=== PATIENT | female | born 1955 | race Caucasian/White ===

== ENCOUNTER → 2018-12-06 | Outpatient (CLI) | payer MEDICARE, BC ==
--- NOTE | 2018-12-06 19:12 | US ---
EXAMINATION TYPE: US kidneys/renal and bladder DATE OF EXAM: 12/06/2018 COMPARISON: Prior ultrasound 10/27/2015 CLINICAL HISTORY: N18.9 CKD. No pain EXAM MEASUREMENTS: Right Kidney: 12.5 x 5.0 x 5.4 cm Left Kidney: 11.1 x 5.3 x 5.8 cm Limited visualization due to patient body habitus Right Kidney: No hydronephrosis or masses seen Left Kidney: No hydronephrosis or masses seen Bladder: limited visualization due to patient discomfort of previous scar Bilateral Jets seen not seen There is no evidence for hydronephrosis at this point in time. No nephrolithiasis is seen. No toribio s are identified. The urinary bladder is anechoic. Kidneys show normal cortical medullary differentiation. IMPRESSION: No significant abnormalities evident.
== END | disposition home or self-care (01) ==
LOC: RADUSWWP 14:49
PROVIDERS: ATTEND Internal Medicine Geriatric Medicine
DX: N18.9 Chronic kidney disease, unspecified (principal)
CPT/HCPCS: 76770

== ENCOUNTER → 2019-03-11 | Outpatient (CLI) | payer MEDICARE, BC ==
[2019-03-11 15:51] LABS: Basophils # (A) 0.1 k/uL (0-0.2); Basophils % (A) 1 %; Eosinophils # (A) 0.5 k/uL (0-0.7); Eosinophils % (A) 4 %; HGB 12.1 gm/dL (11.4-16.0); Hypochromasia Moderate; Lymphocytes # (A) 1.5 k/uL (1.0-4.8); Lymphocytes % (A) 13 %; MCH 29.8 pg (25.0-35.0); MCHC 31.7 g/dL (31.0-37.0); MCV 93.9 fL (80.0-100.0); Mean Platelet Volume 8.1; Monocytes # (A) 0.6 k/uL (0-1.0); Monocytes % (A) 5 %; Neutrophils # (A) 9.2 k/uL (1.3-7.7); Neutrophils % (A) 77 %; Platelet Count 320 k/uL (150-450); RBC 4.05 m/uL (3.80-5.40); RDW 15.4 % (11.5-15.5)
[2019-03-12 00:59] LABS: Parathyroid Hormone Intact 67.7 pg/mL (14.0-72.0)
[2019-03-12 02:01] LABS: Iron Saturation 16.41 (12.00-45.00)
[2019-03-12 02:55] LABS: Protein, Total 6.2 g/dL (6.2-8.2)
[2019-03-12 02:56] LABS: Vitamin D 25 Hydroxy 14.1 ng/mL (30.0-100.0)
[2019-03-12 02:57] LABS: African American GFR (CKD) 55.3 (60.0-200.0); Albumin 4.2 g/dL (3.80-4.90); Anion Gap 11.1 mmol/L (4.00-12.00); BUN/Creat Ratio 27.5 Ratio (12.00-20.00); Calcium 9.9 mg/dL (8.7-10.3); Carbon Dioxide 22.9 mmol/L (21.6-31.8); Magnesium 1.3 mg/dL (1.5-2.4); Phosphorus 3.6 mg/dL (2.4-5.1); Potassium 5.6 mmol/L (3.5-5.5); Uric Acid 5.1 mg/dL (2.9-7.7)
[2019-03-12 13:39] LABS: Albumin 3.21 g/dL (3.80-4.90); Gamma Globulin 0.68 g/dL (0.70-1.50)
== END | disposition home or self-care (01) ==
LOC: LABWHC1 15:04
PROVIDERS: ATTEND Internal Medicine Nephrology
DX: N18.3 Chronic kidney disease, stage 3 (moderate) (principal); E55.9 Vitamin D deficiency, unspecified; N25.81 Secondary hyperparathyroidism of renal origin; M10.9 Gout, unspecified; N39.0 Urinary tract infection, site not specified; D44.9 Neoplasm of uncertain behavior of unspecified endocrine gland
CPT/HCPCS: 36415; 80048; 82040; 82306; 82728; 83540; 83550; 83735; 83970; 84100; 84165; 84550; 85025

== ENCOUNTER 2019-05-16 12:57 | Inpatient (IN) | payer BC, MEDICARE ==
[2019-05-16 13:53] LABS: Basophils # (A) 0.1 k/uL (0-0.2); Basophils % (A) 0 %; Eosinophils # (A) 0.5 k/uL (0-0.7); Eosinophils % (A) 4 %; HCT 37.5 % (34.0-46.0); HGB 11.7 gm/dL (11.4-16.0); Hypochromasia Slight; Lymphocytes # (A) 1.7 k/uL (1.0-4.8); Lymphocytes % (A) 13 %; MCH 28.8 pg (25.0-35.0); MCHC 31.1 g/dL (31.0-37.0); MCV 92.6 fL (80.0-100.0); Mean Platelet Volume 7.4; Monocytes # (A) 0.6 k/uL (0-1.0); Monocytes % (A) 5 %; Neutrophils # (A) 10.1 k/uL (1.3-7.7); Neutrophils % (A) 77 %; Platelet Count 327 k/uL (150-450); RBC 4.06 m/uL (3.80-5.40); RDW 14.7 % (11.5-15.5); WBC 13.2 k/uL (3.8-10.6)
[2019-05-16 14:04] LABS: Albumin 3.9 g/dL (3.5-5.0); Calcium 9.8 mg/dL (8.4-10.2); Potassium 5.5 mmol/L (3.5-5.1); Total Bilirubin 0.3 mg/dL (0.2-1.3)
[2019-05-16 14:05] LABS: Appearance,Urine Cloudy (Clear); Bacteria,Urine Rare /hpf; Bilirubin,Urine Negative (Negative); Blood,Urine Moderate (Negative); Color,Urine Yellow; Glucose,Urine (UA) Negative (Negative); Ketones,Urine Negative (Negative); Leukocyte Esterase,Urine Large (Negative); Mucus,Urine Rare /hpf; Nitrite,Urine Negative (Negative); PH, Urine 5.5 (5.0-8.0); Protein,Urine 2+ (Negative); RBC,Urine 136 /hpf (0-5); Specific Gravity,Urine 1.016 (1.001-1.035); Squamous Epithelial Cell,Urine 1 /hpf (0-4); Urobilinogen,Urine <2.0 mg/dL (<2.0)
[2019-05-16 14:07] LABS: INR 0.9 (<1.2); Partial Thromboplastin Time 24.6 sec (22.0-30.0); Prothrombin Time 9.5 sec (9.0-12.0)
--- NOTE | 2019-05-16 14:39 | ED ---
SOB HPI - General Chief Complaint: Shortness of Breath Stated Complaint: SOB, palpitations Time Seen by Provider: 05/16/19 12:58 Source: patient Mode of arrival: ambulatory Limitations: no limitations - History of Present Illness Initial Comments: 63-year-old female presenting today for chief complaint of shortness of breath. Patient states she has been short of breath for quite some time however for the past week and it has been increasing. Patient states she is also had lower extremity swelling bilaterally that is quite significant for the past year she states that it seems to have increased slightly for the past week as well. Patient states that she has currently at metal lodged due to a wound of the foot that had developed, she state she doesn't know if the shortness of breath is worse with laying flat because she sleeps in a recliner. Patient states the shortness of breath increases with exertion. Patient denies any chest pain back pain. Patient denies any pain with deep inspiration. Patient denies any epigastric pain nausea arm pain and jaw pain or diaphoresis. Patient denies any upper respiratory symptoms or fevers. Patient denies any rectal bleeding or dark stools. Remaining review of systems negative. Upon arrival patient appears well no signs of acute distress - Related Data Home Medications Medication Instructions Recorded Confirmed Albuterol Inhaler [Ventolin Hfa 2 puff INHALATION RT-Q6H PRN 10/26/15 02/19/16 Inhaler] Aspirin [Adult Low Dose Aspirin EC] 81 mg PO DAILY 10/26/15 02/19/16 Atorvastatin [Lipitor] 20 mg PO HS 10/26/15 02/19/16 Glimepiride [Amaryl] 4 mg PO AC-BRKFST 10/26/15 02/19/16 Levothyroxine Sodium [Synthroid] 50 mcg PO DAILY 10/26/15 02/19/16 Mometasone/Formoterol [Dulera 200 2 puff INHALATION RT-BID 10/26/15 02/19/16 Mcg/5 Mcg Inhaler] Previous Rx's Medication Instructions Recorded Bisacodyl [Dulcolax] 5 mg PO DAILY PRN #0 tablet. 11/01/15 Famotidine [Pepcid] 20 mg PO DAILY tab 11/01/15 Glimepiride [Amaryl] 4 mg PO AC-SUPPER #0 11/01/15 HYDROcodone/APAP 5-325MG [[place] 1 each PO Q4HR PRN #100 tab 11/01/15 5-325] INSULIN LISPRO (humaLOG) [humaLOG] 0 unit SQ ACHS vial 11/01/15 Insulin Detemir (Levemir) [Levemir] 30 unit SQ HS #0 vial 11/01/15 Lisinopril [Prinivil] 5 mg PO DAILY #30 tab 11/01/15 amLODIPine [Norvasc] 5 mg PO DAILY tab 11/01/15 cefTRIAXone [Rocephin] 2,000 mg IVPB Q24HR #42 vial 11/01/15 metFORMIN HCL 500 mg PO BID #0 11/01/15 sitaGLIPtin [Januvia] 50 mg PO DAILY #0 11/01/15 Erythromycin Base [Erythromycin] 500 mg PO QID #40 tablet 02/19/16 Allergies Allergy/AdvReac Type Severity Reaction Status Date / Time ampicillin sodium Allergy Itching Verified 05/16/19 13:01 [From Unasyn] sulbactam sodium Allergy Itching Verified 05/16/19 13:01 [From Unasyn] Review of Systems ROS Statement: Those systems with pertinent positive or pertinent negative responses have been documented in the HPI. ROS Other: All systems not noted in ROS Statement are negative. Past Medical History Past Medical History: Asthma, Diabetes Mellitus, GERD/Reflux, Hyperlipidemia, Hypertension, Osteoarthritis (OA), Pneumonia, Thyroid Disorder Additional Past Medical History / Comment(s): 10-16-15 admitted with foeign body rt foot/abcess. other past medical hx includes: RHEUMATIC FEVER, OCC PALPITATIONS,BRONCHITIS, ghout History of Any Multi-Drug Resistant Organisms: MRSA Date of last positivie culture/infection: 2008 MDRO Source:: lt leg Past Surgical History: Appendectomy, Section, Tonsillectomy Additional Past Surgical History / Comment(s): X2 C SECTIONS, right foot IND Past Anesthesia/Blood Transfusion Reactions: No Reported Reaction Additional Past Anesthesia/Blood Transfusion Reaction / Comment(s): clausterphobia Past Psychological History: No Psychological Hx Reported Smoking Status: Former smoker Past Alcohol Use History: None Reported Past Drug Use History: None Reported - Past Family History Father Family Medical History: Congestive Heart Failure (CHF), Diabetes Mellitus Additional Family Medical History / Comment(s): quad bypass Mother Family Medical History: Congestive Heart Failure (CHF) General Exam - General Exam Comments Initial Comments: General: The patient is awake and alert, in no distress Eye: +3 mm pupils are equal, round and reactive to light, extra-ocular movements are intact. No nystagmus. There is normal conjunctiva bilaterally. No signs of icterus. Ears, nose, mouth and throat: There are moist mucous membranes and no oral lesions. Neck: The neck is supple, there is no tenderness or JVD. Cardiovascular: There is a regular rate and rhythm. No murmur, rub or gallop is appreciated. Respiratory: Respirations are non-labored, breath sounds are equal. Mild expiratory wheeze however no stridor, rales, or rhonchi are appreciated. Gastrointestinal: Obese. Soft, non-distended, non-tender abdomen without masses or organomegaly noted. There is no rebound or guarding present. No CVA tenderness. Bowel sounds are unremarkable. Musculoskeletal: Normal ROM, no tenderness. Strength 5/5. Sensation intact. Pulses equal bilaterally 2+. Neurological: A&O x 3. CN II-XII intact, There are no obvious motor or sensory deficits. Coordination appears grossly intact. Speech is normal. Skin: Skin is warm and dry and no rashes or lesions are noted. Bilateral pitting edema. Psychiatric: Cooperative, appropriate mood & affect, normal judgment. Limitations: no limitations Course Vital Signs 05/16/19 05/16/19 05/16/19 12:58 15:21 15:22 Temperature 98.4 F Pulse Rate 82 79 Respiratory 18 22 22 Rate Blood Pressure 203/67 165/69 O2 Sat by Pulse 94 L 97 Oximetry 05/16/19 05/16/19 05/16/19 15:27 15:38 16:52 Temperature Pulse Rate 68 70 81 Respiratory 20 Rate Blood Pressure 156/77 O2 Sat by Pulse 97 Oximetry Medical Decision Making - Medical Decision Making 63-year-old female presenting for shortness of breath and weight gain. Patient states that she has gained 50 pounds the last month. She states she has incre asing shortness breath with exertion. Patient's EKG reveals no acute findings. BMP within normal limits. Creatinine and when necessary no significant abnormalities. D-dimer was obtained at this time given patient's persistent shortness of breath. Revealing no evidence of acute pulmonary embolism however this was a suboptimal study given patient's body habitus. Patient continues to be symptomatic despite DuoNeb treatment and IV lasix. States she feels lightheaded with ambulation. Patient case was discussed with Dr. Mathur and at this time we feel patient should be admitted for persistent SOB, lightheadedness and have cardiac evaluation. Dr. Severino did evaluate the patient in the ER prior to completion of studies. Dr. Mathur spoke with Dr. Villalta who recommended admission with IV lasix and cardiology consult. Patient admitted in stable condition. - Lab Data Result diagrams: 05/16/19 13:30 05/16/19 13:30 Lab Results 05/16/19 05/16/19 05/16/19 Range/Units 13:30 13:30 13:30 WBC 13.2 H (3.8-10.6) k/uL RBC 4.06 (3.80-5.40) m/uL Hgb 11.7 (11.4-16.0) gm/dL Hct 37.5 (34.0-46.0) % MCV 92.6 (80.0-100.0) fL MCH 28.8 (25.0-35.0) pg MCHC 31.1 (31.0-37.0) g/dL RDW 14.7 (11.5-15.5) % Plt Count 327 (150-450) k/uL Neutrophils % 77 % Lymphocytes % 13 % Monocytes % 5 % Eosinophils % 4 % Basophils % 0 % Neutrophils # 10.1 H (1.3-7.7) k/uL Lymphocytes # 1.7 (1.0-4.8) k/uL Monocytes # 0.6 (0-1.0) k/uL Eosinophils # 0.5 (0-0.7) k/uL Basophils # 0.1 (0-0.2) k/uL Hypochromasia Slight PT (9.0-12.0) sec INR (<1.2) APTT (22.0-30.0) sec D-Dimer (<0.60) mg/L FEU Sodium 144 (137-145) mmol/L Potassium 5.5 H (3.5-5.1) mmol/L Chloride 111 H (98-107) mmol/L Carbon Dioxide 23 (22-30) mmol/L Anion Gap 10 mmol/L BUN 34 H (7-17) mg/dL Creatinine 1.13 H (0.52-1.04) mg/dL Est GFR (CKD-EPI)AfAm 60 (>60 ml/min/1.73 sqM) Est GFR (CKD-EPI)NonAf 52 (>60 ml/min/1.73 sqM) Glucose 180 H (74-99) mg/dL Calcium 9.8 (8.4-10.2) mg/dL Total Bilirubin 0.3 (0.2-1.3) mg/dL AST 16 (14-36) U/L ALT 24 (9-52) U/L Alkaline Phosphatase 108 (38-126) U/L Troponin I (0.000-0.034) ng/mL NT-Pro-B Natriuret Pep 51 pg/mL Total Protein 7.0 (6.3-8.2) g/dL Albumin 3.9 (3.5-5.0) g/dL Urine Color Urine Appearance (Clear) Urine pH (5.0-8.0) Ur Specific [place] (1.001-1.035) Urine Protein (Negative) Urine Glucose (UA) (Negative) Urine Ketones (Negative) Urine Blood (Negative) Urine Nitrite (Negative) Urine Bilirubin (Negative) Urine Urobilinogen (<2.0) mg/dL Ur Leukocyte Esterase (Negative) Urine RBC (0-5) /hpf Urine WBC (0-5) /hpf Urine WBC Clumps (None) /hpf Ur Squamous Epith Cells (0-4) /hpf Urine Bacteria (None) /hpf Urine Mucus (None) /hpf 05/16/19 05/16/19 05/16/19 Range/Units 13:30 13:30 13:30 WBC (3.8-10.6) k/uL RBC (3.80-5.40) m/uL Hgb (11.4-16.0) gm/dL Hct (34.0-46.0) % MCV (80.0-100.0) fL MCH (25.0-35.0) pg MCHC (31.0-37.0) g/dL RDW (11.5-15.5) % Plt Count (150-450) k/uL Neutrophils % % Lymphocytes % % Monocytes % % Eosinophils % % Basophils % % Neutrophils # (1.3-7.7) k/uL Lymphocytes # (1.0-4.8) k/uL Monocytes # (0-1.0) k/uL Eosinophils # (0-0.7) k/uL Basophils # (0-0.2) k/uL Hypochromasia PT 9.5 (9.0-12.0) sec INR 0.9 (<1.2) APTT 24.6 (22.0-30.0) sec D-Dimer (<0.60) mg/L FEU Sodium (137-145) mmol/L Potassium (3.5-5.1) mmol/L Chloride (98-107) mmol/L Carbon Dioxide (22-30) mmol/L Anion Gap mmol/L BUN (7-17) mg/dL Creatinine (0.52-1.04) mg/dL Est GFR (CKD-EPI)AfAm (>60 ml/min/1.73 sqM) Est GFR (CKD-EPI)NonAf (>60 ml/min/1.73 sqM) Glucose (74-99) mg/dL Calcium (8.4-10.2) mg/dL Total Bilirubin (0.2-1.3) mg/dL AST (14-36) U/L ALT (9-52) U/L Alkaline Phosphatase (38-126) U/L Troponin I <0.012 (0.000-0.034) ng/mL NT-Pro-B Natriuret Pep pg/mL Total Protein (6.3-8.2) g/dL Albumin (3.5-5.0) g/dL Urine Color Yellow Urine Appearance Cloudy H (Clear) Urine pH 5.5 (5.0-8.0) Ur Specific [place] 1.016 (1.001-1.035) Urine Protein 2+ H (Negative) Urine Glucose (UA) Negative (Negative) Urine Ketones Negative (Negative) Urine Blood Moderate H (Negative) Urine Nitrite Negative (Negative) Urine Bilirubin Negative (Negative) Urine Urobilinogen <2.0 (<2.0) mg/dL Ur Leukocyte Esterase Large H (Negative) Urine RBC 136 H (0-5) /hpf Urine WBC >182 H (0-5) /hpf Urine WBC Clumps Many H (None) /hpf Ur Squamous Epith Cells 1 (0-4) /hpf Urine Bacteria Rare H (None) /hpf Urine Mucus Rare H (None) /hpf 05/16/19 Range/Units 13:30 WBC (3.8-10.6) k/uL RBC (3.80-5.40) m/uL Hgb (11.4-16.0) gm/dL Hct (34.0-46.0) % MCV (80.0-100.0) fL MCH (25.0-35.0) pg MCHC (31.0-37.0) g/dL RDW (11.5-15.5) % Plt Count (150-450) k/uL Neutrophils % % Lymphocytes % % Monocytes % % Eosinophils % % Basophils % % Neutrophils # (1.3-7.7) k/uL Lymphocytes # (1.0-4.8) k/uL Monocytes # (0-1.0) k/uL Eosinophils # (0-0.7) k/uL Basophils # (0-0.2) k/uL Hypochromasia PT (9.0-12.0) sec INR (<1.2) APTT (22.0-30.0) sec D-Dimer 1.13 H (<0.60) mg/L FEU Sodium (137-145) mmol/L Potassium (3.5-5.1) mmol/L Chloride (98-107) mmol/L Carbon Dioxide (22-30) mmol/L Anion Gap mmol/L BUN (7-17) mg/dL Creatinine (0.52-1.04) mg/dL Est GFR (CKD-EPI)AfAm (>60 ml/min/1.73 sqM) Est GFR (CKD-EPI)NonAf (>60 ml/min/1.73 sqM) Glucose (74-99) mg/dL Calcium (8.4-10.2) mg/dL Total Bilirubin (0.2-1.3) mg/dL AST (14-36) U/L ALT (9-52) U/L Alkaline Phosphatase (38-126) U/L Troponin I (0.000-0.034) ng/mL NT-Pro-B Natriuret Pep pg/mL Total Protein (6.3-8.2) g/dL Albumin (3.5-5.0) g/dL Urine Color Urine Appearance (Clear) Urine pH (5.0-8.0) Ur Specific [place] (1.001-1.035) Urine Protein (Negative) Urine Glucose (UA) (Negative) Urine Ketones (Negative) Urine Blood (Negative) Urine Nitrite (Negative) Urine Bilirubin (Negative) Urine Urobilinogen (<2.0) mg/dL Ur Leukocyte Esterase (Negative) Urine RBC (0-5) /hpf Urine WBC (0-5) /hpf Urine WBC Clumps (None) /hpf Ur Squamous Epith Cells (0-4) /hpf Urine Bacteria (None) /hpf Urine Mucus (None) /hpf - EKG Data EKG Comments: Ventricular rate 74 bpm, MA interval 154 ms, Administration 88 ms, QT/QTc is 378/419. Disposition Clinical Impression: SOB (shortness of breath), Lightheaded, Weight gain, Pitting edema, UTI (urinary tract infection), Leukocytosis Disposition: ADMITTED IP TO THIS [facility] Condition: Stable Additional Instructions: . Is patient prescribed a controlled substance at d/c from ED?: No Referrals: Sanket Severino MD [Primary Care Provider] - 1-2 days Time of Disposition: 17:31 Decision to Admit Reason: Admit from EC Decision Date: 05/16/19 Decision Time: 17:31
[2019-05-16] MEDS ORDERED: FUROSEMIDE 10 MG/ML 4 ML VIAL IV STA (14:43)
[2019-05-16] MEDS ORDERED: methylPREDNISolone SOD SUCCI 125 MG/2 ML VIAL IV STA (14:43)
[2019-05-16] MEDS ORDERED: IPRATROPIUM-ALBUTEROL 3 ML NEB INHALATION STA (14:43)
--- NOTE | 2019-05-16 15:08 | XR ---
EXAMINATION TYPE: XR chest 2V DATE OF EXAM: 05/16/2019 COMPARISON: Prior chest x-ray 10/28/2015 HISTORY: Shortness of breath, heart failure, asthma TECHNIQUE: Frontal and lateral views of the chest are obtained. FINDINGS: There are prominent lung volumes present. No evident airspace disease, pneumothorax, or pl eural effusion. The heart remains enlarged. Pulmonary vascularity and elmer are not significantly sarabia ged. Bone mineralization is stable. There is flattening of hemidiaphragms. Thoracic spondylosis is pr esent. Linear scarring along the left heart border shows a similar appearance. IMPRESSION: No acute cardiopulmonary process. Stable cardiomegaly.
[2019-05-16] MEDS ORDERED: cefTRIAXone IN SWFI 1,000 MG/10 ML SYRINGE IVP STA (15:26)
--- NOTE | 2019-05-16 17:06 | CT ---
EXAMINATION TYPE: CT angio chest DATE OF EXAM: 05/16/2019 COMPARISON: Chest x-ray earlier today HISTORY: Elevated d-dimer and shortness of breath. CT DLP: 1067.4 mGycm. Automated Exposure Control for Dose Reduction was Utilized. CONTRAST: CTA scan of the thorax is performed with IV Contrast, patient injected with 80 mL of Isovue 370, pulm onary embolism protocol. MIP Images are created on CT scanner and reviewed. FINDINGS: Suboptimal due to large body habitus. LUNGS: Respiratory motion artifact degradation making evaluation suboptimal particularly for subcenti meter nodules. Patchy bibasilar linear scarring and/or atelectasis is felt present. No suspicious mas ses. No pleural effusion or pneumothorax. MEDIASTINUM: Suboptimal study with heterogeneity and near equal contrast in right and left heart syst em no convincing CT evidence for significant central pulmonary embolism. There is enlarged paratrach eal lymph node measuring 2.1 x 1.2 cm axial image 53. Some prominent right hilar lymph nodes are note d. No pericardial effusion is seen. Cardiomegaly is present. Prominent central pulmonary arteries. C T findings suggesting underlying pulmonary hypertension. OTHER: Visualized liver suspected mildly enlarged. Underlying scoliotic curvature is seen with multil evel spurring. IMPRESSION: Suboptimal study without CT evidence for acute pulmonary embolism. Cardiomegaly without suspicious acute pulmonary process.
[2019-05-16] MEDS ORDERED: NALOXONE 0.4 MG/ML 1 ML VIAL IV PRN (17:32)
[2019-05-16] MEDS: SODIUM CHLORIDE 0.9% 1,000 ML IV SCH (18:09)
[2019-05-16 19:42] VITALS: BMI 46.5
[2019-05-16 19:42] LABS: Glucose,Whole Blood 231 mg/dL (75-99)
[2019-05-17] MEDS ORDERED: FUROSEMIDE 10 MG/ML 4 ML VIAL IV SCH (01:00)
[2019-05-17] MEDS: LEVOTHYROXINE 50 MCG TAB PO SCH (03:24)
[2019-05-17 06:51] LABS: Glucose,Whole Blood 337 mg/dL (75-99)
[2019-05-17] MEDS: SYMBICORT 160-4.5 MCG INHALER INHALATION SCH ×2 (07:45→19:30)
[2019-05-17] MEDS: ALBUTEROL NEBULIZED 2.5 MG/3 ML INHALATION PRN (07:45)
--- NOTE | 2019-05-17 08:30 | P.HPIM ---
History of Present Illness H&P Date: 05/17/19 Chief Complaint: SOB This is a 63-year-old pleasant female who presented to the emergency room after seeing her primary care physician for increased shortness of breath. Patient was sent to the emergency room due to a low pulse ox in the 80s in the office and increased shortness of breath. Patient states that over the last month she has gained approximately 35 pounds and has noticed increased swelling to her lower extremities. Patient has been utilizing a walker to get around due to increased difficulty breathing. Initially when the patient started having difficulty breathing she was started on Lasix however she has found that it has not helped. Patient denies any chest pain or pain with inspiration. Patient denies any diaphoresis or jaw pain. Patient states that the pain is worse when she is ambulating and eating. Patient is a former smoker completely quit approximately 2 years ago she is a total of 25 years of smoking 1 pack a day. Patient's past medical history is significant for asthma. She has not had any episodes of exacerbation since patient takes Symbicort twice a day for management. Past medical history includes diabetes mellitus for the last 10 years, acid reflux, hyperlipidemia, hypertension, osteoarthritis, thyroid disorder, gout. Patient had rheumatic fever when she was younger. Patient lives alone and provides own self-care. Review of Systems Review Of Systems: Constitutional: No fever, no chills, no night sweats. Reports weight change. Report weakness, no fatigue or lethargy. No daytime sleepiness. EENT: No headache. No blurred vision or double vision, no loss of vision. No loss of Hearing, no ringing in the ears, no dizziness. No nasal drainage or congestion. No epistaxis. No sore throat. Lungs: Reports shortness of breath, no cough, no sputum production. No wheezing. Cardiovascular: No chest pain, reports lower extremity edema. No palpitations. No paroxysmal nocturnal dyspnea. No orthopnea. No lightheadedness or dizziness. No syncopal episodes. Abdominal: no abdominal discomfort. No nausea, vomiting. no diarrhea. No constipation. No bloody or tarry stools. improved loss of appetite. Genitourinary: No dysuria, increased frequency, urgency. No urinary retention. Musculoskeletal: No myalgias. No muscle weakness, no gait dysfunction, no frequent falls. No back pain. No neck pain. Integumentary: No wounds, no lesions. No rash or pruritus. No unusual bruising. No change in hair or nails. Neurologic: No aphasia. No facial droop. No change in mentation. No head injury. No headache. No paralysis. No paresthesia. Psychiatric: No depression. No anxiety. No mood swings. Endocrine: No abnormal blood sugars. Reports weight change. No excessive sweating or thirst. Past Medical History Past Medical History: Asthma, Diabetes Mellitus, GERD/Reflux, Hyperlipidemia, Hypertension, Osteoarthritis (OA), Pneumonia, Thyroid Disorder Additional Past Medical History / Comment(s): 10-16-15 admitted with foeign body rt foot/abcess. other past medical hx includes: RHEUMATIC FEVER, OCC PALPITATIONS,BRONCHITIS, ghout History of Any Multi-Drug Resistant Organisms: MRSA Date of last positivie culture/infection: 2008 MDRO Source:: lt leg Past Surgical History: Appendectomy, Section, Tonsillectomy Additional Past Surgical History / Comment(s): X2 C SECTIONS, right foot IND Past Anesthesia/Blood Transfusion Reactions: No Reported Reaction Additional Past Anesthesia/Blood Transfusion Reaction / Comment(s): clausterphobia Past Psychological History: No Psychological Hx Reported Smoking Status: Former smoker Past Alcohol Use History: None Reported Additional Past Alcohol Use History / Comment(s): has smoked half a pack of cigarettes per day off and on since age 21 but since december 2014. She now smokes an occasional cigarette. She denies any medical marijuana, marijuana, street drug or alcohol use. Patient currently lives at home with her fianc. There are no pets in the home. She denies any recent travel. 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 - Past Family History Father Family Medical History: Congestive Heart Failure (CHF), Diabetes Mellitus Additional Family Medical History / Comment(s): quad bypass Mother Family Medical History: Blood Disorder (Anemia), Congestive Heart Failure (CHF), Coronary Artery Disease (CAD) Additional Family Medical History / Comment(s): at 79 Daughter(s) Family Medical History: No Reported History Medications and Allergies Home Medications Medication Instructions Recorded Confirmed Type Albuterol Inhaler [Ventolin Hfa 2 puff INHALATION RT-Q6H PRN 10/26/15 05/16/19 History Inhaler] Atorvastatin [Lipitor] 20 mg PO HS 10/26/15 05/16/19 History Levothyroxine Sodium [Synthroid] 50 mcg PO DAILY 10/26/15 05/16/19 History Lisinopril [Prinivil] 5 mg PO DAILY #30 tab 11/01/15 05/16/19 Rx amLODIPine [Norvasc] 5 mg PO DAILY tab 11/01/15 05/16/19 Rx Allopurinol [Zyloprim] 300 mg PO DAILY 05/16/19 05/16/19 History Aspirin EC [Ecotrin] 325 mg PO DAILY 05/16/19 05/16/19 History Budesonide/Formoterol Fumarate 2 puff INHALATION RT-BID 05/16/19 05/16/19 History [Symbicort 160-4.5 Mcg Inhaler] INSULIN ASPART (NovoLOG) [NovoLOG See Protocol SQ AC-TID 05/16/19 05/16/19 History (formulary)] Insulin Degludec [Tresiba 140 units SQ DAILY 05/16/19 05/16/19 History Flextouch U-200] sitaGLIPtin [Januvia] 100 mg PO DAILY 05/16/19 05/16/19 History Allergies Allergy/AdvReac Type Severity Reaction Status Date / Time ampicillin sodium Allergy Itching Verified 05/16/19 18:05 [From Unasyn] sulbactam sodium Allergy Itching Verified 05/16/19 18:05 [From Unasyn] Physical Exam Vitals: Vital Signs Temp Pulse Pulse Resp BP BP Pulse Ox 05/17/19 08:00 68 05/17/19 07:46 66 05/17/19 04:00 97.8 F 71 18 187/64 95 05/17/19 03:39 77 18 05/17/19 00:00 77 18 05/16/19 23:00 97.6 F 77 18 159/62 95 05/16/19 20:00 66 18 05/16/19 19:24 97.8 F 66 18 177/84 94 L 05/16/19 18:50 98.1 F 85 18 169/75 97 05/16/19 16:52 81 20 156/77 97 05/16/19 15:38 70 05/16/19 15:27 68 05/16/19 15:22 79 22 165/69 97 05/16/19 15:21 22 05/16/19 12:58 98.4 F 82 18 203/67 94 L Intake and Output 05/16/19 05/17/19 05/17/19 22:59 06:59 14:59 Other: # Voids 0 General Appearance: Alert, cooperative, no distress, appears stated age. Neck HEENT: Supple, no lymphadenopathy, no thyroid enlargement, no carotid bruits. Lungs: Clear to auscultation without crackles or wheezes no rhonchi, no deformity. Chest Wall: Chest wall normal expansion with deep inspiration no tenderness and no deformity was found on exam, no costochondral pain or discomfort. Heart: Regular rate and rhythm, S1, S2 normal, no murmur, rub or gallop. Back: Symmetric, no curvature, ROM normal, no CVA tenderness. Abdomen: Soft, non-tender, no rebound or rigidity, no hepatosplenomegaly. Extremities: 2+ pedal edema bilaterally Extremities normal, atraumatic, no cyanosis Pulses: 2+ and symmetric. Skin: Skin color, texture, tugor normal, no rashes or lesions. Neurologic: Alert oriented x3 cranial nerves II through XII intact, no motor deficit, no abnormal balance or gait Results CBC & Chem 7: 05/16/19 13:30 05/16/19 13:30 Labs: Abnormal Lab Results - Last 24 Hours (Table) 05/16/19 05/16/19 05/16/19 Range/Units 13:30 13:30 13:30 WBC 13.2 H (3.8-10.6) k/uL Neutrophils # 10.1 H (1.3-7.7) k/uL D-Dimer (<0.60) mg/L FEU Potassium 5.5 H (3.5-5.1) mmol/L Chloride 111 H (98-107) mmol/L BUN 34 H (7-17) mg/dL Creatinine 1.13 H (0.52-1.04) mg/dL Glucose 180 H (74-99) mg/dL POC Glucose (mg/dL) (75-99) mg/dL Urine Appearance Cloudy H (Clear) Urine Protein 2+ H (Negative) Urine Blood Moderate H (Negative) Ur Leukocyte Esterase Large H (Negative) Urine RBC 136 H (0-5) /hpf Urine WBC >182 H (0-5) /hpf Urine WBC Clumps Many H (None) /hpf Urine Bacteria Rare H (None) /hpf Urine Mucus Rare H (None) /hpf 05/16/19 05/16/19 05/17/19 Range/Units 13:30 19:41 06:49 WBC (3.8-10.6) k/uL Neutrophils # (1.3-7.7) k/uL D-Dimer 1.13 H (<0.60) mg/L FEU Potassium (3.5-5.1) mmol/L Chloride (98-107) mmol/L BUN (7-17) mg/dL Creatinine (0.52-1.04) mg/dL Glucose (74-99) mg/dL POC Glucose (mg/dL) 231 H 337 H (75-99) mg/dL Urine Appearance (Clear) Urine Protein (Negative) Urine Blood (Negative) Ur Leukocyte Esterase (Negative) Urine RBC (0-5) /hpf Urine WBC (0-5) /hpf Urine WBC Clumps (None) /hpf Urine Bacteria (None) /hpf Urine Mucus (None) /hpf Microbiology - Last 24 Hours (Table) 05/16/19 13:30 Urine Culture - Preliminary Urine,Voided Thrombosis Risk Factor Assmnt - Choose All That Apply Any of the Below Risk Factors Present?: Yes Each Factor Represents 1 point: Acute SC, Heart failure (<1month), Obesity (BMI >25), Swollen legs (current) Other Risk Factors: Yes Each Risk Factor Represents 2 Points: Age 61-74 years Other congenital or acquired thrombophilia - If yes, enter type in comment: No Thrombosis Risk Factor Assessment Total Risk Factor Score: 6 Thrombosis Risk Factor Assessment Level: High Risk Assessment and Plan Plan: 1. Diastolic congestive heart failure with exacerbation. Echocardiogram ordered, consult cardiology, Lasix 40 mg IV twice a day 2. Obesity with hyper ventilation syndrome. As noted above 3. Diabetes mellitus. NovoLog 5 units 3 times a day, Levemir 140 units, Linaglitin 5 mg daily 4. Hypertension. Amlodipine 10 mg, lisinopril 10 mg daily, Toprol XL 25 mg daily 5. Chronic kidney disease. Repeat BUN and creatinine, follow-up with Dr. Vázquez outpatient 6. Obstructive sleep apnea. Refer for outpatient sleep study 7. Asthma. Symbicort 2 puffs inhalation twice a day 8. Gout. Allopurinol 30 mg by mouth daily 9. Hyperlipidemia. Lipitor 20 mg daily 10. Hypothyroidism. Synthroid 50 g by mouth 11. GI prophylaxis Pepcid 20 mg daily 12. DVT prophylaxis. Heparin 5000 units subcu every 12 hours Discharge plan: Possible discharge tomorrow to home Impression and plan of care have been directed as dictated by the signing physician. Fabiana Davis nurse practitioner acting as scribe for signing physician.
[2019-05-17] MEDS ORDERED: LISINOPRIL 5 MG TAB PO SCH (09:00)
[2019-05-17] MEDS ORDERED: amLODIPine 5 MG TAB PO SCH (09:00)
[2019-05-17] MEDS: INSULIN ASPART (NovoLOG) 100 UNIT/ML VIAL SQ SCH ×3 (10:11→17:11)
[2019-05-17] MEDS: HEPARIN SODIUM,PORCINE 5,000 UNIT/ML 1 ML VIAL SQ SCH ×2 (10:17→19:45)
[2019-05-17] MEDS: LISINOPRIL 10 MG TAB PO SCH (10:18)
[2019-05-17] MEDS: ASPIRIN 325 MG TAB PO SCH (10:18)
[2019-05-17] MEDS: amLODIPine 10 MG TAB PO SCH (10:18)
[2019-05-17] MEDS: FUROSEMIDE 10 MG/ML 4 ML VIAL IV SCH ×2 (10:18→19:45)
[2019-05-17] MEDS: METOPROLOL SUCCINATE (ER) 25 MG TAB.ER.24H PO SCH (10:19)
[2019-05-17] MEDS: INSULIN DETEMIR (LEVEMIR) 100 UNIT/ML SYR SQ SCH (10:19)
[2019-05-17] MEDS: LINAGLIPTIN 5 MG TABLET PO SCH (10:19)
[2019-05-17] MEDS: FAMOTIDINE 20 MG TAB PO SCH (10:20)
[2019-05-17] MEDS: ALLOPURINOL 300 MG TAB PO SCH (10:20)
[2019-05-17 11:35] LABS: Glucose,Whole Blood 448 mg/dL (75-99)
--- NOTE | 2019-05-17 12:40 | CONS ---
CONSULTATION CHIEF COMPLAINT: Shortness of breath. This is a 63-year-old lady with multiple medical problems including insulin-requiring diabetes, hypertension, dyslipidemia, and hypothyroidism who was seen by her primary care physician yesterday when she complains of dizziness and shortness of breath and was sent to the emergency room from where she is admitted. The patient states that she becomes short of breath with activity and also has episodes of dizziness, especially when she goes from sitting to lying down position. She does not have any chest pain. There is no history of PND or orthopnea and she has mild leg edema. Her hemoglobin is 11.7, white cell count is elevated and she has evidence of urinary tract infection. She also has uncontrolled hypertension on this admission. Patient's shortness of breath may be related to morbid obesity, poor physical activity, uncontrolled hypertension. We certainly have to rule out significant valvular heart disease in this patient who has a heart murmur and carries a history of rheumatic fever when she was young. From her history, she has not had any cardiac evaluation in the past. UTI could be contributing to the dizziness and some of her symptoms. Blood pressure is poorly controlled. The patient was on amlodipine 5 mg daily and Prinivil 5 mg daily at home. I am going to increase the amlodipine to 10 mg daily, start her on Toprol XL 25 mg daily and go up on the dose of Zestril to 10 mg daily. I will obtain a 2D echo to evaluate her LV function. Her BNP is normal. D-dimer was elevated. She went on to have a CT scan of the chest, which did not reveal any evidence of pulmonary embolism. PAST MEDICAL HISTORY: Significant for hypertension, diabetes, hypothyroidism, and she also has COPD or asthma. MEDICATIONS: Medications at home include Lipitor, insulin, albuterol, Zyloprim, aspirin, Januvia, Norvasc, Prinivil, and Synthroid. ALLERGIES: Allergic to UNASYN. FAMILY HISTORY: Significant for coronary artery disease and congestive heart failure. SOCIAL HISTORY: Negative for smoking, EtOH abuse or drug abuse. REVIEW OF SYSTEMS: HEENT is as described above. CARDIAC: As described above. RESPIRATORY: As described above. GI: Negative. GENITOURINARY: Negative. ALLERGY/IMMUNOLOGY: Negative. SKIN: Negative. MUSCULOSKELETAL: Significant for morbid obesity. PSYCHOSOCIAL: Negative. ENDOCRINE: Negative. HEMATOLOGICAL: Negative. DERM: Negative. CONSTITUTIONAL: Negative. ONCOLOGICAL: Negative. Rest of the system review is not relevant. PHYSICAL EXAMINATION: On exam, patient is afebrile. Heart rate is 76 beats per minute, blood pressure is 166/65, O2 sat is 96% on 2 L. There is no jugular venous distention. Carotid upstroke is normal. There is no bruit. Chest exam reveals good air entry without any crackles or rhonchi. Heart exam reveals first and second heart sounds. No gallop. Has a grade 3/6 systolic murmur at the apex. Abdomen is soft. Examination of extremities reveals mild bilateral edema. LABS: Labs show a hemoglobin of 11.7, creatinine is 1.1, potassium is 5.5. Troponin is normal. ASSESSMENT: 1. Shortness of breath, rule out cardiac causes. 2. Dizziness. 3. Uncontrolled hypertension. 4. Urinary tract infection. PLAN: The patient will have an echo done today. We will adjust her medications to better control her blood pressure and we will decide on further course of action based on how her symptoms evolve and what this initial testing shows. MMODL / IJN: [id number] /
--- NOTE | 2019-05-17 15:47 | ECHOF ---
Referral Reason:Shortness of breath MEASUREMENTS -------- HEIGHT: 175.3 cm WEIGHT: 142.9 kg BP: 166/65 RVIDd: 3.3 cm (< 3.3) IVSd: 1.4 cm (0.6 - 1.1) LVIDd: 5.2 cm (3.9 - 5.3) LVPWd: 1.1 cm (0.6 - 1.1) IVSs: 2.3 cm LVIDs: 3.4 cm LVPWs: 1.5 cm Ao Diam: 3.7 cm (2.0 - 3.7) AV Cusp: 2.1 cm (1.5 - 2.6) LA Diam: 3.5 cm (2.7 - 3.8) MV EXCURSION: 18.807 mm (> 18.000) MV EF SLOPE: 68 mm/s (70 - 150) EPSS: 0.6 cm MV E Juvencio: 2.01 m/s MV DecT: 321 ms MV A Juvencio: 1.48 m/s MV E/A Ratio: 1.36 FINDINGS -------- Sinus rhythm. This was a technically difficult study with suboptimal views. LV size, wall thickness and systolic function are normal, with an EF greater than 55%. There is bor derline concentric left ventricular hypertrophy. The right ventricle is normal in size and function. The left atrium is normal in size. The right atrium is normal in size. 5.0mg of Lumason was utilized for enhancement of images Interatrial and interventricular septum intact. The aortic valve is trileaflet, and appears structurally normal. No aortic stenosis or regurgitation. Normal appearing mitral valve. The tricuspid valve appears structurally normal. There is no evidence of pulmonary hypertension. Pulmonic valve appears structurally normal. The aortic root, ascending aorta and aortic arch are normal. The pericardium is normal. CONCLUSIONS -------- 1. Sinus rhythm. 2. This was a technically difficult study with suboptimal views. 3. LV size, wall thickness and systolic function are normal, with an EF greater than 55%. 4. There is borderline concentric left ventricular hypertrophy. 5. The right ventricle is normal in size and function. 6. The left atrium is normal in size. 7. The right atrium is normal in size. 8. 5.0mg of Lumason was utilized for enhancement of images 9. Interatrial and interventricular septum intact. 10. The aortic valve is trileaflet, and appears structurally normal. No aortic stenosis or regurgitat ion. 11. Normal appearing mitral valve. 12. The tricuspid valve appears structurally normal. 13. There is no evidence of pulmonary hypertension. 14. Pulmonic valve appears structurally normal. 15. The aortic root, ascending aorta and aortic arch are normal. 16. The pericardium is normal. GEOPHYSICAL LABORATORY DIRECTOR: Jonathan Matamoros RDCS
[2019-05-17 16:24] LABS: Glucose,Whole Blood 386 mg/dL (75-99)
[2019-05-17] MEDS: SODIUM CHLORIDE 0.9% 1,000 ML IV SCH (17:18)
[2019-05-17] MEDS: ACETAMINOPHEN TAB 325 MG TAB PO PRN (19:45)
[2019-05-17] MEDS: ATORVASTATIN 20 MG TAB PO SCH (19:45)
[2019-05-17 19:47] LABS: Glucose,Whole Blood 335 mg/dL (75-99)
[2019-05-18] MEDS: LEVOTHYROXINE 50 MCG TAB PO SCH (06:03)
[2019-05-18 06:23] LABS: Basophils # (A) 0.1 k/uL (0-0.2); Basophils % (A) 0 %; Eosinophils # (A) 0.2 k/uL (0-0.7); Eosinophils % (A) 2 %; HCT 37.6 % (34.0-46.0); HGB 11.6 gm/dL (11.4-16.0); Hypochromasia Slight; Lymphocytes # (A) 2.1 k/uL (1.0-4.8); Lymphocytes % (A) 13 %; MCH 29.3 pg (25.0-35.0); MCHC 30.8 g/dL (31.0-37.0); MCV 95.2 fL (80.0-100.0); Monocytes # (A) 0.8 k/uL (0-1.0); Monocytes % (A) 5 %; Neutrophils # (A) 11.9 k/uL (1.3-7.7); Neutrophils % (A) 78 %; Platelet Count 379 k/uL (150-450); RBC 3.95 m/uL (3.80-5.40); RDW 15.3 % (11.5-15.5); WBC 15.3 k/uL (3.8-10.6)
[2019-05-18 06:34] LABS: Calcium 9.3 mg/dL (8.4-10.2); Potassium 5.7 mmol/L (3.5-5.1)
[2019-05-18 06:40] LABS: Glucose,Whole Blood 323 mg/dL (75-99)
[2019-05-18] MEDS: SYMBICORT 160-4.5 MCG INHALER INHALATION SCH ×2 (07:31→19:28)
[2019-05-18] MEDS: HEPARIN SODIUM,PORCINE 5,000 UNIT/ML 1 ML VIAL SQ SCH ×2 (07:44→20:57)
[2019-05-18] MEDS: FUROSEMIDE 10 MG/ML 4 ML VIAL IV SCH (07:44)
[2019-05-18] MEDS: METOPROLOL SUCCINATE (ER) 25 MG TAB.ER.24H PO SCH (07:44)
[2019-05-18] MEDS: LINAGLIPTIN 5 MG TABLET PO SCH (07:45)
[2019-05-18] MEDS: INSULIN ASPART (NovoLOG) 100 UNIT/ML VIAL SQ SCH ×3 (07:45→18:05)
[2019-05-18] MEDS: INSULIN DETEMIR (LEVEMIR) 100 UNIT/ML SYR SQ SCH (07:45)
[2019-05-18] MEDS: ALLOPURINOL 300 MG TAB PO SCH (07:45)
[2019-05-18] MEDS: amLODIPine 10 MG TAB PO SCH (07:46)
[2019-05-18] MEDS: ASPIRIN 325 MG TAB PO SCH (07:46)
[2019-05-18] MEDS: LISINOPRIL 10 MG TAB PO SCH (07:46)
[2019-05-18] MEDS: FAMOTIDINE 20 MG TAB PO SCH (07:46)
[2019-05-18] MEDS: hydrALAZINE HCL 50 MG TAB PO SCH ×3 (09:46→20:57)
--- NOTE | 2019-05-18 11:02 | P.PN ---
Subjective Progress Note Date: 05/18/19 This is a 63-year-old pleasant female who presented to the emergency room after seeing her primary care physician for increased shortness of breath. Patient was sent to the emergency room due to a low pulse ox in the 80s in the office and increased shortness of breath. Patient states that over the last month she has gained approximately 35 pounds and has noticed increased swelling to her lower extremities. Patient has been utilizing a walker to get around due to increased difficulty breathing. Initially when the patient started having difficulty breathing she was started on Lasix however she has found that it has not helped. Patient denies any chest pain or pain with inspiration. Patient denies any diaphoresis or jaw pain. Patient states that the pain is worse when she is ambulating and eating. Patient is a former smoker completely quit approximately 2 years ago she is a total of 25 years of smoking 1 pack a day. Patient's past medical history is significant for asthma. She has not had any episodes of exacerbation since patient takes Symbicort twice a day for management. Past medical history includes diabetes mellitus for the last 10 years, acid reflux, hyperlipidemia, hypertension, osteoarthritis, thyroid disorder, gout. Patient had rheumatic fever when she was younger. Patient lives alone and provides own self-care. 05/18: Patient is resting quietly in bed without any new complaints or concerns. Patient has been ambulating within the halls without any difficulties or chest pain or shortness of breath. Patient states that the shortness of breath has improved. Patient blood glucose levels continue to be elevated. Patient states that Levemir does not work for her she also utilizes 20 units of NovoLog and additional sliding scale. Patient is concerned that she has not had a Pap smear in quite a few years and this requesting to have one performed. Instructed patient that this is done an outpatient and to call the office to schedule. Lower extremity swelling has decreased. Patient is scheduled for a stress test tomorrow. Review Of Systems: Constitutional: No fever, no chills, no night sweats. No weight change. No weakness, fatigue or lethargy. No daytime sleepiness. EENT: No headache. No blurred vision or double vision, no loss of vision. No loss of Hearing, no ringing in the ears, no dizziness. No nasal drainage or congestion. No epistaxis. No sore throat. Lungs: No shortness of breath, cough, no sputum production. No wheezing. Cardiovascular: No chest pain, no lower extremity edema. No palpitations. No paroxysmal nocturnal dyspnea. No orthopnea. No lightheadedness or dizziness. No syncopal episodes. Abdominal: no abdominal discomfort. No nausea, vomiting. no diarrhea. No constipation. No bloody or tarry stools. no loss of appetite. Genitourinary: No dysuria, increased frequency, urgency. No urinary retention. Musculoskeletal: No myalgias. No muscle weakness, no gait dysfunction, no frequent falls. No back pain. No neck pain. Integumentary: No wounds, no lesions. No rash or pruritus. No unusual br uising. No change in hair or nails. Neurologic: No aphasia. No facial droop. No change in mentation. No head injury. No headache. No paralysis. No paresthesia. Psychiatric: No depression. No anxiety. No mood swings. Endocrine: No abnormal blood sugars. No weight change. No excessive sweating or thirst. Objective - Vital Signs Vital signs: Vital Signs Temp 98.3 F 05/18/19 08:00 Pulse 61 05/18/19 08:00 Resp 18 05/18/19 08:00 BP 162/76 05/18/19 08:00 Pulse Ox 93 L 05/18/19 08:00 Intake & Output 05/17/19 05/18/19 05/18/19 18:59 06:59 18:59 Other: Voiding Method Toilet Toilet Toilet # Voids 2 1 2 - Exam General Appearance: Alert, cooperative, no distress, appears stated age. Neck HEENT: Supple, no lymphadenopathy, no thyroid enlargement, no carotid bruits. Lungs: Clear to auscultation without crackles or wheezes no rhonchi, no deformity. Chest Wall: Chest wall normal expansion with deep inspiration no tenderness and no deformity was found on exam, no costochondral pain or discomfort. Heart: Regular rate and rhythm, S1, S2 normal, no murmur, rub or gallop. Back: Symmetric, no curvature, ROM normal, no CVA tenderness. Abdomen: Soft, non-tender, no rebound or rigidity, no hepatosplenomegaly. Extremities: 2+ pedal edema bilaterally Extremities normal, atraumatic, no cyanosis Pulses: 2+ and symmetric. Skin: Skin color, texture, tugor normal, no rashes or lesions. Neurologic: Alert oriented x3 cranial nerves II through XII intact, no motor deficit, no abnormal balance or gait - Labs CBC & Chem 7: 05/18/19 05:55 05/18/19 05:55 Labs: Abnormal Lab Results - Last 24 Hours (Table) 05/17/19 05/17/19 05/17/19 Range/Units 11:33 16:22 19:46 WBC (3.8-10.6) k/uL MCHC (31.0-37.0) g/dL Neutrophils # (1.3-7.7) k/uL Potassium (3.5-5.1) mmol/L BUN (7-17) mg/dL Creatinine (0.52-1.04) mg/dL Glucose (74-99) mg/dL POC Glucose (mg/dL) 448 H 386 H 335 H (75-99) mg/dL 05/18/19 05/18/19 05/18/19 Range/Units 05:55 05:55 06:39 WBC 15.3 H (3.8-10.6) k/uL MCHC 30.8 L (31.0-37.0) g/dL Neutrophils # 11.9 H (1.3-7.7) k/uL Potassium 5.7 H (3.5-5.1) mmol/L BUN 63 H (7-17) mg/dL Creatinine 1.51 H (0.52-1.04) mg/dL Glucose 320 H (74-99) mg/dL POC Glucose (mg/dL) 323 H (75-99) mg/dL Microbiology - Last 24 Hours (Table) 05/16/19 13:30 Urine Culture - Final Urine,Voided Assessment and Plan Plan: 1. Acute Diastolic congestive heart failure with exacerbation. Echocardiogram reviewed the screening percent, borderline concentric left ventricle hypertrophy, consult cardiology, start Lasix 40 mg by mouth twice a day, scheduled for stress test tomorrow. 2. Obesity with hyper ventilation syndrome. As noted above 3. Diabetes mellitus. Increase NovoLog 10 units 3 times a day, Levemir 140 units, Linaglitin 5 mg daily 4. Hypertension. Amlodipine 10 mg, discontinue lisinopril 10 mg daily per cardiology, Toprol XL 25 mg daily, start hydralazine 50 mg by mouth 3 times a day per cardiology 5. Chronic kidney disease. Repeat BUN and creatinine, follow-up with Dr. Vázquez outpatient 6. Obstructive sleep apnea. Refer for outpatient sleep study 7. Asthma. Symbicort 2 puffs inhalation twice a day 8. Gout. Allopurinol 30 mg by mouth daily 9. Hyperlipidemia. Lipitor 20 mg daily 10. Hypothyroidism. Synthroid 50 g by mouth 11. GI prophylaxis Pepcid 20 mg daily 12. DVT prophylaxis. Heparin 5000 units subcu every 12 hours Discharge plan: Possible discharge Sunday to home Impression and plan of care have been directed as dictated by the signing physician. Fabiana Davis nurse practitioner acting as scribe for signing physician.
[2019-05-18 11:24] LABS: Glucose,Whole Blood 246 mg/dL (75-99)
--- NOTE | 2019-05-18 13:33 | P.NPCON ---
History of Present Illness - Reason for Consult Consult date: 05/18/19 acute renal failure - Chief Complaint Acute kidney injury, contrast-induced - History of Present Illness This is a 63-year-old female known to us with chronic kidney disease. She was admitted with worsening shortness of breath and edema and weight gain. She has acute kidney injury likely from contrast. She had a CTA done to rule out pulmonary embolism on 913. Her creatinine which was 1.21 03/11/2019 and 1.131 05/16/2019, went up to 1.51 as of this morning on 05/18/2019 No history of exposure to any other nephrotoxic medication. Blood pressures and vital signs have been unremarkable. No nausea vomiting diarrhea abdominal pain of dysuria frequency. Patient is diabetic for the last 10 years, obstructive sleep apnea not using any oxygen or BiPAP. Known with hypertension and history of heart failure Echocardiogram is normal She is reformed smoker 25 pack years quit about 2 years ago Past Medical History Past Medical History: Asthma, Diabetes Mellitus, GERD/Reflux, Hyperlipidemia, Hypertension, Osteoarthritis (OA), Pneumonia, Thyroid Disorder Additional Past Medical History / Comment(s): 10-16-15 admitted with foeign body rt foot/abcess. other past medical hx includes: RHEUMATIC FEVER, OCC PALPITATIONS,BRONCHITIS, ghout History of Any Multi-Drug Resistant Organisms: MRSA Date of last positivie culture/infection: 2008 MDRO Source:: lt leg Past Surgical History: Appendectomy, Section, Tonsillectomy Additional Past Surgical History / Comment(s): X2 C SECTIONS, right foot IND Past Anesthesia/Blood Transfusion Reactions: No Reported Reaction Additional Past Anesthesia/Blood Transfusion Reaction / Comment(s): sveta yee Past Psychological History: No Psychological Hx Reported Smoking Status: Former smoker Past Alcohol Use History: None Reported Additional Past Alcohol Use History / Comment(s): has smoked half a pack of cigarettes per day off and on since age 21 but since december 2014. She now smokes an occasional cigarette. She denies any medical marijuana, marijuana, street drug or alcohol use. Patient currently lives at home with her fianc. There are no pets in the home. She denies any recent travel. 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 Past Drug Use History: None Reported - Past Family History Father Family Medical History: Congestive Heart Failure (CHF), Diabetes Mellitus Additional Family Medical History / Comment(s): quad bypass Mother Family Medical History: Blood Disorder (Anemia), Congestive Heart Failure (CHF), Coronary Artery Disease (CAD) Additional Family Medical History / Comment(s): at 79 Daughter(s) Family Medical History: No Reported History Medications and Allergies Home Medications Medication Instructions Recorded Confirmed Type Albuterol Inhaler [Ventolin Hfa 2 puff INHALATION RT-Q6H PRN 10/26/15 05/16/19 History Inhaler] Atorvastatin [Lipitor] 20 mg PO HS 10/26/15 05/16/19 History Levothyroxine Sodium [Synthroid] 50 mcg PO DAILY 10/26/15 05/16/19 History Lisinopril [Prinivil] 5 mg PO DAILY #30 tab 11/01/15 05/16/19 Rx amLODIPine [Norvasc] 5 mg PO DAILY tab 11/01/15 05/16/19 Rx Allopurinol [Zyloprim] 300 mg PO DAILY 05/16/19 05/16/19 History Aspirin EC [Ecotrin] 325 mg PO DAILY 05/16/19 05/16/19 History Budesonide/Formoterol Fumarate 2 puff INHALATION RT-BID 05/16/19 05/16/19 History [Symbicort 160-4.5 Mcg Inhaler] INSULIN ASPART (NovoLOG) [NovoLOG See Protocol SQ AC-TID 05/16/19 05/16/19 History (formulary)] Insulin Degludec [Tresiba 140 units SQ DAILY 05/16/19 05/16/19 History Flextouch U-200] sitaGLIPtin [Januvia] 100 mg PO DAILY 05/16/19 05/16/19 History Furosemide [Lasix] 40 mg PO BID@0900,1400 #60 tab 05/18/19 Rx Allergies Allergy/AdvReac Type Severity Reaction Status Date / Time ampicillin sodium Allergy Itching Verified 05/16/19 18:05 [From Unasyn] sulbactam sodium Allergy Itching Verified 05/16/19 18:05 [From Unasyn] Physical Exam Vitals: Vital Signs Temp Pulse Pulse Pulse Pulse Resp BP 05/18/19 12:00 97.7 F 63 64 79 67 18 145/75 05/18/19 08:00 98.3 F 61 64 79 67 18 162/76 05/18/19 03:20 18 05/17/19 23:30 98.3 F 70 18 113/56 05/17/19 23:21 18 05/17/19 20:00 18 05/17/19 19:01 97.6 F 75 18 161/74 05/17/19 16:00 97.7 F 76 64 79 67 20 BP BP BP Pulse Ox 05/18/19 12:00 95 05/18/19 08:00 93 L 05/18/19 03:20 05/17/19 23:30 96 05/17/19 23:21 05/17/19 20:00 05/17/19 19:01 96 05/17/19 16:00 161/73 174/76 163/65 95 Intake and Output 05/17/19 05/18/19 05/18/19 22:59 06:59 14:59 Other: Voiding Method Toilet Toilet Toilet # Voids 1 2 On examination she is morbidly obese. Cheerful awake alert oriented HEENT exam no JVP neck is supple no facial asymmetry Lungs are clear to auscultation good air entry bilaterally Heart sounds are unremarkable for any murmur rub gallop Abdomen soft nontender obese no masses felt Extremity exam was moderate edema Neurologically awake alert oriented Results - Lab Results Most recent lab results Calcium 9.3 mg/dL (8.4-10.2) 05/18/19 05:55 05/18/19 05:55 05/18/19 05:55 Assessment and Plan Assessment: Impression 1. Acute kidney injury secondary to contrast. She had a CTA done after which her creatinine went up from 1.3, to 1.5. 2. History of chronic kidney disease under the care of Dr. Vázquez. Creatinine was 0.7 on 520 02/06/2016 3 years ago but was 1.2 more recently on 03/11/2019 likely from diabetic nephropathy and hypertensive nephrosclerosis. 3 significant edema for which she was admitted with shortness of breath. Her computed tomography scan does not show any pulmonary embolism, chest x-ray is normal and is not showing any pulmonary edema. 4. Reformed smoker 5. Diabetes mellitus 10 years 6. Mild hyperkalemia secondary to high blood sugar. Potassium is 5.7 blood sugar was 320 Recommendation 1. Maintain current medications, including Lasix at 40 mg twice a day to improve her edema. 2. Expect acute kidney injury from diet ATN to resolve in a few days. 3. Control blood sugars. Expect potassium to improve. 4. No need to treat hyperkalemia. Lasix should improve potassium., Treatment of high blood sugar will push the potassium intracellularly
--- NOTE | 2019-05-18 15:02 | PN ---
PROGRESS NOTE Myrna is a 63-year-old lady who is admitted to hospital with dizziness and ruled out for myocardial infarction. At the time of my evaluation this morning, she appears comfortable at rest. Dizziness has improved and no longer has any shortness of breath. She had an echo that shows normal LV systolic function. PHYSICAL EXAM: She is comfortable at rest. Blood pressure is 113/56, respiratory rate is 18. Chest exam reveals good air entry bilaterally. Heart exam reveals first and second heart sounds. No gallop. Exam of extremities did not reveal any edema. Peripheral pulses are felt. LABS: Show a hemoglobin of 11.6 potassium is 5.7, BUN is 63, creatinine is 1.5. ASSESSMENT: 1. Dizziness and shortness of breath, rule out cardiac causes. I will obtain a dobutamine echo on her. 2. Hyperkalemia, probably related to renal tubular acidosis in a patient who is a diabetic and is on PATT inhibitors. The patient's BUN and creatinine have also gone up. I am going to ask Nephrology to see the patient. Will probably have to stop the PATT inhibitors. MMODL / IJN: [id number] /
[2019-05-18 16:30] LABS: Glucose,Whole Blood 166 mg/dL (75-99)
[2019-05-18] MEDS: FUROSEMIDE 40 MG TAB PO SCH (16:32)
[2019-05-18] MEDS: SODIUM CHLORIDE 0.9% 1,000 ML IV SCH (17:08)
[2019-05-18 17:56] LABS: Glucose,Whole Blood 144 mg/dL (75-99)
[2019-05-18 20:21] LABS: Glucose,Whole Blood 223 mg/dL (75-99)
[2019-05-18] MEDS: ATORVASTATIN 20 MG TAB PO SCH (20:57)
[2019-05-19] MEDS: INSULIN DETEMIR (LEVEMIR) 100 UNIT/ML SYR SQ SCH (06:42)
[2019-05-19] MEDS: INSULIN ASPART (NovoLOG) 100 UNIT/ML VIAL SQ SCH ×3 (06:43→18:28)
[2019-05-19 06:46] LABS: Glucose,Whole Blood 113 mg/dL (75-99)
[2019-05-19] MEDS: LEVOTHYROXINE 50 MCG TAB PO SCH (06:46)
[2019-05-19] MEDS ORDERED: DOBUTamine DRIP for NUC MED 500 MG in DEXTROSE/WATER 1 250ML.BAG IV ONE (08:00)
[2019-05-19] MEDS ORDERED: ONDANSETRON 4 MG/2 ML VIAL IVP PRN (09:27)
[2019-05-19] MEDS: SYMBICORT 160-4.5 MCG INHALER INHALATION SCH ×2 (09:30→20:12)
[2019-05-19 10:13] LABS: HCT 35.2 % (34.0-46.0); HGB 11.5 gm/dL (11.4-16.0); Hypochromasia Slight; MCH 29.8 pg (25.0-35.0); MCHC 32.5 g/dL (31.0-37.0); MCV 91.6 fL (80.0-100.0); Mean Platelet Volume 7.2; Platelet Count 314 k/uL (150-450); RBC 3.85 m/uL (3.80-5.40); RDW 14.7 % (11.5-15.5); WBC 12.4 k/uL (3.8-10.6)
[2019-05-19 10:35] LABS: Albumin 3.7 g/dL (3.5-5.0); Calcium 9.7 mg/dL (8.4-10.2); Potassium 5.3 mmol/L (3.5-5.1); Total Bilirubin 0.4 mg/dL (0.2-1.3); Total Protein 6.5 g/dL (6.3-8.2)
[2019-05-19] MEDS ORDERED: TERBUTALINE FOR EXTRAVASATION 1 MG/ML VIAL SQ STA ×2 (12:09→13:05)
[2019-05-19] MEDS ORDERED: ATROPINE SULFATE 0.1 MG/ML 10ML SYRINGE ONE (12:13)
[2019-05-19 12:39] LABS: Glucose,Whole Blood 151 mg/dL (75-99)
--- NOTE | 2019-05-19 12:59 | ECHOS ---
STRESS ECHOCARDIOGRAM DATE OF SERVICE: 05/19/2019 INDICATIONS: Shortness of breath. MEDICATIONS: BASELINE HEART RATE: 65 BASELINE BLOOD PRESSURE: 144/61 MAXIMUM HEART RATE: 117 MAXIMUM BLOOD PRESSURE: 199/42 85% MPHR: 133 100% MPHR: 156 METS: MAXIMUM STAGE REACHED: TOTAL EXERCISE TIME: CLINICAL INFORMATION: Baseline rhythm is sinus mechanism, rate of 65, normal axis and intervals, poor progression. Baseline blood pressure 144/61 mmHg. Patient received infusion of dobutamine per protocol as well as 0.5 mg of atropine. Peak rate 117 beats per minute which is equal to 75% maximum predicted heart rate. Peak blood pressure 199/42 mmHg. Electrocardiograph monitoring revealed rare PVCs. There was no evidence of diagnostic ischemic ST deviation. Baseline echocardiogram revealed normal wall thickening and motion. At peak exercise, there was normal wall motion augmentation with no hypokinesis or dyskinesis. CONCLUSION: 1. Nondiagnostic electrocardiographic response to dobutamine secondary to the inability to achieve 85% of maximum predicted heart rate. At the rate achieved, there was no evidence of stress induced ischemia. 2. Nondiagnostic stress echocardiogram secondary to the inability to achieve 85% of maximum predicted heart rate, but at the rate achieved there was no evidence of stress-induced ischemia by echocardiographic criteria. MMODL / IJN: [id number] /
--- NOTE | 2019-05-19 13:37 | P.PN ---
Subjective Progress Note Date: 05/19/19 This is a 63-year-old pleasant female who presented to the emergency room after seeing her primary care physician for increased shortness of breath. Patient was sent to the emergency room due to a low pulse ox in the 80s in the office and increased shortness of breath. Patient states that over the last month she has gained approximately 35 pounds and has noticed increased swelling to her lower extremities. Patient has been utilizing a walker to get around due to increased difficulty breathing. Initially when the patient started having difficulty breathing she was started on Lasix however she has found that it has not helped. Patient denies any chest pain or pain with inspiration. Patient denies any diaphoresis or jaw pain. Patient states that the pain is worse when she is ambulating and eating. Patient is a former smoker completely quit approximately 2 years ago she is a total of 25 years of smoking 1 pack a day. Patient's past medical history is significant for asthma. She has not had any episodes of exacerbation since patient takes Symbicort twice a day for managemen t. Past medical history includes diabetes mellitus for the last 10 years, acid reflux, hyperlipidemia, hypertension, osteoarthritis, thyroid disorder, gout. Patient had rheumatic fever when she was younger. Patient lives alone and provides own self-care. 05/18: Patient is resting quietly in bed without any new complaints or concerns. Patient has been ambulating within the halls without any difficulties or chest pain or shortness of breath. Patient states that the shortness of breath has improved. Patient blood glucose levels continue to be elevated. Patient states that Levemir does not work for her she also utilizes 20 units of NovoLog and additional sliding scale. Patient is concerned that she has not had a Pap smear in quite a few years and this requesting to have one performed. Instructed patient that this is done an outpatient and to call the office to schedule. Lower extremity swelling has decreased. Patient is scheduled for a stress test tomorrow. 05/19: This morning, patient was complaining of nausea and not feeling well in general with achy feeling and scratchy sensation to the back of her throat. She denies having any fever or chills. Her shortness of breath is improved. She is feeling dizziness. She denies any abdominal pain. She did have 2 bowel movemen ts yesterday. Repeat lab work reveals WBC 12.4. Potassium 5.3, chloride 109, CO2 26, sodium 143. BUN 69 creatinine 1.34. Blood sugars running between 110 and 223. We will discontinue Lasix and repeat lab work in the morning. Nephrology has evaluated the patient yesterday with recommendations to continue current Lasix, expect acute kidney injury to resolve in the next few days. Review Of Systems: Constitutional: No fever, no chills, no night sweats. No weight change. No weakness, fatigue or lethargy. No daytime sleepiness. EENT: No headache. No blurred vision or double vision, no loss of vision. No loss of Hearing, no ringing in the ears, reports dizziness. No nasal drainage o r congestion. No epistaxis. reports sore throat. Lungs: No shortness of breath, cough, no sputum production. No wheezing. Cardiovascular: No chest pain, no lower extremity edema. No palpitations. No paroxysmal nocturnal dyspnea. No orthopnea. No lightheadedness or dizziness. No syncopal episodes. Abdominal: no abdominal discomfort. reports nausea, no vomiting. no diarrhea. No constipation. No bloody or tarry stools. no loss of appetite. Genitourinary: No dysuria, increased frequency, urgency. No urinary retention. Musculoskeletal: No myalgias. No muscle weakness, no gait dysfunction, no frequent falls. No back pain. No neck pain. Integumentary: No wounds, no lesions. No rash or pruritus. No unusual bruising. No change in hair or nails. Neurologic: No aphasia. No facial droop. No change in mentation. No head injury. No headache. No paralysis. No paresthesia. Psychiatric: No depression. No anxiety. No mood swings. Endocrine: No abnormal blood sugars. No weight change. No excessive sweating or thirst. Objective - Vital Signs Vital signs: Vital Signs Temp 98.5 F 05/19/19 04:00 Pulse 68 05/19/19 04:00 Resp 18 05/19/19 04:00 BP 158/61 05/19/19 04:00 Pulse Ox 91 L 05/19/19 04:00 Intake & Output 05/18/19 05/19/19 05/19/19 18:59 06:59 18:59 Intake Total 360 Balance 360 Weight 139.6 kg Intake: Oral 360 Other: Voiding Method Toilet Toilet # Voids 1 2 - Exam General Appearance: Alert, cooperative, no distress, appears stated age. Neck HEENT: Supple, no lymphadenopathy, no thyroid enlargement, no carotid bruits. Lungs: Clear to auscultation without crackles or wheezes no rhonchi, no defor mity. Chest Wall: Chest wall normal expansion with deep inspiration no tenderness and no deformity was found on exam. Heart: Regular rate and rhythm, S1, S2 normal, no murmur, rub or gallop. Back: Symmetric, no curvature, ROM normal, no CVA tenderness. Abdomen: Soft, non-tender, no rebound or rigidity, no hepatosplenomegaly. Extremities: 2+ pedal edema bilaterally Extremities normal, atraumatic, no cyanosis Pulses: 2+ and symmetric. Skin: Skin color, texture, tugor normal, no rashes or lesions. Neurologic: Alert oriented x3 cranial nerves II through XII intact, no motor deficit, no abnormal balance or gait - Labs CBC & Chem 7: 05/19/19 10:00 05/19/19 10:00 Labs: Abnormal Lab Results - Last 24 Hours (Table) 05/18/19 05/18/19 05/18/19 Range/Units 11:22 16:28 17:55 POC Glucose (mg/dL) 246 H 166 H 144 H (75-99) mg/dL 05/18/19 05/19/19 Range/Units 20:19 06:42 POC Glucose (mg/dL) 223 H 113 H (75-99) mg/dL Assessment and Plan Plan: 1. Acute on chronic diastolic heart failure. Echocardiogram reviewed the screening percent, borderline concentric left ventricle hypertrophy, consult cardiology, Lasix discontinued. Stress test normal. 2. Obesity with hypoventilation syndrome. 3. Diabetes mellitustype II, insulin requiring. Increase NovoLog 10 units 3 times a day, Levemir 140 units, Linaglitin 5 mg daily 4. Hypertension. Amlodipine 10 mg, discontinue lisinopril 10 mg daily per cardiology, Toprol XL 25 mg daily, start hydralazine 50 mg by mouth 3 times a day per cardiology 5. Acute kidney injury with chronic kidney disease III. Repeat BUN and creatinine, follow-up with Dr. Vázquez outpatient. consult with nephrology appreci ated. 6. Obstructive sleep apnea. Refer for outpatient sleep study 7. Asthma, mild intermittent. Symbicort 2 puffs inhalation twice a day 8. Gout, chronic. Allopurinol 30 mg by mouth daily 9. Hyperlipidemia. Lipitor 20 mg daily 10. Hypothyroidism. Synthroid 50 g by mouth 11. GI prophylaxis Pepcid 20 mg daily 12. DVT prophylaxis. Heparin 5000 units subcu every 12 hours 13. Dizziness, nausea. Hold Lasix. Discharge plan: Possible discharge Sunday Impression and plan of care have been directed as dictated by the signing physician. Chelsey Casey nurse practitioner acting as scribe for signing physician.
--- NOTE | 2019-05-19 13:50 | P.PN ---
Subjective Patient is seen in follow-up for acute kidney injury on chronic kidney disease. Patient has chronic kidney disease stage III secondary to diabetic kidney disease with baseline creatinine in the range of 1-1.2. Creatinine peaked at 1.5 on this admission and is down to 1.34 today. She went for stress test this morning. No active chest pain or shortness of breath. Urine output is good. No vomiting or diarrhea. Vital signs are stable. General: The patient appeared well nourished and normally developed. HEENT: Head exam is unremarkable. Neck is without jugular venous distension. LUNGS: Lungs are clear to auscultation and percussion. Breath sounds decreased. HEART: Rate and Rhythm are regular. First and second heart sounds normal. No mu rmurs, rubs or gallops. ABDOMEN: Abdominal exam reveals normal bowel sounds. Non-tender and non-dis tended. No evidence of peritonitis. EXTREMITITES: 1+ edema. Objective - Vital Signs Vital signs: Vital Signs Temp 98.5 F 05/19/19 04:00 Pulse 68 05/19/19 04:00 Resp 18 05/19/19 04:00 BP 158/61 05/19/19 04:00 Pulse Ox 91 L 05/19/19 04:00 Intake & Output 05/18/19 05/19/19 05/19/19 18:59 06:59 18:59 Intake Total 360 0 Balance 360 0 Weight 139.6 kg Intake: Oral 360 0 Other: Voiding Method Toilet Toilet # Voids 1 2 - Labs CBC & Chem 7: 05/19/19 10:00 05/19/19 10:00 Labs: Abnormal Lab Results - Last 24 Hours (Table) 05/18/19 05/18/19 05/18/19 Range/Units 16:28 17:55 20:19 WBC (3.8-10.6) k/uL Potassium (3.5-5.1) mmol/L Chloride (98-107) mmol/L BUN (7-17) mg/dL Creatinine (0.52-1.04) mg/dL Glucose (74-99) mg/dL POC Glucose (mg/dL) 166 H 144 H 223 H (75-99) mg/dL 05/19/19 05/19/19 05/19/19 Range/Units 06:42 10:00 10:00 WBC 12.4 H (3.8-10.6) k/uL Potassium 5.3 H (3.5-5.1) mmol/L Chloride 109 H (98-107) mmol/L BUN 69 H (7-17) mg/dL Creatinine 1.34 H (0.52-1.04) mg/dL Glucose 110 H (74-99) mg/dL POC Glucose (mg/dL) 113 H (75-99) mg/dL 05/19/19 Range/Units 12:37 WBC (3.8-10.6) k/uL Potassium (3.5-5.1) mmol/L Chloride (98-107) mmol/L BUN (7-17) mg/dL Creatinine (0.52-1.04) mg/dL Glucose (74-99) mg/dL POC Glucose (mg/dL) 151 H (75-99) mg/dL Assessment and Plan Plan: Assessment: 1. Acute kidney injury secondary to contrast-induced acute kidney injury. Patient underwent CTA on May 16. Creatinine peaked at 1.5 on this admission and is 1.34 today. 2. Acute on chronic diastolic CHF. 3. Chronic kidney disease stage III secondary to diabetic kidney disease with basic creatinine in the range of 1-1.2. 4. Hypertension with chronic kidney disease. 5. Insulin-dependent diabetes mellitus. 6. Dyspnea. No evidence of PE. Status post stress test this morning. Plan: Resume Lasix 40 mg orally twice daily. Avoid nephrotoxins. Repeat electrolytes in the morning.
--- NOTE | 2019-05-19 14:55 | P.PN ---
Subjective Progress Note Date: 05/19/19 This is a 63-year-old female patient with history of diabetes, hypertension, hyperlipidemia, hypothyroidism, who presented to the hospital with symptoms of dizziness and associated shortness of breath. Patient had been seen in consultation yesterday by Dr. Spence. Patient also has history of uncontrolled h ypertension. Her Norvasc was increased yesterday. Patient did have an elevated d-dimer and subsequent CT of the chest which was negative for pulmonary embolism. She was scheduled today to undergo dobutamine echocardiographic study. Dobutamine echocardiographic study although patient did not achieve 85% of maximum predicted heart rate, at the rate achieved there is no evidence of stress-induced ischemia. Objective - Vital Signs Vital signs: Vital Signs Temp 98.5 F 05/19/19 04:00 Pulse 68 05/19/19 04:00 Resp 18 05/19/19 04:00 BP 158/61 05/19/19 04:00 Pulse Ox 91 L 05/19/19 04:00 Intake & Output 05/18/19 05/19/19 05/19/19 18:59 06:59 18:59 Intake Total 360 0 Balance 360 0 Weight 139.6 kg Intake: Oral 360 0 Other: Voiding Method Toilet Toilet # Voids 1 2 - Exam PHYSICAL EXAMINATION: GENERAL: 63-year-old female in no acute distress at the time of my examination HEENT: Head is atraumatic, normocephalic. Pupils equal, round. Sclera anicteric. Conjunctiva are clear. Mucous membranes of the mouth are moist. Neck is supple. There is no elevated jugular venous pressure.] bruit is heard. HEART EXAMINATION: Heart S1, S2 normal. No murmur or gallop heard. CHEST EXAMINATION: Lungs are clear to auscultation and precussion. No chest wall tenderness is noted on palpation or with deep breathing. ABDOMEN: Soft, nontender. Bowel sounds are heard. No organomegaly noted. EXTREMITIES: 2+ peripheral pulses with no evidence of peripheral edema and no calf tenderness noted. NEUROLOGIC patient is awake, alert and oriented 3 . . - Labs CBC & Chem 7: 05/19/19 10:00 05/19/19 10:00 Labs: Abnormal Lab Results - Last 24 Hours (Table) 05/18/19 05/18/19 05/18/19 Range/Units 16:28 17:55 20:19 WBC (3.8-10.6) k/uL Potassium (3.5-5.1) mmol/L Chloride (98-107) mmol/L BUN (7-17) mg/dL Creatinine (0.52-1.04) mg/dL Glucose (74-99) mg/dL POC Glucose (mg/dL) 166 H 144 H 223 H (75-99) mg/dL 05/19/19 05/19/19 05/19/19 Range/Units 06:42 10:00 10:00 WBC 12.4 H (3.8-10.6) k/uL Potassium 5.3 H (3.5-5.1) mmol/L Chloride 109 H (98-107) mmol/L BUN 69 H (7-17) mg/dL Creatinine 1.34 H (0.52-1.04) mg/dL Glucose 110 H (74-99) mg/dL POC Glucose (mg/dL) 113 H (75-99) mg/dL 05/19/19 Range/Units 12:37 WBC (3.8-10.6) k/uL Potassium (3.5-5.1) mmol/L Chloride (98-107) mmol/L BUN (7-17) mg/dL Creatinine (0.52-1.04) mg/dL Glucose (74-99) mg/dL POC Glucose (mg/dL) 151 H (75-99) mg/dL Assessment and Plan Plan: Assessment and plan #1 Symptoms of dizziness with associated shortness of breath, troponins negative. CTA negative for pulmonary embolism. Dobutamine echocardiographic study at the achieved heart rate was negative for any reversible ischemia. Patient did not reach 85% of target heart rate. #2 acute on chronic renal insufficiency #3 hyperkalemia #4 obesity #5 hypertension #6 hyperlipidemia #7 hypothyroidism #8 obstructive sleep apnea #9 asthma Plan From cardiology's perspective, patient may be able to be discharged home to follow-up in the office post discharge. DNP note has been reviewed, I agree with a documented findings and plan of care. Patient was seen and examined.
[2019-05-19] MEDS ORDERED: FUROSEMIDE 40 MG TAB PO SCH (16:00)
[2019-05-19 17:17] LABS: Glucose,Whole Blood 244 mg/dL (75-99)
[2019-05-19] MEDS: FAMOTIDINE 20 MG TAB PO SCH (17:36)
[2019-05-19] MEDS: ALLOPURINOL 300 MG TAB PO SCH (17:36)
[2019-05-19] MEDS: HEPARIN SODIUM,PORCINE 5,000 UNIT/ML 1 ML VIAL SQ SCH ×2 (17:36→21:21)
[2019-05-19] MEDS: ASPIRIN 325 MG TAB PO SCH (17:36)
[2019-05-19] MEDS: hydrALAZINE HCL 50 MG TAB PO SCH ×3 (17:36→21:09)
[2019-05-19] MEDS: amLODIPine 10 MG TAB PO SCH (17:36)
[2019-05-19] MEDS: LINAGLIPTIN 5 MG TABLET PO SCH (17:36)
[2019-05-19] MEDS: METOPROLOL SUCCINATE (ER) 25 MG TAB.ER.24H PO SCH (17:37)
[2019-05-19] MEDS: FUROSEMIDE 40 MG TAB PO SCH ×2 (18:29→21:48)
[2019-05-19] MEDS: ALBUTEROL NEBULIZED 2.5 MG/3 ML INHALATION PRN (20:15)
[2019-05-19] MEDS: ATORVASTATIN 20 MG TAB PO SCH (21:09)
[2019-05-19] MEDS: SODIUM CHLORIDE 0.9% 1,000 ML IV SCH (21:10)
[2019-05-19 21:50] LABS: Glucose,Whole Blood 265 mg/dL (75-99)
[2019-05-19] MEDS ORDERED: INSULIN ASPART (NovoLOG) 100 UNIT/ML VIAL SQ ONE (22:24)
[2019-05-20 06:27] LABS: HCT 32.8 % (34.0-46.0); HGB 10.4 gm/dL (11.4-16.0); Hypochromasia Slight; MCH 29.2 pg (25.0-35.0); MCHC 31.7 g/dL (31.0-37.0); MCV 92.2 fL (80.0-100.0); Mean Platelet Volume 7.4; Platelet Count 277 k/uL (150-450); RBC 3.55 m/uL (3.80-5.40); RDW 14.6 % (11.5-15.5)
[2019-05-20 06:36] LABS: Albumin 3.3 g/dL (3.5-5.0); Calcium 9.3 mg/dL (8.4-10.2); Potassium 5.7 mmol/L (3.5-5.1); Total Bilirubin 0.2 mg/dL (0.2-1.3); Total Protein 5.9 g/dL (6.3-8.2)
[2019-05-20] MEDS: LEVOTHYROXINE 50 MCG TAB PO SCH (07:13)
[2019-05-20 07:53] LABS: Glucose,Whole Blood 246 mg/dL (75-99)
[2019-05-20] MEDS: FAMOTIDINE 20 MG TAB PO SCH (08:03)
[2019-05-20] MEDS: amLODIPine 10 MG TAB PO SCH (08:03)
[2019-05-20] MEDS: ASPIRIN 325 MG TAB PO SCH (08:03)
[2019-05-20] MEDS: HEPARIN SODIUM,PORCINE 5,000 UNIT/ML 1 ML VIAL SQ SCH ×2 (08:03→20:02)
[2019-05-20] MEDS: ALLOPURINOL 300 MG TAB PO SCH (08:03)
[2019-05-20] MEDS: FUROSEMIDE 40 MG TAB PO SCH ×2 (08:03→15:15)
[2019-05-20] MEDS: hydrALAZINE HCL 50 MG TAB PO SCH ×3 (08:04→21:50)
[2019-05-20] MEDS: METOPROLOL SUCCINATE (ER) 25 MG TAB.ER.24H PO SCH (08:04)
[2019-05-20] MEDS: LINAGLIPTIN 5 MG TABLET PO SCH (08:04)
[2019-05-20] MEDS: INSULIN DETEMIR (LEVEMIR) 100 UNIT/ML SYR SQ SCH (08:04)
[2019-05-20] MEDS: INSULIN ASPART (NovoLOG) 100 UNIT/ML VIAL SQ SCH ×3 (08:05→17:55)
[2019-05-20] MEDS: SYMBICORT 160-4.5 MCG INHALER INHALATION SCH ×2 (09:09→19:18)
[2019-05-20] MEDS ORDERED: DEXTROSE 50% SYRINGE 50 ML IVP STA (12:02)
--- NOTE | 2019-05-20 12:02 | P.PN ---
Subjective Patient is seen in follow-up for acute kidney injury on chronic kidney disease. Patient has chronic kidney disease stage III secondary to diabetic kidney disease with baseline creatinine in the range of 1-1.2. Creatinine peaked at 1.5 on this admission and is relatively stable at 1.41 today. No active chest pain or shortness of breath. Urine output is good. No vomiting or diarrhea. Currently on Lasix 40 mg orally twice daily. Vital signs are stable. General: The patient appeared well nourished and normally developed. HEENT: Head exam is unremarkable. Neck is without jugular venous distension. LUNGS: Lungs are clear to auscultation and percussion. Breath sounds decreased. HEART: Rate and Rhythm are regular. First and second heart sounds normal. No murmurs, rubs or gallops. ABDOMEN: Abdominal exam reveals normal bowel sounds. Non-tender and non- distended. No evidence of peritonitis. EXTREMITITES: 1+ edema. Objective - Vital Signs Vital signs: Vital Signs Temp 97.7 F 05/20/19 07:59 Pulse 63 05/20/19 11:25 Resp 18 05/20/19 11:25 BP 136/63 05/20/19 11:24 Pulse Ox 92 L 05/20/19 11:24 Intake & Output 05/19/19 05/20/19 05/20/19 18:59 06:59 18:59 Intake Total 1080 480 Balance 1080 480 Weight 138.7 kg Intake: Oral 1080 480 Other: Voiding Method Toilet # Voids 2 - Labs CBC & Chem 7: 05/20/19 05:45 05/20/19 05:45 Labs: Abnormal Lab Results - Last 24 Hours (Table) 05/19/19 05/19/19 05/19/19 Range/Units 12:37 17:04 21:49 RBC (3.80-5.40) m/uL Hgb (11.4-16.0) gm/dL Hct (34.0-46.0) % Potassium (3.5-5.1) mmol/L BUN (7-17) mg/dL Creatinine (0.52-1.04) mg/dL Glucose (74-99) mg/dL POC Glucose (mg/dL) 151 H 244 H 265 H (75-99) mg/dL Total Protein (6.3-8.2) g/dL Albumin (3.5-5.0) g/dL 05/20/19 05/20/19 05/20/19 Range/Units 05:45 05:45 07:50 RBC 3.55 L (3.80-5.40) m/uL Hgb 10.4 L (11.4-16.0) gm/dL Hct 32.8 L (34.0-46.0) % Potassium 5.7 H (3.5-5.1) mmol/L BUN 68 H (7-17) mg/dL Creatinine 1.41 H (0.52-1.04) mg/dL Glucose 245 H (74-99) mg/dL POC Glucose (mg/dL) 246 H (75-99) mg/dL Total Protein 5.9 L (6.3-8.2) g/dL Albumin 3.3 L (3.5-5.0) g/dL Assessment and Plan Plan: Assessment: 1. Acute kidney injury secondary to contrast-induced acute kidney injury. Patient underwent CTA on May 16. Creatinine peaked at 1.5 on this admission and did come down to 1.34 as of May 19. It is 1.41 today which is due to diuresis. 2. Acute on chronic diastolic CHF. 3. Chronic kidney disease stage III secondary to diabetic kidney disease with basic creatinine in the range of 1-1.2. 4. Hypertension with chronic kidney disease. 5. Insulin-dependent diabetes mellitus. 6. Dyspnea. No evidence of PE. She also had a stress test done May 19. Cardiology following. 7. Hyperkalemia secondary to hyperglycemia. No evidence of acidosis. Plan: Maintain Lasix 40 mg orally twice daily. Avoid nephrotoxins. Repeat electrolytes in the morning. 10 units of IV insulin with an amp of D50 now. Tight blood sugar control. Repeat potassium level this evening.
[2019-05-20] MEDS ORDERED: DEXTROSE 10 % IN WATER 250 ML IV ONE (12:15)
[2019-05-20] MEDS ORDERED: INSULIN REGULAR 100 UNIT/ML VIAL IV ONE (12:15)
[2019-05-20 13:12] LABS: Glucose,Whole Blood 209 mg/dL (75-99)
--- NOTE | 2019-05-20 14:07 | P.PN ---
Subjective Progress Note Date: 05/20/19 This is a 63-year-old pleasant female who presented to the emergency room after seeing her primary care physician for increased shortness of breath. Patient was sent to the emergency room due to a low pulse ox in the 80s in the office and increased shortness of breath. Patient states that over the last month she has gained approximately 35 pounds and has noticed increased swelling to her lower extremities. Patient has been utilizing a walker to get around due to increased difficulty breathing. Initially when the patient started having difficulty breathing she was started on Lasix however she has found that it has not helped. Patient denies any chest pain or pain with inspiration. Patient denies any diaphoresis or jaw pain. Patient states that the pain is worse when she is ambulating and eating. Patient is a former smoker completely quit approximately 2 years ago she is a total of 25 years of smoking 1 pack a day. Patient's past medical history is significant for asthma. She has not had any episodes of exacerbation since patient takes Symbicort twice a day for managemen t. Past medical history includes diabetes mellitus for the last 10 years, acid reflux, hyperlipidemia, hypertension, osteoarthritis, thyroid disorder, gout. Patient had rheumatic fever when she was younger. Patient lives alone and provides own self-care. 05/18: Patient is resting quietly in bed without any new complaints or concerns. Patient has been ambulating within the halls without any difficulties or chest pain or shortness of breath. Patient states that the shortness of breath has improved. Patient blood glucose levels continue to be elevated. Patient states that Levemir does not work for her she also utilizes 20 units of NovoLog and additional sliding scale. Patient is concerned that she has not had a Pap smear in quite a few years and this requesting to have one performed. Instructed patient that this is done an outpatient and to call the office to schedule. Lower extremity swelling has decreased. Patient is scheduled for a stress test tomorrow. 05/19: This morning, patient was complaining of nausea and not feeling well in general with achy feeling and scratchy sensation to the back of her throat. She denies having any fever or chills. Her shortness of breath is improved. She is feeling dizziness. She denies any abdominal pain. She did have 2 bowel movemen ts yesterday. Repeat lab work reveals WBC 12.4. Potassium 5.3, chloride 109, CO2 26, sodium 143. BUN 69 creatinine 1.34. Blood sugars running between 110 and 223. We will discontinue Lasix and repeat lab work in the morning. Nephrology has evaluated the patient yesterday with recommendations to continue current Lasix, expect acute kidney injury to resolve in the next few days. 05/20: Dobutamine stress echo done yesterday revealed the patient did not achieve 85% of maximum predicted heart rate but at the rate achieved there was no evidence of stress-induced ischemia. Patient was cleared yesterday for discharge by cardiology. Repeat lab work reveals normal white count of 9.0, hemoglobin 10.4, potassium 5.7, BUN 68 and creatinine 1.41. Blood sugars running in the 200s. Scheduled NovoLog increased to [address] Rodriges has recommended continuing Lasix 40 mg twice daily, avoid nephrotoxins, 10 units of IV insulin with an amp of D50. Patient complains of feeling tired. She has increasing shortness of breath with minimal activity such as going to the bathroom. Pulse ox dropped to 86% and home oxygen will be arranged. We will monitor patient overnight plan for discharge home tomorrow. Review Of Systems: Constitutional: No fever, no chills, no night sweats. No weight change. Reports weakness, fatigue or lethargy. Reports daytime sleepiness. EENT: No headache. No blurred vision or double vision, no loss of vision. No loss of Hearing, no ringing in the ears, reports dizziness. No nasal drainage or congestion. No epistaxis. reports sore throat. Lungs: Reports shortness of breath, cough, no sputum production. No wheezing. Cardiovascular: No chest pain, no lower extremity edema. No palpitations. No paroxysmal nocturnal dyspnea. No orthopnea. No lightheadedness or dizziness. No syncopal episodes. Abdominal: no abdominal discomfort. reports nausea, no vomiting. no diarrhea. No constipation. No bloody or tarry stools. no loss of appetite. Genitourinary: No dysuria, increased frequency, urgency. No urinary retention. Musculoskeletal: No myalgias. No muscle weakness, no gait dysfunction, no frequent falls. No back pain. No neck pain. Integumentary: No wounds, no lesions. No rash or pruritus. No unusual bruising. No change in hair or nails. Neurologic: No aphasia. No facial droop. No change in mentation. No head injury. No headache. No paralysis. No paresthesia. Psychiatric: No depression. No anxiety. No mood swings. Endocrine: No abnormal blood sugars. No weight change. No excessive sweating or thirst. Objective - Vital Signs Vital signs: Vital Signs Temp 97.7 F 05/20/19 07:59 Pulse 64 05/20/19 08:00 Resp 16 05/20/19 08:00 BP 119/59 05/20/19 07:59 Pulse Ox 92 L 05/20/19 07:59 Intake & Output 05/19/19 05/20/19 05/20/19 18:59 06:59 18:59 Intake Total 1080 Balance 1080 Weight 138.7 kg Intake: Oral 1080 Other: Voiding Method Toilet # Voids 2 - Exam General Appearance: Alert, cooperative, no distress, appears stated age. Patient is seen resting in recliner. Neck HEENT: Supple, no lymphadenopathy, no thyroid enlargement, no carotid bruits. Lungs: Clear to auscultation without crackles or wheezes no rhonchi, no deformity. Chest Wall: Chest wall normal expansion with deep inspiration no tenderness and no deformity was found on exam. Heart: Regular rate and rhythm, S1, S2 normal, no murmur, rub or gallop. Back: Symmetric, no curvature, ROM normal, no CVA tenderness. Abdomen: Soft, non-tender, no rebound or rigidity, no hepatosplenomegaly. Extremities: 2+ pedal edema bilaterally Extremities normal, atraumatic, no cyanosis Pulses: 2+ and symmetric. Skin: Skin color, texture, tugor normal, no rashes or lesions. Neurologic: Alert oriented x3 cranial nerves II through XII intact, no motor deficit, no abnormal balance or gait - Labs CBC & Chem 7: 05/20/19 05:45 05/20/19 05:45 Labs: Abnormal Lab Results - Last 24 Hours (Table) 05/19/19 05/19/19 05/19/19 Range/Units 10:00 10:00 12:37 WBC 12.4 H (3.8-10.6) k/uL RBC (3.80-5.40) m/uL Hgb (11.4-16.0) gm/dL Hct (34.0-46.0) % Potassium 5.3 H (3.5-5.1) mmol/L Chloride 109 H (98-107) mmol/L BUN 69 H (7-17) mg/dL Creatinine 1.34 H (0.52-1.04) mg/dL Glucose 110 H (74-99) mg/dL POC Glucose (mg/dL) 151 H (75-99) mg/dL Total Protein (6.3-8.2) g/dL Albumin (3.5-5.0) g/dL 05/19/19 05/19/19 05/20/19 Range/Units 17:04 21:49 05:45 WBC (3.8-10.6) k/uL RBC (3.80-5.40) m/uL Hgb (11.4-16.0) gm/dL Hct (34.0-46.0) % Potassium 5.7 H (3.5-5.1) mmol/L Chloride (98-107) mmol/L BUN 68 H (7-17) mg/dL Creatinine 1.41 H (0.52-1.04) mg/dL Glucose 245 H (74-99) mg/dL POC Glucose (mg/dL) 244 H 265 H (75-99) mg/dL Total Protein 5.9 L (6.3-8.2) g/dL Albumin 3.3 L (3.5-5.0) g/dL 05/20/19 05/20/19 Range/Units 05:45 07:50 WBC (3.8-10.6) k/uL RBC 3.55 L (3.80-5.40) m/uL Hgb 10.4 L (11.4-16.0) gm/dL Hct 32.8 L (34.0-46.0) % Potassium (3.5-5.1) mmol/L Chloride (98-107) mmol/L BUN (7-17) mg/dL Creatinine (0.52-1.04) mg/dL Glucose (74-99) mg/dL POC Glucose (mg/dL) 246 H (75-99) mg/dL Total Protein (6.3-8.2) g/dL Albumin (3.5-5.0) g/dL Assessment and Plan Plan: 1. Acute on chronic diastolic heart failure. Echocardiogram reviewed the screening percent, borderline concentric left ventricle hypertrophy, consult cardiology, continue oral Lasix 40 mg twice daily. Stress test normal. 2. Obesity with hypoventilation syndrome. 3. Diabetes mellitustype II, insulin requiring. Increase NovoLog 10 units 3 times a day, Levemir 140 units, Linaglitin 5 mg daily 4. Hypertension. Amlodipine 10 mg, discontinue lisinopril 10 mg daily per cardiology, Toprol XL 25 mg daily, start hydralazine 50 mg by mouth 3 times a day per cardiology 5. Acute kidney injury with hyperkalemia and chronic kidney disease III. Repeat BUN and creatinine, follow-up with Dr. Vázquez outpatient. consult with nephrology appreciated. 6. Obstructive sleep apnea. Refer for outpatient sleep study 7. Asthma, mild intermittent. Symbicort 2 puffs inhalation twice a day 8. Gout, chronic. Allopurinol 30 mg by mouth daily 9. Hyperlipidemia. Lipitor 20 mg daily 10. Hypothyroidism. Synthroid 50 g by mouth 11. GI prophylaxis Pepcid 20 mg daily 12. DVT prophylaxis. Heparin 5000 units subcu every 12 hours 13. Dizziness, nausea. 14. Chronic hypoxic respiratory failure. Home oxygen therapy will be arranged prior to patient's discharge. Discharge plan: Discharge on Sunday. Impression and plan of care have been directed as dictated by the signing physician. Chelsey Casey nurse practitioner acting as scribe for signing physician.
--- NOTE | 2019-05-20 16:15 | P.PN ---
Subjective Progress Note Date: 05/20/19 This is a 63-year-old female patient with history of diabetes, hypertension, hyperlipidemia, hypothyroidism, who presented to the hospital with symptoms of dizziness and associated shortness of breath. Patient had been seen in consultation yesterday by Dr. Spence. Patient also has history of uncontrolled h ypertension. Her Norvasc was increased yesterday. Patient did have an elevated d-dimer and subsequent CT of the chest which was negative for pulmonary embolism. She was scheduled today to undergo dobutamine echocardiographic study. Dobutamine echocardiographic study although patient did not achieve 85% of maximum predicted heart rate, at the rate achieved there is no evidence of stress-induced ischemia. 05/20/2018 Patient was seen and examined this morning, she feels a little tired today but denies any chest pain in her breathing overall is stable. Hemodynamically she is stable. Objective - Vital Signs Vital signs: Vital Signs Temp 97.7 F 05/20/19 15:13 Pulse 58 L 05/20/19 15:30 Resp 18 05/20/19 15:13 BP 109/52 05/20/19 15:13 Pulse Ox 92 L 05/20/19 15:13 Intake & Output 05/19/19 05/20/19 05/20/19 18:59 06:59 18:59 Intake Total 1080 970 Balance 1080 970 Weight 138.7 kg Intake: Intake, IV Titration 250 Amount Dextrose 10 % in Water 250 250 ml @ 1000 mls/hr IV ONCE ONE Rx#:[id number] Oral 1080 720 Other: Voiding Method Toilet # Voids 2 2 - Exam PHYSICAL EXAMINATION: GENERAL: 63-year-old female in no acute distress at the time of my examination HEENT: Head is atraumatic, normocephalic. Pupils equal, round. Sclera anicteric. Conjunctiva are clear. Mucous membranes of the mouth are moist. Neck is supple. There is no elevated jugular venous pressure.] bruit is heard. HEART EXAMINATION: Heart S1, S2 normal. No murmur or gallop heard. CHEST EXAMINATION: Lungs are clear to auscultation and precussion. No chest wall tenderness is noted on palpation or with deep breathing. ABDOMEN: Soft, nontender. Bowel sounds are heard. No organomegaly noted. EXTREMITIES: 2+ peripheral pulses with no evidence of peripheral edema and no calf tenderness noted. NEUROLOGIC patient is awake, alert and oriented 3 . . - Labs CBC & Chem 7: 05/20/19 05:45 05/20/19 05:45 Labs: Abnormal Lab Results - Last 24 Hours (Table) 05/19/19 05/19/19 05/20/19 Range/Units 17:04 21:49 05:45 RBC (3.80-5.40) m/uL Hgb (11.4-16.0) gm/dL Hct (34.0-46.0) % Potassium 5.7 H (3.5-5.1) mmol/L BUN 68 H (7-17) mg/dL Creatinine 1.41 H (0.52-1.04) mg/dL Glucose 245 H (74-99) mg/dL POC Glucose (mg/dL) 244 H 265 H (75-99) mg/dL Total Protein 5.9 L (6.3-8.2) g/dL Albumin 3.3 L (3.5-5.0) g/dL 05/20/19 05/20/19 05/20/19 Range/Units 05:45 07:50 12:47 RBC 3.55 L (3.80-5.40) m/uL Hgb 10.4 L (11.4-16.0) gm/dL Hct 32.8 L (34.0-46.0) % Potassium (3.5-5.1) mmol/L BUN (7-17) mg/dL Creatinine (0.52-1.04) mg/dL Glucose (74-99) mg/dL POC Glucose (mg/dL) 246 H 209 H (75-99) mg/dL Total Protein (6.3-8.2) g/dL Albumin (3.5-5.0) g/dL Assessment and Plan Plan: Assessment and plan #1 Symptoms of dizziness with associated shortness of breath, troponins negative. CTA negative for pulmonary embolism. Dobutamine echocardiographic study at the achieved heart rate was negative for any reversible ischemia. Patient did not reach 85% of target heart rate. #2 acute on chronic renal insufficiency #3 hyperkalemia #4 obesity #5 hypertension #6 hyperlipidemia #7 hypothyroidism #8 obstructive sleep apnea #9 asthma Plan From cardiology's perspective, patient may be able to be discharged home to follow-up in the office post discharge. DNP note has been reviewed, I agree with a documented findings and plan of care. Patient was seen and examined.
[2019-05-20 17:12] LABS: Glucose,Whole Blood 104 mg/dL (75-99)
[2019-05-20] MEDS: SODIUM CHLORIDE 0.9% 1,000 ML IV SCH (19:45)
[2019-05-20 19:49] LABS: Glucose,Whole Blood 166 mg/dL (75-99)
[2019-05-20] MEDS: ATORVASTATIN 20 MG TAB PO SCH (20:02)
[2019-05-21] MEDS: ACETAMINOPHEN TAB 325 MG TAB PO PRN (00:17)
[2019-05-21 05:53] VITALS: TEMP 98
[2019-05-21 06:34] LABS: Calcium 9.7 mg/dL (8.4-10.2); Magnesium 1.5 mg/dL (1.6-2.3); Potassium 5.3 mmol/L (3.5-5.1)
[2019-05-21] MEDS: INSULIN DETEMIR (LEVEMIR) 100 UNIT/ML SYR SQ SCH (07:01)
[2019-05-21] MEDS: LEVOTHYROXINE 50 MCG TAB PO SCH (07:01)
[2019-05-21 07:11] LABS: Glucose,Whole Blood 272 mg/dL (75-99)
[2019-05-21] MEDS: INSULIN ASPART (NovoLOG) 100 UNIT/ML VIAL SQ SCH ×2 (07:25→12:59)
[2019-05-21] MEDS: SYMBICORT 160-4.5 MCG INHALER INHALATION SCH (08:27)
[2019-05-21] MEDS: hydrALAZINE HCL 50 MG TAB PO SCH (08:57)
[2019-05-21] MEDS: METOPROLOL SUCCINATE (ER) 25 MG TAB.ER.24H PO SCH (08:57)
[2019-05-21] MEDS: FUROSEMIDE 40 MG TAB PO SCH (08:57)
[2019-05-21] MEDS: ALLOPURINOL 300 MG TAB PO SCH (08:57)
[2019-05-21] MEDS: amLODIPine 10 MG TAB PO SCH (08:57)
[2019-05-21] MEDS: HEPARIN SODIUM,PORCINE 5,000 UNIT/ML 1 ML VIAL SQ SCH (08:58)
[2019-05-21] MEDS: ASPIRIN 325 MG TAB PO SCH (08:58)
[2019-05-21] MEDS: LINAGLIPTIN 5 MG TABLET PO SCH (08:58)
[2019-05-21] MEDS: FAMOTIDINE 20 MG TAB PO SCH (08:58)
[2019-05-21 11:14] VITALS: RESP 16
[2019-05-21 12:21] LABS: Glucose,Whole Blood 244 mg/dL (75-99)
[2019-05-21 13:04] VITALS: BP 142/68; PULSE 69
--- NOTE | 2019-05-21 14:05 | P.DS ---
Providers Date of admission: 05/18/19 10:19 Expected date of discharge: 05/21/19 Attending physician: Fredy Villalta Consults: 05/16/19 17:32 Consult Physician Routine Consulting Provider: Murray Ferguson Consult Reason/Comments: edema, SOB with exertion, palpatations Do you want consulting provider notified?: Yes 05/18/19 10:56 Consult Physician Routine Consulting Provider: Jimy Pardo Consult Reason/Comments: BUN and creat elevated Do you want consulting provider notified?: Yes Primary care physician: [facility] Course: This is a 63-year-old pleasant female who presented to the emergency room after seeing her primary care physician for increased shortness of breath. Patient was sent to the emergency room due to a low pulse ox in the 80s in the office and increased shortness of breath. Patient states that over the last month she has gained approximately 35 pounds and has noticed increased swelling to her lower extremities. Patient has been utilizing a walker to get around due to increased difficulty breathing. Initially when the patient started having difficulty breathing she was started on Lasix however she has found that it has not helped. Patient denies any chest pain or pain with inspiration. Patient denies any diaphoresis or jaw pain. Patient states that the pain is worse when she is ambulating and eating. Patient is a former smoker completely quit approximately 2 years ago she is a total of 25 years of smoking 1 pack a day. Patient's past medical history is significant for asthma. She has not had any episodes of exacerbation since patient takes Symbicort twice a day for management. Past medical history includes diabetes mellitus for the last 10 years, acid reflux, hyperlipidemia, hypertension, osteoarthritis, thyroid disorder, gout. Patient had rheumatic fever when she was younger. Patient lives alone and provides own self-care. 05/18: Patient is resting quietly in bed without any new complaints or concerns. Patient has been ambulating within the halls without any difficulties or chest pain or shortness of breath. Patient states that the shortness of breath has improved. Patient blood glucose levels continue to be elevated. Patient states that Levemir does not work for her she also utilizes 20 units of NovoLog and additional sliding scale. Patient is concerned that she has not had a Pap smear in quite a few years and this requesting to have one performed. Instructed patient that this is done an outpatient and to call the office to schedule. Lower extremity swelling has decreased. Patient is scheduled for a stress test tomorrow. 05/19: This morning, patient was complaining of nausea and not feeling well in general with achy feeling and scratchy sensation to the back of her throat. She denies having any fever or chills. Her shortness of breath is improved. She is feeling dizziness. She denies any abdominal pain. She did have 2 bowel movements yesterday. Repeat lab work reveals WBC 12.4. Potassium 5.3, chloride 109, CO2 26, sodium 143. BUN 69 creatinine 1.34. Blood sugars running between 110 and 223. We will discontinue Lasix and repeat lab work in the morning. Nephrology has evaluated the patient yesterday with recommendations to continue current Lasix, expect acute kidney injury to resolve in the next few days. 05/20: Dobutamine stress echo done yesterday revealed the patient did not achieve 85% of maximum predicted heart rate but at the rate achieved there was no evidence of stress-induced ischemia. Patient was cleared yesterday for discharge by cardiology. Repeat lab work reveals normal white count of 9.0, hemoglobin 10.4, potassium 5.7, BUN 68 and creatinine 1.41. Blood sugars running in the 200s. Scheduled NovoLog increased to [address] Rodriges has recommended continuing Lasix 40 mg twice daily, avoid nephrotoxins, 10 units of IV insulin with an amp of D50. Patient complains of feeling tired. She has increasing shortness of breath with minimal activity such as going to the bathroom. Pulse ox dropped to 86% and home oxygen will be arranged. We will monitor patient overnight plan for discharge home tomorrow. 05/21: Patient states that she is feeling better today. Her breathing is a little bit improved and she has less dyspnea getting to the bathroom. She has been encouraged to undergo sleep study as an outpatient which she verbalizes that she really does not want to do. She remains afebrile, heart rate in the 60s, blood pressure 142/68, pulse ox is morning is 92% on room air at rest. Blood sugars are running in the 200s. Home oxygen has been delivered. Patient will be discharged home today in stable condition.. Discharge diagnoses: 1. Acute on chronic diastolic heart failure. 2. Obesity with hypoventilation syndrome. 3. Diabetes mellitustype II, insulin requiring. 4. Hypertension. 5. Acute kidney injury with chronic kidney disease III. 6. Obstructive sleep apnea--needs outpatient sleep study. 7. Asthma, mild intermittent. 8. Gout, chronic. 9. Hyperlipidemia. 10. Hypothyroidism. 11. Dizziness, nausea, resolved. Discharge plan: Home with [facility] Impression and plan of care have been directed as dictated by the signing physician. Chelsey Casey nurse practitioner acting as scribe for signing physician. Patient Condition at Discharge: Good Plan - Discharge Summary Discharge Rx Participant: No New Discharge Prescriptions: New Furosemide [Lasix] 40 mg PO BID@0900,1400 #60 tab hydrALAZINE HCL [Apresoline] 50 mg PO TID #90 tab amLODIPine [Norvasc] 10 mg PO DAILY #30 tab Metoprolol Succinate (ER) [Toprol XL] 25 mg PO DAILY #30 tab.er.24h Continue Levothyroxine Sodium [Synthroid] 50 mcg PO DAILY Atorvastatin [Lipitor] 20 mg PO HS Albuterol Inhaler [Ventolin Hfa Inhaler] 2 puff INHALATION RT-Q6H PRN PRN Reason: Shortness Of Breath Insulin Degludec [Tresiba Flextouch U-200] 140 units SQ DAILY Allopurinol [Zyloprim] 300 mg PO DAILY INSULIN ASPART (NovoLOG) [NovoLOG (formulary)] See Protocol SQ AC-TID Budesonide/Formoterol Fumarate [Symbicort 160-4.5 Mcg Inhaler] 2 puff INHALATION RT-BID Aspirin EC [Ecotrin] 325 mg PO DAILY sitaGLIPtin [Januvia] 100 mg PO DAILY Discontinued Lisinopril [Prinivil] 5 mg PO DAILY #30 tab amLODIPine [Norvasc] 5 mg PO DAILY tab Discharge Medication List Albuterol Inhaler [Ventolin Hfa Inhaler] 2 puff INHALATION RT-Q6H PRN 10/26/15 [History] Atorvastatin [Lipitor] 20 mg PO HS 10/26/15 [History] Levothyroxine Sodium [Synthroid] 50 mcg PO DAILY 10/26/15 [History] Allopurinol [Zyloprim] 300 mg PO DAILY 05/16/19 [History] Aspirin EC [Ecotrin] 325 mg PO DAILY 05/16/19 [History] Budesonide/Formoterol Fumarate [Symbicort 160-4.5 Mcg Inhaler] 2 puff INHALATION RT-BID 05/16/19 [History] INSULIN ASPART (NovoLOG) [NovoLOG (formulary)] See Protocol SQ AC-TID 05/16/19 [History] Insulin Degludec [Tresiba Flextouch U-200] 140 units SQ DAILY 05/16/19 [History] sitaGLIPtin [Januvia] 100 mg PO DAILY 05/16/19 [History] Furosemide [Lasix] 40 mg PO BID@0900,1400 #60 tab 05/18/19 [Rx] Metoprolol Succinate (ER) [Toprol XL] 25 mg PO DAILY #30 tab.er.24h 05/21/19 [Rx] amLODIPine [Norvasc] 10 mg PO DAILY #30 tab 05/21/19 [Rx] hydrALAZINE HCL [Apresoline] 50 mg PO TID #90 tab 05/21/19 [Rx] Follow up Appointment(s)/Referral(s): Elissa Vázquez MD [STAFF PHYSICIAN] - 06/09/19 (Please keep previous appointment at this time.) [facility] [NON-STAFF] - Sanket Severino MD [Primary Care Provider] - 1 Week (Office will call patient to schedule follow up appointment ) [facility], [NON-STAFF] - Colten Caba MD [STAFF PHYSICIAN] - 06/02/19 4:15 pm (House Coordinator. Please arrive 15 minutes early and bring photo ID, insurance card and a list of your medications. ) Patient Instructions/Handouts: Hyperkalemia (DC), Edema (DC), Shortness of Breath (DC) Discharge Disposition: HOME WITH HOME HEALTH SERVICES
--- NOTE | 2019-05-21 14:15 | P.PN ---
Subjective Patient is seen in follow-up for acute kidney injury on chronic kidney disease. Patient has chronic kidney disease stage III secondary to diabetic kidney disease with baseline creatinine in the range of 1-1.2. Creatinine peaked at 1.5 on this admission and is relatively stable at 1.36 today. No active chest pain or shortness of breath. Urine output is good. No vomiting or diarrhea. Currently on Lasix 40 mg orally twice daily. Vital signs are stable. General: The patient appeared well nourished and normally developed. HEENT: Head exam is unremarkable. Neck is without jugular venous distension. LUNGS: Lungs are clear to auscultation and percussion. Breath sounds decreased. HEART: Rate and Rhythm are regular. First and second heart sounds normal. No murmurs, rubs or gallops. ABDOMEN: Abdominal exam reveals normal bowel sounds. Non-tender and non- distended. No evidence of peritonitis. EXTREMITITES: Trace edema. Objective - Vital Signs Vital signs: Vital Signs Temp 98 F 05/21/19 04:00 Pulse 69 05/21/19 12:00 Resp 16 05/21/19 12:00 BP 142/68 05/21/19 12:00 Pulse Ox 92 L 05/21/19 12:00 Intake & Output 05/20/19 05/21/19 05/21/19 18:59 06:59 18:59 Intake Total 970 650 360 Balance 970 650 360 Weight 136.6 kg Intake: Intake, IV Titration 250 Amount Dextrose 10 % in Water 250 250 ml @ 1000 mls/hr IV ONCE ONE Rx#:[id number] Oral 720 650 360 Other: Voiding Method Toilet # Voids 2 1 - Labs CBC & Chem 7: 05/20/19 05:45 05/21/19 05:43 Labs: Abnormal Lab Results - Last 24 Hours (Table) 05/20/19 05/20/19 05/20/19 Range/Units 17:05 17:28 19:47 Potassium 5.6 H (3.5-5.1) mmol/L BUN (7-17) mg/dL Creatinine (0.52-1.04) mg/dL Glucose (74-99) mg/dL POC Glucose (mg/dL) 104 H 166 H (75-99) mg/dL Magnesium (1.6-2.3) mg/dL 09/05/21/19 05/21/19 Range/Units 05:43 06:57 11:58 Potassium 5.3 H (3.5-5.1) mmol/L BUN 63 H (7-17) mg/dL Creatinine 1.36 H (0.52-1.04) mg/dL Glucose 235 H (74-99) mg/dL POC Glucose (mg/dL) 272 H 244 H (75-99) mg/dL Magnesium 1.5 L (1.6-2.3) mg/dL Assessment and Plan Plan: Assessment: 1. Acute kidney injury secondary to contrast-induced acute kidney injury. Patient underwent CTA on May 16. Creatinine peaked at 1.5 on this admission and is stable at 1.36 today. 2. Acute on chronic diastolic CHF. 3. Chronic kidney disease stage III secondary to diabetic kidney disease with basic creatinine in the range of 1-1.2. 4. Hypertension with chronic kidney disease. Controlled. 5. Insulin-dependent diabetes mellitus. 6. Dyspnea. No evidence of PE. She also had a stress test done May 19. Cardiology following. 7. Hyperkalemia secondary to hyperglycemia. No evidence of acidosis. Better. Plan: Maintain Lasix 40 mg orally twice daily. Avoid nephrotoxins. Repeat electrolytes in the morning. Tight blood sugar control. Stable to be discharged home from nephrology standpoint. Follow up outpatient in the next 2 weeks.
[2019-05-21] MEDS ORDERED: MAGNESIUM SULFATE-D5W PMX 1 GM in DEXTROSE/WATER 1 100ML.BAG IVPB SCH (14:30)
--- NOTE | 2019-05-21 16:26 | P.PN ---
Subjective Progress Note Date: 05/21/19 This is a 63-year-old female patient with history of diabetes, hypertension, hyperlipidemia, hypothyroidism, who presented to the hospital with symptoms of dizziness and associated shortness of breath. Patient had been seen in consultation yesterday by Dr. Caba. Patient also has history of uncontrolled hypertension. Her Norvasc was increased yesterday. Patient did have an elevated d-dimer and subsequent CT of the chest which was negative for pulmonary embolism. She was scheduled today to undergo dobutamine echocardiographic study. Dobutamine echocardiographic study although patient did not achieve 85% of maximum predicted heart rate, at the rate achieved there is no evidence of stress-induced ischemia. 05/20/2019 Patient was seen and examined this morning, she feels a little tired today but denies any chest pain in her breathing overall is stable. Hemodynamically she is stable. 05/21/2019 Patient was seen and examined this morning, feeling a little less tired today. Breathing is stable. Anticipating discharge home today. Hemodynamically she stable Objective - Vital Signs Vital signs: Vital Signs Temp 98 F 05/21/19 04:00 Pulse 69 05/21/19 12:00 Resp 16 05/21/19 12:00 BP 142/68 05/21/19 12:00 Pulse Ox 92 L 05/21/19 12:00 Intake & Output 05/20/19 05/21/19 05/21/19 18:59 06:59 18:59 Intake Total 970 650 600 Balance 970 650 600 Weight 136.6 kg Intake: Intake, IV Titration 250 Amount Dextrose 10 % in Water 250 250 ml @ 1000 mls/hr IV ONCE ONE Rx#:[id number] Oral 720 650 600 Other: Voiding Method Toilet # Voids 2 1 2 - Exam PHYSICAL EXAMINATION: GENERAL: 63-year-old female in no acute distress at the time of my examination HEENT: Head is atraumatic, normocephalic. Pupils equal, round. Sclera anicteric. Conjunctiva are clear. Mucous membranes of the mouth are moist. Neck is supple. There is no elevated jugular venous pressure.] bruit is heard. HEART EXAMINATION: Heart S1, S2 normal. No murmur or gallop heard. CHEST EXAMINATION: Lungs are clear to auscultation and precussion. No chest wall tenderness is noted on palpation or with deep breathing. ABDOMEN: Soft, nontender. Bowel sounds are heard. No organomegaly noted. EXTREMITIES: 2+ peripheral pulses with no evidence of peripheral edema and no calf tenderness noted. NEUROLOGIC patient is awake, alert and oriented 3 . . - Labs CBC & Chem 7: 05/20/19 05:45 05/21/19 05:43 Labs: Abnormal Lab Results - Last 24 Hours (Table) 05/20/19 05/20/19 05/20/19 Range/Units 17:05 17:28 19:47 Potassium 5.6 H (3.5-5.1) mmol/L BUN (7-17) mg/dL Creatinine (0.52-1.04) mg/dL Glucose (74-99) mg/dL POC Glucose (mg/dL) 104 H 166 H (75-99) mg/dL Magnesium (1.6-2.3) mg/dL 05/21/19 05/21/19 05/21/19 Range/Units 05:43 06:57 11:58 Potassium 5.3 H (3.5-5.1) mmol/L BUN 63 H (7-17) mg/dL Creatinine 1.36 H (0.52-1.04) mg/dL Glucose 235 H (74-99) mg/dL POC Glucose (mg/dL) 272 H 244 H (75-99) mg/dL Magnesium 1.5 L (1.6-2.3) mg/dL Assessment and Plan Plan: Assessment and plan #1 Symptoms of dizziness with associated shortness of breath, troponins negative. CTA negative for pulmonary embolism. Dobutamine echocardiographic study at the achieved heart rate was negative for any reversible ischemia. Patient did not reach 85% of target heart rate. #2 acute on chronic renal insufficiency #3 hyperkalemia #4 obesity #5 hypertension #6 hyperlipidemia #7 hypothyroidism #8 obstructive sleep apnea #9 asthma Plan From cardiology's perspective, patient may be able to be discharged home to [facility] low-up in the office post discharge. DNP note has been reviewed, I agree with a documented findings and plan of care. Patient was seen and examined.
[2019-05-21 17:21] LABS: Glucose,Whole Blood 143 mg/dL (75-99)
[2019-05-22] MEDS ORDERED: MAGNESIUM OXIDE 400 MG TAB PO SCH (09:00)
== END 2019-05-21 17:18 | disposition home health service (06) | DRG 291 ==
LOC: EC 12:57 → 1SOBS 17:32 → OBSVTOIN 05-18 10:19 → 3SCARD 05-18 16:37
PROVIDERS: ADMIT Internal Medicine; ATTEND Internal Medicine
DX: I13.0 Hypertensive heart and chronic kidney disease with heart failure and stage 1 through stage 4 chronic kidney disease, or unspecified chronic kidney disease (principal); I50.33 Acute on chronic diastolic (congestive) heart failure; N17.9 Acute kidney failure, unspecified; N39.0 Urinary tract infection, site not specified; Z68.42 Body mass index [BMI] 45.0-49.9, adult; E66.2 Morbid (severe) obesity with alveolar hypoventilation; J96.11 Chronic respiratory failure with hypoxia; N18.3 Chronic kidney disease, stage 3 (moderate); E66.9 Obesity, unspecified; E11.65 Type 2 diabetes mellitus with hyperglycemia; E11.22 Type 2 diabetes mellitus with diabetic chronic kidney disease; M10.9 Gout, unspecified; E03.9 Hypothyroidism, unspecified; E11.21 Type 2 diabetes mellitus with diabetic nephropathy; E78.5 Hyperlipidemia, unspecified; E87.5 Hyperkalemia; F17.210 Nicotine dependence, cigarettes, uncomplicated; G47.33 Obstructive sleep apnea (adult) (pediatric); J44.9 Chronic obstructive pulmonary disease, unspecified; J45.20 Mild intermittent asthma, uncomplicated; K21.9 Gastro-esophageal reflux disease without esophagitis; M1A.9XX0 Chronic gout, unspecified, without tophus (tophi); T50.2X5A Adverse effect of carbonic-anhydrase inhibitors, benzothiadiazides and other diuretics, initial encounter; T50.8X5A Adverse effect of diagnostic agents, initial encounter; Z79.4 Long term (current) use of insulin; Z79.51 Long term (current) use of inhaled steroids; Z79.82 Long term (current) use of aspirin; Z79.890 Hormone replacement therapy; Z79.899 Other long term (current) drug therapy; Z82.49 Family history of ischemic heart disease and other diseases of the circulatory system; Z83.3 Family history of diabetes mellitus; Z88.0 Allergy status to penicillin; Z88.8 Allergy status to other drugs, medicaments and biological substances; Z90.89 Acquired absence of other organs; Z90.49 Acquired absence of other specified parts of digestive tract; Z98.891 History of uterine scar from previous surgery; Z87.01 Personal history of pneumonia (recurrent)
CPT/HCPCS: 36415; 71046; 71275; 80048; 80053; 81001; 83735; 83880; 84132; 84484; 85025; 85027; 85379; 85610; 85730; 87086; 93005; 93306; 93351; 94640; 96374; 96375; 99285

== ENCOUNTER → 2020-06-01 | Outpatient (CLI) | payer MEDICARE ==
--- NOTE | 2020-06-01 10:39 | US ---
LOWER EXTREMITY VENOUS INSUFFICIENCY CLINICAL HISTORY: I87.311 CHRONIC VENOUS HYPERTESION. Edema SIDE PERFORMED: Bilateral 1) Color flow is present and patency is documented in the following vessels. No DVT or SVT is noted . EIV Common Femoral Vein Deep Femoral Vein Femoral Vein Popliteal Vein Proximal Calf Veins Greater Saph Vein Upper Small Saph Vein 2) There is venous reflux noted at the following venous levels: none 3) Incompetent perforators are noted at these levels: none IMPRESSION: 1. No diagnostic evidence of venous reflux.
--- NOTE | 2020-06-02 09:22 | P.ARTDOP ---
Arterial Doppler LOWER EXTREMITY ARTERIAL DOPPLER: DATE OF SERVICE: 06/01/2020 Reason for study: Right leg ulcer. Doppler waveforms: Multiphasic bilaterally throughout. Pulse volume recording: []. Pressure gradients: None. Ankle-brachial indices: Greater than 1 bilaterally. Toe brachial indices: 0.94 on the right, 0.78 on the left Impression: Normal study.
== END | disposition home or self-care (01) ==
LOC: RADUSWWP 08:50
PROVIDERS: ATTEND Family Medicine
DX: E11.622 Type 2 diabetes mellitus with other skin ulcer (principal); I87.313 Chronic venous hypertension (idiopathic) with ulcer of bilateral lower extremity; L97.821 Non-pressure chronic ulcer of other part of left lower leg limited to breakdown of skin; L97.811 Non-pressure chronic ulcer of other part of right lower leg limited to breakdown of skin; I87.2 Venous insufficiency (chronic) (peripheral); I89.0 Lymphedema, not elsewhere classified; Z88.1 Allergy status to other antibiotic agents
CPT/HCPCS: 93922; 93923; 93970

== ENCOUNTER → 2020-06-10 | Outpatient (CLI) | payer MEDICARE ==
[2020-06-10 13:43] LABS: Basophils # (A) 0.1 k/uL (0-0.2); Basophils % (A) 0 %; Eosinophils # (A) 0.7 k/uL (0-0.7); Eosinophils % (A) 7 %; HCT 36.6 % (34.0-46.0); HGB 11.5 gm/dL (11.4-16.0); Hypochromasia Slight; Lymphocytes # (A) 1.8 k/uL (1.0-4.8); Lymphocytes % (A) 16 %; MCH 28.7 pg (25.0-35.0); MCHC 31.4 g/dL (31.0-37.0); MCV 91.2 fL (80.0-100.0); Mean Platelet Volume 8.2; Monocytes # (A) 0.6 k/uL (0-1.0); Monocytes % (A) 6 %; Neutrophils # (A) 7.5 k/uL (1.3-7.7); Neutrophils % (A) 70 %; Platelet Count 320 k/uL (150-450); RBC 4.01 m/uL (3.80-5.40); RDW 15.4 % (11.5-15.5); WBC 10.7 k/uL (3.8-10.6)
[2020-06-10 19:59] LABS: Erythrocyte Sedimentation Rate 61 mm/Hr (0-30)
[2020-06-10 20:33] LABS: Hemoglobin A1C 9.8 % (4.0-6.0)
[2020-06-11 00:59] LABS: African American GFR (CKD) 45.6 (60.0-200.0); Albumin 3.8 g/dL (3.80-4.90); Albumin/Globulin Ratio 1.9 (1.60-3.17); Anion Gap 12.7 mmol/L (4.00-12.00); BUN/Creat Ratio 22.14 Ratio (12.00-20.00); C Reactive Protein 2.7 mg/dL (0.0-0.8); Calcium 9.9 mg/dL (8.7-10.3); Carbon Dioxide 26.3 mmol/L (21.6-31.8); Magnesium 1.4 mg/dL (1.5-2.4); Non-African American GFR(CKD) 39.3 (60.0-200.0); Potassium 4.8 mmol/L (3.5-5.5); Total Bilirubin 0.3 mg/dL (0.3-1.2); Total Protein 5.8 g/dL (6.2-8.2)
[2020-06-11 01:06] LABS: T4, Free (Free Thyroxine) 1.1 ng/dL (0.80-1.80)
== END | disposition home or self-care (01) ==
LOC: LABWHC1 12:08
PROVIDERS: ATTEND Nurse Practitioner Family
DX: E03.9 Hypothyroidism, unspecified (principal); E11.9 Type 2 diabetes mellitus without complications; I87.311 Chronic venous hypertension (idiopathic) with ulcer of right lower extremity
CPT/HCPCS: 36415; 80053; 83036; 83735; 84134; 84439; 84443; 85025; 85652; 86140

== ENCOUNTER 2020-11-11 11:54 | Inpatient (IN) | payer MEDICARE ==
[2020-11-11] MEDS ORDERED: SODIUM CHLORIDE 0.9% 500 ML 500 ML IV STA (12:51)
[2020-11-11] MEDS ORDERED: IPRATROPIUM 0.5 MG/2.5 ML NEBU INHALATION STA (12:51)
[2020-11-11] MEDS ORDERED: ALBUTEROL NEBULIZED 2.5 MG/3 ML INHALATION STA (12:51)
[2020-11-11] MEDS ORDERED: hydrALAZINE HCL 20 MG/ML 1 ML VIAL IVP STA (12:52)
--- NOTE | 2020-11-11 12:59 | ED ---
General Adult HPI - General Chief complaint: Shortness of Breath Stated complaint: SOB Time Seen by Provider: 11/11/20 12:10 Source: patient, EMS, RN notes reviewed, old records reviewed Mode of arrival: EMS Limitations: no limitations - History of Present Illness Initial comments: This is a 65-year-old female who presents emergency Department complaining of shortness of breath per patient states been ongoing for a couple weeks. Patient states she started Dr. about a week ago and he thought it was some fluid retention and told her to wait about another week to see if it resolves. Patient states the shortness of breath continues to get worse especially with exertion. Patient states just walking across the room makes her extremely tired. Patient denies any chest pain or palpitations. Patient denies any recent fever chills or cough per patient denies any cold exposure. Patient denies any headache patient denies numbness weakness. Patient denies any lightheadedness or dizziness. Patient denies any abdominal pain patient denies nausea vomiting or diarrhea. Patient states her swelling in her legs is considerably worse and has been. - Related Data Home Medications Medication Instructions Recorded Confirmed Atorvastatin [Lipitor] 20 mg PO HS 10/26/15 11/11/20 Aspirin EC [Ecotrin] 325 mg PO DAILY 05/16/19 11/11/20 Budesonide/Formoterol Fumarate 2 puff INHALATION RT-BID 05/16/19 11/11/20 [Symbicort 160-4.5 Mcg Inhaler] INSULIN ASPART (NovoLOG) [NovoLOG 30 unit SQ AC-TID 05/16/19 11/11/20 (formulary)] Insulin Degludec [Tresiba 140 units SQ DAILY 05/16/19 11/11/20 Flextouch U-200] allopurinoL [Zyloprim] 300 mg PO DAILY 05/16/19 11/11/20 sitaGLIPtin [Januvia] 100 mg PO DAILY 05/16/19 11/11/20 Albuterol Inhaler [Ventolin Hfa 2 puff INHALATION RT-QID PRN 11/11/20 11/11/20 Inhaler] Docusate [Colace] 100 mg PO DAILY 11/11/20 11/11/20 Ergocalciferol (Vitamin D2) 1,250 mcg PO WE 11/11/20 11/11/20 [Drisdol (50,000 Iu)] Ferrous Sulfate [Feosol] 325 mg PO DAILY 11/11/20 11/11/20 Furosemide [Lasix] 60 mg PO BID 11/11/20 11/11/20 Levothyroxine Sodium [Synthroid] 75 mcg PO DAILY 11/11/20 11/11/20 Repaglinide [Prandin] 1 mg PO AC-TID 11/11/20 11/11/20 amLODIPine [Norvasc] 5 mg PO DAILY 11/11/20 11/11/20 Previous Rx's Medication Instructions Recorded Magnesium 200 mg PO DAILY #30 tablet 05/21/19 Metoprolol Succinate (ER) [Toprol 25 mg PO DAILY #30 tab.er.24h 05/21/19 XL] hydrALAZINE HCL [Apresoline] 50 mg PO TID #90 tab 05/21/19 Allergies Allergy/AdvReac Type Severity Reaction Status Date / Time ampicillin sodium Allergy Itching Verified 11/11/20 13:41 [From Unasyn] sulbactam sodium Allergy Itching Verified 11/11/20 13:41 [From Unasyn] Review of Systems ROS Statement: Those systems with pertinent positive or pertinent negative responses have been documented in the HPI. ROS Other: All systems not noted in ROS Statement are negative. Past Medical History Past Medical History: Asthma, Diabetes Mellitus, GERD/Reflux, Hyperlipidemia, Hypertension, Osteoarthritis (OA), Pneumonia, Thyroid Disorder Additional Past Medical History / Comment(s): 10-16-15 admitted with foeign body rt foot/abcess. other past medical hx includes: RHEUMATIC FEVER, OCC PALPITATIONS,BRONCHITIS, ghout History of Any Multi-Drug Resistant Organisms: MRSA Date of last positivie culture/infection: 2008 MDRO Source:: lt leg Past Surgical History: Appendectomy, Section, Tonsillectomy Additional Past Surgical History / Comment(s): X2 C SECTIONS, right foot IND Past Anesthesia/Blood Transfusion Reactions: No Reported Reaction Additional Past Anesthesia/Blood Transfusion Reaction / Comment(s): clausterphobia Past Psychological History: No Psychological Hx Reported Past Alcohol Use History: None Reported Past Drug Use History: None Reported - Past Family History Father Family Medical History: Congestive Heart Failure (CHF), Diabetes Mellitus Additional Family Medical History / Comment(s): quad bypass Mother Family Medical History: Blood Disorder (Anemia), Congestive Heart Failure (CHF), Coronary Artery Disease (CAD) Additional Family Medical History / Comment(s): at 79 Daughter(s) Family Medical History: No Reported History General Exam - General Exam Comments Initial Comments: GENERAL: Patient is well-developed and well-nourished. Patient is nontoxic and well- hydrated and is in mild distress. ENT: Neck is soft and supple. No significant lymphadenopathy is noted. Oropharynx is clear. Moist mucous membranes. Neck has full range of motion without eliciting any pain. EYES: The sclera were anicteric and conjunctiva were pink and moist. Extraocular movements were intact and pupils were equal round and reactive to light. Eyelids were unremarkable. PULMONARY: Unlabored respirations. Good breath sounds bilaterally. Diminished breath sounds bilaterally CARDIOVASCULAR: There is a regular rate and rhythm without any murmurs gallops or rubs. ABDOMEN: Soft and nontender with normal bowel sounds. SKIN: Skin is clear with no lesions or rashes and otherwise unremarkable. NEUROLOGIC: Patient is alert and oriented x3. Cranial nerves II through XII are grossly intact. Motor and sensory are also intact. Normal speech, volume and content. Symmetrical smile. MUSCULOSKELETAL: Normal extremities with adequate strength and full range of motion. 2+ edema LYMPHATICS: No significant lymphadenopathy is noted PSYCHIATRIC: Normal psychiatric evaluation. Limitations: no limitations Course Vital Signs 11/11/20 11/11/20 11/11/20 12:08 12:30 12:55 Temperature 98.4 F Pulse Rate 77 72 Respiratory 22 23 Rate Blood Pressure 208/85 176/62 O2 Sat by Pulse 94 L 90 L Oximetry 11/11/20 11/11/20 13:22 15:00 Temperature Pulse Rate 76 74 Respiratory 20 24 Rate Blood Pressure 158/72 168/70 O2 Sat by Pulse 93 L 92 L Oximetry Medical Decision Making - Medical Decision Making EKG shows an accelerated junctional rhythm at 74 bpm QRS is 88 QT interval 376 QTC is 470 per patient's EKG shows no ST segment elevation or depression. Chest x-ray shows pulmonary edema. Patient's d-dimer was elevated so I got a CAT scan to rule out PE no PE was seen but it did show signs of pleural effusions as well as pulmonary edema. I started the patient Lasix and continued Lasix on the floor. I also gave the patient Nitropaste. I spoke with Dr. Toscano. I consulted cardiology. I continued Lasix Nitropaste floor. - Lab Data Result diagrams: 11/11/20 13:12 11/11/20 13:12 Lab Results 11/11/20 11/11/20 11/11/20 Range/Units 13:12 13:12 13:12 WBC 10.6 (3.8-10.6) k/uL RBC 3.71 L (3.80-5.40) m/uL Hgb 10.3 L (11.4-16.0) gm/dL Hct 32.9 L (34.0-46.0) % MCV 88.8 (80.0-100.0) fL MCH 27.8 (25.0-35.0) pg MCHC 31.3 (31.0-37.0) g/dL RDW 15.9 H (11.5-15.5) % Plt Count 346 (150-450) k/uL MPV 8.0 Neutrophils % 80 % Lymphocytes % 10 % Monocytes % 5 % Eosinophils % 5 % Basophils % 0 % Neutrophils # 8.5 H (1.3-7.7) k/uL Lymphocytes # 1.0 (1.0-4.8) k/uL Monocytes # 0.6 (0-1.0) k/uL Eosinophils # 0.5 (0-0.7) k/uL Basophils # 0.0 (0-0.2) k/uL Hypochromasia Marked PT 10.2 (9.0-12.0) sec INR 0.9 (<1.2) APTT 23.2 (22.0-30.0) sec D-Dimer 1.33 H (<0.60) mg/L FEU Sodium 144 (137-145) mmol/L Potassium 5.4 H (3.5-5.1) mmol/L Chloride 104 (98-107) mmol/L Carbon Dioxide 34 H (22-30) mmol/L Anion Gap 6 mmol/L BUN 30 H (7-17) mg/dL Creatinine 0.90 (0.52-1.04) mg/dL Est GFR (CKD-EPI)AfAm 77 (>60 ml/min/1.73 sqM) Est GFR (CKD-EPI)NonAf 67 (>60 ml/min/1.73 sqM) Glucose 243 H (74-99) mg/dL Plasma Lactic Acid Anshu (0.7-2.0) mmol/L Calcium 9.5 (8.4-10.2) mg/dL Total Bilirubin 0.4 (0.2-1.3) mg/dL AST 21 (14-36) U/L ALT 19 (4-34) U/L Alkaline Phosphatase 113 (38-126) U/L Troponin I (0.000-0.034) ng/mL NT-Pro-B Natriuret Pep pg/mL Total Protein 6.2 L (6.3-8.2) g/dL Albumin 3.5 (3.5-5.0) g/dL Urine Color Urine Appearance (Clear) Urine pH (5.0-8.0) Ur Specific [place] (1.001-1.035) Urine Protein (Negative) Urine Glucose (UA) (Negative) Urine Ketones (Negative) Urine Blood (Negative) Urine Nitrite (Negative) Urine Bilirubin (Negative) Urine Urobilinogen (<2.0) mg/dL Ur Leukocyte Esterase (Negative) Urine RBC (0-5) /hpf Urine WBC (0-5) /hpf Ur Squamous Epith Cells (0-4) /hpf Urine Bacteria (None) /hpf Urine Mucus (None) /hpf Coronavirus (PCR) (Not Detectd) 11/11/20 11/11/20 11/11/20 Range/Units 13:12 13:12 13:12 WBC (3.8-10.6) k/uL RBC (3.80-5.40) m/uL Hgb (11.4-16.0) gm/dL Hct (34.0-46.0) % MCV (80.0-100.0) fL MCH (25.0-35.0) pg MCHC (31.0-37.0) g/dL RDW (11.5-15.5) % Plt Count (150-450) k/uL MPV Neutrophils % % Lymphocytes % % Monocytes % % Eosinophils % % Basophils % % Neutrophils # (1.3-7.7) k/uL Lymphocytes # (1.0-4.8) k/uL Monocytes # (0-1.0) k/uL Eosinophils # (0-0.7) k/uL Basophils # (0-0.2) k/uL Hypochromasia PT (9.0-12.0) sec INR (<1.2) APTT (22.0-30.0) sec D-Dimer (<0.60) mg/L FEU Sodium (137-145) mmol/L Potassium (3.5-5.1) mmol/L Chloride (98-107) mmol/L Carbon Dioxide (22-30) mmol/L Anion Gap mmol/L BUN (7-17) mg/dL Creatinine (0.52-1.04) mg/dL Est GFR (CKD-EPI)AfAm (>60 ml/min/1.73 sqM) Est GFR (CKD-EPI)NonAf (>60 ml/min/1.73 sqM) Glucose (74-99) mg/dL Plasma Lactic Acid Anshu 0.9 (0.7-2.0) mmol/L Calcium (8.4-10.2) mg/dL Total Bilirubin (0.2-1.3) mg/dL AST (14-36) U/L ALT (4-34) U/L Alkaline Phosphatase (38-126) U/L Troponin I <0.012 (0.000-0.034) ng/mL NT-Pro-B Natriuret Pep 211 pg/mL Total Protein (6.3-8.2) g/dL Albumin (3.5-5.0) g/dL Urine Color Urine Appearance (Clear) Urine pH (5.0-8.0) Ur Specific [place] (1.001-1.035) Urine Protein (Negative) Urine Glucose (UA) (Negative) Urine Ketones (Negative) Urine Blood (Negative) Urine Nitrite (Negative) Urine Bilirubin (Negative) Urine Urobilinogen (<2.0) mg/dL Ur Leukocyte Esterase (Negative) Urine RBC (0-5) /hpf Urine WBC (0-5) /hpf Ur Squamous Epith Cells (0-4) /hpf Urine Bacteria (None) /hpf Urine Mucus (None) /hpf Coronavirus (PCR) (Not Detectd) 11/11/20 11/11/20 Range/Units 13:22 14:08 WBC (3.8-10.6) k/uL RBC (3.80-5.40) m/uL Hgb (11.4-16.0) gm/dL Hct (34.0-46.0) % MCV (80.0-100.0) fL MCH (25.0-35.0) pg MCHC (31.0-37.0) g/dL RDW (11.5-15.5) % Plt Count (150-450) k/uL MPV Neutrophils % % Lymphocytes % % Monocytes % % Eosinophils % % Basophils % % Neutrophils # (1.3-7.7) k/uL Lymphocytes # (1.0-4.8) k/uL Monocytes # (0-1.0) k/uL Eosinophils # (0-0.7) k/uL Basophils # (0-0.2) k/uL Hypochromasia PT (9.0-12.0) sec INR (<1.2) APTT (22.0-30.0) sec D-Dimer (<0.60) mg/L FEU Sodium (137-145) mmol/L Potassium (3.5-5.1) mmol/L Chloride (98-107) mmol/L Carbon Dioxide (22-30) mmol/L Anion Gap mmol/L BUN (7-17) mg/dL Creatinine (0.52-1.04) mg/dL Est GFR (CKD-EPI)AfAm (>60 ml/min/1.73 sqM) Est GFR (CKD-EPI)NonAf (>60 ml/min/1.73 sqM) Glucose (74-99) mg/dL Plasma Lactic Acid Anshu (0.7-2.0) mmol/L Calcium (8.4-10.2) mg/dL Total Bilirubin (0.2-1.3) mg/dL AST (14-36) U/L ALT (4-34) U/L Alkaline Phosphatase (38-126) U/L Troponin I (0.000-0.034) ng/mL NT-Pro-B Natriuret Pep pg/mL Total Protein (6.3-8.2) g/dL Albumin (3.5-5.0) g/dL Urine Color Light Yellow Urine Appearance Cloudy H (Clear) Urine pH 5.5 (5.0-8.0) Ur Specific [place] 1.011 (1.001-1.035) Urine Protein 1+ H (Negative) Urine Glucose (UA) Trace H (Negative) Urine Ketones Negative (Negative) Urine Blood Large H (Negative) Urine Nitrite Negative (Negative) Urine Bilirubin Negative (Negative) Urine Urobilinogen <2.0 (<2.0) mg/dL Ur Leukocyte Esterase Large H (Negative) Urine RBC 156 H (0-5) /hpf Urine WBC 95 H (0-5) /hpf Ur Squamous Epith Cells <1 (0-4) /hpf Urine Bacteria Rare H (None) /hpf Urine Mucus Rare H (None) /hpf Coronavirus (PCR) Not Detected (Not Detectd) Critical Care Time Critical Care Time: Yes Total Critical Care Time: 35 Disposition Clinical Impression: Hematuria, Pleural cavity effusion, Acute pulmonary edema Disposition: ADMITTED IP TO THIS HOSP Referrals: Sanket Severino MD [Primary Care Provider] - 1-2 days Time of Disposition: 16:41
[2020-11-11 13:31] LABS: Basophils % (A) 0 %; Eosinophils # (A) 0.5 k/uL (0-0.7); Eosinophils % (A) 5 %; HCT 32.9 % (34.0-46.0); HGB 10.3 gm/dL (11.4-16.0); Hypochromasia Marked; Lymphocytes % (A) 10 %; MCH 27.8 pg (25.0-35.0); MCHC 31.3 g/dL (31.0-37.0); MCV 88.8 fL (80.0-100.0); Monocytes # (A) 0.6 k/uL (0-1.0); Monocytes % (A) 5 %; Neutrophils # (A) 8.5 k/uL (1.3-7.7); Neutrophils % (A) 80 %; Platelet Count 346 k/uL (150-450); RBC 3.71 m/uL (3.80-5.40); RDW 15.9 % (11.5-15.5); WBC 10.6 k/uL (3.8-10.6)
[2020-11-11 13:46] LABS: Total Protein 6.2 g/dL (6.3-8.2)
[2020-11-11 13:47] LABS: INR 0.9 (<1.2); Partial Thromboplastin Time 23.2 sec (22.0-30.0); Prothrombin Time 10.2 sec (9.0-12.0)
[2020-11-11 13:48] LABS: Albumin 3.5 g/dL (3.5-5.0); Calcium 9.5 mg/dL (8.4-10.2); Potassium 5.4 mmol/L (3.5-5.1); Total Bilirubin 0.4 mg/dL (0.2-1.3)
--- NOTE | 2020-11-11 13:55 | XR ---
EXAMINATION TYPE: XR chest 2V DATE OF EXAM: 11/11/2020 COMPARISON: Chest x-ray 05/16/2019 HISTORY: Difficulty breathing, shortness of breath TECHNIQUE: Frontal and lateral views of the chest are obtained. FINDINGS: Patchy bilateral airspace disease is present. Heart is enlarged. Aorta is dense. No pneumo thorax. There is blunting the costophrenic angles. IMPRESSION: Correlate for pneumonia, congestive heart failure and pulmonary edema with basilar effus ions.
[2020-11-11] MEDS ORDERED: ALBUTEROL HFA INHALER INHALATION STA (14:06)
[2020-11-11 14:28] LABS: Appearance,Urine Cloudy (Clear); Bacteria,Urine Rare /hpf; Bilirubin,Urine Negative (Negative); Blood,Urine Large (Negative); Color,Urine Light Yellow; Glucose,Urine (UA) Trace (Negative); Ketones,Urine Negative (Negative); Leukocyte Esterase,Urine Large (Negative); Mucus,Urine Rare /hpf; Nitrite,Urine Negative (Negative); PH, Urine 5.5 (5.0-8.0); Protein,Urine 1+ (Negative); RBC,Urine 156 /hpf (0-5); Specific Gravity,Urine 1.011 (1.001-1.035); Squamous Epithelial Cell,Urine <1 /hpf (0-4); Urobilinogen,Urine <2.0 mg/dL (<2.0); WBC,Urine 95 /hpf (0-5)
[2020-11-11 14:41] LABS: D-Dimer 1.33 mg/L FEU (<0.60)
--- NOTE | 2020-11-11 15:31 | CT ---
EXAMINATION TYPE: CT chest angio for PE DATE OF EXAM: 11/11/2020 COMPARISON: Radiograph same day HISTORY: 65-year-old female Shortness of breath and cough. TECHNIQUE: Contiguous axial scanning of the chest performed with IV Contrast, patient injected with 1 00 mL of Isovue 300. Coronal/sagittal MIP reconstructions performed. CT DLP: 1044.5 mGycm Automated exposure control for dose reduction was used. FINDINGS: The heart is mildly enlarged without pericardial effusion. No flattening of the interventricular sept um reflux of contrast into the hepatic veins. There is extensive breathing motion artifacts. Borderline suboptimal opacification of the pulmonary a rtery system. Enlarged caliber to the main right and left pulmonary arteries at 3.0 and 2.9 cm, respe ctively, without hydronephrosis. No definite pulmonary embolus in the upper and midlungs. Due to the extensive breathing motion, lower lung pulmonary arterial branches are very limited and nondiagnostic . Numerous nonenlarged and are likely mildly enlarged mediastinal lymph nodes measuring up to 1.5 cm in the precarinal region, 1.0 cm prevascular space, 1.2 cm right hilum. Numerous scattered calcified granulomas are present. Moderate right and small left pleural effusions with adjacent atelectasis. Opacification adjacent to the right effusion is prominent with atelectasis of some of the basilar segments of the right lower lobe. Septal lines in the upper lungs and scatter ed groundglass changes. Possible 1.6 cm inferior lingular pulmonary nodule, axial image 118. Visualized upper abdomen shows no gross abnormality. Bones: Visualized within the mid thoracic spine with accentuated midthoracic kyphosis. IMPRESSION: 1. PROMINENT BREATHING MOTION. NO PULMONARY EMBOLUS SEEN IN THE UPPER OR MID LUNGS. MANY OF THE ARTER IAL BRANCHES IN THE LOWER LUNGS ARE VERY LIMITED TO NONDIAGNOSTIC. 2. MILD CARDIOMEGALY, PULMONARY ARTERIAL HYPERTENSION, MODERATE RIGHT AND SMALL LEFT EFFUSIONS, SEPTA L LINES IN THE UPPER LUNGS, SCATTERED GROUNDGLASS CHANGES. FINDINGS SUGGEST CHF WITH DEVELOPING INTER STITIAL PULMONARY EDEMA. 3. PROMINENT SEGMENTAL COLLAPSE/ATELECTASIS IN THE BASILAR LOWER LOBES. 4. POSSIBLE 1.6 CM INFERIOR LINGULAR PULMONARY NODULE. FOLLOW-UP IN 3 MONTHS AFTER SUCCESSFUL TREATME NT TO REASSESS.
[2020-11-11 20:14] LABS: Glucose,Whole Blood 246 mg/dL (75-99)
[2020-11-11] MEDS ORDERED: INSULIN DETEMIR (LEVEMIR) 100 UNIT/ML SYR SQ SCH (20:30)
[2020-11-11] MEDS: NITROGLYCERIN OINT 1 INCH/GM PACKET TOPICAL SCH ×2 (21:16→22:52)
[2020-11-11] MEDS: ATORVASTATIN 20 MG TAB PO SCH (21:20)
[2020-11-11] MEDS: amLODIPine 5 MG TAB PO SCH (21:20)
[2020-11-11] MEDS: INSULIN ASPART (NovoLOG) 100 UNIT/ML VIAL SQ SCH (21:20)
[2020-11-11] MEDS: FUROSEMIDE 10 MG/ML 4 ML VIAL IV SCH (21:20)
[2020-11-11] MEDS: METOPROLOL SUCCINATE (ER) 25 MG TAB.ER.24H PO SCH (21:20)
[2020-11-11] MEDS: hydrALAZINE HCL 50 MG TAB PO SCH (21:20)
[2020-11-12] MEDS ORDERED: FUROSEMIDE 40 MG TAB PO SCH
[2020-11-12 06:16] LABS: Glucose,Whole Blood 180 mg/dL (75-99)
[2020-11-12] MEDS: INSULIN ASPART (NovoLOG) 100 UNIT/ML VIAL SQ SCH ×4 (06:20→20:23)
[2020-11-12] MEDS: LEVOTHYROXINE 75 MCG TAB PO SCH (06:20)
[2020-11-12] MEDS: IPRATROPIUM-ALBUTEROL 3 ML NEB INHALATION PRN ×3 (07:13→17:01)
[2020-11-12] MEDS: hydrALAZINE HCL 50 MG TAB PO SCH ×2 (08:51→16:24)
[2020-11-12] MEDS: DOCUSATE 100 MG CAP PO SCH (08:51)
[2020-11-12] MEDS: amLODIPine 5 MG TAB PO SCH (08:51)
[2020-11-12] MEDS: MAGNESIUM OXIDE 400 MG TAB PO SCH (08:51)
[2020-11-12] MEDS: allopurinoL 300 MG TAB PO SCH (08:52)
[2020-11-12] MEDS: FERROUS SULFATE 325 MG TAB PO SCH (08:52)
[2020-11-12] MEDS: NITROGLYCERIN OINT 1 INCH/GM PACKET TOPICAL SCH (08:52)
[2020-11-12] MEDS: FUROSEMIDE 10 MG/ML 4 ML VIAL IV SCH ×2 (08:52→20:23)
[2020-11-12] MEDS: METOPROLOL SUCCINATE (ER) 25 MG TAB.ER.24H PO SCH (08:52)
[2020-11-12] MEDS: LINAGLIPTIN 5 MG TABLET PO SCH (08:52)
[2020-11-12] MEDS ORDERED: ASPIRIN 325 MG TAB PO SCH (09:00)
--- NOTE | 2020-11-12 10:22 | P.CRDCN ---
History of Present Illness History of present illness: HISTORY OF PRESENTING ILLNESS This is a pleasant 65-year-old female past medical history significant for diabetes mellitus, hypertension, dyslipidemia, asthma, former nicotine depe ndence, rheumatic fever as a child and morbid obesity. She denies prior history of coronary artery disease and has seen Dr. Caba in the office one time in 2019. At that time she underwent a stress test that was negative for reversible cardiac ischemia with normal LV function. We have been asked to see in consultation for heart failure. She presented to the hospital with symptoms of shortness of breath that has been going on and getting progressively worse for the past 2 weeks. She states she saw her primary care physician and was told to decrease her amount of oral intake of water. She states her shortness of breath is with exertion or activity and resolves at rest. She denies cough, fever or chills. She denies chest pain, dizziness or palpitations. She also was concerned about increased lower extremity edema and generalized weakness. Most recent echocardiogram obtained May 2019 reveals preserved LV systolic function with ejection fraction greater than 55%. DIAGNOSTICS EKG reveals sinus mechanism heart rate of 74 with significant artifact. CTA of the chest reveals no evidence of pulmonary embolism, cardiomegaly, pulmonary hypertension, moderate right and left pleural effusions, scattered groundglass changes and developing interstitial pulmonary edema. There is also an inferior lingular pulmonary nodule noted. Chest xray blunting of the costophrenic angles with basilar effusions. Laboratory reviewed, it enzymes negative 3, NT proBNP 211, d-dimer 1.33, WBC 10.6, hemoglobin 10.3, platelets 346, sodium 144, potassium 5.4 and creatinine 0.9. Current cardiac medications include aspirin 325 mg daily, atorvastatin 20 mg daily, amlodipine 5 mg daily, Lasix 60 mg twice a day, hydralazine 50 mg 3 times a day and Toprol 25 mg daily. REVIEW OF SYSTEMS At the time of my exam: CONSTITUTIONAL: Denies fever or chills. CARDIOVASCULAR: Complains of exertional shortness of breath. Denies chest pain, orthopnea, PND or palpitations. RESPIRATORY: Denies cough. GASTROINTESTINAL: Denies abdominal pain, diarrhea, constipation, nausea or vomiting. MUSCULOSKELETAL: Denies myalgias. NEUROLOGIC: Denies numbness, tingling, headacbe or weakness. ENDOCRINE: Denies fatigue, weight change, polydipsia or polyurina. GENITOURINARY: Denies burning, hematuria or urgency with micturation. HEMATOLOGIC: Denies history of anemia or bleeding. PHYSICAL EXAMINATION Blood pressure 151/66 heart rate 72 afebrile and maintaining oxygen saturation on nasal cannula. CONSTITUTIONAL: No apparent distress. HEENT: Head is normocephalic. Pupils are equal, round. Sclerae anicteric. Mucous membranes of the mouth are moist. No JVD. No carotid bruit. CHEST EXAMINATION: Bibasilar rales, faint expiratory wheeze, no rhonchi and diminished bilaterally. No chest wall tenderness is noted on palpation or with deep breathing. HEART EXAMINATION: Regular rate and rhythm. S1, S2 heard. Soft systolic ejection murmur at the base, no gallops or rub. ABDOMEN: Soft, nontender. Positive bowel sounds. EXTREMITIES: 1+ peripheral pulses, bilateral lower extremity 2+ pitting edema and erythema with noted skin changes and no calf tenderness. NEUROLOGIC EXAMINATION: Patient is awake, alert and oriented x3. ASSESSMENT Acute on chronic heart failure with preserved ejection fraction and cor p ulmonale Urinary tract infection Hypertension Dyslipidemia Diabetes mellitus History of asthma Former nicotine dependence Morbid obesity, BMI 51 PLAN An acute coronary event has been ruled out. Obtain 2-D echocardiogram and Doppler study to assess cardiac structure and function. Decrease aspirin to 81 mg daily. Discontinue Nitropaste. Continue to diurese. May consider increasing frequency if she does not have significant urine output. Document accurate intake and output along with daily weights. Follow renal function and electrolytes in the morning. Recommend pulmonary evaluation. Thank you kindly for this consultation. Nurse Practitioner note has been reviewed, I agree with a documented findings and plan of care. Patient was seen and examined. Past Medical History Past Medical History: Asthma, Diabetes Mellitus, GERD/Reflux, Hyperlipidemia, Hypertension, Osteoarthritis (OA), Pneumonia, Thyroid Disorder Additional Past Medical History / Comment(s): 2-16 admitted with foeign body rt foot/abcess. other past medical hx includes: RHEUMATIC FEVER, OCC PALPITATIONS,BRONCHITIS, ghout History of Any Multi-Drug Resistant Organisms: MRSA Date of last positivie culture/infection: 2008 MDRO Source:: lt leg Past Surgical History: Appendectomy, Section, Tonsillectomy Additional Past Surgical History / Comment(s): X2 C SECTIONS, right foot IND Past Anesthesia/Blood Transfusion Reactions: No Reported Reaction Additional Past Anesthesia/Blood Transfusion Reaction / Comment(s): clausterphobia Past Psychological History: No Psychological Hx Reported Smoking Status: Former smoker Past Alcohol Use History: None Reported Past Drug Use History: None Reported - Past Family History Father Family Medical History: Congestive Heart Failure (CHF), Diabetes Mellitus Additional Family Medical History / Comment(s): quad bypass Mother Family Medical History: Blood Disorder, Congestive Heart Failure (CHF), Coronary Artery Disease (CAD) Additional Family Medical History / Comment(s): at 79 Daughter(s) Family Medical History: No Reported History Medications and Allergies Home Medications Medication Instructions Recorded Confirmed Type Atorvastatin [Lipitor] 20 mg PO HS 10/26/15 11/11/20 History Aspirin EC [Ecotrin] 325 mg PO DAILY 05/16/19 11/11/20 History Budesonide/Formoterol Fumarate 2 puff INHALATION RT-BID 05/16/19 11/11/20 History [Symbicort 160-4.5 Mcg Inhaler] INSULIN ASPART (NovoLOG) [NovoLOG 30 unit SQ AC-TID 05/16/19 11/11/20 History (formulary)] Insulin Degludec [Tresiba 140 units SQ DAILY 05/16/19 11/11/20 History Flextouch U-200] allopurinoL [Zyloprim] 300 mg PO DAILY 05/16/19 11/11/20 History sitaGLIPtin [Januvia] 100 mg PO DAILY 05/16/19 11/11/20 History Magnesium 200 mg PO DAILY #30 tablet 05/21/19 11/11/20 Rx Metoprolol Succinate (ER) [Toprol 25 mg PO DAILY #30 tab.er.24h 05/21/19 11/11/20 Rx XL] hydrALAZINE HCL [Apresoline] 50 mg PO TID #90 tab 05/21/19 11/11/20 Rx Albuterol Inhaler [Ventolin Hfa 2 puff INHALATION RT-QID PRN 11/11/20 11/11/20 History Inhaler] Docusate [Colace] 100 mg PO DAILY 11/11/20 11/11/20 History Ergocalciferol (Vitamin D2) 1,250 mcg PO WE 11/11/20 11/11/20 History [Drisdol (50,000 Iu)] Ferrous Sulfate [Feosol] 325 mg PO DAILY 11/11/20 11/11/20 History Furosemide [Lasix] 60 mg PO BID 11/11/20 11/11/20 History Levothyroxine Sodium [Synthroid] 75 mcg PO DAILY 11/11/20 11/11/20 History Repaglinide [Prandin] 1 mg PO AC-TID 11/11/20 11/11/20 History amLODIPine [Norvasc] 5 mg PO DAILY 11/11/20 11/11/20 History Allergies Allergy/AdvReac Type Severity Reaction Status Date / Time ampicillin sodium Allergy Itching Verified 11/11/20 13:41 [From Unasyn] sulbactam sodium Allergy Itching Verified 11/11/20 13:41 [From Unasyn] Physical Exam Vitals: Vital Signs Temp Pulse Pulse Resp BP BP Pulse Ox 11/12/20 07:21 72 11/12/20 07:13 68 11/12/20 04:00 98.1 F 78 20 151/66 92 L 11/11/20 23:27 98.4 F 76 20 163/70 11/11/20 20:00 97.9 F 78 21 202/87 93 L 11/11/20 19:17 98.0 F 75 23 167/88 93 L 11/11/20 15:00 74 24 168/70 92 L 11/11/20 13:22 76 20 158/72 93 L 11/11/20 12:55 72 176/62 90 L 11/11/20 12:30 23 11/11/20 12:08 98.4 F 77 22 208/85 94 L Intake and Output 11/11/20 11/12/20 11/12/20 22:59 06:59 14:59 Intake Total 240 Output Total 1900 Balance -1900 240 Intake: Oral 240 Output: Urine 1900 Other: Weight 145.15 kg 158.5 kg Results 11/11/20 13:12 11/11/20 13:12 Cardiac Enzymes 11/11/20 11/11/20 11/11/20 Range/Units 13:12 13:12 17:32 AST 21 (14-36) U/L Troponin I <0.012 <0.012 (0.000-0.034) ng/mL 11/11/20 Range/Units 20:45 AST (14-36) U/L Troponin I <0.012 (0.000-0.034) ng/mL Coagulation 11/11/20 Range/Units 13:12 PT 10.2 (9.0-12.0) sec APTT 23.2 (22.0-30.0) sec CBC 11/11/20 Range/Units 13:12 WBC 10.6 (3.8-10.6) k/uL RBC 3.71 L (3.80-5.40) m/uL Hgb 10.3 L (11.4-16.0) gm/dL Hct 32.9 L (34.0-46.0) % Plt Count 346 (150-450) k/uL Comprehensive Metabolic Panel 11/11/20 Range/Units 13:12 Sodium 144 (137-145) mmol/L Potassium 5.4 H (3.5-5.1) mmol/L Chloride 104 (98-107) mmol/L Carbon Dioxide 34 H (22-30) mmol/L BUN 30 H (7-17) mg/dL Creatinine 0.90 (0.52-1.04) mg/dL Glucose 243 H (74-99) mg/dL Calcium 9.5 (8.4-10.2) mg/dL AST 21 (14-36) U/L ALT 19 (4-34) U/L Alkaline Phosphatase 113 (38-126) U/L Total Protein 6.2 L (6.3-8.2) g/dL Albumin 3.5 (3.5-5.0) g/dL Current Medications Generic Name Dose Route Start Last Admin Trade Name Freq PRN Reason Stop Dose Admin Albuterol/Ipratropium 3 ml 11/11/20 20:54 11/12/20 07:13 Ipratropium-Albuterol 3 Ml Neb INHALATION 3 ml RT-Q4H PRN Administration Shortness Of Breath Or Wheezing Allopurinol 300 mg 11/12/20 09:00 11/12/20 08:52 Allopurinol 300 Mg Tab PO 300 mg DAILY [facility] Administration Amlodipine Besylate 5 mg 11/11/20 20:30 11/12/20 08:51 Amlodipine 5 Mg Tab PO 5 mg DAILY [facility] Administration Aspirin 81 mg 11/13/20 09:00 Aspirin 81 Mg PO DAILY [facility] Atorvastatin Calcium 20 mg 11/11/20 21:00 11/11/20 21:20 Atorvastatin 20 Mg Tab PO 20 mg HS [facility] Administration Docusate Sodium 100 mg 11/12/20 09:00 11/12/20 08:51 Docusate 100 Mg Cap PO 100 mg DAILY [facility] Administration Ferrous Sulfate 325 mg 11/12/20 09:00 11/12/20 08:52 Ferrous Sulfate 325 Mg Tab PO 325 mg DAILY [facility] Administration Furosemide 40 mg 11/11/20 21:00 11/12/20 08:52 Furosemide 10 Mg/Ml 4 Ml Vial IV 40 mg BID [facility]ON[facility] Administration Hydralazine HCl 50 mg 11/11/20 22:00 11/12/20 08:51 Hydralazine Hcl 50 Mg Tab PO 50 mg TID [facility] Administration Ceftriaxone Sodium 1 gm/ 50 mls @ 100 mls/hr 11/12/20 10:15 Sodium Chloride IVPB Q24HR [facility] Insulin Aspart 0 unit 11/11/20 21:00 11/12/20 06:20 Insulin Aspart (Novolog) 100 Unit/Ml Vial SQ 3 unit ACHS [facility] Administration Protocol Insulin Detemir 100 unit 11/12/20 21:00 Insulin Detemir (Levemir) 100 Unit/Ml Syr SQ HS [facility] Levothyroxine Sodium 75 mcg 11/12/20 06:30 11/12/20 06:20 Levothyroxine 75 Mcg Tab PO 75 mcg 0630 [facility] Administration Linagliptin 5 mg 11/12/20 09:00 11/12/20 08:52 Linagliptin 5 Mg Tablet PO 5 mg DAILY [facility] Administration Magnesium Oxide 200 mg 11/12/20 09:00 11/12/20 08:51 Magnesium Oxide 400 Mg Tab PO 200 mg DAILY [facility] Administration Metoprolol Succinate 25 mg 11/11/20 20:30 11/12/20 08:52 Metoprolol Succinate (Er) 25 Mg Tab.Er.24h PO 25 mg DAILY [facility] Administration Nitroglycerin 1 inch 11/11/20 18:00 11/12/20 08:52 Nitroglycerin Oint 1 Inch/Gm Packet TOPICAL 1 inch QID [facility] Administration Intake and Output 11/11/20 11/12/20 11/12/20 22:59 06:59 14:59 Intake Total 240 Output Total 1900 Balance -1900 240 Intake: Oral 240 Output: Urine 1900 Other: Weight 145.15 kg 158.5 kg 11/11/20 13:12 11/11/20 13:12
--- NOTE | 2020-11-12 12:00 | ECHOF ---
Referral Reason:sob MEASUREMENTS -------- HEIGHT: 175.3 cm WEIGHT: 158.3 kg BP: RVIDd: 3.2 cm (< 3.3) IVSd: 1.9 cm (0.6 - 1.1) LVIDd: 3.6 cm (3.9 - 5.3) LVPWd: 1.8 cm (0.6 - 1.1) IVSs: 2.0 cm LVIDs: 2.4 cm LVPWs: 2.4 cm Ao Diam: 3.3 cm (2.0 - 3.7) AV Cusp: 1.4 cm (1.5 - 2.6) LA Diam: 3.3 cm (2.7 - 3.8) MV EXCURSION: 12.581 mm (> 18.000) MV EF SLOPE: 80 mm/s (70 - 150) EPSS: 0.6 cm MV E Juvencio: 1.05 m/s MV DecT: 328 ms MV A Juvencio: 0.94 m/s MV E/A Ratio: 1.12 AV maxP.94 mmHg AV meanP.13 mmHg RAP: 5.00 mmHg RVSP: 18.74 mmHg FINDINGS -------- Sinus rhythm. This was a technically difficult study with suboptimal views. The left ventricular size is normal. There is severe concentric left ventricular hypertrophy. Ove rall left ventricular systolic function is normal with, an EF between 55 - 60 %. The right ventricle is normal in size. The left atrial size is normal. The right atrial size is normal. Lumason used There is mild aortic valve sclerosis. There is mild aortic stenosis present. Peak/mean gradient a cross the Aortic Valve is 19.94mmHg / 13.13mmHg. The mitral valve is normal. There is trace mitral regurgitation. The tricuspid valve appears structurally normal. Mild tricuspid regurgitation present. Right vent ricular systolic pressure is normal at < 35 mmHg. The pulmonic valve was not well visualized. There is no pulmonic regurgitation present. The aortic root size is normal. IVC Not well visulized. There is no pericardial effusion. CONCLUSIONS -------- 1. This was a technically difficult study with suboptimal views. 2. There is severe concentric left ventricular hypertrophy. 3. Overall left ventricular systolic function is normal with, an EF between 55 - 60 %. 4. The left atrial size is normal. 5. There is mild aortic valve sclerosis. 6. There is mild aortic stenosis present. 7. Peak/mean gradient across the Aortic Valve is 19.94mmHg / 13.13mmHg. 8. There is trace mitral regurgitation. 9. Mild tricuspid regurgitation present. 10. There is no pericardial effusion. MOLDING PROCESS TECHNICIAN: Tash Hanson RDCS
[2020-11-12 12:22] LABS: Glucose,Whole Blood 154 mg/dL (75-99)
[2020-11-12 14:05] VITALS: BMI 51.5
--- NOTE | 2020-11-12 14:58 | P.HPIM ---
History of Present Illness H&P Date: 11/12/20 HISTORY OF PRESENT ILLNESS This is a 65-year-old female patient of Dr. Severino with past medical history of diabetes mellitus type 2, chronic diastolic heart failure, obesity with hypoventilation syndrome, obstructive sleep apnea, chronic hypoxic respiratory failure on home O2 at 2 L, hypertension, hyperlipidemia, gastroesophageal reflux disease, hypothyroidism, mild intermittent asthma. Patient gives history of having shortness of breath for 2-[address] Severino about a week ago and was instructed to decrease oral intake. She states she is still having shortness of breath. No chest pain. She has been sleeping in a recliner as her bed is broken. She does have increased lower extremity edema. No fever or chills. No cough. She came into [facility] emergency center for evaluation. EKG reveals sinus rhythm heart rate of 74 with significant artifact. CTA of the chest reveals no evidence of pulmonary embolism, cardiomegaly, pulmonary hypertension, moderate right and left pleural effusions, scattered groundglass changes and developing interstitial pulmonary edema. There is also an inferior lingular pulmonary nodule noted. Chest xray blunting of the costophrenic angles with basilar effusions. Troponins negative 3, proBNP 211, d-dimer 1.33, WBC 10.6, hemoglobin 10.3, platelets 346, sodium 144, potassium 5.4 and creatinine 0.9. REVIEW OF SYSTEMS Constitutional: No fever, no chills, no night sweats. No weight change. No weakness, fatigue or lethargy. No daytime sleepiness. EENT: No headache. No blurred vision or double vision, no loss of vision. No loss of Hearing, no ringing in the ears, no dizziness. No nasal drainage or congestion. No epistaxis. No sore throat. Lungs: Reports shortness of breath, cough, no sputum production. No wheezing. Cardiovascular: No chest pain, reports lower extremity edema. No palpitations. No paroxysmal nocturnal dyspnea. No orthopnea. No lightheadedness or dizziness. No syncopal episodes. Abdominal: No abdominal pain. No nausea, vomiting. No diarrhea. No constipation. No bloody or tarry stools.. No loss of appetite. Genitourinary: No dysuria, increased frequency, urgency. No urinary retention. Musculoskeletal: No myalgias. No muscle weakness, no gait dysfunction, no frequent falls. No back pain. No neck pain. Integumentary: No wounds, no lesions. No rash or pruritus. No unusual bruising. No change in hair or nails. Neurologic: No aphasia. No facial droop. No change in mentation. No head injury. No headache. No paralysis. No paresthesia. Psychiatric: No depression. No anxiety. Endocrine: No abnormal blood sugars. SOCIAL HISTORY Patient is a smoker for 25 years 1 pack per day and quit 4 years ago. No alcohol use or illicit drug use. PHYSICAL EXAMINATION Gen: This is a morbidly obese 65-year-old female. Patient is resting in bed and appears to be comfortable at rest. No acute respiratory distress noted. HEENT: Head is atraumatic, normocephalic. Pupils equal, round. Sclerae is anicteric. NECK: Supple. No JVD. No lymphadenopathy. No thyromegaly. LUNGS: Rales bilateral bases. No intercostal retractions. No accessory muscle usage. HEART: Regular rate and rhythm. Systolic murmur. ABDOMEN: Soft. Bowel sounds are present. No masses. No tenderness. EXTREMITIES: 2+ pedal edema. Erythema noted to lower extremities. No calf tenderness. NEUROLOGICAL: Patient is awake, alert and oriented x3. Cranial nerves 2 through 12 are grossly intact. ASSESSMENT AND PLAN 1. Acute on chronic hypoxic respiratory failure secondary to acute on chronic diastolic heart failure. Cardiology consult appreciated. Continue Lasix 40 mg IV twice daily, monitor I&O, daily weights, renal function and electrolytes. 2. Acute urinary tract infection. Patient started on Rocephin 1 g daily. Monitor for urine culture report. 3. Diabetes mellitus type 2. Continue Levemir 100 units at bedtime, NovoLog scale before meals and at bedtime, Tradjenta 5 mg daily. Hold Prandin 1 mg 3 times daily. 4. Hypertension. Continue Norvasc 5 mg daily, hydralazine 50 mg 3 times daily, Toprol-XL 25 mg daily. 5. Hyperlipidemia. Continue atorvastatin 20 mg at bedtime 6. Gastroesophageal reflux disease and GI prophylaxis. Protonix. 7. Hypothyroidism. Continue levothyroxine 75 g daily. 8. Mild intermittent asthma, stable. Continue DuoNeb treatments every 4 hours as needed. 9. Remote history of tobacco use. 10. Morbid obesity with BMI of 51. 11. DVT prophylaxis. Heparin subcu. Patient will be admitted to the hospital for a minimum of 2 night stay. DISCHARGE PLAN To be determined. Most likely home with homecare. Patient has refused homecare. PT and OT. Walker ordered as patient requires assistance with ambulation in order to improve her arm ADLs. Impression and plan of care have been directed as dictated by the signing physician. Chelsey Casey nurse practitioner acting as scribe for signing physic lissette. Past Medical History Past Medical History: Asthma, Diabetes Mellitus, GERD/Reflux, Hyperlipidemia, Hypertension, Osteoarthritis (OA), Pneumonia, Thyroid Disorder Additional Past Medical History / Comment(s): 10-16-15 admitted with foeign body rt foot/abcess. other past medical hx includes: RHEUMATIC FEVER, OCC PALPITATIONS,BRONCHITIS, ghout History of Any Multi-Drug Resistant Organisms: MRSA Date of last positivie culture/infection: 2008 MDRO Source:: lt leg Past Surgical History: Appendectomy, Section, Tonsillectomy Additional Past Surgical History / Comment(s): X2 C SECTIONS, right foot IND Past Anesthesia/Blood Transfusion Reactions: No Reported Reaction Additional Past Anesthesia/Blood Transfusion Reaction / Comment(s): seven cox Past Psychological History: No Psychological Hx Reported Smoking Status: Former smoker Past Alcohol Use History: None Reported Past Drug Use History: None Reported - Past Family History Father Family Medical History: Congestive Heart Failure (CHF), Diabetes Mellitus Additional Family Medical History / Comment(s): quad bypass Mother Family Medical History: Blood Disorder, Congestive Heart Failure (CHF), Coronary Artery Disease (CAD) Additional Family Medical History / Comment(s): at 79 Daughter(s) Family Medical History: No Reported History Medications and Allergies Home Medications Medication Instructions Recorded Confirmed Type Atorvastatin [Lipitor] 20 mg PO HS 10/26/15 11/11/20 History Aspirin EC [Ecotrin] 325 mg PO DAILY 05/16/19 11/11/20 History Budesonide/Formoterol Fumarate 2 puff INHALATION RT-BID 05/16/19 11/11/20 History [Symbicort 160-4.5 Mcg Inhaler] INSULIN ASPART (NovoLOG) [NovoLOG 30 unit SQ AC-TID 05/16/19 11/11/20 History (formulary)] Insulin Degludec [Tresiba 140 units SQ DAILY 05/16/19 11/11/20 History Flextouch U-200] allopurinoL [Zyloprim] 300 mg PO DAILY 05/16/19 11/11/20 History sitaGLIPtin [Januvia] 100 mg PO DAILY 05/16/19 11/11/20 History Magnesium 200 mg PO DAILY #30 tablet 05/21/19 11/11/20 Rx Metoprolol Succinate (ER) [Toprol 25 mg PO DAILY #30 tab.er.24h 05/21/19 11/11/20 Rx XL] hydrALAZINE HCL [Apresoline] 50 mg PO TID #90 tab 05/21/19 11/11/20 Rx Albuterol Inhaler [Ventolin Hfa 2 puff INHALATION RT-QID PRN 11/11/20 11/11/20 History Inhaler] Docusate [Colace] 100 mg PO DAILY 11/11/20 11/11/20 History Ergocalciferol (Vitamin D2) 1,250 mcg PO WE 11/11/20 11/11/20 History [Drisdol (50,000 Iu)] Ferrous Sulfate [Feosol] 325 mg PO DAILY 11/11/20 11/11/20 History Furosemide [Lasix] 60 mg PO BID 11/11/20 11/11/20 History Levothyroxine Sodium [Synthroid] 75 mcg PO DAILY 11/11/20 11/11/20 History Repaglinide [Prandin] 1 mg PO AC-TID 11/11/20 11/11/20 History amLODIPine [Norvasc] 5 mg PO DAILY 11/11/20 11/11/20 History Allergies Allergy/AdvReac Type Severity Reaction Status Date / Time ampicillin sodium Allergy Itching Verified 11/11/20 13:41 [From Unasyn] sulbactam sodium Allergy Itching Verified 11/11/20 13:41 [From Unasyn] Physical Exam Vitals: Vital Signs Temp Pulse Pulse Resp BP BP Pulse Ox 11/12/20 07:21 72 11/12/20 07:13 68 11/12/20 04:00 98.1 F 78 20 151/66 92 L 11/11/20 23:27 98.4 F 76 20 163/70 11/11/20 20:00 97.9 F 78 21 202/87 93 L 11/11/20 19:17 98.0 F 75 23 167/88 93 L 11/11/20 15:00 74 24 168/70 92 L 11/11/20 13:22 76 20 158/72 93 L 11/11/20 12:55 72 176/62 90 L 11/11/20 12:30 23 11/11/20 12:08 98.4 F 77 22 208/85 94 L Intake and Output 11/11/20 11/12/20 11/12/20 22:59 06:59 14:59 Intake Total 240 Output Total 1900 Balance -1900 240 Intake: Oral 240 Output: Urine 1900 Other: Weight 145.15 kg 158.5 kg Results CBC & Chem 7: 11/11/20 13:12 11/11/20 13:12 Labs: Abnormal Lab Results - Last 24 Hours (Table) 11/11/20 11/11/20 11/11/20 Range/Units 13:12 13:12 13:12 RBC 3.71 L (3.80-5.40) m/uL Hgb 10.3 L (11.4-16.0) gm/dL Hct 32.9 L (34.0-46.0) % RDW 15.9 H (11.5-15.5) % Neutrophils # 8.5 H (1.3-7.7) k/uL D-Dimer 1.33 H (<0.60) mg/L FEU Potassium 5.4 H (3.5-5.1) mmol/L Carbon Dioxide 34 H (22-30) mmol/L BUN 30 H (7-17) mg/dL Glucose 243 H (74-99) mg/dL POC Glucose (mg/dL) (75-99) mg/dL Total Protein 6.2 L (6.3-8.2) g/dL Urine Appearance (Clear) Urine Protein (Negative) Urine Glucose (UA) (Negative) Urine Blood (Negative) Ur Leukocyte Esterase (Negative) Urine RBC (0-5) /hpf Urine WBC (0-5) /hpf Urine Bacteria (None) /hpf Urine Mucus (None) /hpf 11/11/20 11/11/20 11/12/20 Range/Units 14:08 20:13 06:15 RBC (3.80-5.40) m/uL Hgb (11.4-16.0) gm/dL Hct (34.0-46.0) % RDW (11.5-15.5) % Neutrophils # (1.3-7.7) k/uL D-Dimer (<0.60) mg/L FEU Potassium (3.5-5.1) mmol/L Carbon Dioxide (22-30) mmol/L BUN (7-17) mg/dL Glucose (74-99) mg/dL POC Glucose (mg/dL) 246 H 180 H (75-99) mg/dL Total Protein (6.3-8.2) g/dL Urine Appearance Cloudy H (Clear) Urine Protein 1+ H (Negative) Urine Glucose (UA) Trace H (Negative) Urine Blood Large H (Negative) Ur Leukocyte Esterase Large H (Negative) Urine RBC 156 H (0-5) /hpf Urine WBC 95 H (0-5) /hpf Urine Bacteria Rare H (None) /hpf Urine Mucus Rare H (None) /hpf Microbiology - Last 24 Hours (Table) 11/11/20 14:08 Urine Culture - Preliminary Urine,Voided Thrombosis Risk Factor Assmnt - Choose All That Apply Each Risk Factor Represents 2 Points: Age 61-74 years Thrombosis Risk Factor Assessment Total Risk Factor Score: 2 Thrombosis Risk Factor Assessment Level: Low Risk
[2020-11-12 17:10] LABS: Glucose,Whole Blood 135 mg/dL (75-99)
[2020-11-12 19:35] LABS: Glucose,Whole Blood 139 mg/dL (75-99)
[2020-11-12] MEDS ORDERED: ONDANSETRON 4 MG/2 ML VIAL IVP PRN (19:53)
[2020-11-12] MEDS: INSULIN DETEMIR (LEVEMIR) 100 UNIT/ML SYR SQ SCH (20:04)
[2020-11-12] MEDS: HEPARIN SODIUM,PORCINE 5,000 UNIT/ML 1 ML VIAL SQ SCH (20:23)
[2020-11-12] MEDS ORDERED: METOCLOPRAMIDE 5 MG/ML 2 ML VIAL IVP STA (21:00)
--- NOTE | 2020-11-12 21:54 | XR ---
EXAMINATION TYPE: XR KUB portable DATE OF EXAM: 11/12/2020 COMPARISON: NONE HISTORY: Nausea and vomiting TECHNIQUE: 2 views supine FINDINGS: There is no sign of intestinal obstruction or pneumoperitoneum. Exam limited by patient's s ize. There is some retained fecal material in the large bowel. Heart is enlarged. IMPRESSION: There is mild constipation. Nonacute abdomen.
[2020-11-12 23:29] LABS: Glucose,Whole Blood 182 mg/dL (75-99)
[2020-11-12 23:50] LABS: Allen Test Performed? Yes
[2020-11-13 00:06] LABS: ABG PCO2 81 mmHg (35-45); ABG PH 7.26 (7.35-7.45)
[2020-11-13 00:08] LABS: ABG Base Excess 9.3 mmol/L; ABG HCO3 36 mmol/L (21-25); ABG PO2 63 mmHg (83-108); ABG TCO2 39 mmol/L (19-24)
[2020-11-13] MEDS: hydrALAZINE HCL 50 MG TAB PO SCH ×4 (00:16→20:47)
[2020-11-13] MEDS: ATORVASTATIN 20 MG TAB PO SCH ×2 (00:16→20:46)
--- NOTE | 2020-11-13 01:24 | P.EN ---
A team was called on this patient for worsening mental status , patient becoming sleepy , confused and disoriented patient is admitted for acute CHF exacerbation , today she was started on rocephine for suspected UTI. patient has not received any sedatives or opiates. her blood sugar is 182 vital signs stable , she is currently on supplemental oxygen 6 LPM NC, BP 134 /82 patient is sleepy but arousable , but drifts back to sleep quickly, she is confused and thinks she is in the [place] disoriented to time and place, and confused and lethargic. she has no insight on why she is in the hospital , she denies any chest pain or trouble breathing at this time, patient also with increase oxygen requirement she is currently on 6 LPM NC lungs positive breath sounds throughout , no wheezing , but difficult to assess due to body habitus KUB showed no pleural effusions peripheral edema bilaterally patient following simple commands, no focal neuro deficits labs reviewed ABG showed acute on chronic hypercapnic respiratory failure with respiratory acidosis plan Bipap 08/08 recheck abg at 3 AM continue to reassess medically for any improvement or worsening in mental status 35 minutes spent in critical care time in the care of this patient
[2020-11-13 04:01] LABS: ABG Base Excess 9.3 mmol/L; ABG HCO3 37 mmol/L (21-25); ABG Oxygen Saturation 92.1 % (94-97); ABG PH 7.23 (7.35-7.45); ABG PO2 70 mmHg (83-108); ABG TCO2 40 mmol/L (19-24); Allen Test Performed? Yes
[2020-11-13 04:06] LABS: ABG PCO2 89 mmHg (35-45)
[2020-11-13] MEDS: FUROSEMIDE 100 MG in SODIUM CHLORIDE 0.9% 90 ML IV SCH (05:38)
[2020-11-13 05:42] LABS: Glucose,Whole Blood 142 mg/dL (75-99)
[2020-11-13] MEDS: INSULIN ASPART (NovoLOG) 100 UNIT/ML VIAL SQ SCH ×4 (06:10→20:47)
[2020-11-13] MEDS: LEVOTHYROXINE 75 MCG TAB PO SCH (06:11)
[2020-11-13] MEDS: PANTOPRAZOLE 40 MG TABLET PO SCH ×2 (06:12→08:25)
--- NOTE | 2020-11-13 07:48 | XR ---
EXAMINATION TYPE: XR chest 1V portable DATE OF EXAM: 11/13/2020 COMPARISON: 11/11/2020 HISTORY: CHF TECHNIQUE: Single frontal view of the chest is obtained. FINDINGS: The heart is not grossly enlarged but the pulmonary vasculature appears congested. There ar e increasing small to moderate partially consolidative opacities in the lung bases consistent with pn eumonia or pulmonary edema There is no pneumothorax. The osseous structures are intact. IMPRESSION: 1. Persistent prominence of the pulmonary vasculature. 2. Interval worsening in the lung bases with developing partially consolidative opacities consistent with pneumonia or pulmonary edema.
[2020-11-13] MEDS: HEPARIN SODIUM,PORCINE 5,000 UNIT/ML 1 ML VIAL SQ SCH ×2 (08:15→20:47)
[2020-11-13 08:23] LABS: Calcium 9.7 mg/dL (8.4-10.2); Potassium 5.4 mmol/L (3.5-5.1)
[2020-11-13] MEDS: allopurinoL 300 MG TAB PO SCH (08:25)
[2020-11-13] MEDS: ASPIRIN 81 MG PO SCH (08:25)
[2020-11-13] MEDS: METOPROLOL SUCCINATE (ER) 25 MG TAB.ER.24H PO SCH (08:25)
[2020-11-13] MEDS: MAGNESIUM OXIDE 400 MG TAB PO SCH (08:25)
[2020-11-13] MEDS: DOCUSATE 100 MG CAP PO SCH (08:25)
[2020-11-13] MEDS: LINAGLIPTIN 5 MG TABLET PO SCH (08:25)
[2020-11-13] MEDS: FERROUS SULFATE 325 MG TAB PO SCH (08:26)
[2020-11-13] MEDS: amLODIPine 5 MG TAB PO SCH (08:26)
[2020-11-13 08:30] LABS: ABG Base Excess 9.4 mmol/L; ABG HCO3 36 mmol/L (21-25); ABG Oxygen Saturation 94.7 % (94-97); ABG PH 7.27 (7.35-7.45); ABG PO2 74 mmHg (83-108); ABG TCO2 39 mmol/L (19-24); Allen Test Performed? Yes
[2020-11-13 08:40] LABS: ABG PCO2 79 mmHg (35-45)
--- NOTE | 2020-11-13 12:09 | P.PN ---
Subjective Progress Note Date: 11/13/20 HISTORY OF PRESENTING ILLNESS This is a pleasant 65-year-old female past medical history significant for diabetes mellitus, hypertension, dyslipidemia, asthma, former nicotine dependence, rheumatic fever as a child and morbid obesity. She denies prior history of coronary artery disease and has seen Dr. Caba in the office one time in 2019. At that time she underwent a stress test that was negative for reversible cardiac ischemia with normal LV function. We have been asked to see in consultation for heart failure. She presented to the hospital with symptoms of shortness of breath that has been going on and getting progressively worse for the past 2 weeks. She states she saw her primary care physician and was told to decrease her amount of oral intake of water. She states her shortness of breath is with exertion or activity and resolves at rest. She denies cough, fever or chills. She denies chest pain, dizziness or palpitations. She also was concerned about increased lower extremity edema and generalized weakness. Most recent echocardiogram obtained May 2019 reveals preserved LV systolic function with ejection fraction greater than 55%. DIAGNOSTICS EKG reveals sinus mechanism heart rate of 74 with significant artifact. CTA of the chest reveals no evidence of pulmonary embolism, cardiomegaly, pulmonary hypertension, moderate right and left pleural effusions, scattered groundglass changes and developing interstitial pulmonary edema. There is also an inferior lingular pulmonary nodule noted. Chest xray blunting of the costophrenic angles with basilar effusions. Laboratory reviewed, it enzymes negative 3, NT proBNP 211, d-dimer 1.33, WBC 10.6, hemoglobin 10.3, platelets 346, sodium 144, potassium 5.4 and creatinine 0.9. Current cardiac medications include aspirin 325 mg daily, atorvastatin 20 mg daily, amlodipine 5 mg daily, Lasix 60 mg twice a day, hydralazine 50 mg 3 times a day and Toprol 25 mg daily. 11/13: Ateam was called last evening due to mental status changes. Patient states that she is feeling about the same. She continues to have lower extremity edema which she feels is not improved. She is on Lasix drip will be continued. Patient has been afebrile, heart rate 64, blood pressure 181/53, pulse ox 93% on oxygen. BUN 34 creatinine 1.09 with potassium of 5.4. Echocardiogram reveals EF of 55-60%, severe concentric left ventricular hypertrophy, mild aortic valve sclerosis, mild aortic stenosis, trace mitral regurgitation, mild tricuspid regurgitation. PHYSICAL EXAMINATION Blood pressure 151/66 heart rate 72 afebrile and maintaining oxygen saturation on nasal cannula. CONSTITUTIONAL: No apparent distress. HEENT: Head is normocephalic. Pupils are equal, round. Sclerae anicteric. Mucous membranes of the mouth are moist. No JVD. No carotid bruit. CHEST EXAMINATION: Bibasilar rales, faint expiratory wheeze, no rhonchi and diminished bilaterally. No chest wall tenderness is noted on palpation or with deep breathing. HEART EXAMINATION: Regular rate and rhythm. S1, S2 heard. Soft systolic ejection murmur at the base, no gallops or rub. ABDOMEN: Soft, nontender. Positive bowel sounds. EXTREMITIES: 1+ peripheral pulses, bilateral lower extremity 2+ pitting edema and erythema with noted skin changes and no calf tenderness. NEUROLOGIC EXAMINATION: Patient is awake, alert and oriented x3. ASSESSMENT Acute on chronic heart failure with preserved ejection fraction and cor pulmonale Urinary tract infection Hypertension Dyslipidemia Diabetes mellitus History of asthma Former nicotine dependence Morbid obesity, BMI 51 PLAN An acute coronary event has been ruled out. Continue aspirin to 81 mg daily. Continue Lasix drip. Document accurate intake and output along with daily weights. Follow renal function and electrolytes in the morning. Recommend pulmonary evaluation. Objective - Vital Signs Vital signs: Vital Signs Temp 98.7 F 11/13/20 03:15 Pulse 68 11/13/20 03:15 Resp 17 11/13/20 03:15 BP 167/65 11/13/20 03:15 Pulse Ox 94 L 11/13/20 03:15 Intake & Output 11/12/20 11/13/20 11/13/20 18:59 06:59 18:59 Intake Total 720 Output Total 700 Balance 20 Weight 158.5 kg Intake: Oral 720 Output: Urine 700 - Labs CBC & Chem 7: 11/11/20 13:12 11/13/20 07:48 Labs: Abnormal Lab Results - Last 24 Hours (Table) 11/12/20 11/12/20 11/12/20 Range/Units 12:20 17:08 19:25 ABG pH (7.35-7.45) ABG pCO2 (35-45) mmHg ABG pO2 (83-108) mmHg ABG HCO3 (21-25) mmol/L ABG Total CO2 (19-24) mmol/L ABG O2 Saturation (94-97) % Potassium (3.5-5.1) mmol/L Carbon Dioxide (22-30) mmol/L BUN (7-17) mg/dL Creatinine (0.52-1.04) mg/dL Glucose (74-99) mg/dL POC Glucose (mg/dL) 154 H 135 H 139 H (75-99) mg/dL 11/12/20 11/12/20 11/13/20 Range/Units 23:27 23:46 03:53 ABG pH 7.26 L 7.23 L (7.35-7.45) ABG pCO2 81 H* 89 H* (35-45) mmHg ABG pO2 63 L 70 L (83-108) mmHg ABG HCO3 36 H 37 H (21-25) mmol/L ABG Total CO2 39 H 40 H (19-24) mmol/L ABG O2 Saturation 90.0 L 92.1 L (94-97) % Potassium (3.5-5.1) mmol/L Carbon Dioxide (22-30) mmol/L BUN (7-17) mg/dL Creatinine (0.52-1.04) mg/dL Glucose (74-99) mg/dL POC Glucose (mg/dL) 182 H (75-99) mg/dL 11/13/20 11/13/20 11/13/20 Range/Units 05:31 07:48 08:14 ABG pH 7.27 L (7.35-7.45) ABG pCO2 79 H* (35-45) mmHg ABG pO2 74 L (83-108) mmHg ABG HCO3 36 H (21-25) mmol/L ABG Total CO2 39 H (19-24) mmol/L ABG O2 Saturation (94-97) % Potassium 5.4 H (3.5-5.1) mmol/L Carbon Dioxide 35 H (22-30) mmol/L BUN 34 H (7-17) mg/dL Creatinine 1.09 H (0.52-1.04) mg/dL Glucose 129 H (74-99) mg/dL POC Glucose (mg/dL) 142 H (75-99) mg/dL Microbiology - Last 24 Hours (Table) 11/11/20 14:08 Urine Culture - Final Urine,Voided
[2020-11-13 12:13] LABS: Glucose,Whole Blood 211 mg/dL (75-99)
--- NOTE | 2020-11-13 13:22 | P.CNPUL ---
History of Present Illness Consult date: 11/13/20 Requesting physician: Sanket Severino Reason for consult: dyspnea, abnormal CXR/CT Chief complaint: Shortness of breath, lower extremity edema History of present illness: This is a morbidly obese 65-year-old female patient with a history of BMI 51.6, hyperlipidemia, diabetes mellitus, gout, hypothyroidism, hypertension, congestive heart failure, asthma, smoker. She presented here to the emergency room on 11/11/2020 after developing a two-week history of increasing lower extremity edema, weakness, shortness of breath. Chest x-ray revealed evidence of patchy bilateral airspace disease. Fluid volume overload and pulmonary edema with basilar effusions. ET angiogram revealed no pulmonary emboli. There was mild cardiomegaly with pulmonary arterial hypertension and moderate right and small left pleural effusions. Scattered groundglass changes. Prominent second mental collapse/atelectasis, bibasilar lower lobes. Questionable 1.6 cm inferior lingular pulmonary nodule requiring follow-up in 3 months. Echocardiogram reveals preserved left ventricular systolic function with ejection fraction 55-60%. No significant valvular heart disease. There is severe concentric LVH. Early this morning the patient became confused and lethargic. An A Team was called and the patient had blood gases that revealed respiratory acidosis with relative hypoxemia with a pO2 of 63, pCO2 81, pH 7.26. On 40% FiO2. Patient was placed on BiPAP and improved. Settings are BiPAP 14/5 and 40% FiO2 with most recent blood gases reveal a pO2 of 74, pCO2 79 and a pH of 7.27. We're consulted for the same. She is seen today on the regular medical floor. Currently sitting up in a chair at the bedside. Awake and alert in no acute distress. She had requested her BiPAP mask to be off that she was not tolerating well this morning. He is currently on 4 L nasal cannula and maintaining O2 saturation in the high 80s low 90s. Afebrile. Chest x-ray reveals prominent pulmonary vascular. Interval worsening of the lung bases with developing partially consolidative opacities consistent with pneumonia versus pulmonary edema. White count 10.6. Hemoglobin 10.9. Sodium 143. Potassium 5.4. Creatinine 1.09. She is currently on a Lasix drip at 5 mg per hour. Antibiotics in the form of ceftriaxone. Bronchodilators. Review of Systems REVIEW OF SYSTEMS: CONSTITUTIONAL: Denies any recent significant weight loss or weight gain. EYES: Denies change in vision. EARS, NOSE, MOUTH, THROAT: Denies headaches, denies sore throat. CARDIOVASCULAR: Denies chest pain, palpitations or syncopal episodes. RESPIRATORY: Positive for shortness of breath, cough, congestion no hemoptysis. GASTROINTESTINAL: Denies change in appetite, denies abdominal pain GENITOURINARY: Denies hematuria, denies infections. MUSKULOSKELETAL: Positive for lower extremity edema INTEGUMENTARY: Denies rash, denies eczema. NEUROLOGICAL: Denies recent memory loss, no recent seizure activity. PSYCHIATRIC: Denies anxiety, denies depression. HEMATOLOGIC/LYMPHATIC: Denies anemia, denies enlarged lymph nodes. Past Medical History Past Medical History: Asthma, Diabetes Mellitus, GERD/Reflux, Hyperlipidemia, Hypertension, Osteoarthritis (OA), Pneumonia, Thyroid Disorder Additional Past Medical History / Comment(s): 10-16-15 admitted with foeign body rt foot/abcess. other past medical hx includes: RHEUMATIC FEVER, OCC PALPITATIONS,BRONCHITIS, ghout History of Any Multi-Drug Resistant Organisms: MRSA Date of last positivie culture/infection: 2008 MDRO Source:: lt leg Past Surgical History: Appendectomy, Section, Tonsillectomy Additional Past Surgical History / Comment(s): X2 C SECTIONS, right foot IND Past Anesthesia/Blood Transfusion Reactions: No Reported Reaction Additional Past Anesthesia/Blood Transfusion Reaction / Comment(s): clausterphobia Past Psychological History: No Psychological Hx Reported Smoking Status: Former smoker Past Alcohol Use History: None Reported Past Drug Use History: None Reported - Past Family History Father Family Medical History: Congestive Heart Failure (CHF), Diabetes Mellitus Additional Family Medical History / Comment(s): quad bypass Mother Family Medical History: Blood Disorder, Congestive Heart Failure (CHF), Coronary Artery Disease (CAD) Additional Family Medical History / Comment(s): at 79 Daughter(s) Family Medical History: No Reported History Medications and Allergies Home Medications Medication Instructions Recorded Confirmed Type Atorvastatin [Lipitor] 20 mg PO HS 10/26/15 11/11/20 History Aspirin EC [Ecotrin] 325 mg PO DAILY 05/16/19 11/11/20 History Budesonide/Formoterol Fumarate 2 puff INHALATION RT-BID 05/16/19 11/11/20 History [Symbicort 160-4.5 Mcg Inhaler] INSULIN ASPART (NovoLOG) [NovoLOG 30 unit SQ AC-TID 05/16/19 11/11/20 History (formulary)] Insulin Degludec [Tresiba 140 units SQ DAILY 05/16/19 11/11/20 History Flextouch U-200] allopurinoL [Zyloprim] 300 mg PO DAILY 05/16/19 11/11/20 History sitaGLIPtin [Januvia] 100 mg PO DAILY 05/16/19 11/11/20 History Magnesium 200 mg PO DAILY #30 tablet 05/21/19 11/11/20 Rx Metoprolol Succinate (ER) [Toprol 25 mg PO DAILY #30 tab.er.24h 05/21/19 11/11/20 Rx XL] hydrALAZINE HCL [Apresoline] 50 mg PO TID #90 tab 05/21/19 11/11/20 Rx Albuterol Inhaler [Ventolin Hfa 2 puff INHALATION RT-QID PRN 11/11/20 11/11/20 History Inhaler] Docusate [Colace] 100 mg PO DAILY 11/11/20 11/11/20 History Ergocalciferol (Vitamin D2) 1,250 mcg PO WE 11/11/20 11/11/20 History [Drisdol (50,000 Iu)] Ferrous Sulfate [Feosol] 325 mg PO DAILY 11/11/20 11/11/20 History Furosemide [Lasix] 60 mg PO BID 11/11/20 11/11/20 History Levothyroxine Sodium [Synthroid] 75 mcg PO DAILY 11/11/20 11/11/20 History Repaglinide [Prandin] 1 mg PO AC-TID 11/11/20 11/11/20 History amLODIPine [Norvasc] 5 mg PO DAILY 11/11/20 11/11/20 History Allergies Allergy/AdvReac Type Severity Reaction Status Date / Time ampicillin sodium Allergy Itching Verified 11/11/20 13:41 [From Unasyn] sulbactam sodium Allergy Itching Verified 11/11/20 13:41 [From Unasyn] Physical Exam Vitals: Vital Signs Temp Pulse Pulse Resp BP Pulse Ox 11/13/20 12:00 69 20 177/49 89 L 11/13/20 08:00 98.6 F 64 18 181/53 93 L 11/13/20 03:15 98.7 F 68 17 167/65 94 L 11/13/20 02:00 18 11/12/20 23:45 98.4 F 80 18 134/82 97 11/12/20 20:00 20 11/12/20 19:35 98.1 F 72 20 183/68 90 L 11/12/20 17:20 80 11/12/20 17:01 72 11/12/20 16:15 98.4 F 62 16 179/77 90 L Intake and Output 11/12/20 11/13/20 11/13/20 22:59 06:59 14:59 Intake Total 240 Output Total 700 550 Balance -460 -550 Intake: Oral 240 Output: Urine 700 550 Other: Voiding Method External Catheter GENERAL EXAM: Alert, morbidly obese 65-year-old female patient, up in a chair, 4 L nasal, comfortable in no apparent distress. HEAD: Normocephalic. EYES: Normal reaction of pupils, equal size. NOSE: Clear with pink turbinates. THROAT: Crowding the posterior pharynx. No erythema or exudates. NECK: Short. No masses, no JVD. CHEST: No chest wall deformity. LUNGS: Equal air entry with basilar crackles. CVS: Distant heart sounds. S1 and S2 normal with no audible murmur, regular rhythm. ABDOMEN: Obese. No hepatosplenomegaly, normal bowel sounds, no guarding or rigidity. SPINE: No scoliosis or deformity SKIN: No rashes CENTRAL NERVOUS SYSTEM: No focal deficits, tone is normal in all 4 extremities. EXTREMITIES: There is 1-2+ peripheral edema. No clubbing, no cyanosis. Peripheral pulses are intact. Results - Laboratory Findings CBC and BMP: 11/11/20 13:12 11/13/20 07:48 ABG ABG pH 7.27 (7.35-7.45) L 11/13/20 08:14 ABG pCO2 79 mmHg (35-45) H* 11/13/20 08:14 ABG pO2 74 mmHg (83-108) L 11/13/20 08:14 ABG O2 Saturation 94.7 % (94-97) 11/13/20 08:14 PT/INR, D-dimer PT 10.2 sec (9.0-12.0) 11/11/20 13:12 INR 0.9 (<1.2) 11/11/20 13:12 D-Dimer 1.33 mg/L FEU (<0.60) H 11/11/20 13:12 Abnormal lab findings: Abnormal Labs 11/11/20 11/11/20 11/11/20 13:12 13:12 13:12 RBC 3.71 L Hgb 10.3 L Hct 32.9 L RDW 15.9 H Neutrophils # 8.5 H D-Dimer 1.33 H ABG pH ABG pCO2 ABG pO2 ABG HCO3 ABG Total CO2 ABG O2 Saturation Potassium 5.4 H Carbon Dioxide 34 H BUN 30 H Creatinine Glucose 243 H POC Glucose (mg/dL) Total Protein 6.2 L Urine Appearance Urine Protein Urine Glucose (UA) Urine Blood Ur Leukocyte Esterase Urine RBC Urine WBC Urine Bacteria Urine Mucus 11/11/20 11/11/20 11/12/20 14:08 20:13 06:15 RBC Hgb Hct RDW Neutrophils # D-Dimer ABG pH ABG pCO2 ABG pO2 ABG HCO3 ABG Total CO2 ABG O2 Saturation Potassium Carbon Dioxide BUN Creatinine Glucose POC Glucose (mg/dL) 246 H 180 H Total Protein Urine Appearance Cloudy H Urine Protein 1+ H Urine Glucose (UA) Trace H Urine Blood Large H Ur Leukocyte Esterase Large H Urine RBC 156 H Urine WBC 95 H Urine Bacteria Rare H Urine Mucus Rare H 11/12/20 11/12/20 11/12/20 12:20 17:08 19:25 RBC Hgb Hct RDW Neutrophils # D-Dimer ABG pH ABG pCO2 ABG pO2 ABG HCO3 ABG Total CO2 ABG O2 Saturation Potassium Carbon Dioxide BUN Creatinine Glucose POC Glucose (mg/dL) 154 H 135 H 139 H Total Protein Urine Appearance Urine Protein Urine Glucose (UA) Urine Blood Ur Leukocyte Esterase Urine RBC Urine WBC Urine Bacteria Urine Mucus 11/12/20 11/12/20 11/13/20 23:27 23:46 03:53 RBC Hgb Hct RDW Neutrophils # D-Dimer ABG pH 7.26 L 7.23 L ABG pCO2 81 H* 89 H* ABG pO2 63 L 70 L ABG HCO3 36 H 37 H ABG Total CO2 39 H 40 H ABG O2 Saturation 90.0 L 92.1 L Potassium Carbon Dioxide BUN Creatinine Glucose POC Glucose (mg/dL) 182 H Total Protein Urine Appearance Urine Protein Urine Glucose (UA) Urine Blood Ur Leukocyte Esterase Urine RBC Urine WBC Urine Bacteria Urine Mucus 11/13/20 11/13/20 11/13/20 05:31 07:48 08:14 RBC Hgb Hct RDW Neutrophils # D-Dimer ABG pH 7.27 L ABG pCO2 79 H* ABG pO2 74 L ABG HCO3 36 H ABG Total CO2 39 H ABG O2 Saturation Potassium 5.4 H Carbon Dioxide 35 H BUN 34 H Creatinine 1.09 H Glucose 129 H POC Glucose (mg/dL) 142 H Total Protein Urine Appearance Urine Protein Urine Glucose (UA) Urine Blood Ur Leukocyte Esterase Urine RBC Urine WBC Urine Bacteria Urine Mucus 11/13/20 12:11 RBC Hgb Hct RDW Neutrophils # D-Dimer ABG pH ABG pCO2 ABG pO2 ABG HCO3 ABG Total CO2 ABG O2 Saturation Potassium Carbon Dioxide BUN Creatinine Glucose POC Glucose (mg/dL) 211 H Total Protein Urine Appearance Urine Protein Urine Glucose (UA) Urine Blood Ur Leukocyte Esterase Urine RBC Urine WBC Urine Bacteria Urine Mucus - Diagnostic Findings Chest x-ray: image reviewed CT scan - chest: image reviewed Assessment and Plan Assessment: 1 Acute hypoxic respiratory failure secondary to an acute exacerbation of diastolic congestive heart failure 2 Acute hypercapnic respiratory failure secondary to morbid obesity/obesity hypoventilation syndrome/suspected obstructive sleep apnea 3 Morbid obesity with a BMI 51.6 4 Lower extremity edema secondary to diastolic congestive heart failure 5 Cor pulmonale 6 Diabetes mellitus 7 Hypertension 8 Hyperlipidemia 9 History of chronic bronchial asthma 10 Hypothyroidism 11 History of gout 12 History of gastroesophageal reflux disease 13 Former smoker 14 Poor overall functional performance based on the above-mentioned multiple comorbidities Plan: The patient was seen and evaluated by Dr. Davey Chest x-ray, CAT scan, ABGs and labs reviewed Continue Lasix drip, bronchodilators No plans for thoracentesis at this point She is encouraged to utilize the BiPAP during the evenings and throughout the day while napping Most likely has obstructive sleep apnea and would benefit from an outpatient workup We will continue to follow and make further recommendations based on her clinical status I, the cosigning physician, performed a history & physical examination of the patient. Lungs sounds crackles in the bilateral posterior bases. Maintaining good O2 saturations in the 90s on 4 L/m per nasal cannula alternating with BiPAP. I discussed the assessment and plan of care with my nurse practitioner, Nya Darby. I attest to the above consultation as dictated by her. Time with Patient: Greater than 30
--- NOTE | 2020-11-13 14:37 | P.PN ---
Subjective Progress Note Date: 11/13/20 HISTORY OF PRESENT ILLNESS This is a 65-year-old female patient of Dr. Severino with past medical history of diabetes mellitus type 2, chronic diastolic heart failure, obesity with hypoventilation syndrome, obstructive sleep apnea, chronic hypoxic respiratory failure on home O2 at 2 L, hypertension, hyperlipidemia, gastroesophageal reflux disease, hypothyroidism, mild intermittent asthma. Patient gives history of having shortness of breath for 2-[address] Severino about a week ago and was instructed to decrease oral intake. She states she is still having shortness of breath. No chest pain. She has been sleeping in a recliner as her bed is broken. She does have increased lower extremity edema. No fever or chills. No cough. She came into [facility] emergency center for evaluation. EKG reveals sinus rhythm heart rate of 74 with significant artifact. CTA of the chest reveals no evidence of pulmonary embolism, cardiomegaly, pulmonary hypertension, moderate right and left pleural effusions, scattered groundglass changes and developing interstitial pulmonary edema. There is also an inferior lingular pulmonary nodule noted. Chest xray blunting of the costophrenic angles with basilar effusions. Troponins negative 3, proBNP 211, d-dimer 1.33, WBC 10.6, hemoglobin 10.3, platelets 346, sodium 144, potassium 5.4 and creatinine 0 .9. 11/13 patient examined bedside. Appears to be breathing well. Patient did have an episode of nausea and vomiting which has improved. Apparently team was called last night due to a change in mental status and worsening shortness of breath. ABG was obtained which showed respiratory acidosis with hypoxia with pH 7.26 pCO2 81 PaO2 of 63. Patient was placed on BiPAP with improvement in oxygenation. Patient was adamant about removing the BiPAP in the morning as she could not breathe. So far she has been maintaining her oxygenation in the high TEDs to low 90s on 4 L of nasal cannula. Chest x-ray suggestive of prominent pulmonary vascular congestion with developing partially consolidative opacities consistent with pneumonia versus pulmonary edema. Patient was placed on Lasix drip REVIEW OF SYSTEMS Constitutional: No fever, no chills, no night sweats. No weight change. No weakness, fatigue or lethargy. No daytime sleepiness. EENT: No headache. No blurred vision or double vision, no loss of vision. No loss of Hearing, no ringing in the ears, no dizziness. No nasal drainage or congestion. No epistaxis. No sore throat. Lungs: Reports shortness of breath, cough, no sputum production. No wheezing. Cardiovascular: No chest pain, reports lower extremity edema. No palpitations. No paroxysmal nocturnal dyspnea. No orthopnea. No lightheadedness or dizziness. No syncopal episodes. Abdominal: No abdominal pain. No nausea, vomiting. No diarrhea. No constipation. No bloody or tarry stools.. No loss of appetite. Genitourinary: No dysuria, increased frequency, urgency. No urinary retention. Musculoskeletal: No myalgias. No muscle weakness, no gait dysfunction, no frequent falls. No back pain. No neck pain. Integumentary: No wounds, no lesions. No rash or pruritus. No unusual bruising. No change in hair or nails. Neurologic: No aphasia. No facial droop. No change in mentation. No head injury. No headache. No paralysis. No paresthesia. Psychiatric: No depression. No anxiety. Endocrine: No abnormal blood sugars. Objective - Vital Signs Vital signs: Vital Signs Temp 98.6 F 11/13/20 08:00 Pulse 69 11/13/20 12:00 Resp 20 11/13/20 12:00 BP 177/49 11/13/20 12:00 Pulse Ox 89 L 11/13/20 12:00 Intake & Output 11/12/20 11/13/20 11/13/20 18:59 06:59 18:59 Intake Total 720 Output Total 700 550 Balance 20 -550 Weight 158.5 kg Intake: Oral 720 Output: Urine 700 550 Other: Voiding Method External Catheter - Exam GENERAL EXAM: Alert, morbidly obese 65-year-old female patient, up in a chair, 4 L nasal, comfortable in no apparent distress. HEAD: Normocephalic. EYES: Normal reaction of pupils, equal size. NOSE: Clear with pink turbinates. THROAT: Crowding the posterior pharynx. No erythema or exudates. NECK: Short. No masses, no JVD. CHEST: No chest wall deformity. LUNGS: Equal air entry with basilar crackles. Decreased air entry but CVS: Distant heart sounds. S1 and S2 normal with no audible murmur, regular rhythm. ABDOMEN: Obese. No hepatosplenomegaly, normal bowel sounds, no guarding or rigidity. SPINE: No scoliosis or deformity SKIN: No rashes CENTRAL NERVOUS SYSTEM: No focal deficits, tone is normal in all 4 extremities. EXTREMITIES: There is 1-2+ peripheral edema. No clubbing, no cyanosis. Peripheral pulses are intact. - Labs CBC & Chem 7: 11/11/20 13:12 11/13/20 07:48 Labs: Abnormal Lab Results - Last 24 Hours (Table) 11/12/20 11/12/20 11/12/20 Range/Units 17:08 19:25 23:27 ABG pH (7.35-7.45) ABG pCO2 (35-45) mmHg ABG pO2 (83-108) mmHg ABG HCO3 (21-25) mmol/L ABG Total CO2 (19-24) mmol/L ABG O2 Saturation (94-97) % Potassium (3.5-5.1) mmol/L Carbon Dioxide (22-30) mmol/L BUN (7-17) mg/dL Creatinine (0.52-1.04) mg/dL Glucose (74-99) mg/dL POC Glucose (mg/dL) 135 H 139 H 182 H (75-99) mg/dL 11/12/20 11/13/20 11/13/20 Range/Units 23:46 03:53 05:31 ABG pH 7.26 L 7.23 L (7.35-7.45) ABG pCO2 81 H* 89 H* (35-45) mmHg ABG pO2 63 L 70 L (83-108) mmHg ABG HCO3 36 H 37 H (21-25) mmol/L ABG Total CO2 39 H 40 H (19-24) mmol/L ABG O2 Saturation 90.0 L 92.1 L (94-97) % Potassium (3.5-5.1) mmol/L Carbon Dioxide (22-30) mmol/L BUN (7-17) mg/dL Creatinine (0.52-1.04) mg/dL Glucose (74-99) mg/dL POC Glucose (mg/dL) 142 H (75-99) mg/dL 11/13/20 11/13/20 11/13/20 Range/Units 07:48 08:14 12:11 ABG pH 7.27 L (7.35-7.45) ABG pCO2 79 H* (35-45) mmHg ABG pO2 74 L (83-108) mmHg ABG HCO3 36 H (21-25) mmol/L ABG Total CO2 39 H (19-24) mmol/L ABG O2 Saturation (94-97) % Potassium 5.4 H (3.5-5.1) mmol/L Carbon Dioxide 35 H (22-30) mmol/L BUN 34 H (7-17) mg/dL Creatinine 1.09 H (0.52-1.04) mg/dL Glucose 129 H (74-99) mg/dL POC Glucose (mg/dL) 211 H (75-99) mg/dL Microbiology - Last 24 Hours (Table) 11/11/20 14:08 Urine Culture - Final Urine,Voided Assessment and Plan Assessment: 1. Acute on chronic hypoxic hypercapnic respiratory failure secondary to acute on chronic diastolic heart failure. A team called on possible underlying obesity hypoventilation syndrome with suspected OBSTRUCTIVE sleep apnea Cardiology consult appreciated. Started on Lasix drip monitor I&O, daily weigh ts, renal function and electrolytes. 2. Acute urinary tract infection. Ruled out Rocephin 1 g daily discontinue. Monitor for urine culture report. 3. Diabetes mellitus type 2. Continue Levemir 100 units at bedtime, NovoLog scale before meals and at bedtime, Tradjenta 5 mg daily. Hold Prandin 1 mg 3 times daily. 4. Hypertension. Continue Norvasc 5 mg daily, hydralazine 50 mg 3 times daily, Toprol-XL 25 mg daily. 5. Hyperlipidemia. Continue atorvastatin 20 mg at bedtime 6. Gastroesophageal reflux disease and GI prophylaxis. Protonix. 7. Hypothyroidism. Continue levothyroxine 75 g daily. 8. Mild intermittent asthma, stable. Continue DuoNeb treatments every 4 hours as needed. 9. Remote history of tobacco use. 10. Morbid obesity with BMI of 51. 11. DVT prophylaxis. Heparin subcu. DISCHARGE PLAN To be determined. Most likely home with homecare. Patient has refused homecare. PT and OT. Walker ordered as patient requires assistance with ambulation in order to improve her arm ADLs.
[2020-11-13 16:50] LABS: Glucose,Whole Blood 174 mg/dL (75-99)
[2020-11-13 20:12] LABS: Glucose,Whole Blood 215 mg/dL (75-99)
[2020-11-13] MEDS: INSULIN DETEMIR (LEVEMIR) 100 UNIT/ML SYR SQ SCH (20:48)
[2020-11-14] MEDS: FUROSEMIDE 100 MG in SODIUM CHLORIDE 0.9% 90 ML IV SCH (01:40)
[2020-11-14 05:53] LABS: Glucose,Whole Blood 153 mg/dL (75-99)
[2020-11-14] MEDS: INSULIN ASPART (NovoLOG) 100 UNIT/ML VIAL SQ SCH ×4 (06:17→20:34)
[2020-11-14] MEDS: LEVOTHYROXINE 75 MCG TAB PO SCH (06:18)
[2020-11-14 07:26] LABS: Albumin 3.2 g/dL (3.5-5.0); Calcium 9.5 mg/dL (8.4-10.2); Potassium 4.5 mmol/L (3.5-5.1); Total Bilirubin 0.3 mg/dL (0.2-1.3); Total Protein 5.8 g/dL (6.3-8.2)
[2020-11-14] MEDS: HEPARIN SODIUM,PORCINE 5,000 UNIT/ML 1 ML VIAL SQ SCH ×2 (08:02→20:33)
[2020-11-14] MEDS: FERROUS SULFATE 325 MG TAB PO SCH (08:03)
[2020-11-14] MEDS: MAGNESIUM OXIDE 400 MG TAB PO SCH (08:03)
[2020-11-14] MEDS: DOCUSATE 100 MG CAP PO SCH (08:03)
[2020-11-14] MEDS: ASPIRIN 81 MG PO SCH (08:03)
[2020-11-14] MEDS: hydrALAZINE HCL 50 MG TAB PO SCH ×3 (08:03→20:33)
[2020-11-14] MEDS: allopurinoL 300 MG TAB PO SCH (08:03)
[2020-11-14] MEDS: METOPROLOL SUCCINATE (ER) 25 MG TAB.ER.24H PO SCH (08:03)
[2020-11-14] MEDS: LINAGLIPTIN 5 MG TABLET PO SCH (08:03)
[2020-11-14] MEDS: amLODIPine 5 MG TAB PO SCH (08:03)
--- NOTE | 2020-11-14 11:39 | P.PN ---
Subjective Progress Note Date: 11/14/20 HISTORY OF PRESENTING ILLNESS This is a pleasant 65-year-old female past medical history significant for diabetes mellitus, hypertension, dyslipidemia, asthma, former nicotine dependence, rheumatic fever as a child and morbid obesity. She denies prior history of coronary artery disease and has seen Dr. Caba in the office one time in 2019. At that time she underwent a stress test that was negative for reversible cardiac ischemia with normal LV function. We have been asked to see in consultation for heart failure. She presented to the hospital with symptoms of shortness of breath that has been going on and getting progressively worse for the past 2 weeks. She states she saw her primary care physician and was told to decrease her amount of oral intake of water. She states her shortness of breath is with exertion or activity and resolves at rest. She denies cough, fever or chills. She denies chest pain, dizziness or palpitations. She also was concerned about increased lower extremity edema and generalized weakness. Most recent echocardiogram obtained May 2019 reveals preserved LV systolic function with ejection fraction greater than 55%. DIAGNOSTICS EKG reveals sinus mechanism heart rate of 74 with significant artifact. CTA of the chest reveals no evidence of pulmonary embolism, cardiomegaly, pulmonary hypertension, moderate right and left pleural effusions, scattered groundglass changes and developing interstitial pulmonary edema. There is also an inferior lingular pulmonary nodule noted. Chest xray blunting of the costophrenic angles with basilar effusions. Laboratory reviewed, it enzymes negative 3, NT proBNP 211, d-dimer 1.33, WBC 10.6, hemoglobin 10.3, platelets 346, sodium 144, potassium 5.4 and creatinine 0.9. Current cardiac medications include aspirin 325 mg daily, atorvastatin 20 mg daily, amlodipine 5 mg daily, Lasix 60 mg twice a day, hydralazine 50 mg 3 times a day and Toprol 25 mg daily. 11/13: [facility]team was called last evening due to mental status changes. Patient states that she is feeling about the same. She continues to have lower extremity edema which she feels is not improved. She is on Lasix drip will be continued. Patient has been afebrile, heart rate 64, blood pressure 181/53, pulse ox 93% on oxygen. BUN 34 creatinine 1.09 with potassium of 5.4. Echocardiogram reveals EF of 55-60%, severe concentric left ventricular hypertrophy, mild aortic valve sclerosis, mild aortic stenosis, trace mitral regurgitation, mild tricuspid regurgitation. 11/14: child monitor has been a sinus rhythm. Patient has been afebrile, heart rate in the 60s, blood pressure 160/69, pulse ox 92% on 2 L nasal cannula. BUN 40 and creatinine 1.26 with potassium 4.5. Patient is currently on Lasix drip which will be transitioned to IV today. Patient has some short-term every deficit and repeating questions. She is concerned about the CPAP which will be deferred to Dr. Aquino. At this time, patient's questions have been answered. PHYSICAL EXAMINATION CONSTITUTIONAL: No apparent distress. HEENT: Head is normocephalic. Pupils are equal, round. Sclerae anicteric. Mucous membranes of the mouth are moist. No JVD. No carotid bruit. CHEST EXAMINATION: Bibasilar rales, faint expiratory wheeze, no rhonchi and diminished bilaterally. No chest wall tenderness is noted on palpation or with deep breathing. HEART EXAMINATION: Regular rate and rhythm. S1, S2 heard. Soft systolic ejection murmur at the base, no gallops or rub. ABDOMEN: Soft, nontender. Positive bowel sounds. EXTREMITIES: 1+ peripheral pulses, bilateral lower extremity 1+ pitting edema and erythema with noted skin changes and no calf tenderness. NEUROLOGIC EXAMINATION: Patient is awake, alert and oriented x3. ASSESSMENT Acute on chronic heart failure with preserved ejection fraction and cor pulmonale Urinary tract infection Hypertension Dyslipidemia Diabetes mellitus History of asthma Former nicotine dependence Morbid obesity, BMI 51 PLAN An acute coronary event has been ruled out. Continue aspirin to 81 mg daily. Discontinue Lasix drip and transitioned to Lasix 40 mg IV every 8 hours. Document accurate intake and output along with daily weights. Follow renal function and electrolytes in the morning. Recommend pulmonary evaluation. Nurse practitioner note has been reviewed, I agree with documented findings and plan of care. Patient was seen and examined. Objective - Vital Signs Vital signs: Vital Signs Temp 98 F 11/14/20 03:00 Pulse 66 11/14/20 03:00 Resp 16 11/14/20 03:00 BP 160/69 11/14/20 03:00 Pulse Ox 92 L 11/14/20 03:00 Intake & Output 11/13/20 11/14/20 11/14/20 17:59 06:59 18:59 Intake Total Output Total Balance Weight Intake: Intake, IV Titration Amount Furosemide 100 mg In Sodium Chloride 0.9% 90 ml @ 10 MG/HR 10 mls/hr IV .Q10H [facility] Rx#: [id number] Output: Urine Other: Voiding Method - Labs CBC & Chem 7: 11/11/20 13:12 11/14/20 06:40 Labs: Abnormal Lab Results - Last 24 Hours (Table) 11/13/20 11/13/20 11/13/20 Range/Units 12:11 16:49 20:11 Chloride (98-107) mmol/L Carbon Dioxide (22-30) mmol/L BUN (7-17) mg/dL Creatinine (0.52-1.04) mg/dL Glucose (74-99) mg/dL POC Glucose (mg/dL) 211 H 174 H 215 H (75-99) mg/dL Total Protein (6.3-8.2) g/dL Albumin (3.5-5.0) g/dL 11/14/20 11/14/20 Range/Units 05:49 06:40 Chloride 95 L (98-107) mmol/L Carbon Dioxide 34 H (22-30) mmol/L BUN 40 H (7-17) mg/dL Creatinine 1.26 H (0.52-1.04) mg/dL Glucose 135 H (74-99) mg/dL POC Glucose (mg/dL) 153 H (75-99) mg/dL Total Protein 5.8 L (6.3-8.2) g/dL Albumin 3.2 L (3.5-5.0) g/dL
[2020-11-14 12:15] LABS: Glucose,Whole Blood 168 mg/dL (75-99)
--- NOTE | 2020-11-14 15:32 | P.PN ---
Subjective Progress Note Date: 11/14/20 HISTORY OF PRESENT ILLNESS This is a 65-year-old female patient of Dr. Severino with past medical history of diabetes mellitus type 2, chronic diastolic heart failure, obesity with hypoventilation syndrome, obstructive sleep apnea, chronic hypoxic respiratory failure on home O2 at 2 L, hypertension, hyperlipidemia, gastroesophageal reflux disease, hypothyroidism, mild intermittent asthma. Patient gives history of having shortness of breath for 2-[address] Severino about a week ago and was instructed to decrease oral intake. She states she is still having shortness of breath. No chest pain. She has been sleeping in a recliner as her bed is broken. She does have increased lower extremity edema. No fever or chills. No cough. She came into [facility] emergency center for evaluation. EKG reveals sinus rhythm heart rate of 74 with significant artifact. CTA of the chest reveals no evidence of pulmonary embolism, cardiomegaly, pulmonary hypertension, moderate right and left pleural effusions, scattered groundglass changes and developing interstitial pulmonary edema. There is also an inferior lingular pulmonary nodule noted. Chest xray blunting of the costophrenic angles with basilar effusions. Troponins negative 3, proBNP 211, d-dimer 1.33, WBC 10.6, hemoglobin 10.3, platelets 346, sodium 144, potassium 5.4 and creatinine 0 .9. 11/13 patient examined bedside. Appears to be breathing well. Patient did have an episode of nausea and vomiting which has improved. Apparently team was called last night due to a change in mental status and worsening shortness of breath. ABG was obtained which showed respiratory acidosis with hypoxia with pH 7.26 pCO2 81 PaO2 of 63. Patient was placed on BiPAP with improvement in oxygenation. Patient was adamant about removing the BiPAP in the morning as she could not breathe. So far she has been maintaining her oxygenation in the high TEDs to low 90s on 4 L of nasal cannula. Chest x-ray suggestive of prominent pulmonary vascular congestion with developing partially consolidative opacities consistent with pneumonia versus pulmonary edema. Patient was placed on Lasix drip 11/14 patient examined at bedside. Denies any shortness of breath or chest pain. Does have bilateral lower extremity edema. Patient is currently at her baseline oxygen need. Lasix switched from IV drip to 40 IV every 8 hours. Labs as reviewed BUN 40 creatinine 1.26 glucose is 135. Patient continues to the ED to 92% on 3 L of oxygen was systolic blood pressure 163 and diastolics of 67. Continue Lasix PT OT ordered. A possible discharge to subacute rehab onal: No fever, no chills, no night sweats. No weight change. No weakness, fatigue or lethargy. No daytime sleepiness. EENT: No headache. No blurred vision or double vision, no loss of vision. No loss of Hearing, no ringing in the ears, no dizziness. No nasal drainage or congestion. No epistaxis. No sore throat. Lungs: Reports shortness of breath, cough, no sputum production. No wheezing. Cardiovascular: No chest pain, reports lower extremity edema. No palpitations. No paroxysmal nocturnal dyspnea. No orthopnea. No lightheadedness or dizziness. No syncopal episodes. Abdominal: No abdominal pain. No nausea, vomiting. No diarrhea. No constipation. No bloody or tarry stools.. No loss of appetite. Genitourinary: No dysuria, increased frequency, urgency. No urinary retention. Musculoskeletal: No myalgias. No muscle weakness, no gait dysfunction, no frequent falls. No back pain. No neck pain. Integumentary: No wounds, no lesions. No rash or pruritus. No unusual bruising. No change in hair or nails. Neurologic: No aphasia. No facial droop. No change in mentation. No head injury. No headache. No paralysis. No paresthesia. Psychiatric: No depression. No anxiety. Endocrine: No abnormal blood sugars. Objective - Vital Signs Vital signs: Vital Signs Temp 98.2 F 11/14/20 08:00 Pulse 66 11/14/20 12:00 Resp 20 11/14/20 12:00 BP 163/67 11/14/20 12:00 Pulse Ox 88 L 11/14/20 12:00 Intake & Output 11/13/20 11/14/20 11/14/20 17:59 06:59 18:59 Intake Total Output Total Balance Weight Intake: Intake, IV Titration Amount Furosemide 100 mg In Sodium Chloride 0.9% 90 ml @ 10 MG/HR 10 mls/hr IV .Q10H [facility] Rx#: [id number] Output: Urine Other: Voiding Method External Catheter - Exam GENERAL EXAM: Alert, morbidly obese 65-year-old female patient, up in a chair, 4 L nasal, comfortable in no apparent distress. HEAD: Normocephalic. EYES: Normal reaction of pupils, equal size. NOSE: Clear with pink turbinates. THROAT: Crowding the posterior pharynx. No erythema or exudates. NECK: Short. No masses, no JVD. CHEST: No chest wall deformity. LUNGS: Equal air entry with basilar crackles. Decreased air entry but CVS: Distant heart sounds. S1 and S2 normal with no audible murmur, regular rhythm. ABDOMEN: Obese. No hepatosplenomegaly, normal bowel sounds, no guarding or rigidity. SPINE: No scoliosis or deformity SKIN: No rashes CENTRAL NERVOUS SYSTEM: No focal deficits, tone is normal in all 4 extremities. EXTREMITIES: There is 1-2+ peripheral edema with chronic change. No clubbing, no cyanosis. Peripheral pulses are intact. - Labs CBC & Chem 7: 11/11/20 13:12 11/14/20 06:40 Labs: Abnormal Lab Results - Last 24 Hours (Table) 11/13/20 11/13/20 11/14/20 Range/Units 16:49 20:11 05:49 Chloride (98-107) mmol/L Carbon Dioxide (22-30) mmol/L BUN (7-17) mg/dL Creatinine (0.52-1.04) mg/dL Glucose (74-99) mg/dL POC Glucose (mg/dL) 174 H 215 H 153 H (75-99) mg/dL Total Protein (6.3-8.2) g/dL Albumin (3.5-5.0) g/dL 11/14/20 11/14/20 Range/Units 06:40 12:13 Chloride 95 L (98-107) mmol/L Carbon Dioxide 34 H (22-30) mmol/L BUN 40 H (7-17) mg/dL Creatinine 1.26 H (0.52-1.04) mg/dL Glucose 135 H (74-99) mg/dL POC Glucose (mg/dL) 168 H (75-99) mg/dL Total Protein 5.8 L (6.3-8.2) g/dL Albumin 3.2 L (3.5-5.0) g/dL Assessment and Plan Assessment: 1. Acute on chronic hypoxic hypercapnic respiratory failure secondary to acute on chronic diastolic heart failure. A team called on possible underlying obesity hypoventilation syndrome with suspected OBSTRUCTIVE sleep apnea Cardiology consult appreciated. Lasix is switched to Lasix 40 IV every 8 monitor I&O, daily weights, renal function and electrolytes. 2. Acute urinary tract infection. Ruled out Rocephin 1 g daily discontinue. Monitor for urine culture report. 3. Diabetes mellitus type 2. Continue Levemir 100 units at bedtime, NovoLog scale before meals and at bedtime, Tradjenta 5 mg daily. Hold Prandin 1 mg 3 times daily. 4. Hypertension. Continue Norvasc 5 mg daily, hydralazine 50 mg 3 times daily, Toprol-XL 25 mg daily. 5. Hyperlipidemia. Continue atorvastatin 20 mg at bedtime 6. Gastroesophageal reflux disease and GI prophylaxis. Protonix. 7. Hypothyroidism. Continue levothyroxine 75 g daily. 8. Mild intermittent asthma, stable. Continue DuoNeb treatments every 4 hours as needed. 9. Remote history of tobacco use. 10. Morbid obesity with BMI of 51. 11. DVT prophylaxis. Heparin subcu. DISCHARGE PLAN To be determined. PT and OT.
--- NOTE | 2020-11-14 15:47 | P.PN ---
Subjective Progress Note Date: 11/14/20 Principal diagnosis: Acute on chronic hypoxic and hypercapnic respiratory failure, multifactorial. This is a morbidly obese 65-year-old female patient with a history of BMI 51.6, hyperlipidemia, diabetes mellitus, gout, hypothyroidism, hypertension, congestive heart failure, asthma, smoker. She presented here to the emergency room on 11/11/2020 after developing a two-week history of increasing lower extremity edema, weakness, shortness of breath. Chest x-ray revealed evidence of patchy bilateral airspace disease. Fluid volume overload and pulmonary edema with basilar effusions. ET angiogram revealed no pulmonary emboli. There was mild cardiomegaly with pulmonary arterial hypertension and moderate right and small left pleural effusions. Scattered groundglass changes. Prominent second mental collapse/atelectasis, bibasilar lower lobes. Questionable 1.6 cm infer ior lingular pulmonary nodule requiring follow-up in 3 months. Echocardiogram reveals preserved left ventricular systolic function with ejection fraction 55- 60%. No significant valvular heart disease. There is severe concentric LVH. Early this morning the patient became confused and lethargic. An A Team was called and the patient had blood gases that revealed respiratory acidosis with relative hypoxemia with a pO2 of 63, pCO2 81, pH 7.26. On 40% FiO2. Patient was placed on BiPAP and improved. Settings are BiPAP 14/5 and 40% FiO2 with most recent blood gases reveal a pO2 of 74, pCO2 79 and a pH of 7.27. We're consulted for the same. She is seen today on the regular medical floor. C urrently sitting up in a chair at the bedside. Awake and alert in no acute distress. She had requested her BiPAP mask to be off that she was not tolerating well this morning. He is currently on 4 L nasal cannula and maintaining O2 saturation in the high 80s low 90s. Afebrile. Chest x-ray reveals prominent pulmonary vascular. Interval worsening of the lung bases with developing partially consolidative opacities consistent with pneumonia versus pulmonary edema. White count 10.6. Hemoglobin 10.9. Sodium 143. Potassium 5.4. Creatinine 1.09. She is currently on a Lasix drip at 5 mg per hour. Antibiotics in the form of ceftriaxone. Bronchodilators. Patient was reevaluated today on 11/14/2020, patient is sleeping, however she is arousable, and preferred to be left alone. She is on 3 L nasal cannula, and her O2 saturation is in the high 80s and low 90s. She has BiPAP at bedside, but she is not using it this morning, supposedly she did use it for few hours yesterday. Patient remains on diuretics. Remains on bronchodilators. States that she is feeling a bit better compared to how she felt on initial presentation. Labs are basically unremarkable bicarb is 34 BUN is 40 creatinine 1.26. Continues to have significant lower extremities edema. Patient is now off Lasix drip, she is on 40 mg IV push every 8 hours. Objective - Vital Signs Vital signs: Vital Signs Temp 98.2 F 11/14/20 08:00 Pulse 66 11/14/20 12:00 Resp 20 11/14/20 12:00 BP 163/67 11/14/20 12:00 Pulse Ox 88 L 11/14/20 12:00 Intake & Output 11/13/20 11/14/20 11/14/20 17:59 06:59 18:59 Intake Total Output Total Balance Weight Intake: Intake, IV Titration Amount Furosemide 100 mg In Sodium Chloride 0.9% 90 ml @ 10 MG/HR 10 mls/hr IV .Q10H [facility] Rx#: [id number] Output: Urine Other: Voiding Method External Catheter - Exam GENERAL EXAM: Alert, morbidly obese 65-year-old female patient, up in a chair, 3 L nasal, comfortable in no apparent distress. Head: Atraumatic, normocephalic. ENT: Short obese neck, PERRLA, EOMI, nonicteric, no neck masses, no JVD, no stridor. CHEST: No chest wall deformity. LUNGS: Equal air entry with basilar crackles. CVS: Distant heart sounds. S1 and S2 normal with no audible murmur, regular rhythm. ABDOMEN: Obese. No hepatosplenomegaly, normal bowel sounds, no guarding or rigidity. SPINE: No scoliosis or deformity SKIN: No rashes CENTRAL NERVOUS SYSTEM: Alert and oriented 3, no gross focal deficits. Psychiatric: Normal mood affect and normal mental status examination. EXTREMITIES: There is 1-2+ peripheral edema. No clubbing, no cyanosis. Peripheral pulses are intact. - Labs CBC & Chem 7: 11/11/20 13:12 11/14/20 06:40 Labs: Abnormal Lab Results - Last 24 Hours (Table) 11/13/20 11/13/20 11/14/20 Range/Units 16:49 20:11 05:49 Chloride (98-107) mmol/L Carbon Dioxide (22-30) mmol/L BUN (7-17) mg/dL Creatinine (0.52-1.04) mg/dL Glucose (74-99) mg/dL POC Glucose (mg/dL) 174 H 215 H 153 H (75-99) mg/dL Total Protein (6.3-8.2) g/dL Albumin (3.5-5.0) g/dL 11/14/20 11/14/20 Range/Units 06:40 12:13 Chloride 95 L (98-107) mmol/L Carbon Dioxide 34 H (22-30) mmol/L BUN 40 H (7-17) mg/dL Creatinine 1.26 H (0.52-1.04) mg/dL Glucose 135 H (74-99) mg/dL POC Glucose (mg/dL) 168 H (75-99) mg/dL Total Protein 5.8 L (6.3-8.2) g/dL Albumin 3.2 L (3.5-5.0) g/dL Assessment and Plan Assessment: Impression: Acute on chronic hypoxic and hypercapnic respiratory failure, multifactorial. Obesity/hypoventilation syndrome. Obstructive sleep apnea syndrome. Morbid obesity. Chronic cor pulmonale. Suspect some component of chronic obstructive pulmonary disease, doubt asthma. Hypothyroidism. Type 2 diabetes. Former smoker. Medical debility and poor overall functional performance. With multiple comorbidities. Recommendation: Continue present supportive care measures. Continue diuretics. Continue oxygen and intermittently BiPAP. Continue bronchodilators. Resume cardiac meds. Continue Protonix. Continue diabetes medications. Monitor electrolytes closely and fell profile while on high dose of Lasix. environmental services manager to evaluate for possible placement, strongly doubt the patient could do well on her own of discharge home considering her multiple comorbidities at present. Time with Patient: Less than 30
[2020-11-14] MEDS: FUROSEMIDE 10 MG/ML 4 ML VIAL IV SCH (16:59)
[2020-11-14 17:22] LABS: Glucose,Whole Blood 195 mg/dL (75-99)
[2020-11-14 20:31] LABS: Glucose,Whole Blood 234 mg/dL (75-99)
[2020-11-14] MEDS: ATORVASTATIN 20 MG TAB PO SCH (20:33)
[2020-11-14] MEDS: INSULIN DETEMIR (LEVEMIR) 100 UNIT/ML SYR SQ SCH (20:33)
[2020-11-15] MEDS: FUROSEMIDE 10 MG/ML 4 ML VIAL IV SCH ×3 (00:17→16:56)
[2020-11-15 06:00] LABS: Glucose,Whole Blood 98 mg/dL (75-99)
[2020-11-15 06:02] LABS: Basophils % (A) 0 %; Eosinophils # (A) 0.6 k/uL (0-0.7); Eosinophils % (A) 7 %; HCT 29.5 % (34.0-46.0); HGB 9.2 gm/dL (11.4-16.0); Hypochromasia Moderate; Lymphocytes # (A) 1.2 k/uL (1.0-4.8); Lymphocytes % (A) 13 %; MCH 27.4 pg (25.0-35.0); MCHC 31.3 g/dL (31.0-37.0); MCV 87.6 fL (80.0-100.0); Mean Platelet Volume 7.5; Monocytes # (A) 0.6 k/uL (0-1.0); Monocytes % (A) 6 %; Neutrophils # (A) 6.6 k/uL (1.3-7.7); Neutrophils % (A) 72 %; Platelet Count 279 k/uL (150-450); RBC 3.37 m/uL (3.80-5.40); RDW 15.8 % (11.5-15.5); WBC 9.2 k/uL (3.8-10.6)
[2020-11-15] MEDS: INSULIN ASPART (NovoLOG) 100 UNIT/ML VIAL SQ SCH ×4 (06:09→20:23)
[2020-11-15] MEDS: LEVOTHYROXINE 75 MCG TAB PO SCH (06:13)
[2020-11-15] MEDS: PANTOPRAZOLE 40 MG TABLET PO SCH (06:14)
[2020-11-15 06:19] LABS: Albumin 2.9 g/dL (3.5-5.0); Calcium 9.2 mg/dL (8.4-10.2); Potassium 4.1 mmol/L (3.5-5.1); Total Bilirubin 0.3 mg/dL (0.2-1.3); Total Protein 5.3 g/dL (6.3-8.2)
[2020-11-15] MEDS: hydrALAZINE HCL 50 MG TAB PO SCH ×3 (09:52→20:24)
[2020-11-15] MEDS: HEPARIN SODIUM,PORCINE 5,000 UNIT/ML 1 ML VIAL SQ SCH ×2 (09:52→20:24)
[2020-11-15] MEDS: METOPROLOL SUCCINATE (ER) 25 MG TAB.ER.24H PO SCH (09:52)
[2020-11-15] MEDS: allopurinoL 300 MG TAB PO SCH (09:52)
[2020-11-15] MEDS: ASPIRIN 81 MG PO SCH (09:52)
[2020-11-15] MEDS: amLODIPine 5 MG TAB PO SCH (09:52)
[2020-11-15] MEDS: LINAGLIPTIN 5 MG TABLET PO SCH (09:53)
[2020-11-15] MEDS: FERROUS SULFATE 325 MG TAB PO SCH (09:53)
[2020-11-15] MEDS: DOCUSATE 100 MG CAP PO SCH (09:53)
[2020-11-15] MEDS: MAGNESIUM OXIDE 400 MG TAB PO SCH (09:55)
[2020-11-15] MEDS: ACETAMINOPHEN TAB 325 MG TAB PO PRN (10:01)
[2020-11-15 12:16] LABS: Glucose,Whole Blood 130 mg/dL (75-99)
--- NOTE | 2020-11-15 13:49 | P.PN ---
Subjective Progress Note Date: 11/15/20 HISTORY OF PRESENT ILLNESS: This is a pleasant 65-year-old female past medical history significant for diabetes mellitus, hypertension, dyslipidemia, asthma, former nicotine dependence, rheumatic fever as a child and morbid obesity. She denies prior history of coronary artery disease and has seen Dr. Caba in the office one time in 2019. At that time she underwent a stress test that was negative for reversible cardiac ischemia with normal LV function. We have been asked to see in consultation for heart failure. She presented to the hospital with symptoms of shortness of breath that has been going on and getting progressively worse for the past 2 weeks. She states she saw her primary care physician and was told to decrease her amount of oral intake of water. She states her shortness of breath is with exertion or activity and resolves at rest. She denies cough, fever or chills. She denies chest pain, dizziness or palpitations. She also was concerned about increased lower extremity edema and generalized weakness. Most recent echocardiogram obtained May 2019 reveals preserved LV systolic function with ejection fraction greater than 55%. DIAGNOSTICS EKG reveals sinus mechanism heart rate of 74 with significant artifact. CTA of the chest reveals no evidence of pulmonary embolism, cardiomegaly, pulmonary hypertension, moderate right and left pleural effusions, scattered groundglass changes and developing interstitial pulmonary edema. There is also an inferior lingular pulmonary nodule noted. Chest xray blunting of the costophrenic angles with basilar effusions. Laboratory reviewed, it enzymes negative 3, NT proBNP 211, d-dimer 1.33, WBC 10.6, hemoglobin 10.3, platelets 346, sodium 144, potassium 5.4 and creatinine 0.9. Current cardiac medications include aspirin 325 mg daily, atorvastatin 20 mg daily, amlodipine 5 mg daily, Lasix 60 mg twice a day, hydralazine 50 mg 3 times a day and Toprol 25 mg daily. 11/13: Ateam was called last evening due to mental status changes. Patient states that she is feeling about the same. She continues to have lower extremity edema which she feels is not improved. She is on Lasix drip will be continued. Patient has been afebrile, heart rate 64, blood pressure 181/53, pulse ox 93% on oxygen. BUN 34 creatinine 1.09 with potassium of 5.4. Echocardiogram reveals EF of 55-60%, severe concentric left ventricular hypertrophy, mild aortic valve sclerosis, mild aortic stenosis, trace mitral regurgitation, mild tricuspid regurgitation. 11/14: environmental monitoring specialist has been a sinus rhythm. Patient has been afebrile, heart rate in the 60s, blood pressure 160/69, pulse ox 92% on 2 L nasal cannula. BUN 40 and creatinine 1.26 with potassium 4.5. Patient is currently on Lasix drip which will be transitioned to IV today. Patient has some short-term every deficit and repeating questions. She is concerned about the CPAP which will be deferred to Dr. Aquino. At this time, patient's questions have been answered. 11/15/2020 Patient examined this morning at the bedside. She denies chest pain or pressure. She reports mild shortness of breath. Patient is on 3 L nasal cannula with oxygen saturations greater than 90%. BUN 47. Creatinine 1.18. She remains on IV Lasix 40 mg every 8 hours PHYSICAL EXAM: VITAL SIGNS: Reviewed. GENERAL: Well-developed in no acute distress. NECK: Supple. No JVD or thyromegaly LUNGS: Respirations even and unlabored. Lungs diminished bilaterally with a few scattered rales. HEART: Regular rate and rhythm. S1 and S2 heard. Systolic murmur noted. EXTREMITIES: Normal range of motion. No clubbing or cyanosis. Peripheral pulses intact. Trace bilateral lower extremity edema ASSESSMENT: Acute on chronic heart failure with preserved ejection fraction and cor pulmonale Urinary tract infection Hypertension Dyslipidemia Diabetes mellitus History of asthma Former nicotine dependence Morbid obesity, BMI 51 PLAN: Continue current cardiac medications Continue IV Lasix Daily weights Accurate I&O Monitor kidney function Further recommendations pending patient course Nurse practitioner note has been reviewed by physician. Signing provider agrees with the documented findings, assessment, and plan of care. Objective - Vital Signs Vital signs: Vital Signs Temp 98.6 F 11/15/20 08:00 Pulse 68 11/15/20 11:56 Resp 18 11/15/20 11:56 BP 139/60 11/15/20 11:56 Pulse Ox 90 L 11/15/20 11:56 Intake & Output 11/14/20 11/15/20 11/15/20 18:59 06:59 18:59 Intake Total 472 240 Output Total 1500 450 Balance -1028 -210 Weight 156.5 kg Intake: Oral 472 240 Output: Urine 1500 450 Other: Voiding Method External Catheter External Catheter External Catheter - Labs CBC & Chem 7: 11/15/20 05:36 11/15/20 05:36 Labs: Abnormal Lab Results - Last 24 Hours (Table) 11/14/20 11/14/20 11/14/20 Range/Units 06:40 17:21 20:24 RBC (3.80-5.40) m/uL Hgb (11.4-16.0) gm/dL Hct (34.0-46.0) % RDW (11.5-15.5) % Chloride (98-107) mmol/L Carbon Dioxide (22-30) mmol/L BUN (7-17) mg/dL Creatinine (0.52-1.04) mg/dL POC Glucose (mg/dL) 195 H 234 H (75-99) mg/dL Total Protein (6.3-8.2) g/dL Albumin (3.5-5.0) g/dL Procalcitonin 0.14 H (0.02-0.09) ng/mL 11/15/20 11/15/20 11/15/20 Range/Units 05:36 05:36 12:14 RBC 3.37 L (3.80-5.40) m/uL Hgb 9.2 L (11.4-16.0) gm/dL Hct 29.5 L (34.0-46.0) % RDW 15.8 H (11.5-15.5) % Chloride 93 L (98-107) mmol/L Carbon Dioxide 38 H (22-30) mmol/L BUN 47 H (7-17) mg/dL Creatinine 1.18 H (0.52-1.04) mg/dL POC Glucose (mg/dL) 130 H (75-99) mg/dL Total Protein 5.3 L (6.3-8.2) g/dL Albumin 2.9 L (3.5-5.0) g/dL Procalcitonin (0.02-0.09) ng/mL
--- NOTE | 2020-11-15 15:34 | P.PN ---
Subjective Progress Note Date: 11/15/20 HISTORY OF PRESENT ILLNESS This is a 65-year-old female patient of Dr. Severino with past medical history of diabetes mellitus type 2, chronic diastolic heart failure, obesity with hypoventilation syndrome, obstructive sleep apnea, chronic hypoxic respiratory failure on home O2 at 2 L, hypertension, hyperlipidemia, gastroesophageal reflux disease, hypothyroidism, mild intermittent asthma. Patient gives history of having shortness of breath for 2-[address] Severino about a week ago and was instructed to decrease oral intake. She states she is still having shortness of breath. No chest pain. She has been sleeping in a recliner as her bed is broken. She does have increased lower extremity edema. No fever or chills. No cough. She came into [facility] emergency center for evaluation. EKG reveals sinus rhythm heart rate of 74 with significant artifact. CTA of the chest reveals no evidence of pulmonary embolism, cardiomegaly, pulmonary hypertension, moderate right and left pleural effusions, scattered groundglass changes and developing interstitial pulmonary edema. There is also an inferior lingular pulmonary nodule noted. Chest xray blunting of the costophrenic angles with basilar effusions. Troponins negative 3, proBNP 211, d-dimer 1.33, WBC 10.6, hemoglobin 10.3, platelets 346, sodium 144, potassium 5.4 and creatinine 0 .9. 11/13 patient examined bedside. Appears to be breathing well. Patient did have an episode of nausea and vomiting which has improved. Apparently team was called last night due to a change in mental status and worsening shortness of breath. ABG was obtained which showed respiratory acidosis with hypoxia with pH 7.26 pCO2 81 PaO2 of 63. Patient was placed on BiPAP with improvement in oxygenation. Patient was adamant about removing the BiPAP in the morning as she could not breathe. So far she has been maintaining her oxygenation in the high TEDs to low 90s on 4 L of nasal cannula. Chest x-ray suggestive of prominent pulmonary vascular congestion with developing partially consolidative opacities consistent with pneumonia versus pulmonary edema. Patient was placed on Lasix drip 11/14 patient examined at bedside. Denies any shortness of breath or chest pain. Does have bilateral lower extremity edema. Patient is currently at her baseline oxygen need. Lasix switched from IV drip to 40 IV every 8 hours. Labs as reviewed BUN 40 creatinine 1.26 glucose is 135. Patient continues to the ED to 92% on 3 L of oxygen was systolic blood pressure 163 and diastolics of 67. Continue Lasix PT OT ordered. A possible discharge to subacute rehab 11/15: Patient is having improvement of her lower extremity edema. She denies having any chest pain, continued shortness of breath that has improved. Note the patient has not been out of bed. She is undecided about rehab when discussed with skilled nursing case manager. Patient encouraged to make decision regarding rehab which is what she needs. She has chosen [facility]. She is currently on Lasix IV 40 mg every 8 hours. She is diuresing well. Patient has been afebrile, heart rate 68, blood pressure 167/70, pulse ox 91% on 3 L nasal cannula. EP blood work reveals WBC 9.2, hemoglobin 9.2. BUN 47 creatinine 1.18 and CO2 38. Blood sugars running between 91 and 235. Anticipate discharge in the next 24-48 hours. REVIEW OF SYSTEMS Constitutional: No fever, no chills, no night sweats. No weight change. No weakness, fatigue or lethargy. No daytime sleepiness. EENT: No headache. No blurred vision or double vision, no loss of vision. No loss of Hearing, no ringing in the ears, no dizziness. No nasal drainage or congestion. No epistaxis. No sore throat. Lungs: Reports shortness of breath-improved, cough, no sputum production. No wheezing. Cardiovascular: No chest pain, reports lower extremity edema. No palpitations. No paroxysmal nocturnal dyspnea. No orthopnea. No lightheadedness or dizziness. No syncopal episodes. Abdominal: No abdominal pain. No nausea, vomiting. No diarrhea. No constipa tion. No bloody or tarry stools.. No loss of appetite. Genitourinary: No dysuria, increased frequency, urgency. No urinary retention. Musculoskeletal: No myalgias. No muscle weakness, no gait dysfunction, no frequent falls. No back pain. No neck pain. Integumentary: No wounds, no lesions. No rash or pruritus. No unusual bruising. No change in hair or nails. Neurologic: No aphasia. No facial droop. No change in mentation. No head injury. No headache. No paralysis. No paresthesia. Psychiatric: No depression. No anxiety. Endocrine: No abnormal blood sugars. PHYSICAL EXAMINATION Gen: This is a morbidly obese 65-year-old female. Patient is resting in bed and appears to be comfortable at rest. No acute respiratory distress noted. HEENT: Head is atraumatic, normocephalic. Pupils equal, round. Sclerae is anicteric. NECK: Supple. No JVD. No lymphadenopathy. No thyromegaly. LUNGS: Rales bilateral bases. No intercostal retractions. No accessory muscle usage. HEART: Regular rate and rhythm. Systolic murmur. ABDOMEN: Soft. Bowel sounds are present. No masses. No tenderness. EXTREMITIES: 1+ pedal edema. Erythema noted to lower extremities. No calf tenderness. NEUROLOGICAL: Patient is awake, alert and oriented x3. Cranial nerves 2 through 12 are grossly intact. ASSESSMENT AND PLAN 1. Acute on chronic hypoxic respiratory failure secondary to acute on chronic diastolic heart failure. Cardiology consult appreciated. Continue Lasix 40 mg IV every 8 hours, monitor I&O, daily weights, renal function and electrolytes. 2. Acute urinary tract infection. Continue Rocephin 1 g daily. Monitor for urine culture report. 3. Diabetes mellitus type 2. Continue Levemir 100 units at bedtime, NovoLog scale before meals and at bedtime, Tradjenta 5 mg daily. Hold Prandin 1 mg 3 times daily. 4. Hypertension. Continue Norvasc 5 mg daily, hydralazine 50 mg 3 times daily, Toprol-XL 25 mg daily. 5. Hyperlipidemia. Continue atorvastatin 20 mg at bedtime 6. Gastroesophageal reflux disease and GI prophylaxis. Protonix. 7. Hypothyroidism. Continue levothyroxine 75 g daily. 8. Mild intermittent asthma, stable. Continue DuoNeb treatments every 4 hours as needed. 9. Remote history of tobacco use. 10. Morbid obesity with BMI of 51. 11. DVT prophylaxis. Heparin subcu. Patient will be admitted to the hospital for a minimum of 2 night stay. DISCHARGE PLAN on Sunday Impression and plan of care have been directed as dictated by the signing physician. Chelsey Casey nurse practitioner acting as scribe for signing physician. Objective - Vital Signs Vital signs: Vital Signs Temp 98.6 F 11/15/20 08:00 Pulse 68 11/15/20 08:00 Resp 16 11/15/20 08:00 BP 167/70 11/15/20 08:00 Pulse Ox 91 L 11/15/20 08:00 Intake & Output 11/14/20 11/15/20 11/15/20 18:59 06:59 18:59 Intake Total 472 Output Total 1500 Balance -1028 Weight 156.5 kg Intake: Oral 472 Output: Urine 1500 Other: Voiding Method External Catheter External Catheter - Labs CBC & Chem 7: 11/15/20 05:36 11/15/20 05:36 Labs: Abnormal Lab Results - Last 24 Hours (Table) 11/14/20 11/14/20 11/14/20 Range/Units 06:40 12:13 17:21 RBC (3.80-5.40) m/uL Hgb (11.4-16.0) gm/dL Hct (34.0-46.0) % RDW (11.5-15.5) % Chloride (98-107) mmol/L Carbon Dioxide (22-30) mmol/L BUN (7-17) mg/dL Creatinine (0.52-1.04) mg/dL POC Glucose (mg/dL) 168 H 195 H (75-99) mg/dL Total Protein (6.3-8.2) g/dL Albumin (3.5-5.0) g/dL Procalcitonin 0.14 H (0.02-0.09) ng/mL 11/14/20 11/15/20 11/15/20 Range/Units 20:24 05:36 05:36 RBC 3.37 L (3.80-5.40) m/uL Hgb 9.2 L (11.4-16.0) gm/dL Hct 29.5 L (34.0-46.0) % RDW 15.8 H (11.5-15.5) % Chloride 93 L (98-107) mmol/L Carbon Dioxide 38 H (22-30) mmol/L BUN 47 H (7-17) mg/dL Creatinine 1.18 H (0.52-1.04) mg/dL POC Glucose (mg/dL) 234 H (75-99) mg/dL Total Protein 5.3 L (6.3-8.2) g/dL Albumin 2.9 L (3.5-5.0) g/dL Procalcitonin (0.02-0.09) ng/mL
--- NOTE | 2020-11-15 16:33 | P.PN ---
Subjective Progress Note Date: 11/15/20 Principal diagnosis: Respiratory insufficiency. This is a morbidly obese 65-year-old female patient with a history of BMI 51.6, hyperlipidemia, diabetes mellitus, gout, hypothyroidism, hypertension, congestive heart failure, asthma, smoker. She presented here to the emergency r oom on 11/11/2020 after developing a two-week history of increasing lower extremity edema, weakness, shortness of breath. Chest x-ray revealed evidence of patchy bilateral airspace disease. Fluid volume overload and pulmonary edema with basilar effusions. ET angiogram revealed no pulmonary emboli. There was mild cardiomegaly with pulmonary arterial hypertension and moderate right and small left pleural effusions. Scattered groundglass changes. Prominent second mental collapse/atelectasis, bibasilar lower lobes. Questionable 1.6 cm inferior lingular pulmonary nodule requiring follow-up in 3 months. Echocardiogram reveals preserved left ventricular systolic function with ejection fraction 55-60%. No significant valvular heart disease. There is severe concentric LVH. Early this morning the patient became confused and lethargic. An A Team was called and the patient had blood gases that revealed respiratory acidosis with relative hypoxemia with a pO2 of 63, pCO2 81, pH 7.26. On 40% FiO2. Patient was placed on BiPAP and improved. Settings are BiPAP 14/5 and 40% FiO2 with most recent blood gases reveal a pO2 of 74, pCO2 79 and a pH of 7.27. We're consulted for the same. She is seen today on the regular medical floor. Currently sitting up in a chair at the bedside. Awake and alert in no acute distress. She had requested her BiPAP mask to be off that she was not tolerating well this morning. He is currently on 4 L nasal cannula and maintaining O2 saturation in the high 80s low 90s. Afebrile. Chest x-ray reveals prominent pulmonary vascular. Interval worsening of the lung bases with developing partially consolidative opacities consistent with pneumonia versus pulmonary edema. White count 10.6. Hemoglobin 10.9. Sodium 143. Potassium 5.4. Creatinine 1.09. She is currently on a Lasix drip at 5 mg per hour. Antibiotics in the form of ceftriaxone. Bronchodilators. Patient was reevaluated today on 11/14/2020, patient is sleeping, however she is arousable, and preferred to be left alone. She is on 3 L nasal cannula, and her O2 saturation is in the high 80s and low 90s. She has BiPAP at bedside, but she is not using it this morning, supposedly she did use it for few hours yesterday. Patient remains on diuretics. Remains on bronchodilators. States that she is feeling a bit better compared to how she felt on initial presentation. Labs are basically unremarkable bicarb is 34 BUN is 40 creatinine 1.26. Continues to have significant lower extremities edema. Patient is now off Lasix drip, she is on 40 mg IV push every 8 hours. Progress note dated 11/15/2020. This is a 65-year-old female recently hypothyroidism, hypertension, congestive heart failure, and previous tobacco use. She presented to the emergency department on November 11, with a two-week history of increasing lower extremity edema, weakness, and shortness of breath. Chest x-ray was consistent with pulmonary edema. There was not a pulmonary embolism on CT angiogram. C urrently, the patient is on 3 L nasal cannula, saturations in the low 90s. She tells us that last night, she did not need to use the BiPAP device. Currently, she is feeling much better. She still has significant lower extremity edema. She is no longer on the Lasix drip. White count is 9.2, hemoglobin 9.2, hematocrit 29.5, and platelet count 279,000. Sodium 138, potassium 4.1, chloride 93, CO2 38, anion gap is 7, BUN 47, and creatinine 1.18. Objective - Vital Signs Vital signs: Vital Signs Temp 98.6 F 11/15/20 08:00 Pulse 68 11/15/20 11:56 Resp 18 11/15/20 11:56 BP 139/60 11/15/20 11:56 Pulse Ox 90 L 11/15/20 11:56 Intake & Output 11/14/20 11/15/20 11/15/20 18:59 06:59 18:59 Intake Total 472 240 Output Total 1500 450 Balance -1028 -210 Weight 156.5 kg Intake: Oral 472 240 Output: Urine 1500 450 Other: Voiding Method External Catheter External Catheter External Catheter - Exam No acute distress, oriented 3. Nasal O2 in place at 3 L. No conversational dyspnea, or audible wheezing noted. HEENT examination is grossly unremarkable. Mucous membranes are moist. No oral lesions. Neck supple. Full range of motion. No adenopathy thyromegaly or neck vein distention. Cardiovascular examination reveals regular rhythm rate. S1-S2 normal. No S3 or S4. No discernible murmur noted. Heart sounds are distant. Heart rate is 68 bpm. Lungs reveal bibasilar crackles. Breath sounds equal bilaterally. No wheezes. No rhonchi. Abdomen soft bowel sounds are heard. No masses or tenderness. Extremities are intact. No cyanosis or clubbing. Significant 2+ edema is noted. Skin is without rash or lesion. Neurologic examination is brief but nonfocal. - Labs CBC & Chem 7: 11/15/20 05:36 11/15/20 05:36 Labs: Abnormal Lab Results - Last 24 Hours (Table) 11/14/20 11/14/20 11/14/20 Range/Units 06:40 17:21 20:24 RBC (3.80-5.40) m/uL Hgb (11.4-16.0) gm/dL Hct (34.0-46.0) % RDW (11.5-15.5) % Chloride (98-107) mmol/L Carbon Dioxide (22-30) mmol/L BUN (7-17) mg/dL Creatinine (0.52-1.04) mg/dL POC Glucose (mg/dL) 195 H 234 H (75-99) mg/dL Total Protein (6.3-8.2) g/dL Albumin (3.5-5.0) g/dL Procalcitonin 0.14 H (0.02-0.09) ng/mL 11/15/20 11/15/20 11/15/20 Range/Units 05:36 05:36 12:14 RBC 3.37 L (3.80-5.40) m/uL Hgb 9.2 L (11.4-16.0) gm/dL Hct 29.5 L (34.0-46.0) % RDW 15.8 H (11.5-15.5) % Chloride 93 L (98-107) mmol/L Carbon Dioxide 38 H (22-30) mmol/L BUN 47 H (7-17) mg/dL Creatinine 1.18 H (0.52-1.04) mg/dL POC Glucose (mg/dL) 130 H (75-99) mg/dL Total Protein 5.3 L (6.3-8.2) g/dL Albumin 2.9 L (3.5-5.0) g/dL Procalcitonin (0.02-0.09) ng/mL Assessment and Plan Assessment: Acute on chronic hypoxemic and hypercapnic respiratory failure, which is multifactorial, and likely related to sleep apnea syndrome, Pickwickian syndrome, COPD, and congestive heart failure. Morbid obesity. Chronic cor pulmonale. 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 Hypothyroidism. Type 2 diabetes mellitus. Previous history of heavy tobacco use. General medical debility. Plan: Plan dated 11/15/2020. The patient will continue with full supportive care, including diuretics, oxygen therapy, and BiPAP if necessary. Also will continue with bronchodilators, cardiac medications including diuretics, GI and DVT prophylaxis, as well as other medications. Patient is currently being evaluated for possible placement in a rehab facility. She still has significant lower extremity edema. Her saturations on 3 L are hovering right around 90-92%. She did not used to BiPAP last night. Additional recommendations and suggestions are forthcoming. Prognosis is guarded. We will continue to follow. Time with Patient: Less than 30
[2020-11-15 17:23] LABS: Glucose,Whole Blood 151 mg/dL (75-99)
[2020-11-15 20:15] LABS: Glucose,Whole Blood 195 mg/dL (75-99)
[2020-11-15] MEDS: ATORVASTATIN 20 MG TAB PO SCH (20:24)
[2020-11-15] MEDS: INSULIN DETEMIR (LEVEMIR) 100 UNIT/ML SYR SQ SCH (20:24)
[2020-11-16] MEDS: FUROSEMIDE 10 MG/ML 4 ML VIAL IV SCH ×4 (00:15→23:11)
[2020-11-16 06:00] LABS: Glucose,Whole Blood 141 mg/dL (75-99)
[2020-11-16] MEDS: INSULIN ASPART (NovoLOG) 100 UNIT/ML VIAL SQ SCH ×4 (06:10→20:51)
[2020-11-16] MEDS: LEVOTHYROXINE 75 MCG TAB PO SCH (06:10)
[2020-11-16] MEDS: PANTOPRAZOLE 40 MG TABLET PO SCH (06:15)
[2020-11-16 07:07] LABS: Basophils % (A) 0 %; Eosinophils # (A) 0.6 k/uL (0-0.7); Eosinophils % (A) 7 %; HCT 29.9 % (34.0-46.0); HGB 9.2 gm/dL (11.4-16.0); Hypochromasia Marked; Lymphocytes % (A) 12 %; MCH 26.9 pg (25.0-35.0); MCHC 30.9 g/dL (31.0-37.0); Mean Platelet Volume 8.1; Monocytes # (A) 0.6 k/uL (0-1.0); Monocytes % (A) 7 %; Neutrophils # (A) 6.3 k/uL (1.3-7.7); Neutrophils % (A) 72 %; Platelet Count 281 k/uL (150-450); RBC 3.44 m/uL (3.80-5.40); RDW 15.8 % (11.5-15.5); WBC 8.7 k/uL (3.8-10.6)
[2020-11-16 07:14] LABS: Calcium 9.3 mg/dL (8.4-10.2); Potassium 3.7 mmol/L (3.5-5.1)
[2020-11-16] MEDS: MAGNESIUM OXIDE 400 MG TAB PO SCH (09:06)
[2020-11-16] MEDS: amLODIPine 5 MG TAB PO SCH (09:07)
[2020-11-16] MEDS: ASPIRIN 81 MG PO SCH (09:07)
[2020-11-16] MEDS: METOPROLOL SUCCINATE (ER) 25 MG TAB.ER.24H PO SCH (09:07)
[2020-11-16] MEDS: DOCUSATE 100 MG CAP PO SCH (09:07)
[2020-11-16] MEDS: FERROUS SULFATE 325 MG TAB PO SCH (09:07)
[2020-11-16] MEDS: allopurinoL 300 MG TAB PO SCH (09:07)
[2020-11-16] MEDS: HEPARIN SODIUM,PORCINE 5,000 UNIT/ML 1 ML VIAL SQ SCH ×2 (09:07→20:52)
[2020-11-16] MEDS: LINAGLIPTIN 5 MG TABLET PO SCH (09:07)
[2020-11-16] MEDS: hydrALAZINE HCL 50 MG TAB PO SCH ×3 (09:07→20:52)
[2020-11-16] MEDS ORDERED: metOLazone 5 MG TAB PO ONE (10:24)
[2020-11-16 12:21] LABS: Glucose,Whole Blood 171 mg/dL (75-99)
[2020-11-16] MEDS: LACTULOSE 20 GM/30 ML CUP PO SCH ×2 (13:13→20:51)
[2020-11-16] MEDS: acetaZOLAMIDE 250 MG TAB PO SCH (13:13)
--- NOTE | 2020-11-16 14:40 | P.PN ---
Subjective Progress Note Date: 11/16/20 HISTORY OF PRESENT ILLNESS This is a 65-year-old female patient of Dr. Severino with past medical history of diabetes mellitus type 2, chronic diastolic heart failure, obesity with hypoventilation syndrome, obstructive sleep apnea, chronic hypoxic respiratory failure on home O2 at 2 L, hypertension, hyperlipidemia, gastroesophageal reflux disease, hypothyroidism, mild intermittent asthma. Patient gives history of having shortness of breath for 2-[address] Severino about a week ago and was instructed to decrease oral intake. She states she is still having shortness of breath. No chest pain. She has been sleeping in a recliner as her bed is broken. She does have increased lower extremity edema. No fever or chills. No cough. She came into [facility] emergency center for evaluation. EKG reveals sinus rhythm heart rate of 74 with significant artifact. CTA of the chest reveals no evidence of pulmonary embolism, cardiomegaly, pulmonary hypertension, moderate right and left pleural effusions, scattered groundglass changes and developing interstitial pulmonary edema. There is also an inferior lingular pulmonary nodule noted. Chest xray blunting of the costophrenic angles with basilar effusions. Troponins negative 3, proBNP 211, d-dimer 1.33, WBC 10.6, hemoglobin 10.3, platelets 346, sodium 144, potassium 5.4 and creatinine 0 .9. 11/13 patient examined bedside. Appears to be breathing well. Patient did have an episode of nausea and vomiting which has improved. Apparently team was called last night due to a change in mental status and worsening shortness of breath. ABG was obtained which showed respiratory acidosis with hypoxia with pH 7.26 pCO2 81 PaO2 of 63. Patient was placed on BiPAP with improvement in oxygenation. Patient was adamant about removing the BiPAP in the morning as she could not breathe. So far she has been maintaining her oxygenation in the high TEDs to low 90s on 4 L of nasal cannula. Chest x-ray suggestive of prominent pulmonary vascular congestion with developing partially consolidative opacities consistent with pneumonia versus pulmonary edema. Patient was placed on Lasix drip 11/14 patient examined at bedside. Denies any shortness of breath or chest pain. Does have bilateral lower extremity edema. Patient is currently at her baseline oxygen need. Lasix switched from IV drip to 40 IV every 8 hours. Labs as reviewed BUN 40 creatinine 1.26 glucose is 135. Patient continues to the ED to 92% on 3 L of oxygen was systolic blood pressure 163 and diastolics of 67. Continue Lasix PT OT ordered. A possible discharge to subacute rehab 11/15: Patient is having improvement of her lower extremity edema. She denies having any chest pain, continued shortness of breath that has improved. Note the patient has not been out of bed. She is undecided about rehab when discussed with top case assembler. Patient encouraged to make decision regarding rehab which is what she needs. She has chosen [facility]. She is currently on Lasix IV 40 mg every 8 hours. She is diuresing well. Patient has been afebrile, heart rate 68, blood pressure 167/70, pulse ox 91% on 3 L nasal cannula. EP blood work reveals WBC 9.2, hemoglobin 9.2. BUN 47 creatinine 1.18 and CO2 38. Blood sugars running between 91 and 235. Anticipate discharge in the next 24-48 hours. 11/16: She continues to have lower extremity edema and cardiology as added Zaroxolyn 1 dose. Patient apparently did not wear her BiPAP this morning during the night and this morning CO2 is 44. Patient now encouraged to use. She is complaining of constipation for which lactulose will be added. Other lab work revealed hemoglobin of 9.2. BUN 40 creatinine 1.16. Blood sugars running between 135-195. REVIEW OF SYSTEMS Constitutional: No fever, no chills, no night sweats. No weight change. No w eakness, fatigue or lethargy. No daytime sleepiness. EENT: No headache. No blurred vision or double vision, no loss of vision. No loss of Hearing, no ringing in the ears, no dizziness. No nasal drainage or congestion. No epistaxis. No sore throat. Lungs: Reports shortness of breath-improved, cough, no sputum production. No wheezing. Cardiovascular: No chest pain, reports lower extremity edema. No palpitations. No paroxysmal nocturnal dyspnea. No orthopnea. No lightheadedness or dizzin ess. No syncopal episodes. Abdominal: No abdominal pain. No nausea, vomiting. No diarrhea. No co nstipation. No bloody or tarry stools.. No loss of appetite. Genitourinary: No dysuria, increased frequency, urgency. No urinary retention. Musculoskeletal: No myalgias. No muscle weakness, no gait dysfunction, no frequent falls. No back pain. No neck pain. Integumentary: No wounds, no lesions. No rash or pruritus. No unusual bruising. No change in hair or nails. Neurologic: No aphasia. No facial droop. No change in mentation. No head injury. No headache. No paralysis. No paresthesia. Psychiatric: No depression. No anxiety. Endocrine: No abnormal blood sugars. PHYSICAL EXAMINATION Gen: This is a morbidly obese 65-year-old female. Patient is resting in bed and appears to be comfortable at rest. No acute respiratory distress noted. HEENT: Head is atraumatic, normocephalic. Pupils equal, round. Sclerae is anicteric. NECK: Supple. No JVD. No lymphadenopathy. No thyromegaly. LUNGS: Rales bilateral bases. No intercostal retractions. No accessory muscle usage. HEART: Regular rate and rhythm. Systolic murmur. ABDOMEN: Soft. Bowel sounds are present. No masses. No tenderness. EXTREMITIES: 1+ pedal edema. Erythema noted to lower extremities. No calf tenderness. NEUROLOGICAL: Patient is awake, alert and oriented x3. Cranial nerves 2 through 12 are grossly intact. ASSESSMENT AND PLAN 1. Acute on chronic hypoxic and hypercapnic respiratory failure secondary to acute on chronic diastolic heart failure. Cardiology consult appreciated. Continue Lasix 40 mg IV every 8 hours, monitor I&O, daily weights, renal function and electrolytes. Patient to continue BiPAP 2. Acute urinary tract infection. Continue Rocephin 1 g daily. Monitor for urine culture report. 3. Diabetes mellitus type 2. Continue Levemir 100 units at bedtime, NovoLog scale before meals and at bedtime, Tradjenta 5 mg daily. Hold Prandin 1 mg 3 times daily. 4. Hypertension. Continue Norvasc 5 mg daily, hydralazine 50 mg 3 times daily, Toprol-XL 25 mg daily. 5. Hyperlipidemia. Continue atorvastatin 20 mg at bedtime 6. Gastroesophageal reflux disease and GI prophylaxis. Protonix. 7. Hypothyroidism. Continue levothyroxine 75 g daily. 8. Mild intermittent asthma, stable. Continue DuoNeb treatments every 4 hours as needed. 9. Remote history of tobacco use. 10. Morbid obesity with BMI of 51. 11. DVT prophylaxis. Heparin subcu. Patient will be admitted to the hospital for a minimum of 2 night stay. DISCHARGE PLAN on Sunday or Impression and plan of care have been directed as dictated by the signing physician. Chelsey Casey nurse practitioner acting as scribe for signing physician. Objective - Vital Signs Vital signs: Vital Signs Temp 98.4 F 11/16/20 08:20 Pulse 68 11/16/20 08:20 Resp 17 11/16/20 08:20 BP 152/66 11/16/20 08:20 Pulse Ox 95 11/16/20 08:20 Intake & Output 11/15/20 11/16/20 11/16/20 18:59 06:59 18:59 Intake Total 590 200 Output Total 450 1500 Balance 140 -1300 Weight 155 kg Intake: Oral 590 200 Output: Urine 450 1500 Other: Voiding Method External Catheter External Catheter External Catheter - Labs CBC & Chem 7: 11/16/20 06:19 11/16/20 06:19 Labs: Abnormal Lab Results - Last 24 Hours (Table) 11/15/20 11/15/20 11/15/20 Range/Units 12:14 17:20 20:14 RBC (3.80-5.40) m/uL Hgb (11.4-16.0) gm/dL Hct (34.0-46.0) % MCHC (31.0-37.0) g/dL RDW (11.5-15.5) % Chloride (98-107) mmol/L Carbon Dioxide (22-30) mmol/L BUN (7-17) mg/dL Creatinine (0.52-1.04) mg/dL Glucose (74-99) mg/dL POC Glucose (mg/dL) 130 H 151 H 195 H (75-99) mg/dL 11/16/20 11/16/20 11/16/20 Range/Units 05:59 06:19 06:19 RBC 3.44 L (3.80-5.40) m/uL Hgb 9.2 L (11.4-16.0) gm/dL Hct 29.9 L (34.0-46.0) % MCHC 30.9 L (31.0-37.0) g/dL RDW 15.8 H (11.5-15.5) % Chloride 89 L (98-107) mmol/L Carbon Dioxide 44 H* (22-30) mmol/L BUN 40 H (7-17) mg/dL Creatinine 1.16 H (0.52-1.04) mg/dL Glucose 135 H (74-99) mg/dL POC Glucose (mg/dL) 141 H (75-99) mg/dL
--- NOTE | 2020-11-16 14:43 | P.PN ---
Subjective Progress Note Date: 11/16/20 HISTORY OF PRESENT ILLNESS: This is a pleasant 65-year-old female past medical history significant for diabetes mellitus, hypertension, dyslipidemia, asthma, former nicotine dependence, rheumatic fever as a child and morbid obesity. She denies prior history of coronary artery disease and has seen Dr. Caba in the office one time in 2019. At that time she underwent a stress test that was negative for reversible cardiac ischemia with normal LV function. We have been asked to see in consultation for heart failure. She presented to the hospital with symptoms of shortness of breath that has been going on and getting progressively worse for the past 2 weeks. She states she saw her primary care physician and was told to decrease her amount of oral intake of water. She states her shortness of breath is with exertion or activity and resolves at rest. She denies cough, fever or chills. She denies chest pain, dizziness or palpitations. She also was concerned about increased lower extremity edema and generalized weakness. Most recent echocardiogram obtained May 2019 reveals preserved LV systolic function with ejection fraction greater than 55%. DIAGNOSTICS EKG reveals sinus mechanism heart rate of 74 with significant artifact. CTA of the chest reveals no evidence of pulmonary embolism, cardiomegaly, pulmonary hypertension, moderate right and left pleural effusions, scattered groundglass changes and developing interstitial pulmonary edema. There is also an inferior lingular pulmonary nodule noted. Chest xray blunting of the costophrenic angles with basilar effusions. Laboratory reviewed, it enzymes negative 3, NT proBNP 211, d-dimer 1.33, WBC 10.6, hemoglobin 10.3, platelets 346, sodium 144, potassium 5.4 and creatinine 0.9. Current cardiac medications include aspirin 325 mg daily, atorvastatin 20 mg daily, amlodipine 5 mg daily, Lasix 60 mg twice a day, hydralazine 50 mg 3 times a day and Toprol 25 mg daily. 11/13: Ateam was called last evening due to mental status changes. Patient states that she is feeling about the same. She continues to have lower extremity edema which she feels is not improved. She is on Lasix drip will be continued. Patient has been afebrile, heart rate 64, blood pressure 181/53, pulse ox 93% on oxygen. BUN 34 creatinine 1.09 with potassium of 5.4. Echocardiogram reveals EF of 55-60%, severe concentric left ventricular hypertrophy, mild aortic valve sclerosis, mild aortic stenosis, trace mitral regurgitation, mild tricuspid regurgitation. 11/14: monitor car operator has been a sinus rhythm. Patient has been afebrile, heart rate in the 60s, blood pressure 160/69, pulse ox 92% on 2 L nasal cannula. BUN 40 and creatinine 1.26 with potassium 4.5. Patient is currently on Lasix drip which will be transitioned to IV today. Patient has some short-term every deficit and repeating questions. She is concerned about the CPAP which will be deferred to Dr. Aquino. At this time, patient's questions have been answered. 11/15/2020 Patient examined this morning at the bedside. She denies chest pain or pressure. She reports mild shortness of breath. Patient is on 3 L nasal cannula with oxygen saturations greater than 90%. BUN 47. Creatinine 1.18. She remains on IV Lasix 40 mg every 8 hours 11/16/2020 Patient examined at the bedside. She denies chest pain or pressure. She r eports mild redness of breath. She is currently on a BiPAP. She continues to have lower extremity edema. PHYSICAL EXAM: VITAL SIGNS: Reviewed. GENERAL: Well-developed in no acute distress. NECK: Supple. No JVD or thyromegaly LUNGS: Respirations even and unlabored. Lungs diminished bilaterally with a few scattered rales. HEART: Regular rate and rhythm. S1 and S2 heard. Systolic murmur noted. EXTREMITIES: Normal range of motion. No clubbing or cyanosis. Peripheral pul ses intact. 2+ bilateral lower extremity edema ASSESSMENT: Acute on chronic heart failure with preserved ejection fraction and cor pulmonale Urinary tract infection Hypertension Dyslipidemia Diabetes mellitus History of asthma Former nicotine dependence Morbid obesity, BMI 51 PLAN: Continue current cardiac medications Continue IV Lasix Give Zaroxolyn 5 mg 1 dose Daily weights Accurate I&O Monitor kidney function Further recommendations pending patient course Nurse practitioner note has been reviewed by physician. Signing provider agrees with the documented findings, assessment, and plan of care. Objective - Vital Signs Vital signs: Vital Signs Temp 98.4 F 11/16/20 08:20 Pulse 68 11/16/20 08:20 Resp 17 11/16/20 08:20 BP 152/66 11/16/20 08:20 Pulse Ox 95 11/16/20 08:20 Intake & Output 11/15/20 11/16/20 11/16/20 18:59 06:59 18:59 Intake Total 590 200 Output Total 450 1500 Balance 140 -1300 Weight 155 kg Intake: Oral 590 200 Output: Urine 450 1500 Other: Voiding Method External Catheter External Catheter External Catheter - Labs CBC & Chem 7: 11/16/20 06:19 11/16/20 06:19 Labs: Abnormal Lab Results - Last 24 Hours (Table) 11/15/20 11/15/20 11/16/20 Range/Units 17:20 20:14 05:59 RBC (3.80-5.40) m/uL Hgb (11.4-16.0) gm/dL Hct (34.0-46.0) % MCHC (31.0-37.0) g/dL RDW (11.5-15.5) % Chloride (98-107) mmol/L Carbon Dioxide (22-30) mmol/L BUN (7-17) mg/dL Creatinine (0.52-1.04) mg/dL Glucose (74-99) mg/dL POC Glucose (mg/dL) 151 H 195 H 141 H (75-99) mg/dL 11/16/20 11/16/20 11/16/20 Range/Units 06:19 06:19 12:19 RBC 3.44 L (3.80-5.40) m/uL Hgb 9.2 L (11.4-16.0) gm/dL Hct 29.9 L (34.0-46.0) % MCHC 30.9 L (31.0-37.0) g/dL RDW 15.8 H (11.5-15.5) % Chloride 89 L (98-107) mmol/L Carbon Dioxide 44 H* (22-30) mmol/L BUN 40 H (7-17) mg/dL Creatinine 1.16 H (0.52-1.04) mg/dL Glucose 135 H (74-99) mg/dL POC Glucose (mg/dL) 171 H (75-99) mg/dL
--- NOTE | 2020-11-16 15:45 | P.PN ---
Subjective Progress Note Date: 11/16/20 Principal diagnosis: Respiratory insufficiency. This is a morbidly obese 65-year-old female patient with a history of BMI 51.6, hyperlipidemia, diabetes mellitus, gout, hypothyroidism, hypertension, congestive heart failure, asthma, smoker. She presented here to the emergency r oom on 11/11/2020 after developing a two-week history of increasing lower extremity edema, weakness, shortness of breath. Chest x-ray revealed evidence of patchy bilateral airspace disease. Fluid volume overload and pulmonary edema with basilar effusions. ET angiogram revealed no pulmonary emboli. There was mild cardiomegaly with pulmonary arterial hypertension and moderate right and small left pleural effusions. Scattered groundglass changes. Prominent second mental collapse/atelectasis, bibasilar lower lobes. Questionable 1.6 cm inferior lingular pulmonary nodule requiring follow-up in 3 months. Echocardiogram reveals preserved left ventricular systolic function with ejection fraction 55-60%. No significant valvular heart disease. There is severe concentric LVH. Early this morning the patient became confused and lethargic. An A Team was called and the patient had blood gases that revealed respiratory acidosis with relative hypoxemia with a pO2 of 63, pCO2 81, pH 7.26. On 40% FiO2. Patient was placed on BiPAP and improved. Settings are BiPAP 14/5 and 40% FiO2 with most recent blood gases reveal a pO2 of 74, pCO2 79 and a pH of 7.27. We're consulted for the same. She is seen today on the regular medical floor. Currently sitting up in a chair at the bedside. Awake and alert in no acute distress. She had requested her BiPAP mask to be off that she was not tolerating well this morning. He is currently on 4 L nasal cannula and maintaining O2 saturation in the high 80s low 90s. Afebrile. Chest x-ray reveals prominent pulmonary vascular. Interval worsening of the lung bases with developing partially consolidative opacities consistent with pneumonia versus pulmonary edema. White count 10.6. Hemoglobin 10.9. Sodium 143. Potassium 5.4. Creatinine 1.09. She is currently on a Lasix drip at 5 mg per hour. Antibiotics in the form of ceftriaxone. Bronchodilators. Patient was reevaluated today on 11/14/2020, patient is sleeping, however she is arousable, and preferred to be left alone. She is on 3 L nasal cannula, and her O2 saturation is in the high 80s and low 90s. She has BiPAP at bedside, but she is not using it this morning, supposedly she did use it for few hours yesterday. Patient remains on diuretics. Remains on bronchodilators. States that she is feeling a bit better compared to how she felt on initial presentation. Labs are basically unremarkable bicarb is 34 BUN is 40 creatinine 1.26. Continues to have significant lower extremities edema. Patient is now off Lasix drip, she is on 40 mg IV push every 8 hours. Progress note dated 11/15/2020. This is a 65-year-old female recently hypothyroidism, hypertension, congestive heart failure, and previous tobacco use. She presented to the emergency department on November 11, with a two-week history of increasing lower extremity edema, weakness, and shortness of breath. Chest x-ray was consistent with pulmonary edema. There was not a pulmonary embolism on CT angiogram. C urrently, the patient is on 3 L nasal cannula, saturations in the low 90s. She tells us that last night, she did not need to use the BiPAP device. Currently, she is feeling much better. She still has significant lower extremity edema. She is no longer on the Lasix drip. White count is 9.2, hemoglobin 9.2, hematocrit 29.5, and platelet count 279,000. Sodium 138, potassium 4.1, chloride 93, CO2 38, anion gap is 7, BUN 47, and creatinine 1.18. Progress note dated 11/16/2020. This is a 65-year-old female with a history of hypothyroidism, hypertension, heart failure, and previous tobacco use. She presented to the emergency department on November 11 with a two-week history of increasing lower extremity edema, weakness, and shortness of breath. Her chest x-ray was consistent with congestive heart failure/pulmonary edema. CT angiogram was negative for pulmonary embolism. Currently, she is on 3 L nasal cannula. Saturations are in the mid 90s. She did not use the BiPAP last night. She is feeling much improved. White count is 8.7, hemoglobin 9.2, hematocrit 29.9, and platelet count 281,000. Sodium 139, potassium 3.7, chlorides 89, CO2 44, anion gap 6, BUN 40, and creatinine 1.16. Objective - Vital Signs Vital signs: Vital Signs Temp 98.4 F 11/16/20 08:20 Pulse 68 11/16/20 08:20 Resp 17 11/16/20 08:20 BP 152/66 11/16/20 08:20 Pulse Ox 95 11/16/20 08:20 Intake & Output 11/15/20 11/16/20 11/16/20 18:59 06:59 18:59 Intake Total 590 200 Output Total 450 1500 Balance 140 -1300 Weight 155 kg Intake: Oral 590 200 Output: Urine 450 1500 Other: Voiding Method External Catheter External Catheter External Catheter - Exam No acute distress, oriented 3. Nasal O2 in place at 3 L. No conversational dyspnea, or audible wheezing noted. HEENT examination is grossly unremarkable. Mucous membranes are moist. No oral lesions. Neck supple. Full range of motion. No adenopathy thyromegaly or neck vein distention. Cardiovascular examination reveals regular rhythm rate. S1-S2 normal. No S3 or S4. No discernible murmur noted. Heart rate is 87 bpm. Lungs reveal bilateral crackles, mostly at the bases. Breath sounds are equal bilaterally. No rhonchi. No wheezes appreciated. Abdomen soft bowel sounds are heard. No masses or tenderness. Extremities are intact. No cyanosis or clubbing. Significant 2+ edema is noted. Skin is without rash or lesion. Neurologic examination is brief but nonfocal. - Labs CBC & Chem 7: 11/16/20 06:19 11/16/20 06:19 Labs: Abnormal Lab Results - Last 24 Hours (Table) 11/15/20 11/15/20 11/16/20 Range/Units 17:20 20:14 05:59 RBC (3.80-5.40) m/uL Hgb (11.4-16.0) gm/dL Hct (34.0-46.0) % MCHC (31.0-37.0) g/dL RDW (11.5-15.5) % Chloride (98-107) mmol/L Carbon Dioxide (22-30) mmol/L BUN (7-17) mg/dL Creatinine (0.52-1.04) mg/dL Glucose (74-99) mg/dL POC Glucose (mg/dL) 151 H 195 H 141 H (75-99) mg/dL 11/16/20 11/16/20 11/16/20 Range/Units 06:19 06:19 12:19 RBC 3.44 L (3.80-5.40) m/uL Hgb 9.2 L (11.4-16.0) gm/dL Hct 29.9 L (34.0-46.0) % MCHC 30.9 L (31.0-37.0) g/dL RDW 15.8 H (11.5-15.5) % Chloride 89 L (98-107) mmol/L Carbon Dioxide 44 H* (22-30) mmol/L BUN 40 H (7-17) mg/dL Creatinine 1.16 H (0.52-1.04) mg/dL Glucose 135 H (74-99) mg/dL POC Glucose (mg/dL) 171 H (75-99) mg/dL Assessment and Plan Assessment: Acute on chronic hypoxemic and hypercapnic respiratory failure, which is multifactorial, and likely related to sleep apnea syndrome, Pickwickian syndrome, COPD, and congestive heart failure. Morbid obesity. Chronic cor pulmonale. 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 Hypothyroidism. Type 2 diabetes mellitus. Previous history of heavy tobacco use. General medical debility. Plan: Plan dated 11/16/2020. We will continue to follow this patient. We'll make appropriate recommendations weren't necessary. Currently, the patient appears to be doing better. She is o n 3 L, with saturations in the mid 90s. Her labs are reviewed. We did add a small dose of Diamox 250 mg daily. This should stimulate her respiratory drive, and help with her electrolytes. Additional recommendations and suggestions are forthcoming. Labs x-rays a medications are reviewed. The patient is a no code. No additional recommendations are made at this time. Time with Patient: Less than 30
[2020-11-16] MEDS: ACETAMINOPHEN TAB 325 MG TAB PO PRN (16:33)
[2020-11-16 17:18] LABS: Glucose,Whole Blood 173 mg/dL (75-99)
[2020-11-16 20:10] LABS: Glucose,Whole Blood 192 mg/dL (75-99)
[2020-11-16] MEDS: INSULIN DETEMIR (LEVEMIR) 100 UNIT/ML SYR SQ SCH (20:51)
[2020-11-16] MEDS: ATORVASTATIN 20 MG TAB PO SCH (20:52)
[2020-11-17 06:15] LABS: Glucose,Whole Blood 145 mg/dL (75-99)
[2020-11-17] MEDS: PANTOPRAZOLE 40 MG TABLET PO SCH (06:36)
[2020-11-17] MEDS: LEVOTHYROXINE 75 MCG TAB PO SCH (06:36)
[2020-11-17] MEDS: INSULIN ASPART (NovoLOG) 100 UNIT/ML VIAL SQ SCH ×4 (06:36→21:10)
[2020-11-17] MEDS: METOPROLOL SUCCINATE (ER) 25 MG TAB.ER.24H PO SCH (09:15)
[2020-11-17] MEDS: ASPIRIN 81 MG PO SCH (09:16)
[2020-11-17] MEDS: LINAGLIPTIN 5 MG TABLET PO SCH (09:16)
[2020-11-17] MEDS: DOCUSATE 100 MG CAP PO SCH (09:16)
[2020-11-17] MEDS: allopurinoL 300 MG TAB PO SCH (09:16)
[2020-11-17] MEDS: FERROUS SULFATE 325 MG TAB PO SCH (09:16)
[2020-11-17] MEDS: acetaZOLAMIDE 250 MG TAB PO SCH (09:16)
[2020-11-17] MEDS: MAGNESIUM OXIDE 400 MG TAB PO SCH (09:16)
[2020-11-17] MEDS: hydrALAZINE HCL 50 MG TAB PO SCH ×3 (09:16→21:10)
[2020-11-17] MEDS: amLODIPine 5 MG TAB PO SCH (09:16)
[2020-11-17] MEDS: FUROSEMIDE 10 MG/ML 4 ML VIAL IV SCH ×3 (09:17→23:12)
[2020-11-17] MEDS: HEPARIN SODIUM,PORCINE 5,000 UNIT/ML 1 ML VIAL SQ SCH ×2 (09:17→21:10)
[2020-11-17] MEDS: LACTULOSE 20 GM/30 ML CUP PO SCH ×2 (09:17→21:11)
[2020-11-17 11:54] LABS: Glucose,Whole Blood 206 mg/dL (75-99)
[2020-11-17] MEDS ORDERED: metOLazone 5 MG TAB PO ONE (12:00)
[2020-11-17 12:22] LABS: Calcium 9.8 mg/dL (8.4-10.2); Magnesium 1.6 mg/dL (1.6-2.3)
--- NOTE | 2020-11-17 12:49 | P.PN ---
Subjective Progress Note Date: 11/17/20 Principal diagnosis: Respiratory insufficiency This is a morbidly obese 65-year-old female patient with a history of BMI 51.6, hyperlipidemia, diabetes mellitus, gout, hypothyroidism, hypertension, congestive heart failure, asthma, smoker. She presented here to the emergency room on 11/11/2020 after developing a two-week history of increasing lower extremity edema, weakness, shortness of breath. Chest x-ray revealed evidence of patchy bilateral airspace disease. Fluid volume overload and pulmonary edema with basilar effusions. ET angiogram revealed no pulmonary emboli. There was mild cardiomegaly with pulmonary arterial hypertension and moderate right and small left pleural effusions. Scattered groundglass changes. Prominent second mental collapse/atelectasis, bibasilar lower lobes. Questionable 1.6 cm inferior lingular pulmonary nodule requiring follow-up in 3 months. Echocardiogram reveals preserved left ventricular systolic function with ejection fraction 55-60%. No significant valvular heart disease. There is severe concentric LVH. Early this morning the patient became confused and lethargic. An A Team was called and the patient had blood gases that revealed respiratory acidosis with relative hypoxemia with a pO2 of 63, pCO2 81, pH 7.26. On 40% FiO2. Patient was placed on BiPAP and improved. Settings are BiPAP 14/5 and 40% FiO2 with most recent blood gases reveal a pO2 of 74, pCO2 79 and a pH of 7.27. We're consulted for the same. She is seen today on the regular medical floor. Currently sitting up in a chair at the bedside. Awake and alert in no acute distress. She had requested her BiPAP mask to be off that she was not tolerating well this morning. He is currently on 4 L nasal cannula and maintaining O2 saturation in the high 80s low 90s. Afebrile. Chest x-ray reveals prominent pulmonary vascular. Interval worsening of the lung bases with developing partially consolidative opacities consistent with pneumonia versus pulmonary edema. White count 10.6. Hemoglobin 10.9. Sodium 143. Potassium 5.4. Creatinine 1.09. She is currently on a Lasix drip at 5 mg per hour. Antibiotics in the form of ceftriaxone. Bronchodilators. Patient was reevaluated today on 11/14/2020, patient is sleeping, however she is arousable, and preferred to be left alone. She is on 3 L nasal cannula, and her O2 saturation is in the high 80s and low 90s. She has BiPAP at bedside, but she is not using it this morning, supposedly she did use it for few hours yesterday. Patient remains on diuretics. Remains on bronchodilators. States that she is feeling a bit better compared to how she felt on initial presentation. Labs are basically unremarkable bicarb is 34 BUN is 40 creatinine 1.26. Continues to have significant lower extremities edema. Patient is now off Lasix drip, she is on 40 mg IV push every 8 hours. Progress note dated 11/15/2020. This is a 65-year-old female recently hypothyroidism, hypertension, congestive heart failure, and previous tobacco use. She presented to the emergency department on November 11, with a two-week history of increasing lower extremity edema, weakness, and shortness of breath. Chest x-ray was consistent with pulmonary edema. There was not a pulmonary embolism on CT angiogram. Cu rrently, the patient is on 3 L nasal cannula, saturations in the low 90s. She tells us that last night, she did not need to use the BiPAP device. Currently, she is feeling much better. She still has significant lower extremity edema. She is no longer on the Lasix drip. White count is 9.2, hemoglobin 9.2, hematocrit 29.5, and platelet count 279,000. Sodium 138, potassium 4.1, chloride 93, CO2 38, anion gap is 7, BUN 47, and creatinine 1.18. Progress note dated 11/16/2020. This is a 65-year-old female with a history of hypothyroidism, hypertension, heart failure, and previous tobacco use. She presented to the emergency department on November 11 with a two-week history of increasing lower extremity edema, weakness, and shortness of breath. Her chest x-ray was consistent with congestive heart failure/pulmonary edema. CT angiogram was negative for pulmonary embolism. Currently, she is on 3 L nasal cannula. Saturations are in the mid 90s. She did not use the BiPAP last night. She is feeling much improved. White count is 8.7, hemoglobin 9.2, hematocrit 29.9, and platelet count 281,000. Sodium 139, potassium 3.7, chlorides 89, CO2 44, anion gap 6, BUN 40, and creatinine 1.16. The patient is seen today 11/17/2020 in follow-up on the selective care unit. She is currently resting comfortably in bed. Awake and alert in no acute distress. Currently maintaining O2 saturation in the 90s on 2 L/m per nasal cannula. She's afebrile. Sodium 138. Potassium 4.0. Bicarb 42. Creatinine 1.41. She remains on Diamox, diuretics. Objective - Vital Signs Vital signs: Vital Signs Temp 98 F 11/17/20 03:50 Pulse 66 11/17/20 03:50 Resp 17 11/17/20 03:50 BP 142/63 11/17/20 03:50 Pulse Ox 92 L 11/17/20 03:50 Intake & Output 11/16/20 11/17/20 11/17/20 18:59 06:59 18:59 Intake Total 240 120 476 Output Total 400 1200 2800 Balance -791 -7406 -7102 Weight 146.2 kg Intake: Oral 240 120 476 Output: Urine 400 1200 2800 Other: Voiding Method External Catheter External Catheter # Bowel Movements 1 - Exam Alert, obese, 65-year-old female patient. No acute distress, oriented 3. Nasal O2 in place at 2 L. No conversational dyspnea, or audible wheezing noted. HEENT examination is grossly unremarkable. Mucous membranes are moist. No oral lesions. Neck supple. Full range of motion. No adenopathy thyromegaly or neck vein distention. Cardiovascular examination reveals regular rhythm rate. S1-S2 normal. No S3 or S4. No discernible murmur noted. Heart rate is 87 bpm. Lungs reveal bilateral crackles, mostly at the bases. Breath sounds are equal bilaterally. No rhonchi. No wheezes appreciated. Abdomen soft bowel sounds are heard. No masses or tenderness. Extremities are intact. No cyanosis or clubbing. Significant 2+ edema is noted. Skin is without rash or lesion. Neurologic examination is brief but nonfocal. - Labs CBC & Chem 7: 11/16/20 06:19 11/17/20 11:43 Labs: Abnormal Lab Results - Last 24 Hours (Table) 11/16/20 11/16/20 11/17/20 Range/Units 17:17 20:08 06:14 Chloride (98-107) mmol/L Carbon Dioxide (22-30) mmol/L BUN (7-17) mg/dL Creatinine (0.52-1.04) mg/dL Glucose (74-99) mg/dL POC Glucose (mg/dL) 173 H 192 H 145 H (75-99) mg/dL 11/17/20 11/17/20 Range/Units 11:43 11:52 Chloride 86 L (98-107) mmol/L Carbon Dioxide 42 H* (22-30) mmol/L BUN 34 H (7-17) mg/dL Creatinine 1.41 H (0.52-1.04) mg/dL Glucose 200 H (74-99) mg/dL POC Glucose (mg/dL) 206 H (75-99) mg/dL Assessment and Plan Assessment: 1 Acute hypoxic respiratory failure secondary to an acute exacerbation of diastolic congestive heart failure 2 Acute hypercapnic respiratory failure secondary to morbid obesity/obesity hypoventilation syndrome/suspected obstructive sleep apnea 3 Morbid obesity with a BMI 51.6 4 Lower extremity edema secondary to diastolic congestive heart failure 5 Cor pulmonale 6 Diabetes mellitus 7 Hypertension 8 Hyperlipidemia 9 History of chronic bronchial asthma 10 Hypothyroidism 11 History of gout 12 History of gastroesophageal reflux disease 13 Former smoker 14 Poor overall functional performance based on the above-mentioned multiple comorbidities Plan: The patient was seen and evaluated by Dr. Valdes Continue current treatment plan for now Repeat labs in a.m. Plan is for possible discharge to [facility] tomorrow We will continue to follow I, the cosigning physician, performed a history & physical examination of the patient. Lungs sounds crackles in the bilateral posterior bases. Maintaining good O2 saturations in the 90s on 2 L/m per nasal cannula alternating with BiPAP. I discussed the assessment and plan of care with my nurse practitioner, Nya Darby. I attest to the above note as dictated by her.
--- NOTE | 2020-11-17 14:17 | P.PN ---
Subjective Progress Note Date: 11/17/20 HISTORY OF PRESENT ILLNESS This is a 65-year-old female patient of Dr. Severino with past medical history of diabetes mellitus type 2, chronic diastolic heart failure, obesity with hypoventilation syndrome, obstructive sleep apnea, chronic hypoxic respiratory failure on home O2 at 2 L, hypertension, hyperlipidemia, gastroesophageal reflux disease, hypothyroidism, mild intermittent asthma. Patient gives history of having shortness of breath for 2-[address] Severino about a week ago and was instructed to decrease oral intake. She states she is still having shortness of breath. No chest pain. She has been sleeping in a recliner as her bed is broken. She does have increased lower extremity edema. No fever or chills. No cough. She came into [facility] emergency center for evaluation. EKG reveals sinus rhythm heart rate of 74 with significant artifact. CTA of the chest reveals no evidence of pulmonary embolism, cardiomegaly, pulmonary hypertension, moderate right and left pleural effusions, scattered groundglass changes and developing interstitial pulmonary edema. There is also an inferior lingular pulmonary nodule noted. Chest xray blunting of the costophrenic angles with basilar effusions. Troponins negative 3, proBNP 211, d-dimer 1.33, WBC 10.6, hemoglobin 10.3, platelets 346, sodium 144, potassium 5.4 and creatinine 0 .9. 11/13 patient examined bedside. Appears to be breathing well. Patient did have an episode of nausea and vomiting which has improved. Apparently team was called last night due to a change in mental status and worsening shortness of breath. ABG was obtained which showed respiratory acidosis with hypoxia with pH 7.26 pCO2 81 PaO2 of 63. Patient was placed on BiPAP with improvement in oxygenation. Patient was adamant about removing the BiPAP in the morning as she could not breathe. So far she has been maintaining her oxygenation in the high TEDs to low 90s on 4 L of nasal cannula. Chest x-ray suggestive of prominent pulmonary vascular congestion with developing partially consolidative opacities consistent with pneumonia versus pulmonary edema. Patient was placed on Lasix drip 11/14 patient examined at bedside. Denies any shortness of breath or chest pain. Does have bilateral lower extremity edema. Patient is currently at her baseline oxygen need. Lasix switched from IV drip to 40 IV every 8 hours. Labs as reviewed BUN 40 creatinine 1.26 glucose is 135. Patient continues to the ED to 92% on 3 L of oxygen was systolic blood pressure 163 and diastolics of 67. Continue Lasix PT OT ordered. A possible discharge to subacute rehab 11/15: Patient is having improvement of her lower extremity edema. She denies having any chest pain, continued shortness of breath that has improved. Note the patient has not been out of bed. She is undecided about rehab when discussed with supportive employment case manager. Patient encouraged to make decision regarding rehab which is what she needs. She has chosen [facility]. She is currently on Lasix IV 40 mg every 8 hours. She is diuresing well. Patient has been afebrile, heart rate 68, blood pressure 167/70, pulse ox 91% on 3 L nasal cannula. EP blood work reveals WBC 9.2, hemoglobin 9.2. BUN 47 creatinine 1.18 and CO2 38. Blood sugars running between 91 and 235. Anticipate discharge in the next 24-48 hours. 11/16: She continues to have lower extremity edema and cardiology as added Zaroxolyn 1 dose. Patient apparently did not wear her BiPAP this morning during the night and this morning CO2 is 44. Patient now encouraged to use. She is complaining of constipation for which lactulose will be added. Other lab work revealed hemoglobin of 9.2. BUN 40 creatinine 1.16. Blood sugars running between 135-195. 11/17: Patient has had improvement of her lower extremity edema. Patient is diuresing well. Repeat blood work reveals sodium 138, potassium 4.0, chloride 86, CO2 42, BUN 34 and creatinine 1.41. Blood sugars are running between 145 and 206. Discharge plan is to [facility] tomorrow. REVIEW OF SYSTEMS Constitutional: No fever, no chills, no night sweats. No weight change. No weakness, fatigue or lethargy. No daytime sleepiness. EENT: No headache. No blurred vision or double vision, no loss of vision. No loss of Hearing, no ringing in the ears, no dizziness. No nasal drainage or congestion. No epistaxis. No sore throat. Lungs: Reports shortness of breath-improved, cough, no sputum production. No wheezing. Cardiovascular: No chest pain, reports lower extremity edema. No palpitations. No paroxysmal nocturnal dyspnea. No orthopnea. No lightheadedness or dizziness. No syncopal episodes. Abdominal: No abdominal pain. No nausea, vomiting. No diarrhea. No constipation. No bloody or tarry stools.. No loss of appetite. Genitourinary: No dysuria, increased frequency, urgency. No urinary retention. Musculoskeletal: No myalgias. No muscle weakness, no gait dysfunction, no frequent falls. No back pain. No neck pain. Integumentary: No wounds, no lesions. No rash or pruritus. No unusual bruising. No change in hair or nails. Neurologic: No aphasia. No facial droop. No change in mentation. No head injury. No headache. No paralysis. No paresthesia. Psychiatric: No depression. No anxiety. Endocrine: Reports abnormal blood sugars. PHYSICAL EXAMINATION Gen: This is a morbidly obese 65-year-old female. Patient is resting in bed and appears to be comfortable at rest. No acute respiratory distress noted. HEENT: Head is atraumatic, normocephalic. Pupils equal, round. Sclerae is anicteric. NECK: Supple. No JVD. No lymphadenopathy. No thyromegaly. LUNGS: Rales bilateral bases. No intercostal retractions. No accessory muscle usage. HEART: Regular rate and rhythm. Systolic murmur. ABDOMEN: Soft. Bowel sounds are present. No masses. No tenderness. EXTREMITIES: Trace bilateral pedal edema. Erythema noted to lower extremities. No calf tenderness. NEUROLOGICAL: Patient is awake, alert and oriented x3. Cranial nerves 2 through 12 are grossly intact. ASSESSMENT AND PLAN 1. Acute on chronic hypoxic and hypercapnic respiratory failure secondary to acute on chronic diastolic heart failure. Cardiology consult appreciated. Continue Lasix 40 mg IV every 8 hours, monitor I&O, daily weights, renal function and electrolytes. Patient to continue BiPAP 2. Acute urinary tract infection. Continue Rocephin 1 g daily completed 3. Diabetes mellitus type 2. Continue Levemir 100 units at bedtime, NovoLog scale before meals and at bedtime, Tradjenta 5 mg daily. Hold Prandin 1 mg 3 times daily. 4. Hypertension. Continue Norvasc 5 mg daily, hydralazine 50 mg 3 times daily, Toprol-XL 25 mg daily. 5. Hyperlipidemia. Continue atorvastatin 20 mg at bedtime 6. Gastroesophageal reflux disease and GI prophylaxis. Protonix. 7. Hypothyroidism. Continue levothyroxine 75 g daily. 8. Mild intermittent asthma, stable. Continue DuoNeb treatments every 4 hours as needed. 9. Remote history of tobacco use. 10. Morbid obesity with BMI of 51. 11. DVT prophylaxis. Heparin subcu. DISCHARGE PLAN on Impression and plan of care have been directed as dictated by the signing physician. Chelsey Casey nurse practitioner acting as scribe for signing physician. Objective - Vital Signs Vital signs: Vital Signs Temp 98 F 11/17/20 03:50 Pulse 66 11/17/20 03:50 Resp 17 11/17/20 03:50 BP 142/63 11/17/20 03:50 Pulse Ox 92 L 11/17/20 03:50 Intake & Output 11/16/20 11/17/20 11/17/20 18:59 06:59 18:59 Intake Total 240 120 476 Output Total 400 1200 1800 Balance -695 -7947 -0459 Weight 146.2 kg Intake: Oral 240 120 476 Output: Urine 400 1200 1800 Other: Voiding Method External Catheter External Catheter # Bowel Movements 1 - Labs CBC & Chem 7: 11/16/20 06:19 11/17/20 11:43 Labs: Abnormal Lab Results - Last 24 Hours (Table) 11/16/20 11/16/20 11/16/20 Range/Units 12:19 17:17 20:08 POC Glucose (mg/dL) 171 H 173 H 192 H (75-99) mg/dL 11/17/20 Range/Units 06:14 POC Glucose (mg/dL) 145 H (75-99) mg/dL
--- NOTE | 2020-11-17 14:40 | P.PN ---
Subjective Progress Note Date: 11/17/20 HISTORY OF PRESENT ILLNESS: This is a pleasant 65-year-old female past medical history significant for diabetes mellitus, hypertension, dyslipidemia, asthma, former nicotine dependence, rheumatic fever as a child and morbid obesity. She denies prior history of coronary artery disease and has seen Dr. Caba in the office one time in 2019. At that time she underwent a stress test that was negative for reversible cardiac ischemia with normal LV function. We have been asked to see in consultation for heart failure. She presented to the hospital with symptoms of shortness of breath that has been going on and getting progressively worse for the past 2 weeks. She states she saw her primary care physician and was told to decrease her amount of oral intake of water. She states her shortness of breath is with exertion or activity and resolves at rest. She denies cough, fever or chills. She denies chest pain, dizziness or palpitations. She also was concerned about increased lower extremity edema and generalized weakness. Most recent echocardiogram obtained May 2019 reveals preserved LV systolic function with ejection fraction greater than 55%. DIAGNOSTICS EKG reveals sinus mechanism heart rate of 74 with significant artifact. CTA of the chest reveals no evidence of pulmonary embolism, cardiomegaly, pulmonary hypertension, moderate right and left pleural effusions, scattered groundglass changes and developing interstitial pulmonary edema. There is also an inferior lingular pulmonary nodule noted. Chest xray blunting of the costophrenic angles with basilar effusions. Laboratory reviewed, it enzymes negative 3, NT proBNP 211, d-dimer 1.33, WBC 10.6, hemoglobin 10.3, platelets 346, sodium 144, potassium 5.4 and creatinine 0.9. Current cardiac medications include aspirin 325 mg daily, atorvastatin 20 mg daily, amlodipine 5 mg daily, Lasix 60 mg twice a day, hydralazine 50 mg 3 times a day and Toprol 25 mg daily. 11/13: [facility] was called last evening due to mental status changes. Patient states that she is feeling about the same. She continues to have lower extremity edema which she feels is not improved. She is on Lasix drip will be continued. Patient has been afebrile, heart rate 64, blood pressure 181/53, pulse ox 93% on oxygen. BUN 34 creatinine 1.09 with potassium of 5.4. Echocardiogram reveals EF of 55-60%, severe concentric left ventricular hypertrophy, mild aortic valve sclerosis, mild aortic stenosis, trace mitral regurgitation, mild tricuspid regurgitation. 11/14: pvc monitor has been a sinus rhythm. Patient has been afebrile, heart rate in the 60s, blood pressure 160/69, pulse ox 92% on 2 L nasal cannula. BUN 40 and creatinine 1.26 with potassium 4.5. Patient is currently on Lasix drip which will be transitioned to IV today. Patient has some short-term every deficit and repeating questions. She is concerned about the CPAP which will be deferred to Dr. Aquino. At this time, patient's questions have been answered. 11/15/2020 Patient examined this morning at the bedside. She denies chest pain or pressure. She reports mild shortness of breath. Patient is on 3 L nasal cannula with oxygen saturations greater than 90%. BUN 47. Creatinine 1.18. She remains on IV Lasix 40 mg every 8 hours 11/16/2020 Patient examined at the bedside. She denies chest pain or pressure. She r eports mild redness of breath. She is currently on a BiPAP. She continues to have lower extremity edema. 11/17/2020 Patient examined this morning at the bedside. She denies chest pain or pressure. She reports mild shortness of breath but states it is improved from yesterday. Oxygen saturations greater than 92%. Patient continues to have bilateral lower extremity edema but it is slowly improving. Fluid balance over the last 24 hours is -1240 mL. PHYSICAL EXAM: VITAL SIGNS: Reviewed. GENERAL: Well-developed in no acute distress. NECK: Supple. No JVD or thyromegaly LUNGS: Respirations even and unlabored. Lungs diminished bilaterally with a few scattered rales. HEART: Regular rate and rhythm. S1 and S2 heard. Systolic murmur noted. EXTREMITIES: Normal range of motion. No clubbing or cyanosis. Peripheral pulses intact. 2+ bilateral lower extremity edema ASSESSMENT: Acute on chronic heart failure with preserved ejection fraction and cor pulmonale Urinary tract infection Hypertension Dyslipidemia Diabetes mellitus History of asthma Former nicotine dependence Morbid obesity, BMI 51 PLAN: Continue current cardiac medications Continue IV Lasix Give additional dose of Zaroxolyn 5 mg 1 dose today Daily weights Accurate I&O Monitor kidney function Further recommendations pending patient course Nurse practitioner note has been reviewed by physician. Signing provider agrees with the documented findings, assessment, and plan of care. Objective - Vital Signs Vital signs: Vital Signs Temp 97.0 F L 11/17/20 08:00 Pulse 74 11/17/20 13:27 Resp 17 11/17/20 13:27 BP 152/71 11/17/20 08:00 Pulse Ox 93 L 11/17/20 08:00 Intake & Output 11/16/20 11/17/20 11/17/20 18:59 06:59 18:59 Intake Total 240 120 476 Output Total 400 1200 2800 Balance -694 -5454 -3983 Weight 146.2 kg Intake: Oral 240 120 476 Output: Urine 400 1200 2800 Other: Voiding Method External Catheter External Catheter External Catheter # Bowel Movements 1 - Labs CBC & Chem 7: 11/16/20 06:19 11/17/20 11:43 Labs: Abnormal Lab Results - Last 24 Hours (Table) 11/16/20 11/16/20 11/17/20 Range/Units 17:17 20:08 06:14 Chloride (98-107) mmol/L Carbon Dioxide (22-30) mmol/L BUN (7-17) mg/dL Creatinine (0.52-1.04) mg/dL Glucose (74-99) mg/dL POC Glucose (mg/dL) 173 H 192 H 145 H (75-99) mg/dL 11/17/20 11/17/20 Range/Units 11:43 11:52 Chloride 86 L (98-107) mmol/L Carbon Dioxide 42 H* (22-30) mmol/L BUN 34 H (7-17) mg/dL Creatinine 1.41 H (0.52-1.04) mg/dL Glucose 200 H (74-99) mg/dL POC Glucose (mg/dL) 206 H (75-99) mg/dL
[2020-11-17 16:37] LABS: Glucose,Whole Blood 159 mg/dL (75-99)
[2020-11-17 20:27] LABS: Glucose,Whole Blood 184 mg/dL (75-99)
[2020-11-17] MEDS: ATORVASTATIN 20 MG TAB PO SCH (21:10)
[2020-11-17] MEDS: INSULIN DETEMIR (LEVEMIR) 100 UNIT/ML SYR SQ SCH (21:11)
[2020-11-18 06:12] LABS: Glucose,Whole Blood 140 mg/dL (75-99)
[2020-11-18] MEDS: LEVOTHYROXINE 75 MCG TAB PO SCH (06:46)
[2020-11-18] MEDS: PANTOPRAZOLE 40 MG TABLET PO SCH (06:46)
[2020-11-18] MEDS: INSULIN ASPART (NovoLOG) 100 UNIT/ML VIAL SQ SCH ×4 (06:47→21:11)
--- NOTE | 2020-11-18 08:27 | XR ---
EXAMINATION TYPE: XR chest 1V portable DATE OF EXAM: 11/18/2020 COMPARISON: 11/13/2020 HISTORY: Shortness of breath TECHNIQUE: Single frontal view of the chest is obtained. FINDINGS: There is a persistent interstitial pattern which may be slightly improved relative to prio r exam. The heart is enlarged. There is arthropathy of the shoulders. No sizable pneumothorax or pleu ral effusion. No consolidation. IMPRESSION: 1. Cardiomegaly correlate for chronic interstitial lung disease, interstitial pneumonitis or venous c ongestion slightly improved from prior exam.
[2020-11-18 09:04] LABS: Calcium 10.1 mg/dL (8.4-10.2); Potassium 3.8 mmol/L (3.5-5.1)
[2020-11-18] MEDS: acetaZOLAMIDE 250 MG TAB PO SCH (10:09)
[2020-11-18] MEDS: allopurinoL 300 MG TAB PO SCH (10:09)
[2020-11-18] MEDS: amLODIPine 5 MG TAB PO SCH (10:09)
[2020-11-18] MEDS: MAGNESIUM OXIDE 400 MG TAB PO SCH (10:09)
[2020-11-18] MEDS: ASPIRIN 81 MG PO SCH (10:09)
[2020-11-18] MEDS: DOCUSATE 100 MG CAP PO SCH (10:09)
[2020-11-18] MEDS: FUROSEMIDE 10 MG/ML 4 ML VIAL IV SCH ×3 (10:10→23:52)
[2020-11-18] MEDS: HEPARIN SODIUM,PORCINE 5,000 UNIT/ML 1 ML VIAL SQ SCH ×2 (10:10→21:10)
[2020-11-18] MEDS: hydrALAZINE HCL 50 MG TAB PO SCH ×3 (10:10→21:10)
[2020-11-18] MEDS: LINAGLIPTIN 5 MG TABLET PO SCH (10:10)
[2020-11-18] MEDS: LACTULOSE 20 GM/30 ML CUP PO SCH ×2 (10:10→21:12)
[2020-11-18] MEDS: FERROUS SULFATE 325 MG TAB PO SCH (10:10)
[2020-11-18] MEDS: METOPROLOL SUCCINATE (ER) 25 MG TAB.ER.24H PO SCH (10:10)
--- NOTE | 2020-11-18 10:45 | P.DS ---
Providers Date of admission: 11/11/20 16:42 Expected date of discharge: 11/18/20 Attending physician: Sanket Severino Consults: 11/11/20 16:42 Consult Physician Routine Consulting Provider: [facility] Reason/Comments: Pulmonary edema Do you want consulting provider notified?: Yes 11/13/20 05:20 Consult Physician Routine Consulting Provider: Homar Davey Reason/Comments: Worseing CHF/COPD requiring bipap Do you want consulting provider notified?: Yes, Notify in am Primary care physician: [facility] Course: HISTORY OF PRESENT ILLNESS This is a 65-year-old female patient of Dr. Severino with past medical history of diabetes mellitus type 2, chronic diastolic heart failure, obesity with hypoventilation syndrome, obstructive sleep apnea, chronic hypoxic respiratory failure on home O2 at 2 L, hypertension, hyperlipidemia, gastroesophageal reflux disease, hypothyroidism, mild intermittent asthma. Patient gives history of having shortness of breath for 2-[address] Severino about a week ago and was instructed to decrease oral intake. She states she is still having shortness of breath. No chest pain. She has been sleeping in a recliner as her bed is broken. She does have increased lower extremity edema. No fever or chills. No cough. She came into [facility] emergency center for evaluation. EKG reveals sinus rhythm heart rate of 74 with significant artifact. CTA of the chest reveals no evidence of pulmonary embolism, cardiomegaly, pulmonary hypertension, moderate right and left pleural effusions, scattered groundglass changes and developing interstitial pulmonary edema. There is also an inferior lingular pulmonary nodule noted. Chest xray blunting of the costophrenic angles with basilar effusions. Troponins negative 3, proBNP 211, d-dimer 1.33, WBC 10.6, hemoglobin 10.3, platelets 346, sodium 144, potassium 5.4 and creatinine 0.9. 11/13 patient examined bedside. Appears to be breathing well. Patient did have an episode of nausea and vomiting which has improved. Apparently team was called last night due to a change in mental status and worsening shortness of breath. ABG was obtained which showed respiratory acidosis with hypoxia with pH 7.26 pCO2 81 PaO2 of 63. Patient was placed on BiPAP with improvement in oxygenation. Patient was adamant about removing the BiPAP in the morning as she could not breathe. So far she has been maintaining her oxygenation in the high TEDs to low 90s on 4 L of nasal cannula. Chest x-ray suggestive of prominent pulmonary vascular congestion with developing partially consolidative opacities consistent with pneumonia versus pulmonary edema. Patient was placed on Lasix drip 11/14 patient examined at bedside. Denies any shortness of breath or chest pain. Does have bilateral lower extremity edema. Patient is currently at her baseline oxygen need. Lasix switched from IV drip to 40 IV every 8 hours. Labs as reviewed BUN 40 creatinine 1.26 glucose is 135. Patient continues to the ED to 92% on 3 L of oxygen was systolic blood pressure 163 and diastolics of 67. Continue Lasix PT OT ordered. A possible discharge to subacute rehab 11/15: Patient is having improvement of her lower extremity edema. She denies having any chest pain, continued shortness of breath that has improved. Note the patient has not been out of bed. She is undecided about rehab when discussed with case fitter. Patient encouraged to make decision regarding rehab which is what she needs. She has chosen [facility]. She is currently on Lasix IV 40 mg every 8 hours. She is diuresing well. Patient has been afebrile, heart rate 68, blood pressure 167/70, pulse ox 91% on 3 L nasal cannula. EP blood work reveals WBC 9.2, hemoglobin 9.2. BUN 47 creatinine 1.18 and CO2 38. Blood sugars running between 91 and 235. Anticipate discharge in the next 24-48 hours. 11/16: She continues to have lower extremity edema and cardiology as added Zaroxolyn 1 dose. Patient apparently did not wear her BiPAP this morning during the night and this morning CO2 is 44. Patient now encouraged to use. She is complaining of constipation for which lactulose will be added. Other lab work revealed hemoglobin of 9.2. BUN 40 creatinine 1.16. Blood sugars running between 135-195. 11/17: Patient has had improvement of her lower extremity edema. Patient is diuresing well. Repeat blood work reveals sodium 138, potassium 4.0, chloride 86, CO2 42, BUN 34 and creatinine 1.41. Blood sugars are running between 145 and 206. Discharge plan is to [facility] tomorrow. 11/18: She states her breathing is stable. Her edema continues to improve the lower extremities. She is currently on 2 L nasal cannula with pulse ox of 91% and using BiPAP during the night. She's been afebrile, heart rate 61, blood pressure 146/74. Blood sugars running between 140 and 184. Sodium 138, potassium 3.8, chloride 89, CO2 38, BUN 39 and creatinine 1.43. Blood sugar 128. Patient is scheduled for discharge to [facility] today. Patient will be discharged in stable condition. ASSESSMENT AND PLAN 1. Acute on chronic hypoxic and hypercapnic respiratory failure secondary to acute on chronic diastolic heart failure. 2. Acute urinary tract infection. 3. Diabetes mellitus type 2. 4. Hypertension. 5. Hyperlipidemia. 6. Gastroesophageal reflux disease. 7. Hypothyroidism. 8. Mild intermittent asthma, stable. 9. Remote history of tobacco use. 10. Morbid obesity with BMI of 51. DISCHARGE PLAN [facility] Impression and plan of care have been directed as dictated by the signing physician. Chelsey Casey nurse practitioner acting as scribe for signing physician. Patient Condition at Discharge: Good Plan - Discharge Summary Discharge Rx Participant: No New Discharge Prescriptions: New Lactulose [Cephulac] 20 gm PO BID ml acetaZOLAMIDE [Diamox] 250 mg PO DAILY tab Ipratropium-Albuterol Nebulize [Duoneb 0.5 mg-3 mg/3 ml Soln] 3 ml INHALATION RT-Q4H PRN ml PRN Reason: Shortness Of Breath Or Wheezing INSULIN ASPART (NovoLOG) [NovoLOG (formulary)] 0 unit SQ ACHS vial Continue Atorvastatin [Lipitor] 20 mg PO HS Insulin Degludec [Tresiba Flextouch U-200] 140 units SQ DAILY allopurinoL [Zyloprim] 300 mg PO DAILY Budesonide/Formoterol Fumarate [Symbicort 160-4.5 Mcg Inhaler] 2 puff INHALATION RT-BID Aspirin EC [Ecotrin] 325 mg PO DAILY sitaGLIPtin [Januvia] 100 mg PO DAILY hydrALAZINE HCL [Apresoline] 50 mg PO TID #90 tab Metoprolol Succinate (ER) [Toprol XL] 25 mg PO DAILY #30 tab.er.24h Magnesium 200 mg PO DAILY #30 tablet Albuterol Inhaler [Ventolin Hfa Inhaler] 2 puff INHALATION RT-QID PRN PRN Reason: Shortness Of Breath amLODIPine [Norvasc] 5 mg PO DAILY Furosemide [Lasix] 60 mg PO BID Levothyroxine Sodium [Synthroid] 75 mcg PO DAILY Ferrous Sulfate [Iron (65 MG Elemental)] 325 mg PO DAILY Ergocalciferol (Vitamin D2) [Drisdol (50,000 Iu)] 1,250 mcg PO WE Docusate [Colace] 100 mg PO DAILY Repaglinide [Prandin] 1 mg PO AC-TID #0 Changed INSULIN ASPART (NovoLOG) [NovoLOG (formulary)] 10 unit SQ AC-TID #0 Discharge Medication List Atorvastatin [Lipitor] 20 mg PO HS 10/26/15 [History] Aspirin EC [Ecotrin] 325 mg PO DAILY 05/16/19 [History] Budesonide/Formoterol Fumarate [Symbicort 160-4.5 Mcg Inhaler] 2 puff INHALATION RT-BID 05/16/19 [History] Insulin Degludec [Tresiba Flextouch U-200] 140 units SQ DAILY 05/16/19 [History] allopurinoL [Zyloprim] 300 mg PO DAILY 05/16/19 [History] sitaGLIPtin [Januvia] 100 mg PO DAILY 05/16/19 [History] Magnesium 200 mg PO DAILY #30 tablet 05/21/19 [Rx] Metoprolol Succinate (ER) [Toprol XL] 25 mg PO DAILY #30 tab.er.24h 05/21/19 [Rx] hydrALAZINE HCL [Apresoline] 50 mg PO TID #90 tab 05/21/19 [Rx] Albuterol Inhaler [Ventolin Hfa Inhaler] 2 puff INHALATION RT-QID PRN 11/11/20 [History] Docusate [Colace] 100 mg PO DAILY 11/11/20 [History] Ergocalciferol (Vitamin D2) [Drisdol (50,000 Iu)] 1,250 mcg PO WE 11/11/20 [History] Ferrous Sulfate [Iron (65 MG Elemental)] 325 mg PO DAILY 11/11/20 [History] Furosemide [Lasix] 60 mg PO BID 11/11/20 [History] Levothyroxine Sodium [Synthroid] 75 mcg PO DAILY 11/11/20 [History] amLODIPine [Norvasc] 5 mg PO DAILY 11/11/20 [History] INSULIN ASPART (NovoLOG) [NovoLOG (formulary)] 0 unit SQ ACHS vial 11/18/20 [Rx] INSULIN ASPART (NovoLOG) [NovoLOG (formulary)] 10 unit SQ AC-TID #0 11/18/20 [Rx] Ipratropium-Albuterol Nebulize [Duoneb 0.5 mg-3 mg/3 ml Soln] 3 ml INHALATION RT-Q4H PRN ml 11/18/20 [Rx] Lactulose [Cephulac] 20 gm PO BID ml 11/18/20 [Rx] Repaglinide [Prandin] 1 mg PO AC-TID #0 11/18/20 [Rx] acetaZOLAMIDE [Diamox] 250 mg PO DAILY tab 11/18/20 [Rx] Follow up Appointment(s)/Referral(s): Slayton Luis,Equipment [NON-STAFF] - (Supplied Walker) Sanket Severino MD [Primary Care Provider] - 1 Week (at [facility]) Discharge Disposition: TRANSFER TO SNF/ECF
--- NOTE | 2020-11-18 12:10 | P.PN ---
Subjective Progress Note Date: 11/18/20 HISTORY OF PRESENT ILLNESS This is a 65-year-old female patient of Dr. Severino with past medical history of diabetes mellitus type 2, chronic diastolic heart failure, obesity with hypoventilation syndrome, obstructive sleep apnea, chronic hypoxic respiratory failure on home O2 at 2 L, hypertension, hyperlipidemia, gastroesophageal reflux disease, hypothyroidism, mild intermittent asthma. Patient gives history of having shortness of breath for 2-[address] Severino about a week ago and was instructed to decrease oral intake. She states she is still having shortness of breath. No chest pain. She has been sleeping in a recliner as her bed is broken. She does have increased lower extremity edema. No fever or chills. No cough. She came into [facility] emergency center for evaluation. EKG reveals sinus rhythm heart rate of 74 with significant artifact. CTA of the chest reveals no evidence of pulmonary embolism, cardiomegaly, pulmonary hypertension, moderate right and left pleural effusions, scattered groundglass changes and developing interstitial pulmonary edema. There is also an inferior lingular pulmonary nodule noted. Chest xray blunting of the costophrenic angles with basilar effusions. Troponins negative 3, proBNP 211, d-dimer 1.33, WBC 10.6, hemoglobin 10.3, platelets 346, sodium 144, potassium 5.4 and creatinine 0 .9. 11/13 patient examined bedside. Appears to be breathing well. Patient did have an episode of nausea and vomiting which has improved. Apparently team was called last night due to a change in mental status and worsening shortness of breath. ABG was obtained which showed respiratory acidosis with hypoxia with pH 7.26 pCO2 81 PaO2 of 63. Patient was placed on BiPAP with improvement in oxygenation. Patient was adamant about removing the BiPAP in the morning as she could not breathe. So far she has been maintaining her oxygenation in the high TEDs to low 90s on 4 L of nasal cannula. Chest x-ray suggestive of prominent pulmonary vascular congestion with developing partially consolidative opacities consistent with pneumonia versus pulmonary edema. Patient was placed on Lasix drip 11/14 patient examined at bedside. Denies any shortness of breath or chest pain. Does have bilateral lower extremity edema. Patient is currently at her baseline oxygen need. Lasix switched from IV drip to 40 IV every 8 hours. Labs as reviewed BUN 40 creatinine 1.26 glucose is 135. Patient continues to the ED to 92% on 3 L of oxygen was systolic blood pressure 163 and diastolics of 67. Continue Lasix PT OT ordered. A possible discharge to subacute rehab 11/15: Patient is having improvement of her lower extremity edema. She denies having any chest pain, continued shortness of breath that has improved. Note the patient has not been out of bed. She is undecided about rehab when discussed with trimming caser. Patient encouraged to make decision regarding rehab which is what she needs. She has chosen [facility]. She is currently on Lasix IV 40 mg every 8 hours. She is diuresing well. Patient has been afebrile, heart rate 68, blood pressure 167/70, pulse ox 91% on 3 L nasal cannula. EP blood work reveals WBC 9.2, hemoglobin 9.2. BUN 47 creatinine 1.18 and CO2 38. Blood sugars running between 91 and 235. Anticipate discharge in the next 24-48 hours. 11/16: She continues to have lower extremity edema and cardiology as added Zaroxolyn 1 dose. Patient apparently did not wear her BiPAP this morning during the night and this morning CO2 is 44. Patient now encouraged to use. She is complaining of constipation for which lactulose will be added. Other lab work revealed hemoglobin of 9.2. BUN 40 creatinine 1.16. Blood sugars running between 135-195. 11/17: Patient has had improvement of her lower extremity edema. Patient is diuresing well. Repeat blood work reveals sodium 138, potassium 4.0, chloride 86, CO2 42, BUN 34 and creatinine 1.41. Blood sugars are running between 145 and 206. Discharge plan is to [facility] tomorrow. 11/18: She states her breathing is stable. Her edema continues to improve the lower extremities. She is currently on 2 L nasal cannula with pulse ox of 91% and using BiPAP during the night. She's been afebrile, heart rate 61, blood pressure 146/74. Blood sugars running between 140 and 184. Sodium 138, potassium 3.8, chloride 89, CO2 38, BUN 39 and creatinine 1.43. Blood sugar 128. Patient is scheduled for discharge to [facility] today. Patient was prepared for discharge to [facility] by Dr. LAUREEN Chery is requesting the patient discharge be held and continue IV antibiotics for more diuresing. REVIEW OF SYSTEMS Constitutional: No fever, no chills, no night sweats. No weight change. No weakness, fatigue or lethargy. No daytime sleepiness. EENT: No headache. No blurred vision or double vision, no loss of vision. No loss of Hearing, no ringing in the ears, no dizziness. No nasal drainage or congestion. No epistaxis. No sore throat. Lungs: Reports shortness of breath-improved, cough, no sputum production. No wheezing. Cardiovascular: No chest pain, reports lower extremity edema. No palpitations. No paroxysmal nocturnal dyspnea. No orthopnea. No lightheadedness or dizziness. No syncopal episodes. Abdominal: No abdominal pain. No nausea, vomiting. No diarrhea. No constipation. No bloody or tarry stools.. No loss of appetite. Genitourinary: No dysuria, increased frequency, urgency. No urinary retention. Musculoskeletal: No myalgias. No muscle weakness, no gait dysfunction, no frequent falls. No back pain. No neck pain. Integumentary: No wounds, no lesions. No rash or pruritus. No unusual bruising. No change in hair or nails. Neurologic: No aphasia. No facial droop. No change in mentation. No head injury. No headache. No paralysis. No paresthesia. Psychiatric: No depression. No anxiety. Endocrine: Reports abnormal blood sugars. PHYSICAL EXAMINATION Gen: This is a morbidly obese 65-year-old female. Patient is resting in bed and appears to be comfortable at rest. No acute respiratory distress noted. HEENT: Head is atraumatic, normocephalic. Pupils equal, round. Sclerae is anicteric. NECK: Supple. No JVD. No lymphadenopathy. No thyromegaly. LUNGS: Rales bilateral bases. No intercostal retractions. No accessory muscle usage. HEART: Regular rate and rhythm. Systolic murmur. ABDOMEN: Soft. Bowel sounds are present. No masses. No tenderness. EXTREMITIES: Trace bilateral pedal edema. Erythema noted to lower extremities. No calf tenderness. NEUROLOGICAL: Patient is awake, alert and oriented x3. Cranial nerves 2 through 12 are grossly intact. ASSESSMENT AND PLAN 1. Acute on chronic hypoxic and hypercapnic respiratory failure secondary to acute on chronic diastolic heart failure. Cardiology consult appreciated. Continue Lasix 40 mg IV every 8 hours, monitor I&O, daily weights, renal function and electrolytes. Patient to continue BiPAP 2. Acute urinary tract infection. Continue Rocephin 1 g daily completed course of antibiotics 3. Diabetes mellitus type 2. Continue Levemir 100 units at bedtime, NovoLog scale before meals and at bedtime, Tradjenta 5 mg daily. Hold Prandin 1 mg 3 times daily. 4. Hypertension. Continue Norvasc 5 mg daily, hydralazine 50 mg 3 times daily, Toprol-XL 25 mg daily. 5. Hyperlipidemia. Continue atorvastatin 20 mg at bedtime 6. Gastroesophageal reflux disease and GI prophylaxis. Protonix. 7. Hypothyroidism. Continue levothyroxine 75 g daily. 8. Mild intermittent asthma, stable. Continue DuoNeb treatments every 4 hours as needed. 9. Remote history of tobacco use. 10. Morbid obesity with BMI of 51. 11. DVT prophylaxis. Heparin subcu. DISCHARGE PLAN on Sunday Impression and plan of care have been directed as dictated by the signing physician. Chelsey Casey nurse practitioner acting as scribe for signing physician. Objective - Vital Signs Vital signs: Vital Signs Temp 98.6 F 11/18/20 08:00 Pulse 84 11/18/20 08:00 Resp 16 11/18/20 08:00 BP 166/86 11/18/20 08:00 Pulse Ox 98 11/18/20 08:00 Intake & Output 11/17/20 11/18/20 11/18/20 18:59 06:59 18:59 Intake Total 716 242 310 Output Total 4300 3500 1000 Balance -6754 -9155 -414 Weight 147.1 kg Intake: IV 20 10 Invasive Line 3 20 10 Oral 716 222 300 Output: Urine 4300 3500 1000 Other: Voiding Method External Catheter Bedside Commode Bedside Commode - Labs CBC & Chem 7: 11/16/20 06:19 11/18/20 07:24 Labs: Abnormal Lab Results - Last 24 Hours (Table) 11/17/20 11/17/20 11/17/20 Range/Units 11:43 16:35 20:25 Chloride 86 L (98-107) mmol/L Carbon Dioxide 42 H* (22-30) mmol/L BUN 34 H (7-17) mg/dL Creatinine 1.41 H (0.52-1.04) mg/dL Glucose 200 H (74-99) mg/dL POC Glucose (mg/dL) 159 H 184 H (75-99) mg/dL 11/18/20 11/18/20 Range/Units 06:06 07:24 Chloride 89 L (98-107) mmol/L Carbon Dioxide 38 H (22-30) mmol/L BUN 39 H (7-17) mg/dL Creatinine 1.43 H (0.52-1.04) mg/dL Glucose 128 H (74-99) mg/dL POC Glucose (mg/dL) 140 H (75-99) mg/dL
[2020-11-18] MEDS ORDERED: metOLazone 5 MG TAB PO ONE (12:30)
[2020-11-18 12:37] LABS: Glucose,Whole Blood 208 mg/dL (75-99)
--- NOTE | 2020-11-18 14:31 | P.PN ---
Subjective Progress Note Date: 11/18/20 HISTORY OF PRESENT ILLNESS: This is a pleasant 65-year-old female past medical history significant for diabetes mellitus, hypertension, dyslipidemia, asthma, former nicotine dependence, rheumatic fever as a child and morbid obesity. She denies prior history of coronary artery disease and has seen Dr. Caba in the office one time in 2019. At that time she underwent a stress test that was negative for reversible cardiac ischemia with normal LV function. We have been asked to see in consultation for heart failure. She presented to the hospital with symptoms of shortness of breath that has been going on and getting progressively worse for the past 2 weeks. She states she saw her primary care physician and was told to decrease her amount of oral intake of water. She states her shortness of breath is with exertion or activity and resolves at rest. She denies cough, fever or chills. She denies chest pain, dizziness or palpitations. She also was concerned about increased lower extremity edema and generalized weakness. Most recent echocardiogram obtained May 2019 reveals preserved LV systolic function with ejection fraction greater than 55%. DIAGNOSTICS EKG reveals sinus mechanism heart rate of 74 with significant artifact. CTA of the chest reveals no evidence of pulmonary embolism, cardiomegaly, pulmonary hypertension, moderate right and left pleural effusions, scattered groundglass changes and developing interstitial pulmonary edema. There is also an inferior lingular pulmonary nodule noted. Chest xray blunting of the costophrenic angles with basilar effusions. Laboratory reviewed, it enzymes negative 3, NT proBNP 211, d-dimer 1.33, WBC 10.6, hemoglobin 10.3, platelets 346, sodium 144, potassium 5.4 and creatinine 0.9. Current cardiac medications include aspirin 325 mg daily, atorvastatin 20 mg daily, amlodipine 5 mg daily, Lasix 60 mg twice a day, hydralazine 50 mg 3 times a day and Toprol 25 mg daily. 11/13: Ateam was called last evening due to mental status changes. Patient states that she is feeling about the same. She continues to have lower extremity edema which she feels is not improved. She is on Lasix drip will be continued. Patient has been afebrile, heart rate 64, blood pressure 181/53, pulse ox 93% on oxygen. BUN 34 creatinine 1.09 with potassium of 5.4. Echocardiogram reveals EF of 55-60%, severe concentric left ventricular hypertrophy, mild aortic valve sclerosis, mild aortic stenosis, trace mitral regurgitation, mild tricuspid regurgitation. 11/14: traffic monitor specialist has been a sinus rhythm. Patient has been afebrile, heart rate in the 60s, blood pressure 160/69, pulse ox 92% on 2 L nasal cannula. BUN 40 and creatinine 1.26 with potassium 4.5. Patient is currently on Lasix drip which will be transitioned to IV today. Patient has some short-term every deficit and repeating questions. She is concerned about the CPAP which will be deferred to Dr. Aquino. At this time, patient's questions have been answered. 11/15/2020 Patient examined this morning at the bedside. She denies chest pain or pressure. She reports mild shortness of breath. Patient is on 3 L nasal cannula with oxygen saturations greater than 90%. BUN 47. Creatinine 1.18. She remains on IV Lasix 40 mg every 8 hours 11/16/2020 Patient examined at the bedside. She denies chest pain or pressure. She r eports mild redness of breath. She is currently on a BiPAP. She continues to have lower extremity edema. 11/17/2020 Patient examined this morning at the bedside. She denies chest pain or pressure. She reports mild shortness of breath but states it is improved from yesterday. Oxygen saturations greater than 92%. Patient continues to have bilateral lower extremity edema but it is slowly improving. Fluid balance over the last 24 hours is -1240 mL. 11/18/2020 Patient examined this morning at the bedside. She denies chest pain or pressure. She denies shortness of breath. Creatinine 1.43 today. Fluid balance over the last 24 hours is -6842 mL. PHYSICAL EXAM: VITAL SIGNS: Reviewed. GENERAL: Well-developed in no acute distress. NECK: Supple. No JVD or thyromegaly LUNGS: Respirations even and unlabored. Lungs diminished bilaterally. HEART: Regular rate and rhythm. S1 and S2 heard. Systolic murmur noted. EXTREMITIES: Normal range of motion. No clubbing or cyanosis. Peripheral pulses intact. 2+ bilateral lower extremity edema ASSESSMENT: Acute on chronic heart failure with preserved ejection fraction and cor pulmonale Urinary tract infection Hypertension Dyslipidemia Diabetes mellitus History of asthma Former nicotine dependence Morbid obesity, BMI 51 PLAN: Continue current cardiac medications Continue IV Lasix for an additional 24 hours Give additional dose of Zaroxolyn 5 mg 1 dose today Daily weights Accurate I&O Monitor kidney function Recommend holding discharge today for additional diuresis Further recommendations pending patient course Nurse practitioner note has been reviewed by physician. Signing provider agrees with the documented findings, assessment, and plan of care. Objective - Vital Signs Vital signs: Vital Signs Temp 98.0 F 11/18/20 12:00 Pulse 88 11/18/20 13:35 Resp 18 11/18/20 13:35 BP 166/88 11/18/20 12:00 Pulse Ox 98 11/18/20 12:00 Intake & Output 11/17/20 11/18/20 11/18/20 18:59 06:59 18:59 Intake Total 716 242 320 Output Total 4300 3500 1000 Balance -3584 -1799 -680 Weight 147.1 kg Intake: IV 20 20 Invasive Line 3 20 20 Oral 716 222 300 Output: Urine 4300 3500 1000 Other: Voiding Method External Catheter Bedside Commode Bedside Commode - Labs CBC & Chem 7: 11/16/20 06:19 11/18/20 07:24 Labs: Abnormal Lab Results - Last 24 Hours (Table) 11/17/20 11/17/20 11/18/20 Range/Units 16:35 20:25 06:06 Chloride (98-107) mmol/L Carbon Dioxide (22-30) mmol/L BUN (7-17) mg/dL Creatinine (0.52-1.04) mg/dL Glucose (74-99) mg/dL POC Glucose (mg/dL) 159 H 184 H 140 H (75-99) mg/dL 11/18/20 11/18/20 Range/Units 07:24 12:36 Chloride 89 L (98-107) mmol/L Carbon Dioxide 38 H (22-30) mmol/L BUN 39 H (7-17) mg/dL Creatinine 1.43 H (0.52-1.04) mg/dL Glucose 128 H (74-99) mg/dL POC Glucose (mg/dL) 208 H (75-99) mg/dL
--- NOTE | 2020-11-18 14:40 | P.PN ---
Subjective Progress Note Date: 11/18/20 Principal diagnosis: Respiratory insufficiency This is a morbidly obese 65-year-old female patient with a history of BMI 51.6, hyperlipidemia, diabetes mellitus, gout, hypothyroidism, hypertension, congestive heart failure, asthma, smoker. She presented here to the emergency room on 11/11/2020 after developing a two-week history of increasing lower extremity edema, weakness, shortness of breath. Chest x-ray revealed evidence of patchy bilateral airspace disease. Fluid volume overload and pulmonary edema with basilar effusions. ET angiogram revealed no pulmonary emboli. There was mild cardiomegaly with pulmonary arterial hypertension and moderate right and small left pleural effusions. Scattered groundglass changes. Prominent second mental collapse/atelectasis, bibasilar lower lobes. Questionable 1.6 cm inferior lingular pulmonary nodule requiring follow-up in 3 months. Echocardiogram reveals preserved left ventricular systolic function with ejection fraction 55-60%. No significant valvular heart disease. There is severe concentric LVH. Early this morning the patient became confused and lethargic. An A Team was called and the patient had blood gases that revealed respiratory acidosis with relative hypoxemia with a pO2 of 63, pCO2 81, pH 7.26. On 40% FiO2. Patient was placed on BiPAP and improved. Settings are BiPAP 14/5 and 40% FiO2 with most recent blood gases reveal a pO2 of 74, pCO2 79 and a pH of 7.27. We're consulted for the same. She is seen today on the regular medical floor. Currently sitting up in a chair at the bedside. Awake and alert in no acute distress. She had requested her BiPAP mask to be off that she was not tolerating well this morning. He is currently on 4 L nasal cannula and maintaining O2 saturation in the high 80s low 90s. Afebrile. Chest x-ray reveals prominent pulmonary vascular. Interval worsening of the lung bases with developing partially consolidative opacities consistent with pneumonia versus pulmonary edema. White count 10.6. Hemoglobin 10.9. Sodium 143. Potassium 5.4. Creatinine 1.09. She is currently on a Lasix drip at 5 mg per hour. Antibiotics in the form of ceftriaxone. Bronchodilators. Patient was reevaluated today on 11/14/2020, patient is sleeping, however she is arousable, and preferred to be left alone. She is on 3 L nasal cannula, and her O2 saturation is in the high 80s and low 90s. She has BiPAP at bedside, but she is not using it this morning, supposedly she did use it for few hours yesterday. Patient remains on diuretics. Remains on bronchodilators. States that she is feeling a bit better compared to how she felt on initial presentation. Labs are basically unremarkable bicarb is 34 BUN is 40 creatinine 1.26. Continues to have significant lower extremities edema. Patient is now off Lasix drip, she is on 40 mg IV push every 8 hours. Progress note dated 11/15/2020. This is a 65-year-old female recently hypothyroidism, hypertension, congestive heart failure, and previous tobacco use. She presented to the emergency department on November 11, with a two-week history of increasing lower extremity edema, weakness, and shortness of breath. Chest x-ray was consistent with pulmonary edema. There was not a pulmonary embolism on CT angiogram. Cu rrently, the patient is on 3 L nasal cannula, saturations in the low 90s. She tells us that last night, she did not need to use the BiPAP device. Currently, she is feeling much better. She still has significant lower extremity edema. She is no longer on the Lasix drip. White count is 9.2, hemoglobin 9.2, hematocrit 29.5, and platelet count 279,000. Sodium 138, potassium 4.1, chloride 93, CO2 38, anion gap is 7, BUN 47, and creatinine 1.18. Progress note dated 11/16/2020. This is a 65-year-old female with a history of hypothyroidism, hypertension, heart failure, and previous tobacco use. She presented to the emergency department on November 11 with a two-week history of increasing lower extremity edema, weakness, and shortness of breath. Her chest x-ray was consistent with congestive heart failure/pulmonary edema. CT angiogram was negative for pulmonary embolism. Currently, she is on 3 L nasal cannula. Saturations are in the mid 90s. She did not use the BiPAP last night. She is feeling much improved. White count is 8.7, hemoglobin 9.2, hematocrit 29.9, and platelet count 281,000. Sodium 139, potassium 3.7, chlorides 89, CO2 44, anion gap 6, BUN 40, and creatinine 1.16. The patient is seen today 11/17/2020 in follow-up on the selective care unit. She is currently resting comfortably in bed. Awake and alert in no acute distress. Currently maintaining O2 saturation in the 90s on 2 L/m per nasal cannula. She's afebrile. Sodium 138. Potassium 4.0. Bicarb 42. Creatinine 1.41. She remains on Diamox, diuretics. The patient is seen today 11/18/2020 in follow-up on the selective care unit. She is awake and alert in no acute distress. Currently sitting up in the bedside. She has not been utilizing any BiPAP. Maintain O2 saturations in the 90s on 2 L/m per nasal cannula. Sodium 1:30. Potassium 3.8. Creatinine 1.43. Remains on IV diuretics, Diamox. Objective - Vital Signs Vital signs: Vital Signs Temp 98.0 F 11/18/20 12:00 Pulse 88 11/18/20 13:35 Resp 18 11/18/20 13:35 BP 166/88 11/18/20 12:00 Pulse Ox 98 11/18/20 12:00 Intake & Output 11/17/20 11/18/20 11/18/20 18:59 06:59 18:59 Intake Total 716 242 320 Output Total 4300 3500 1000 Balance -2047 -5348 -680 Weight 147.1 kg Intake: IV 20 20 Invasive Line 3 20 20 Oral 716 222 300 Output: Urine 4300 3500 1000 Other: Voiding Method External Catheter Bedside Commode Bedside Commode - Exam Alert, obese, 65-year-old female patient. No acute distress, oriented 3. Nasal O2 in place at 2 L. No conversational dyspnea, or audible wheezing noted. HEENT examination is grossly unremarkable. Mucous membranes are moist. No oral lesions. Neck supple. Full range of motion. No adenopathy thyromegaly or neck vein distention. Cardiovascular examination reveals regular rhythm rate. S1-S2 normal. No S3 or S4. No discernible murmur noted. Heart rate is 87 bpm. Lungs reveal bilateral crackles, mostly at the bases. Breath sounds are equal bilaterally. No rhonchi. No wheezes appreciated. Abdomen soft bowel sounds are heard. No masses or tenderness. Extremities are intact. No cyanosis or clubbing. Significant 2+ edema is noted. Skin is without rash or lesion. Neurologic examination is brief but nonfocal. - Labs CBC & Chem 7: 11/16/20 06:19 11/18/20 07:24 Labs: Abnormal Lab Results - Last 24 Hours (Table) 11/17/20 11/17/20 11/18/20 Range/Units 16:35 20:25 06:06 Chloride (98-107) mmol/L Carbon Dioxide (22-30) mmol/L BUN (7-17) mg/dL Creatinine (0.52-1.04) mg/dL Glucose (74-99) mg/dL POC Glucose (mg/dL) 159 H 184 H 140 H (75-99) mg/dL 11/18/20 11/18/20 Range/Units 07:24 12:36 Chloride 89 L (98-107) mmol/L Carbon Dioxide 38 H (22-30) mmol/L BUN 39 H (7-17) mg/dL Creatinine 1.43 H (0.52-1.04) mg/dL Glucose 128 H (74-99) mg/dL POC Glucose (mg/dL) 208 H (75-99) mg/dL Assessment and Plan Assessment: 1 Acute hypoxic respiratory failure secondary to an acute exacerbation of diastolic congestive heart failure 2 Acute hypercapnic respiratory failure secondary to morbid obesity/obesity hypoventilation syndrome/suspected obstructive sleep apnea 3 Morbid obesity with a BMI 51.6 4 Lower extremity edema secondary to diastolic congestive heart failure 5 Cor pulmonale 6 Diabetes mellitus 7 Hypertension 8 Hyperlipidemia 9 History of chronic bronchial asthma 10 Hypothyroidism 11 History of gout 12 History of gastroesophageal reflux disease 13 Former smoker 14 Poor overall functional performance based on the above-mentioned multiple c omorbidities Plan: The patient was seen and evaluated by Dr. Lucio Redman from the pulmonary standpoint No BiPAP required Plan is for possible discharge to [facility] tomorrow I, the cosigning physician, performed a history & physical examination of the patient. Lungs sounds crackles in the bilateral posterior bases. Maintaining good O2 saturations in the 90s on 2 L/m per nasal cannula. I discussed the assessment and plan of care with my nurse practitioner, Nya Darby. I attest to the above note as dictated by her.
[2020-11-18 16:27] VITALS: RESP 16
[2020-11-18 17:25] LABS: Glucose,Whole Blood 181 mg/dL (75-99)
[2020-11-18] MEDS: ACETAMINOPHEN TAB 325 MG TAB PO PRN (18:38)
[2020-11-18 20:13] LABS: Glucose,Whole Blood 219 mg/dL (75-99)
[2020-11-18] MEDS: ATORVASTATIN 20 MG TAB PO SCH (21:10)
[2020-11-18] MEDS: INSULIN DETEMIR (LEVEMIR) 100 UNIT/ML SYR SQ SCH (21:11)
[2020-11-19] MEDS: ACETAMINOPHEN TAB 325 MG TAB PO PRN (03:43)
[2020-11-19 06:05] LABS: Glucose,Whole Blood 246 mg/dL (75-99)
[2020-11-19] MEDS: PANTOPRAZOLE 40 MG TABLET PO SCH (06:31)
[2020-11-19] MEDS: LEVOTHYROXINE 75 MCG TAB PO SCH (06:31)
[2020-11-19] MEDS: INSULIN ASPART (NovoLOG) 100 UNIT/ML VIAL SQ SCH ×2 (06:31→12:51)
[2020-11-19] MEDS: LACTULOSE 20 GM/30 ML CUP PO SCH (08:13)
[2020-11-19] MEDS: allopurinoL 300 MG TAB PO SCH (08:14)
[2020-11-19] MEDS: HEPARIN SODIUM,PORCINE 5,000 UNIT/ML 1 ML VIAL SQ SCH (08:14)
[2020-11-19] MEDS: MAGNESIUM OXIDE 400 MG TAB PO SCH (08:14)
[2020-11-19] MEDS: acetaZOLAMIDE 250 MG TAB PO SCH (08:14)
[2020-11-19] MEDS: amLODIPine 5 MG TAB PO SCH (08:14)
[2020-11-19] MEDS: FERROUS SULFATE 325 MG TAB PO SCH (08:14)
[2020-11-19] MEDS: FUROSEMIDE 10 MG/ML 4 ML VIAL IV SCH (08:14)
[2020-11-19] MEDS: DOCUSATE 100 MG CAP PO SCH (08:14)
[2020-11-19] MEDS: LINAGLIPTIN 5 MG TABLET PO SCH (08:14)
[2020-11-19] MEDS: METOPROLOL SUCCINATE (ER) 25 MG TAB.ER.24H PO SCH (08:14)
[2020-11-19] MEDS: hydrALAZINE HCL 50 MG TAB PO SCH (08:15)
[2020-11-19] MEDS: ASPIRIN 81 MG PO SCH (08:15)
[2020-11-19 10:07] VITALS: TEMP 98.3
[2020-11-19 11:59] LABS: Glucose,Whole Blood 261 mg/dL (75-99)
[2020-11-19 13:09] LABS: Calcium 9.6 mg/dL (8.4-10.2); Magnesium 1.9 mg/dL (1.6-2.3); Potassium 4.1 mmol/L (3.5-5.1)
[2020-11-19 15:26] VITALS: BP 146/65; PULSE 64
--- NOTE | 2020-11-19 15:29 | P.PN ---
Subjective Progress Note Date: 11/19/20 HISTORY OF PRESENT ILLNESS: This is a pleasant 65-year-old female past medical history significant for diabetes mellitus, hypertension, dyslipidemia, asthma, former nicotine dependence, rheumatic fever as a child and morbid obesity. She denies prior history of coronary artery disease and has seen Dr. Caba in the office one time in 2019. At that time she underwent a stress test that was negative for reversible cardiac ischemia with normal LV function. We have been asked to see in consultation for heart failure. She presented to the hospital with symptoms of shortness of breath that has been going on and getting progressively worse for the past 2 weeks. She states she saw her primary care physician and was told to decrease her amount of oral intake of water. She states her shortness of breath is with exertion or activity and resolves at rest. She denies cough, fever or chills. She denies chest pain, dizziness or palpitations. She also was concerned about increased lower extremity edema and generalized weakness. Most recent echocardiogram obtained May 2019 reveals preserved LV systolic function with ejection fraction greater than 55%. DIAGNOSTICS EKG reveals sinus mechanism heart rate of 74 with significant artifact. CTA of the chest reveals no evidence of pulmonary embolism, cardiomegaly, pulmonary hypertension, moderate right and left pleural effusions, scattered groundglass changes and developing interstitial pulmonary edema. There is also an inferior lingular pulmonary nodule noted. Chest xray blunting of the costophrenic angles with basilar effusions. Laboratory reviewed, it enzymes negative 3, NT proBNP 211, d-dimer 1.33, WBC 10.6, hemoglobin 10.3, platelets 346, sodium 144, potassium 5.4 and creatinine 0.9. Current cardiac medications include aspirin 325 mg daily, atorvastatin 20 mg daily, amlodipine 5 mg daily, Lasix 60 mg twice a day, hydralazine 50 mg 3 times a day and Toprol 25 mg daily. 11/13: [facility] was called last evening due to mental status changes. Patient states that she is feeling about the same. She continues to have lower extremity edema which she feels is not improved. She is on Lasix drip will be continued. Patient has been afebrile, heart rate 64, blood pressure 181/53, pulse ox 93% on oxygen. BUN 34 creatinine 1.09 with potassium of 5.4. Echocardiogram reveals EF of 55-60%, severe concentric left ventricular hypertrophy, mild aortic valve sclerosis, mild aortic stenosis, trace mitral regurgitation, mild tricuspid regurgitation. 11/14: nurse monitoring has been a sinus rhythm. Patient has been afebrile, heart rate in the 60s, blood pressure 160/69, pulse ox 92% on 2 L nasal cannula. BUN 40 and creatinine 1.26 with potassium 4.5. Patient is currently on Lasix drip which will be transitioned to IV today. Patient has some short-term every deficit and repeating questions. She is concerned about the CPAP which will be deferred to Dr. Aquino. At this time, patient's questions have been answered. 11/15/2020 Patient examined this morning at the bedside. She denies chest pain or pressure. She reports mild shortness of breath. Patient is on 3 L nasal cannula with oxygen saturations greater than 90%. BUN 47. Creatinine 1.18. She remains on IV Lasix 40 mg every 8 hours 11/16/2020 Patient examined at the bedside. She denies chest pain or pressure. She r eports mild redness of breath. She is currently on a BiPAP. She continues to have lower extremity edema. 11/17/2020 Patient examined this morning at the bedside. She denies chest pain or pressure. She reports mild shortness of breath but states it is improved from yesterday. Oxygen saturations greater than 92%. Patient continues to have bilateral lower extremity edema but it is slowly improving. Fluid balance over the last 24 hours is -1240 mL. 11/18/2020 Patient examined this morning at the bedside. She denies chest pain or pressure. She denies shortness of breath. Creatinine 1.43 today. Fluid balance over the last 24 hours is -6842 mL. 11/19/2020 Patient examined this afternoon at the bedside. She denies chest pain or pressure. She currently denies shortness of breath. Patient's lower extremity edema continues to improve. Vital signs are stable. Potassium 4.1. Magnesium 1.9. PHYSICAL EXAM: VITAL SIGNS: Reviewed. GENERAL: Well-developed in no acute distress. NECK: Supple. No JVD or thyromegaly LUNGS: Respirations even and unlabored. Lungs diminished bilaterally. HEART: Regular rate and rhythm. S1 and S2 heard. Systolic murmur noted. EXTREMITIES: Normal range of motion. No clubbing or cyanosis. Peripheral pulses intact. 2+ bilateral lower extremity edema ASSESSMENT: Acute on chronic heart failure with preserved ejection fraction and cor pulmonale Urinary tract infection Hypertension Dyslipidemia Diabetes mellitus History of asthma Former nicotine dependence Morbid obesity, BMI 51 PLAN: Patient has been cleared for discharge today per internal medicine Agreeable to discharge to [facility] today from a cardiac standpoint Patient to follow-up on an outpatient basis Nurse practitioner note has been reviewed by physician. Signing provider agrees with the documented findings, assessment, and plan of care. Objective - Vital Signs Vital signs: Vital Signs Temp 98.3 F 11/19/20 08:00 Pulse 64 11/19/20 12:00 Resp 16 11/19/20 12:00 BP 146/65 11/19/20 12:00 Pulse Ox 95 11/19/20 12:00 Intake & Output 11/18/20 11/19/20 11/19/20 18:59 06:59 18:59 Intake Total 1820 20 10 Output Total 3950 1400 Balance -2130 -1380 10 Weight 137.5 kg Intake: IV 20 20 10 Invasive Line 3 20 20 10 Oral 1800 Output: Urine 3950 1400 Other: Voiding Method Bedside Commode Bedside Commode Bedside Commode - Labs CBC & Chem 7: 11/16/20 06:19 11/19/20 12:34 Labs: Abnormal Lab Results - Last 24 Hours (Table) 11/18/20 11/18/20 11/19/20 Range/Units 17:24 20:12 06:03 Sodium (137-145) mmol/L Chloride (98-107) mmol/L Carbon Dioxide (22-30) mmol/L BUN (7-17) mg/dL Creatinine (0.52-1.04) mg/dL Glucose (74-99) mg/dL POC Glucose (mg/dL) 181 H 219 H 246 H (75-99) mg/dL 11/19/20 11/19/20 Range/Units 11:46 12:34 Sodium 136 L (137-145) mmol/L Chloride 85 L (98-107) mmol/L Carbon Dioxide 43 H* (22-30) mmol/L BUN 47 H (7-17) mg/dL Creatinine 1.73 H (0.52-1.04) mg/dL Glucose 246 H (74-99) mg/dL POC Glucose (mg/dL) 261 H (75-99) mg/dL
--- NOTE | 2020-11-19 16:29 | P.PN ---
Subjective Progress Note Date: 11/19/20 Principal diagnosis: Respiratory insufficiency This is a morbidly obese 65-year-old female patient with a history of BMI 51.6, hyperlipidemia, diabetes mellitus, gout, hypothyroidism, hypertension, congestive heart failure, asthma, smoker. She presented here to the emergency room on 11/11/2020 after developing a two-week history of increasing lower extremity edema, weakness, shortness of breath. Chest x-ray revealed evidence of patchy bilateral airspace disease. Fluid volume overload and pulmonary edema with basilar effusions. ET angiogram revealed no pulmonary emboli. There was mild cardiomegaly with pulmonary arterial hypertension and moderate right and small left pleural effusions. Scattered groundglass changes. Prominent second mental collapse/atelectasis, bibasilar lower lobes. Questionable 1.6 cm inferior lingular pulmonary nodule requiring follow-up in 3 months. Echocardiogram reveals preserved left ventricular systolic function with ejection fraction 55-60%. No significant valvular heart disease. There is severe concentric LVH. Early this morning the patient became confused and lethargic. An A Team was called and the patient had blood gases that revealed respiratory acidosis with relative hypoxemia with a pO2 of 63, pCO2 81, pH 7.26. On 40% FiO2. Patient was placed on BiPAP and improved. Settings are BiPAP 14/5 and 40% FiO2 with most recent blood gases reveal a pO2 of 74, pCO2 79 and a pH of 7.27. We're consulted for the same. She is seen today on the regular medical floor. Currently sitting up in a chair at the bedside. Awake and alert in no acute distress. She had requested her BiPAP mask to be off that she was not tolerating well this morning. He is currently on 4 L nasal cannula and maintaining O2 saturation in the high 80s low 90s. Afebrile. Chest x-ray reveals prominent pulmonary vascular. Interval worsening of the lung bases with developing partially consolidative opacities consistent with pneumonia versus pulmonary edema. White count 10.6. Hemoglobin 10.9. Sodium 143. Potassium 5.4. Creatinine 1.09. She is currently on a Lasix drip at 5 mg per hour. Antibiotics in the form of ceftriaxone. Bronchodilators. Patient was reevaluated today on 11/14/2020, patient is sleeping, however she is arousable, and preferred to be left alone. She is on 3 L nasal cannula, and her O2 saturation is in the high 80s and low 90s. She has BiPAP at bedside, but she is not using it this morning, supposedly she did use it for few hours yesterday. Patient remains on diuretics. Remains on bronchodilators. States that she is feeling a bit better compared to how she felt on initial presentation. Labs are basically unremarkable bicarb is 34 BUN is 40 creatinine 1.26. Continues to have significant lower extremities edema. Patient is now off Lasix drip, she is on 40 mg IV push every 8 hours. Progress note dated 11/15/2020. This is a 65-year-old female recently hypothyroidism, hypertension, congestive heart failure, and previous tobacco use. She presented to the emergency department on November 11, with a two-week history of increasing lower extremity edema, weakness, and shortness of breath. Chest x-ray was consistent with pulmonary edema. There was not a pulmonary embolism on CT angiogram. Cu rrently, the patient is on 3 L nasal cannula, saturations in the low 90s. She tells us that last night, she did not need to use the BiPAP device. Currently, she is feeling much better. She still has significant lower extremity edema. She is no longer on the Lasix drip. White count is 9.2, hemoglobin 9.2, hematocrit 29.5, and platelet count 279,000. Sodium 138, potassium 4.1, chloride 93, CO2 38, anion gap is 7, BUN 47, and creatinine 1.18. Progress note dated 11/16/2020. This is a 65-year-old female with a history of hypothyroidism, hypertension, heart failure, and previous tobacco use. She presented to the emergency department on November 11 with a two-week history of increasing lower extremity edema, weakness, and shortness of breath. Her chest x-ray was consistent with congestive heart failure/pulmonary edema. CT angiogram was negative for pulmonary embolism. Currently, she is on 3 L nasal cannula. Saturations are in the mid 90s. She did not use the BiPAP last night. She is feeling much improved. White count is 8.7, hemoglobin 9.2, hematocrit 29.9, and platelet count 281,000. Sodium 139, potassium 3.7, chlorides 89, CO2 44, anion gap 6, BUN 40, and creatinine 1.16. The patient is seen today 11/17/2020 in follow-up on the selective care unit. She is currently resting comfortably in bed. Awake and alert in no acute distress. Currently maintaining O2 saturation in the 90s on 2 L/m per nasal cannula. She's afebrile. Sodium 138. Potassium 4.0. Bicarb 42. Creatinine 1.41. She remains on Diamox, diuretics. The patient is seen today 11/18/2020 in follow-up on the selective care unit. She is awake and alert in no acute distress. Currently sitting up in the bedside. She has not been utilizing any BiPAP. Maintain O2 saturations in the 90s on 2 L/m per nasal cannula. Sodium 1:30. Potassium 3.8. Creatinine 1.43. Remains on IV diuretics, Diamox. The patient is seen today 11/19/2020 in follow-up on the selective care unit. She is currently sitting up in bed. Awake and alert in no acute distress. Denies any worsening shortness of breath, cough or congestion. She is maintaining O2 saturations in the 90s on 2 L/m per nasal cannula. The plan is to transfer to [facility] today. Objective - Vital Signs Vital signs: Vital Signs Temp 98.3 F 11/19/20 08:00 Pulse 64 11/19/20 12:00 Resp 16 11/19/20 12:00 BP 146/65 11/19/20 12:00 Pulse Ox 95 11/19/20 12:00 Intake & Output 11/18/20 11/19/20 11/19/20 18:59 06:59 18:59 Intake Total 1820 20 486 Output Total 3950 1400 Balance -2130 -1380 486 Weight 137.5 kg Intake: IV 20 20 10 Invasive Line 3 20 20 10 Oral 1800 476 Output: Urine 3950 1400 Other: Voiding Method Bedside Commode Bedside Commode Bedside Commode - Exam Alert, obese, 65-year-old female patient. No acute distress, oriented 3. Nasal O2 in place at 2 L. No conversational dyspnea, or audible wheezing noted. HEENT examination is grossly unremarkable. Mucous membranes are moist. No oral lesions. Neck supple. Full range of motion. No adenopathy thyromegaly or neck vein distention. Cardiovascular examination reveals regular rhythm rate. S1-S2 normal. No S3 or S4. No discernible murmur noted. Heart rate is 87 bpm. Lungs reveal bilateral crackles, mostly at the bases. Breath sounds are equal bilaterally. No rhonchi. No wheezes appreciated. Abdomen soft bowel sounds are heard. No masses or tenderness. Extremities are intact. No cyanosis or clubbing. Significant 2+ edema is noted. Skin is without rash or lesion. Neurologic examination is brief but nonfocal. - Labs CBC & Chem 7: 11/16/20 06:19 11/19/20 12:34 Labs: Abnormal Lab Results - Last 24 Hours (Table) 11/18/20 11/18/20 11/19/20 Range/Units 17:24 20:12 06:03 Sodium (137-145) mmol/L Chloride (98-107) mmol/L Carbon Dioxide (22-30) mmol/L BUN (7-17) mg/dL Creatinine (0.52-1.04) mg/dL Glucose (74-99) mg/dL POC Glucose (mg/dL) 181 H 219 H 246 H (75-99) mg/dL 11/19/20 11/19/20 Range/Units 11:46 12:34 Sodium 136 L (137-145) mmol/L Chloride 85 L (98-107) mmol/L Carbon Dioxide 43 H* (22-30) mmol/L BUN 47 H (7-17) mg/dL Creatinine 1.73 H (0.52-1.04) mg/dL Glucose 246 H (74-99) mg/dL POC Glucose (mg/dL) 261 H (75-99) mg/dL Assessment and Plan Assessment: 1 Acute hypoxic respiratory failure secondary to an acute exacerbation of diastolic congestive heart failure 2 Acute hypercapnic respiratory failure secondary to morbid obesity/obesity hypoventilation syndrome/suspected obstructive sleep apnea 3 Morbid obesity with a BMI 51.6 4 Lower extremity edema secondary to diastolic congestive heart failure 5 Cor pulmonale 6 Diabetes mellitus 7 Hypertension 8 Hyperlipidemia 9 History of chronic bronchial asthma 10 Hypothyroidism 11 History of gout 12 History of gastroesophageal reflux disease 13 Former smoker 14 Poor overall functional performance based on the above-mentioned multiple comorbidities Plan: The patient was seen and evaluated by Dr. Lucio Redman from the pulmonary standpoint Plan is for discharge to [facility] I, the cosigning physician, performed a history & physical examination of the patient. Lungs sounds crackles in the bilateral posterior bases. Maintaining good O2 saturations in the 90s on 2 L/m per nasal cannula. I discussed the ass essment and plan of care with my nurse practitioner, Nya Darby. I attest to the above note as dictated by her.
== END 2020-11-19 16:45 | DRG 291 ==
LOC: EC 11:54 → 3SCARD 16:42
PROVIDERS: ADMIT Internal Medicine Geriatric Medicine; ATTEND Internal Medicine Geriatric Medicine
PROC: 5A09357 Assistance with Respiratory Ventilation, Less than 24 Consecutive Hours, Continuous Positive Airway Pressure (ICD-10-PCS; principal; 2020-11-13)
DX: I11.0 Hypertensive heart disease with heart failure (principal); J96.21 Acute and chronic respiratory failure with hypoxia; J96.22 Acute and chronic respiratory failure with hypercapnia; E66.2 Morbid (severe) obesity with alveolar hypoventilation; E87.2 Acidosis; J98.11 Atelectasis; N39.0 Urinary tract infection, site not specified; Z68.43 Body mass index [BMI] 50.0-59.9, adult; I50.33 Acute on chronic diastolic (congestive) heart failure; E03.9 Hypothyroidism, unspecified; E11.9 Type 2 diabetes mellitus without complications; E78.5 Hyperlipidemia, unspecified; I27.21 Secondary pulmonary arterial hypertension; I27.81 Cor pulmonale (chronic); J44.9 Chronic obstructive pulmonary disease, unspecified; J45.20 Mild intermittent asthma, uncomplicated; K21.9 Gastro-esophageal reflux disease without esophagitis; K59.00 Constipation, unspecified; Z79.4 Long term (current) use of insulin; Z79.51 Long term (current) use of inhaled steroids; Z79.82 Long term (current) use of aspirin; Z79.890 Hormone replacement therapy; Z79.899 Other long term (current) drug therapy; Z82.49 Family history of ischemic heart disease and other diseases of the circulatory system; Z83.3 Family history of diabetes mellitus; Z86.19 Personal history of other infectious and parasitic diseases; Z87.891 Personal history of nicotine dependence; M10.9 Gout, unspecified; Z99.81 Dependence on supplemental oxygen; F40.240 Claustrophobia; Z83.2 Family history of diseases of the blood and blood-forming organs and certain disorders involving the immune mechanism; Z88.1 Allergy status to other antibiotic agents; Z88.0 Allergy status to penicillin; Z88.8 Allergy status to other drugs, medicaments and biological substances; Z90.89 Acquired absence of other organs; Z20.822 Contact with and (suspected) exposure to COVID-19; Z90.49 Acquired absence of other specified parts of digestive tract; Z87.01 Personal history of pneumonia (recurrent)
CPT/HCPCS: 36415; 36600; 71045; 71046; 71275; 74018; 80048; 80053; 81001; 82805; 83605; 83735; 83880; 84145; 84484; 85025; 85379; 85610; 85730; 87086; 87635; 93005; 93306; 94640; 94660; 96361; 99291

== ENCOUNTER 2022-12-13 00:16 | Inpatient (IN) | payer MEDICARE ==
[2022-12-13] MEDS ORDERED: MORPHINE SULFATE 4 MG/ML SYRINGE IVP STA (00:35)
[2022-12-13] MEDS ORDERED: KETOROLAC 15 MG/ML 1 ML VIAL IVP STA (00:35)
[2022-12-13 00:49] LABS: Anisocytosis Slight; Basophils % (A) 0 %; Eosinophils # (A) 0.5 k/uL (0-0.7); Eosinophils % (A) 3 %; HCT 30.6 % (34.0-46.0); HGB 9.8 gm/dL (11.4-16.0); Lymphocytes # (A) 1.7 k/uL (1.0-4.8); Lymphocytes % (A) 9 %; MCH 29.6 pg (25.0-35.0); MCHC 31.9 g/dL (31.0-37.0); MCV 92.8 fL (80.0-100.0); Mean Platelet Volume 7.6; Monocytes # (A) 0.7 k/uL (0-1.0); Monocytes % (A) 4 %; Neutrophils # (A) 15.6 k/uL (1.3-7.7); Neutrophils % (A) 83 %; Platelet Count 836 k/uL (150-450); WBC 18.8 k/uL (3.8-10.6)
[2022-12-13 01:03] LABS: INR 1.1 (<1.2); Partial Thromboplastin Time 25.2 sec (22.0-30.0); Prothrombin Time 11.1 sec (9.0-12.0)
[2022-12-13 01:05] LABS: Albumin 3.2 g/dL (3.5-5.0); Total Bilirubin 0.6 mg/dL (0.2-1.3); Total Protein 6.4 g/dL (6.3-8.2)
[2022-12-13 01:09] LABS: Potassium 4.5 mmol/L (3.5-5.1)
--- NOTE | 2022-12-13 02:26 | CT ---
EXAM: CT Abdomen and Pelvis Without Intravenous Contrast CLINICAL HISTORY: abdominal pain TECHNIQUE: Axial computed tomography images of the abdomen and pelvis without intravenous contrast. CTDI is 19.4 mGy and DLP is 1058.4 mGy-cm. This CT exam was performed using one or more of the following dose reduction techniques: automated exposure control, adjustment of the mA and/or kV according to patient size, and/or use of iterative reconstruction technique. COMPARISON: No relevant prior studies available. FINDINGS: Limitations: Lack of intravenous contrast. Lung bases: Mild bibasilar atelectasis or scar. ABDOMEN: Liver: Diffuse hepatic nodularity. Gallbladder and bile ducts: Cholelithiasis and gallbladder distention. Pancreas: No significant abnormality. Spleen: No significant abnormality. Adrenals: No significant abnormality. Kidneys and ureters: A 5 mm triple or calcification in the left kidney may be vascular. No hydronephrosis. Stomach and bowel: Colonic diverticulosis without focal inflammatory change. Bowel is nondilated. PELVIS: Appendix: No findings to suggest acute appendicitis. Bladder: No significant abnormality. No calcified stones. Reproductive: Enlarged uterus containing gas which extends to the right cornual serosa and adjacent soft tissues. Subperitoneal space: Mild stranding in the space of Retzius. ABDOMEN and PELVIS: Intraperitoneal space: No significant abnormality. No free air. Bones/joints: No acute abnormality. Soft tissues: See above. Vasculature: Aortic atherosclerosis. No abdominal aortic aneurysm. Lymph nodes: Enlarged left retroperitoneal lymph nodes measuring up to 4.2 cm. IMPRESSION: 1. Intrauterine gas extends to the right cornual serosa. This nonspecific finding may be related to endometritis, recent intrauterine instrumentation, colouterine fistula, or necrotic mass. 2. Nonspecific retroperitoneal adenopathy may be related to metastatic disease or a lymphoproliferative process.
[2022-12-13] MEDS ORDERED: metroNIDAZOLE-NS PMX 500 MG in SALINE 1 100ML.BAG IVPB STA (02:34)
[2022-12-13] MEDS ORDERED: NALOXONE 0.4 MG/ML 1 ML VIAL IV PRN (02:35)
[2022-12-13] MEDS ORDERED: ACETAMINOPHEN TAB 325 MG TAB PO PRN (02:35)
[2022-12-13] MEDS ORDERED: LEVOFLOXACIN 500MG-D5W PMX 500 MG in DEXTROSE/WATER 1 100ML.BAG IVPB STA (02:35)
[2022-12-13] MEDS: SODIUM CHLORIDE 0.9% 1,000 ML IV SCH ×2 (02:51→16:52)
--- NOTE | 2022-12-13 02:51 | ED ---
General Adult HPI - General Chief complaint: Abdominal Pain Stated complaint: abd pain Time Seen by Provider: 12/13/22 00:20 Source: patient, EMS, RN notes reviewed, old records reviewed Mode of arrival: EMS - History of Present Illness Initial comments: 67-year-old female presenting for evaluation of abdominal pain and low back pain. Symptoms have been present for the past one month. Patient states that they have been intermittent but have been steadily worsening. Patient also reports lower extremity edema which is chronic. She is oxygen dependent at baseline. She does not report fever. She states that she's had intermittent constipation and diarrhea. No vomiting. - Related Data Home Medications Medication Instructions Recorded Confirmed Atorvastatin [Lipitor] 20 mg PO HS 10/26/15 11/11/20 Aspirin EC [Ecotrin] 325 mg PO DAILY 05/16/19 11/11/20 Budesonide/Formoterol Fumarate 2 puff INHALATION RT-BID 05/16/19 11/11/20 [Symbicort 160-4.5 Mcg Inhaler] Insulin Degludec [Tresiba 140 units SQ DAILY 05/16/19 11/11/20 Flextouch U-200 Pen] allopurinoL [Zyloprim] 300 mg PO DAILY 05/16/19 11/11/20 sitaGLIPtin [Januvia] 100 mg PO DAILY 05/16/19 11/11/20 Albuterol Inhaler [Ventolin Hfa 2 puff INHALATION RT-QID PRN 11/11/20 11/11/20 Inhaler] Docusate [Colace] 100 mg PO DAILY 11/11/20 11/11/20 Ergocalciferol (Vitamin D2) 1,250 mcg PO WE 11/11/20 11/11/20 [Drisdol (50,000 Iu)] Ferrous Sulfate [Iron (65 MG 325 mg PO DAILY 11/11/20 11/11/20 Elemental)] Furosemide [Lasix] 60 mg PO BID 11/11/20 11/11/20 Levothyroxine Sodium [Synthroid] 75 mcg PO DAILY 11/11/20 11/11/20 amLODIPine [Norvasc] 5 mg PO DAILY 11/11/20 11/11/20 Previous Rx's Medication Instructions Recorded Magnesium 200 mg PO DAILY #30 tablet 05/21/19 Metoprolol Succinate (ER) [Toprol 25 mg PO DAILY #30 tab.er.24h 05/21/19 XL] hydrALAZINE HCL [Apresoline] 50 mg PO TID #90 tab 05/21/19 INSULIN ASPART (NovoLOG) [NovoLOG 0 unit SQ ACHS vial 11/18/20 (formulary)] INSULIN ASPART (NovoLOG) [NovoLOG 10 unit SQ AC-TID #0 11/18/20 (formulary)] Ipratropium-Albuterol Nebulize 3 ml INHALATION RT-Q4H PRN ml 11/18/20 [Duoneb 0.5 mg-3 mg/3 ml Soln] Lactulose [Cephulac] 20 gm PO BID ml 11/18/20 Repaglinide [Prandin] 1 mg PO AC-TID #0 11/18/20 acetaZOLAMIDE [Diamox] 250 mg PO DAILY tab 11/18/20 Allergies Allergy/AdvReac Type Severity Reaction Status Date / Time ampicillin sodium Allergy Itching Verified 12/13/22 00:29 [From Unasyn] sulbactam sodium Allergy Itching Verified 12/13/22 00:29 [From Unasyn] Review of Systems ROS Statement: Those systems with pertinent positive or pertinent negative responses have been documented in the HPI. ROS Other: All systems not noted in ROS Statement are negative. Past Medical History Past Medical History: Asthma, Diabetes Mellitus, GERD/Reflux, Hyperlipidemia, Hypertension, Osteoarthritis (OA), Pneumonia, Thyroid Disorder Additional Past Medical History / Comment(s): 10-16- admitted with foeign body rt foot/abcess. other past medical hx includes: RHEUMATIC FEVER, OCC PALPITATIONS,BRONCHITIS, ghout History of Any Multi-Drug Resistant Organisms: MRSA Date of last positivie culture/infection: 2008 MDRO Source:: lt leg Past Surgical History: Appendectomy, Section, Tonsillectomy Additional Past Surgical History / Comment(s): X2 C SECTIONS, right foot IND Past Anesthesia/Blood Transfusion Reactions: No Reported Reaction Additional Past Anesthesia/Blood Transfusion Reaction / Comment(s): clausterphobia Past Psychological History: No Psychological Hx Reported Smoking Status: Former smoker Past Alcohol Use History: None Reported Past Drug Use History: None Reported - Past Family History Father Family Medical History: Congestive Heart Failure (CHF), Diabetes Mellitus Additional Family Medical History / Comment(s): quad bypass Mother Family Medical History: Blood Disorder, Congestive Heart Failure (CHF), Coronary Artery Disease (CAD) Additional Family Medical History / Comment(s): at 79 Daughter(s) Family Medical History: No Reported History General Exam General appearance: alert, in no apparent distress Head exam: Present: atraumatic, normocephalic Eye exam: Present: normal appearance, PERRL ENT exam: Present: mucous membranes dry Neck exam: Present: normal inspection. Absent: tenderness, meningismus Respiratory exam: Present: normal lung sounds bilaterally. Absent: respiratory distress, wheezes Cardiovascular Exam: Present: regular rate, normal rhythm GI/Abdominal exam: Present: soft, distended, tenderness. Absent: guarding, rebound Extremities exam: Present: pedal edema Neurological exam: Present: alert, oriented X3, CN II-XII intact. Absent: motor sensory deficit Psychiatric exam: Present: normal affect, normal mood Skin exam: Present: warm, dry, intact Course Vital Signs 12/13/22 12/13/22 12/13/22 00:27 01:30 02:00 Temperature 98.6 F Pulse Rate 76 69 69 Respiratory 18 16 16 Rate Blood Pressure 131/100 136/71 131/71 O2 Sat by Pulse 99 99 97 Oximetry EKG Findings - EKG Comments: EKG Findings:: EKG: Sinus rhythm significant artifact limiting assessment, rate of 72, MT interval 139, QRS duration 98, QTC [address] segment elevation. Medical Decision Making - Medical Decision Making Was pt. sent in by a medical professional or institution (, PA, HEAD OF QUALITY, urgent care, hospital, or halfway...) When possible be specific @ -No Did you speak to anyone other than the patient for history (EMS, parent, family, police, friend...)? What history was obtained from this source @ -No Did you review nursing and triage notes (agree or disagree)? Why? @ -I reviewed and agree with nursing and triage notes Were old charts reviewed (outside hosp., previous admission, EMS record, old EKG, old radiological studies, urgent care reports/EKG's, halfway records)? Report findings @ -No old charts were reviewed Differential Diagnosis (chest pain, altered mental status, abdominal pain women, abdominal pain men, vaginal bleeding, weakness, fever, dyspnea, syncope, headache, dizziness, GI bleed, back pain, seizure, CVA, palpatations, mental health, musculoskeletal)? @ -Differential Abdominal Pain Women: Appendicitis, Cholecystitis, diverticulosis, ischemic bowel, pancreatitis, hepatitis, UTI, gastroenteritis, AAA, incarcerated hernia, bowel obstruction, constipation, inflammatory bowel, hepatitis, peptic ulcer disease, splenic infarction, perforated viscus, vulvitis, kidney stone, placenta abruption, this is not meant to be an all-inclusive list EKG interpreted by me (3pts min.). @ -As above X-rays interpreted by me (1pt min.). @ -None done CT interpreted by me (1pt min.). @ -[CT showing intrauterine gas, possibility of a necrotic mass and lymphadenopathy. U/S interpreted by me (1pt. min.). @ -None done What testing was considered but not performed or refused? (CT, X-rays, U/S, labs)? Why? @ -None What meds were considered but not given or refused? Why? @ -None Did you discuss the management of the patient with other professionals (professionals i.e. , PA, HEAD OF QUALITY, lab, RT, psych nurse, nursing home social worker, environmental maintenance worker, teacher, corrections officer, immigration case manager)? Give summary @ -Case discussed with the admitting physician. Was smoking cessation discussed for >3mins.? @ -No Was critical care preformed (if so, how long)? @ -No Were there social determinants of health that impacted care today? How? (Homelessness, low income, unemployed, alcoholism, drug addiction, transportation, low edu. Level, literacy, decrease access to med. care, [facility], rehab)? @ -No Was there de-escalation of care discussed even if they declined (Discuss DNR or withdrawal of care, Hospice)? DNR status @ -No What co-morbidities impacted this encounter? (DM, HTN, Smoking, COPD, CAD, Cancer, CVA, ARF, Chemo, Hep., AIDS, mental health diagnosis, sleep apnea, morbid obesity)? @ -Hypertension, diabetes Was patient admitted / discharged? Hospital course, mention meds given and route, prescriptions, significant lab abnormalities, going to OR and other pertinent info. @ -67-year-old female with a one-month history of lower abdominal pain and back pain. Patient has stable vitals. Arrival. She does have lower abdominal tenderness. Workup is initiated which reveals a significantly elevated white blood cell count at 19. Chronic anemia with a hemoglobin 9.8. CT shows intrauterine gas and the possibility of a colonic fistula or necrotic mass. Given the elevated white blood cell count she is started on Levaquin and Flagyl. She will be admitted to internal medicine with both general surgery and gynecology placed on consult. Undiagnosed new problem with uncertain prognosis? @ -No Drug Therapy requiring intensive monitoring for toxicity (Heparin, Nitro, Insulin, Cardizem)? @ -No Were any procedures done? @ -No Diagnosis/symptom? @ -Abdominal pain, suspect necrotic uterine mass Acute, or Chronic, or Acute on Chronic? @ -Acute Uncomplicated (without systemic symptoms) or Complicated (systemic symptoms)? @ -Complicated Side effects of treatment? @ -No Exacerbation, Progression, or Severe Exacerbation? @ -No - Lab Data Result diagrams: 12/13/22 00:38 12/13/22 00:38 Lab Results 12/13/22 12/13/22 12/13/22 Range/Units 00:38 00:38 00:38 WBC 18.8 H (3.8-10.6) k/uL RBC 3.30 L (3.80-5.40) m/uL Hgb 9.8 L (11.4-16.0) gm/dL Hct 30.6 L (34.0-46.0) % MCV 92.8 (80.0-100.0) fL MCH 29.6 (25.0-35.0) pg MCHC 31.9 (31.0-37.0) g/dL RDW 16.0 H (11.5-15.5) % Plt Count 836 H (150-450) k/uL MPV 7.6 Neutrophils % 83 % Lymphocytes % 9 % Monocytes % 4 % Eosinophils % 3 % Basophils % 0 % Neutrophils # 15.6 H (1.3-7.7) k/uL Lymphocytes # 1.7 (1.0-4.8) k/uL Monocytes # 0.7 (0-1.0) k/uL Eosinophils # 0.5 (0-0.7) k/uL Basophils # 0.0 (0-0.2) k/uL Anisocytosis Slight PT 11.1 (9.0-12.0) sec INR 1.1 (<1.2) APTT 25.2 (22.0-30.0) sec Sodium 135 L (137-145) mmol/L Potassium 4.5 (3.5-5.1) mmol/L Chloride 100 (98-107) mmol/L Carbon Dioxide 22 (22-30) mmol/L Anion Gap 13 mmol/L BUN 29 H (7-17) mg/dL Creatinine 1.98 H (0.52-1.04) mg/dL Est GFR (CKD-EPI)AfAm 29 (>60 ml/min/1.73 sqM) Est GFR (CKD-EPI)NonAf 26 (>60 ml/min/1.73 sqM) Glucose 120 H (74-99) mg/dL Calcium 10.0 (8.4-10.2) mg/dL Total Bilirubin 0.6 (0.2-1.3) mg/dL AST 19 (14-36) U/L ALT 13 (4-34) U/L Alkaline Phosphatase 205 H (38-126) U/L Total Protein 6.4 (6.3-8.2) g/dL Albumin 3.2 L (3.5-5.0) g/dL Amylase 43 (30-110) U/L Lipase 14 L (23-300) U/L Disposition Clinical Impression: Diabetes, Leukocytosis, Uterine mass Disposition: ADMITTED IP TO THIS HOSP Condition: Stable Is patient prescribed a controlled substance at d/c from ED?: No Referrals: Sanket Severino MD [Primary Care Provider] - 1-2 days Time of Disposition: 02:51
[2022-12-13] MEDS ORDERED: IOPAMIDOL CONTRAST (ORAL USE) VIAL PO PRN (07:43)
[2022-12-13 09:21] LABS: Appearance,Urine Cloudy (Clear); Bacteria,Urine Rare /hpf; Bilirubin,Urine Negative (Negative); Blood,Urine Small (Negative); Color,Urine Yellow; Glucose,Urine (UA) Negative (Negative); Hyaline Casts,Urine 4 /lpf (0-2); Ketones,Urine Negative (Negative); Leukocyte Esterase,Urine Large (Negative); Mucus,Urine Rare /hpf; Nitrite,Urine Negative (Negative); Protein,Urine 1+ (Negative); RBC,Urine 3 /hpf (0-5); Specific Gravity,Urine 1.017 (1.001-1.035); Urobilinogen,Urine <2.0 mg/dL (<2.0); WBC,Urine >182 /hpf (0-5)
--- NOTE | 2022-12-13 10:38 | CT ---
EXAMINATION TYPE: CT abdomen pelvis wo con CT DLP: 1385.2 mGycm, Automated exposure control for dose reduction was used. DATE OF EXAM: 12/13/2022 10:18 AM COMPARISON: CT abdomen pelvis most recent from 12/13/2022. CLINICAL INDICATION:Female, 67 years old with history of colo Uterine fistula; TECHNIQUE: Axial CT of the abdomen and pelvis. Sagittal and coronal reformats were created on a [employer] workstation. Contrast used: None Oral contrast used: with Oral Contrast FINDINGS: LOWER CHEST: Unremarkable ABDOMEN LIVER: Nodular contour to liver. GALLBLADDER AND BILE DUCTS: The gallbladder is mildly distended with layering debris. PANCREAS: Unremarkable. SPLEEN: Unremarkable. ADRENAL GLANDS: Unremarkable. KIDNEYS AND URETERS: No evidence of hydronephrosis or renal calculus. The ureters are unremarkable. PELVIS BLADDER: Unremarkable REPRODUCTIVE: Uterus has air within the lumen. Suspected tract extending towards the sigmoid colon as seen on series 201 image 68 with soft tissue seen extending from the colon to the uterus. ABDOMEN & PELVIS STOMACH AND BOWEL: No evidence of bowel obstruction. Scattered colonic diverticula present including multiple diverticula near the uterus. Soft tissue tract does extend towards the uterus best appreciat ed on series 201 image 72. There is no organizing fluid collection suggest abscess. PERITONEUM/RETROPERITONEUM: No evidence of pneumoperitoneum or free fluid. VASCULATURE: No evidence of aortic aneurysm. MUSCULOSKELETAL: No acute osseous abnormalities. Moderate disc degeneration changes are present throu ghout the thoracolumbar spine. LYMPH NODES: Retroperitoneal lymphadenopathy is present including near the hiatus/recurrent measuring up to 20 mm and along the left aspect of the aorta with conglomerate lymphadenopathy measuring 5.2 x 2.9 cm. SOFT TISSUE/ABDOMINAL WALL: Unremarkable IMPRESSION: 1. Air within the uterine lumen with gas tracking right laterally towards the sigmoid:. 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 No organizing fluid collection. 2. Retroperitoneal lymphadenopathy compatible with metastatic disease. 3. Hepatic nodular contour suggestive of cirrhosis. 4. Layering biliary debris.
--- NOTE | 2022-12-13 16:29 | P.GSCN ---
History of Present Illness Consult date: 12/13/22 History of present illness: CHIEF COMPLAINT: Abdominal pain HISTORY OF PRESENT ILLNESS: This is a 67-year-old female who presented with left lower abdominal pain and lower back pain 1 month. Patient reports that she has been done with constipation and then takes medication which causes her to have diarrhea. Patient does report decreased appetite she believes she's had some weight loss. She also reports night sweats. She has had some intermittent vomiting. Patient does report that she did have grade T yellowish vaginal discharge. Computed tomography scan abdomen and pelvis completed that has shown intrauterine gas extends into the right cornual serosa. This is nonspecific finding could review related to an endometrioid S, recent intrauterine instrumentation, cold urine fistula or necrotic mass. Computed tomography scan abdomen and pelvis with oral contrast was ordered to further evaluate about possible fistula. Patient denies any history of diverticulitis. Patient seen and examined with Dr. bueno PAST MEDICAL HISTORY: See below. History of congestive heart failure PAST SURGICAL HISTORY: See below MEDICATIONS: See below ALLERGIES: See below SOCIAL HISTORY: No illicit drug use. REVIEW OF SYSTEMS: CONSTITUTIONAL: Denies fever or chills. HEENT: Denies blurred vision, vision changes, or eye pain. Denies hemoptysis CARDIOVASCULAR: Denies chest pain or pressure. RESPIRATORY: No shortness of breath. GASTROINTESTINAL: See HPI for pertinent findings HEMATOLOGIC: Denies bleeding disorders. GENITOURINARY: Denies any blood in urine or increased urinary frequency. SKIN: Denies pruitis. Denies rash. PHYSICAL EXAM: VITAL SIGNS: Reviewed GENERAL: Well-developed in no acute distress. HEENT: No sclera icterus. Extraocular movements grossly intact. Moist buccal mucosa. Head is atraumatic, normocephalic. No nasal drainage. ABDOMEN: Soft. Nondistended. Nontender. NEUROLOGIC: Alert and oriented. Cranial nerves II through XII grossly intact. LABORATORY DATA: WBC 18.8 Hgb 9.8 platelets 836 Sodium is 135 potassium 4.5 creatinine 1.98 Lactic acid 1.0 Lipase 14 Urinalysis with evidence of infection IMAGING: Computed tomography scan abdomen and pelvis without contrast showing intrauterine gas extends to the right cornual serosa. This nonspecific finding may be related to endometritis, recent intrauterine instrumentation, call uterine fistula or necrotic mass. Nonspecific retroperitoneal adenopathy may be related to metastatic disease or lymphoproliferative process. Computed tomography scan of pelvis with oral contrast shows air within the uterine lumen with gas tracking right laterally towards the sigmoid colon. 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 No organizing fluid collection. Retroperitoneal lymphadenopathy compatible with metastatic disease. Hepatic nodular contours adjust of cirrhosis. Layering biliary debris ASSESSMENT: 1. Colouterine fistula PLAN: -Patient is scheduled for colonoscopy on Sunday with Dr. Bueno -Patient will require surgical intervention for the Colouterine fistula -Continue antibiotics -Continue supportive -Continue regular diet Thank you for this consultation Physician Associate Justice note has been reviewed by physician. Signing provider agrees with the documented findings, assessment, and plan of care. Past Medical History Past Medical History: Asthma, Diabetes Mellitus, GERD/Reflux, Hyperlipidemia, Hypertension, Osteoarthritis (OA), Pneumonia, Thyroid Disorder Additional Past Medical History / Comment(s): 10-16-15 admitted with foeign body rt foot/abcess. other past medical hx includes: RHEUMATIC FEVER, OCC PALPITATIONS,BRONCHITIS, ghout History of Any Multi-Drug Resistant Organisms: MRSA Year Discovered:: 2008 MDRO Source:: lt leg Past Surgical History: Appendectomy, Section, Tonsillectomy Additional Past Surgical History / Comment(s): X2 C SECTIONS, right foot IND Past Anesthesia/Blood Transfusion Reactions: No Reported Reaction Additional Past Anesthesia/Blood Transfusion Reaction / Comm: clausterphobia Past Psychological History: No Psychological Hx Reported Smoking Status: Former smoker Past Alcohol Use History: None Reported Past Drug Use History: None Reported - Past Family History Father Family Medical History: Congestive Heart Failure (CHF), Diabetes Mellitus Additional Family Medical History / Comment(s): quad bypass Mother Family Medical History: Blood Disorder, Congestive Heart Failure (CHF), Coronary Artery Disease (CAD) Additional Family Medical History / Comment(s): at 79 Daughter(s) Family Medical History: No Reported History Medications and Allergies Home Medications Medication Instructions Recorded Confirmed Type Aspirin EC [Ecotrin] 325 mg PO DAILY 05/16/19 12/13/22 History Budesonide/Formoterol Fumarate 2 puff INHALATION RT-BID 05/16/19 12/13/22 History [Symbicort 160-4.5 Mcg Inhaler] allopurinoL [Zyloprim] 300 mg PO DAILY 05/16/19 12/13/22 History Metoprolol Succinate (ER) [Toprol 25 mg PO DAILY #30 tab.er.24h 05/21/19 12/13/22 Rx XL] Docusate [Colace] 100 mg PO DAILY 11/11/20 12/13/22 History Ergocalciferol (Vitamin D2) 1,250 mcg PO TH 11/11/20 12/13/22 History [Drisdol (50,000 Iu)] Furosemide [Lasix] 40 mg PO Q48H 11/11/20 12/13/22 History Levothyroxine Sodium [Synthroid] 75 mcg PO DAILY 11/11/20 12/13/22 History amLODIPine [Norvasc] 5 mg PO DAILY 11/11/20 12/13/22 History Insulin Aspart [Insulin Aspart 10 unit SQ AC-TID 12/13/22 12/13/22 History Flexpen] hydrALAZINE HCL [Apresoline] 50 mg PO BID 12/13/22 12/13/22 History Allergies Allergy/AdvReac Type Severity Reaction Status Date / Time ampicillin sodium Allergy Itching Verified 12/13/22 08:43 [From Unasyn] sulbactam sodium Allergy Itching Verified 12/13/22 08:43 [From Unasyn] Surgical - Exam Vital Signs Temp Pulse Resp BP Pulse Ox 98.6 F 76 18 131/100 99 12/13/22 00:27 12/13/22 00:27 12/13/22 00:27 12/13/22 00:27 12/13/22 00:27 Results - Labs 12/13/22 00:38 12/13/22 00:38 Abnormal Lab Results - Last 24 Hours (Table) 12/13/22 12/13/22 12/13/22 Range/Units 00:38 00:38 08:40 WBC 18.8 H (3.8-10.6) k/uL RBC 3.30 L (3.80-5.40) m/uL Hgb 9.8 L (11.4-16.0) gm/dL Hct 30.6 L (34.0-46.0) % RDW 16.0 H (11.5-15.5) % Plt Count 836 H (150-450) k/uL Neutrophils # 15.6 H (1.3-7.7) k/uL Sodium 135 L (137-145) mmol/L BUN 29 H (7-17) mg/dL Creatinine 1.98 H (0.52-1.04) mg/dL Glucose 120 H (74-99) mg/dL Alkaline Phosphatase 205 H (38-126) U/L Albumin 3.2 L (3.5-5.0) g/dL Lipase 14 L (23-300) U/L Urine Appearance Cloudy H (Clear) Urine Protein 1+ H (Negative) Urine Blood Small H (Negative) Ur Leukocyte Esterase Large H (Negative) Urine WBC >182 H (0-5) /hpf Urine Bacteria Rare H (None) /hpf Hyaline Casts 4 H (0-2) /lpf Urine Mucus Rare H (None) /hpf Diabetes panel 12/13/22 Range/Units 00:38 Sodium 135 L (137-145) mmol/L Potassium 4.5 (3.5-5.1) mmol/L Chloride 100 (98-107) mmol/L Carbon Dioxide 22 (22-30) mmol/L BUN 29 H (7-17) mg/dL Creatinine 1.98 H (0.52-1.04) mg/dL Glucose 120 H (74-99) mg/dL Calcium 10.0 (8.4-10.2) mg/dL AST 19 (14-36) U/L ALT 13 (4-34) U/L Alkaline Phosphatase 205 H (38-126) U/L Total Protein 6.4 (6.3-8.2) g/dL Albumin 3.2 L (3.5-5.0) g/dL Calcium panel 12/13/22 Range/Units 00:38 Calcium 10.0 (8.4-10.2) mg/dL Albumin 3.2 L (3.5-5.0) g/dL Pituitary panel 12/13/22 Range/Units 00:38 Sodium 135 L (137-145) mmol/L Potassium 4.5 (3.5-5.1) mmol/L Chloride 100 (98-107) mmol/L Carbon Dioxide 22 (22-30) mmol/L BUN 29 H (7-17) mg/dL Creatinine 1.98 H (0.52-1.04) mg/dL Glucose 120 H (74-99) mg/dL Calcium 10.0 (8.4-10.2) mg/dL Adrenal panel 12/13/22 Range/Units 00:38 Sodium 135 L (137-145) mmol/L Potassium 4.5 (3.5-5.1) mmol/L Chloride 100 (98-107) mmol/L Carbon Dioxide 22 (22-30) mmol/L BUN 29 H (7-17) mg/dL Creatinine 1.98 H (0.52-1.04) mg/dL Glucose 120 H (74-99) mg/dL Calcium 10.0 (8.4-10.2) mg/dL Total Bilirubin 0.6 (0.2-1.3) mg/dL AST 19 (14-36) U/L ALT 13 (4-34) U/L Alkaline Phosphatase 205 H (38-126) U/L Total Protein 6.4 (6.3-8.2) g/dL Albumin 3.2 L (3.5-5.0) g/dL
[2022-12-13] MEDS: HEPARIN SODIUM,PORCINE/PF 5,000 UNIT/0.5 ML SYRINGE SQ SCH ×2 (16:49→23:09)
[2022-12-13] MEDS: HYDROmorphone 0.5 MG/0.5 ML SYRINGE IVP PRN ×2 (16:55→21:08)
[2022-12-13] MEDS: metroNIDAZOLE-NS PMX 500 MG in SALINE 1 100ML.BAG IVPB SCH ×2 (17:01→23:11)
[2022-12-13] MEDS ORDERED: DEXTROSE 50% SYRINGE 50 ML IVP PRN ×2 (17:43)
[2022-12-13] MEDS: INSULIN ASPART (NovoLOG) 100 UNIT/ML VIAL SQ SCH (19:54)
[2022-12-13 19:55] LABS: Glucose,Whole Blood 118 mg/dL (70-110)
[2022-12-13] MEDS: ONDANSETRON 4 MG/2 ML VIAL IVP PRN (19:58)
--- NOTE | 2022-12-14 01:22 | P.HPIM ---
History of Present Illness H&P Date: 12/13/22 Chief Complaint: Abdominal pain Patient is a 67-year-old female with a long history of hypertension, hyperlipidemia, diabetes type 2 insulin-dependent, hypothyroidism, asthma and prior history of smoking presents to ER with complaints of abdominal pain and low back pain for the past 1 month. Patient states that she has been having issues with constipation and when she does take medications for it which is causing diarrhea. She has been having decreased appetite and weight loss. She has been having intermittent night sweats. Currently denies any nausea or vomiting. Patient reports that she did have yellowish vaginal discharge. She does have chronic lower extremity edema and does take diuretics every [address] of the abdomen pelvis showed intrauterine gas extending to the right cornual serosa. This nonspecific finding may be related to endometritis, recent intrauterine instrumentation, colouterine fistula or necrotic mass. Nonspecific retroperitoneal adenopathy may be related to metastatic disease lymphoproliferative process. Laboratory data showed WBC 18.8 hemoglobin 9.8 and platelets 336 Sodium 135 potassium 4.5 chloride 100 bicarb is 22 BUN 29 creatinine 1.98 Alk phos 205 Urinalysis showed cloudy with small blood nitrite negative large leukocyte esterase with greater than 182 WBCs. Review of Systems Constitutional: Patient denies any fever or chills . Patient does have generalized weakness and weight loss. Abdomen: Patient does have intermittent vomiting and abd. pain. Cardiovascular: Patient denies any chest pain or short of breath no palpitations. Respiratory: patient denied any cough . no sputum production. No shortness of breath Neurologic: Patient denied any numbness or tingling headache. Musculoskeletal: Patient denies any complaints of joint swelling or deformity. Skin: Negative Psychiatric: Negative Endocrine: No heat or cold intolerance. No recent weight gain. Genitourinary: No dysuria or hematuria. All other 14 point ROS negative except the above Past Medical History Past Medical History: Asthma, Diabetes Mellitus, GERD/Reflux, Hyperlipidemia, Hypertension, Osteoarthritis (OA), Pneumonia, Thyroid Disorder Additional Past Medical History / Comment(s): 2- admitted with foeign body rt foot/abcess. other past medical hx includes: RHEUMATIC FEVER, OCC PALPITATIONS,BRONCHITIS, ghout History of Any Multi-Drug Resistant Organisms: MRSA Date of last positivie culture/infection: 2008 MDRO Source:: lt leg Past Surgical History: Appendectomy, Section, Tonsillectomy Additional Past Surgical History / Comment(s): X2 C SECTIONS, right foot IND Past Anesthesia/Blood Transfusion Reactions: No Reported Reaction Additional Past Anesthesia/Blood Transfusion Reaction / Comment(s): clausterphobia Past Psychological History: No Psychological Hx Reported Smoking Status: Former smoker Past Alcohol Use History: None Reported Past Drug Use History: None Reported - Past Family History Father Family Medical History: Congestive Heart Failure (CHF), Diabetes Mellitus Additional Family Medical History / Comment(s): quad bypass Mother Family Medical History: Blood Disorder, Congestive Heart Failure (CHF), Coronary Artery Disease (CAD) Additional Family Medical History / Comment(s): at 79 Daughter(s) Family Medical History: No Reported History Medications and Allergies Home Medications Medication Instructions Recorded Confirmed Type Aspirin EC [Ecotrin] 325 mg PO DAILY 05/16/19 12/13/22 History Budesonide/Formoterol Fumarate 2 puff INHALATION RT-BID 05/16/19 12/13/22 History [Symbicort 160-4.5 Mcg Inhaler] allopurinoL [Zyloprim] 300 mg PO DAILY 05/16/19 12/13/22 History Metoprolol Succinate (ER) [Toprol 25 mg PO DAILY #30 tab.er.24h 05/21/19 12/13/22 Rx XL] Docusate [Colace] 100 mg PO DAILY 11/11/20 12/13/22 History Ergocalciferol (Vitamin D2) 1,250 mcg PO TH 11/11/20 12/13/22 History [Drisdol (50,000 Iu)] Furosemide [Lasix] 40 mg PO Q48H 11/11/20 12/13/22 History Levothyroxine Sodium [Synthroid] 75 mcg PO DAILY 11/11/20 12/13/22 History amLODIPine [Norvasc] 5 mg PO DAILY 11/11/20 12/13/22 History Insulin Aspart [Insulin Aspart 10 unit SQ AC-TID 12/13/22 12/13/22 History Flexpen] hydrALAZINE HCL [Apresoline] 50 mg PO BID 12/13/22 12/13/22 History Allergies Allergy/AdvReac Type Severity Reaction Status Date / Time ampicillin sodium Allergy Itching Verified 12/13/22 08:43 [From Unasyn] sulbactam sodium Allergy Itching Verified 12/13/22 08:43 [From Unasyn] Physical Exam Vitals: Vital Signs Temp Pulse Resp BP Pulse Ox 12/13/22 12:40 85 177/76 95 12/13/22 12:26 87 20 162/75 12/13/22 10:46 82 18 12/13/22 10:00 80 18 164/79 12/13/22 08:40 96.6 F L 78 18 162/77 97 12/13/22 06:00 67 16 131/59 98 12/13/22 05:00 71 16 131/92 98 12/13/22 04:00 78 18 143/66 98 12/13/22 03:00 74 16 146/74 98 12/13/22 02:00 69 16 131/71 97 12/13/22 01:30 69 16 136/71 99 12/13/22 00:27 98.6 F 76 18 131/100 99 Intake and Output 12/12/22 12/13/22 12/13/22 22:59 06:59 14:59 Other: Weight 122.47 kg PHYSICAL EXAMINATION: Patient is lying in the bed comfortably, no acute distress, awake alert and oriented.. HEENT: Normocephalic. Neck is supple. Pupils reactive. Nostrils clear. Oral cavity is moist. Neck reveals no JVD, carotid bruits, or thyromegaly. CHEST EXAMINATION: Trachea is central. Symmetrical expansion. Bibasilar di minished sounds.. CARDIAC: Normal S1, S2 with no gallops. No murmurs ABDOMEN: Soft. Bowel sounds present. Mild lower abdominal tenderness no guarding or rigidity. r. No organomegaly. No abdominal bruits. Extremities: reveal 2+ edema. No clubbing or cyanosis Neurologically awake, alert, oriented x3 with well-coordinated movements. No focal deficits noted Skin: No rash or skin lesions. Psychiatric: Coperative. Nonsuicidal, Musculoskeletal: No joint swelling or deformity. Normal range of motion. Results CBC & Chem 7: 12/13/22 00:38 12/13/22 00:38 Labs: Abnormal Lab Results - Last 24 Hours (Table) 12/13/22 12/13/22 12/13/22 Range/Units 00:38 00:38 08:40 WBC 18.8 H (3.8-10.6) k/uL RBC 3.30 L (3.80-5.40) m/uL Hgb 9.8 L (11.4-16.0) gm/dL Hct 30.6 L (34.0-46.0) % RDW 16.0 H (11.5-15.5) % Plt Count 836 H (150-450) k/uL Neutrophils # 15.6 H (1.3-7.7) k/uL Sodium 135 L (137-145) mmol/L BUN 29 H (7-17) mg/dL Creatinine 1.98 H (0.52-1.04) mg/dL Glucose 120 H (74-99) mg/dL Alkaline Phosphatase 205 H (38-126) U/L Albumin 3.2 L (3.5-5.0) g/dL Lipase 14 L (23-300) U/L Urine Appearance Cloudy H (Clear) Urine Protein 1+ H (Negative) Urine Blood Small H (Negative) Ur Leukocyte Esterase Large H (Negative) Urine WBC >182 H (0-5) /hpf Urine Bacteria Rare H (None) /hpf Hyaline Casts 4 H (0-2) /lpf Urine Mucus Rare H (None) /hpf Thrombosis Risk Factor Assmnt - DVT/VTE Prophylaxis DVT/VTE Prophylaxis: Pharmacologic Prophylaxis ordered Assessment and Plan Assessment: 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 Leukocytosis Acute kidney injury likely prerenal Hypovolemic hyponatremia Diabetes type 2 insulin-dependent Normocytic anemia with hemoglobin 9.8 Hypothyroidism Asthma not in exacerbation Chronic bilateral lower extremity swelling Constipation GI and DVT prophylaxis Plan: Patient will be continued on IV hydration with normal saline. Continue with antibiotics Levaquin and Flagyl. consulted general surgery and recommended CT abdomen pelvis with oral contrast. Continue with home medications and follow-up CBC and BMP tomorrow. Prognosis is guarded. Time with Patient: Greater than 30
[2022-12-14] MEDS: FUROSEMIDE 40 MG TAB PO SCH (01:25)
[2022-12-14] MEDS: hydrALAZINE HCL 50 MG TAB PO SCH ×3 (01:25→23:05)
[2022-12-14] MEDS: HYDROmorphone 0.5 MG/0.5 ML SYRINGE IVP PRN ×4 (01:50→11:50)
[2022-12-14] MEDS: ONDANSETRON 4 MG/2 ML VIAL IVP PRN ×3 (01:50→16:25)
[2022-12-14] MEDS ORDERED: LEVOFLOXACIN 500MG-D5W PMX 500 MG in DEXTROSE/WATER 1 100ML.BAG IVPB SCH (04:00)
[2022-12-14] MEDS: LEVOTHYROXINE 75 MCG TAB PO SCH (05:49)
[2022-12-14 06:27] LABS: Glucose,Whole Blood 104 mg/dL (70-110)
[2022-12-14] MEDS: INSULIN ASPART (NovoLOG) 100 UNIT/ML VIAL SQ SCH ×7 (06:28→23:07)
[2022-12-14] MEDS: SODIUM CHLORIDE 0.9% 1,000 ML IV SCH ×3 (06:40→23:08)
[2022-12-14] MEDS: METOPROLOL SUCCINATE (ER) 25 MG TAB.ER.24H PO SCH (07:51)
[2022-12-14] MEDS: amLODIPine 5 MG TAB PO SCH (07:51)
[2022-12-14] MEDS: DOCUSATE 100 MG CAP PO SCH (07:51)
[2022-12-14] MEDS: allopurinoL 300 MG TAB PO SCH (07:51)
[2022-12-14] MEDS: metroNIDAZOLE-NS PMX 500 MG in SALINE 1 100ML.BAG IVPB SCH ×3 (07:51→23:09)
[2022-12-14] MEDS: HEPARIN SODIUM,PORCINE/PF 5,000 UNIT/0.5 ML SYRINGE SQ SCH ×3 (07:58→23:09)
--- NOTE | 2022-12-14 08:19 | US ---
EXAMINATION TYPE: US transvaginal DATE OF EXAM: 12/14/2022 COMPARISON: NONE CLINICAL HISTORY: colo-uterine fistula. colo-uterine fistula TECHNIQUE: Transvaginal (TV). Date of LMP: unknown EXAM MEASUREMENTS: Uterus: 15.6 x 7.3 x 5.8 cm Endometrial Stripe: unable to clearly visualize Right Ovary: unable to visualize Left Ovary: unable to visualize Technical limitations due to patient's body habitus and limited mobility. Patient unable to lift victorina ttom or move legs into adequate position 1. Uterus: Anteverted limited evaluation, heterogeneous . 2. Endometrium: unable to visualize clearly. Echogenic material in the endometrial canal could be r elated to air. 3. Right Ovary: Obscured by overlying bowel gas 4. Left Ovary: Obscured by overlying bowel gas 5. Bilateral Adnexa: wnl 6. Posterior cul-de-sac: wnl IMPRESSION: 1. Abnormal appearance to endometrial canal can be related to suspected: The uterine fistula. Echogen ic areas within the endometrial canal could be related to air. A suspicious tract is not identified o n this examination. Additional workup is recommended
[2022-12-14] MEDS: SYMBICORT 160-4.5 MCG INHALER INHALATION SCH ×2 (08:51→20:40)
[2022-12-14 10:56] LABS: Basophils # (A) 0.09 X 10*3/uL (0.00-0.10); Basophils % (A) 0.5 %; Eosinophils # (A) 0.38 X 10*3/uL (0.04-0.35); Eosinophils % (A) 1.9 %; HGB 8.6 g/dL (12.0-15.0); Immature Grans, Automated 1.6 %; Lymphocytes # (A) 1.48 X 10*3/uL (0.90-5.00); Lymphocytes % (A) 7.5 %; MCHC 29.7 g/dL (32.0-37.0); MCV 97.6 fL (80.0-97.0); Mean Platelet Volume 9.8 fL (9.5-12.2); Monocytes # (A) 1.46 X 10*3/uL (0.20-1.00); Monocytes % (A) 7.4 %; NRBC Per 100 WBC 0 /100 WBCS (0.0-0.0); Neutrophils # (A) 15.91 X 10*3/uL (1.80-7.70); Neutrophils % (A) 81.1 %; Platelet Count 711 X 10*3/uL (140-440); RBC 2.97 X 10*6/uL (4.10-5.20); RDW 16.8 % (11.5-14.5); WBC 19.64 X 10*3/uL (4.50-10.00)
[2022-12-14 11:21] LABS: Glucose,Whole Blood 100 mg/dL (70-110)
[2022-12-14 12:00] LABS: % Iron Saturation 18.53 (12.00-45.00); African American GFR (CKD) 32.9 (60.0-200.0); BUN/Creat Ratio 11.56 Ratio (12.00-20.00); Blood Urea Nitrogen 20.8 mg/dL (9.0-27.0); Calcium 10.4 mg/dL (8.7-10.3); Non-African American GFR(CKD) 28.4 (60.0-200.0); Potassium 4.6 mmol/L (3.5-5.5)
--- NOTE | 2022-12-14 14:55 | P.PN ---
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 patient is scheduled for colonoscopy on Sunday. Patient reports that her PCP told her that due to her COPD it would be difficult for her to have any procedure such as a colonoscopy or surgery. Patient's pain is controlled. Denies any nausea or vomiting. Afebrile. WBC is 19.64 Hgb 8.6 platelets 711 sodium is 136 potassium 4.6 creatinine 1.8 PHYSICAL EXAM: VITAL SIGNS: Reviewed GENERAL: Well-developed in no acute distress. HEENT: No sclera icterus. Extraocular movements grossly intact. Moist buccal mucosa. Head is atraumatic, normocephalic. Hears conversational speech. No nasal drainage. NECK: Supple without lymphadenopathy. CHEST: Non-labored respirations and equal bilateral excursions. CARDIOVASCULAR: Palpable 2+ radial pulses. ABDOMEN: Soft. Nondistended. MUSCULOSKELETAL: No clubbing or cyanosis. NEUROLOGIC: No focal or lateralizing signs. Cranial nerves II through XII grossly intact. PSYCH: Appropriate affect. Alert and oriented to person, place and time. SKIN: Well perfused. Good skin turgor. ASSESSMENT: 1. Colouterine fistula 2. Leukocytosis 3. Acute kidney injury 4. Diabetes mellitus 5. History of asthma and COPD PLAN: -Due to patient's history of asthma and COPD we'll consult pulmonary for clearance for colonoscopy and possible surgical intervention for colouterine fistula -Patient is scheduled for colonoscopy on Sunday with Dr. bueno -Continue antibiotics -Continue supportive care Physician Forensic Nurse note has been reviewed by physician. Signing provider agrees with the documented findings, assessment, and plan of care. 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 She reports anxiety over colonoscopy. No moderate abdominal pain. ROS: No reports of nausea and vomiting. No fevers or chills. No new chest pain. Has chronic obstructive pulmonary disease. PHYSICAL EXAM: VITAL SIGNS: Reviewed CONSTITUTIONAL: Well developed and in no acute distress. EYES: Conjuctivae without sclera icterus. Extraocular movements grossly intact. HEAD, EARS, NOSE, THROAT: Moist buccal mucosa. Head is atraumatic, normocephalic. Hears conversational speech. No nasal drainage. RESPIRATORY: Non-labored respirations and equal bilateral excursions. CARDIOVASCULAR: Palpable 2+ radial pulses. ABDOMEN: Protuberant. No peritonitis. MUSCULOSKELETAL: No gross deformity of the lower extremities noted. No clubbing. No cyanosis. SKIN: Good skin turgor. Well perfused. NEUROLOGIC: Cranial nerves II through XII grossly intact. No focal or lateralizing signs. PSYCH: Appropriate affect. Alert and oriented to person, place and time. CLINICAL LABS: Reviewed. 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 Chronic obstructive pulmonary disease PLAN: 1. Recommend pulmonary consultation due to chronic obstructive pulmonary dise ase 2. Colonoscopy pending further assessment intestinal uterine fistula 3. Continue antibiotics Objective - Vital Signs Vital signs: Vital Signs Temp 97.2 F L 12/14/22 13:34 Pulse 91 12/14/22 13:34 Resp 18 12/14/22 13:34 BP 133/63 12/14/22 13:34 Pulse Ox 96 12/14/22 13:34 FiO2 Intake & Output 12/13/22 12/14/22 12/14/22 18:59 06:59 18:59 Intake Total 900 Output Total 800 Balance 900 -800 Weight 122.47 kg Intake: Intake, IV Titration 900 Amount Sodium Chloride 0.9% 1, 900 000 ml @ 75 mls/hr IV . [id number] [facility] Rx#:[id number] Output: Urine 800 Other: Voiding Method Bedside Commode Bedside Commode Diaper External Catheter # Voids 5 # Bowel Movements 0 - Labs CBC & Chem 7: 12/14/22 06:37 12/14/22 06:37 Labs: Abnormal Lab Results - Last 24 Hours (Table) 12/13/22 12/14/22 12/14/22 Range/Units 19:53 06:37 06:37 WBC 19.64 H (4.50-10.00) X 10*3/uL RBC 2.97 L (4.10-5.20) X 10*6/uL Hgb 8.6 L (12.0-15.0) g/dL Hct 29.0 L (37.2-46.3) % MCV 97.6 H (80.0-97.0) fL MCHC 29.7 L (32.0-37.0) g/dL RDW 16.8 H (11.5-14.5) % Plt Count 711 H (140-440) X 10*3/uL Immature Gran # 0.32 H (0.00-0.04) X 10*3/uL Neutrophils # 15.91 H (1.80-7.70) X 10*3/uL Monocytes # 1.46 H (0.20-1.00) X 10*3/uL Eosinophils # 0.38 H (0.04-0.35) X 10*3/uL Creatinine 1.8 H (0.6-1.5) mg/dL Est GFR (CKD-EPI)AfAm 32.9 L (60.0-200.0) Est GFR (CKD-EPI)NonAf 28.4 L (60.0-200.0) BUN/Creatinine Ratio 11.56 L (12.00-20.00) Ratio POC Glucose (mg/dL) 118 H (70-110) mg/dL Calcium 10.4 H (8.7-10.3) mg/dL Iron 35 L (50-170) ug/dL TIBC 186 L (228-460) ug/dL Transferrin 133.0 L (204.0-354.0) mg/dL Vitamin B12 1466.0 H (200.0-944.0) pg/mL TSH 10.500 H (0.350-5.500) uIU/mL Microbiology - Last 24 Hours (Table) 12/13/22 02:39 Blood Culture - Preliminary Blood No Growth after 24 hours 12/13/22 02:54 Blood Culture - Preliminary Blood No Growth after 24 hours
[2022-12-14 16:22] LABS: Glucose,Whole Blood 110 mg/dL (70-110)
--- NOTE | 2022-12-14 17:41 | P.OBCN ---
History of Present Illness Consult date: 12/13/22 Reason for consult: other (intrauterine air/necrotic mass) Chief complaint: abdominal pain History of present illness: This is a 67 yo female that was admitted yesterday with complaints of abdominal pain. Patient states she has had a change in her vaginal discharge over the last few months, over the last few days it was noted to be increased and Ray/green in color. Patient states "it smelled like infection" patient denies any vaginal bleeding Patient denies any history of diverticulitis. Patient states she has been menopausal since her early 50s. 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 #1 primary low transverse section viable female #2 repeat section, male at one day of life secondary to meconium aspiration She denies any history with gynecological care prior to this admission Review of Systems Constitutional: Reports fatigue, Denies chills, Denies fever Ears, nose, mouth and throat: Denies headache Cardiovascular: Reports leg edema Genitourinary: Reports as per HPI Menstruation: Reports postmenopausal Past Medical History Past Medical History: Asthma, Diabetes Mellitus, GERD/Reflux, Hyperlipidemia, Hypertension, Osteoarthritis (OA), Pneumonia, Thyroid Disorder Additional Past Medical History / Comment(s): 10-16-15 admitted with foeign body rt foot/abcess. other past medical hx includes: RHEUMATIC FEVER, OCC PALPITATIONS,BRONCHITIS, ghout History of Any Multi-Drug Resistant Organisms: MRSA Year Discovered:: 2008 MDRO Source:: lt leg Past Surgical History: Appendectomy, Section, Tonsillectomy Additional Past Surgical History / Comment(s): X2 C SECTIONS, right foot IND Past Anesthesia/Blood Transfusion Reactions: No Reported Reaction Additional Past Anesthesia/Blood Transfusion Reaction / Comm: clausterphobia Past Psychological History: No Psychological Hx Reported Smoking Status: Former smoker Past Alcohol Use History: None Reported Past Drug Use History: None Reported - Past Family History Father Family Medical History: Congestive Heart Failure (CHF), Diabetes Mellitus Additional Family Medical History / Comment(s): quad bypass Mother Family Medical History: Blood Disorder, Congestive Heart Failure (CHF), Coronary Artery Disease (CAD) Additional Family Medical History / Comment(s): at 79 Daughter(s) Family Medical History: No Reported History Medications and Allergies Home Medications Medication Instructions Recorded Confirmed Type Aspirin EC [Ecotrin] 325 mg PO DAILY 05/16/19 12/13/22 History Budesonide/Formoterol Fumarate 2 puff INHALATION RT-BID 05/16/19 12/13/22 History [Symbicort 160-4.5 Mcg Inhaler] allopurinoL [Zyloprim] 300 mg PO DAILY 05/16/19 12/13/22 History Metoprolol Succinate (ER) [Toprol 25 mg PO DAILY #30 tab.er.24h 05/21/19 12/13/22 Rx XL] Docusate [Colace] 100 mg PO DAILY 11/11/20 12/13/22 History Ergocalciferol (Vitamin D2) 1,250 mcg PO TH 11/11/20 12/13/22 History [Drisdol (50,000 Iu)] Furosemide [Lasix] 40 mg PO Q48H 11/11/20 12/13/22 History Levothyroxine Sodium [Synthroid] 75 mcg PO DAILY 11/11/20 12/13/22 History amLODIPine [Norvasc] 5 mg PO DAILY 11/11/20 12/13/22 History Insulin Aspart [Insulin Aspart 10 unit SQ AC-TID 12/13/22 12/13/22 History Flexpen] hydrALAZINE HCL [Apresoline] 50 mg PO BID 12/13/22 12/13/22 History Allergies Allergy/AdvReac Type Severity Reaction Status Date / Time ampicillin sodium Allergy Itching Verified 12/13/22 08:43 [From Unasyn] sulbactam sodium Allergy Itching Verified 12/13/22 08:43 [From Unasyn] Exam Osteopathic Statement: *. No significant issues noted on an osteopathic structural exam other than those noted in the History and Physical/Consult. Vital Signs Temp Pulse Pulse Pulse Resp BP BP 12/14/22 13:34 97.2 F L 91 18 133/63 12/14/22 08:55 12/14/22 07:33 98.0 F 80 17 152/76 12/14/22 01:45 98.3 F 86 18 161/71 12/13/22 18:40 98.4 F 81 16 170/67 12/13/22 17:46 79 18 124/77 Pulse Ox 12/14/22 13:34 96 12/14/22 08:55 95 12/14/22 07:33 97 12/14/22 01:45 91 L 12/13/22 18:40 96 12/13/22 17:46 98 Intake and Output 12/14/22 12/14/22 12/14/22 06:59 14:59 22:59 Intake Total 900 Output Total 800 350 Balance 900 -800 -350 Intake: Intake, IV Titration 900 Amount Sodium Chloride 0.9% 1, 900 000 ml @ 75 mls/hr IV . [id number] [facility] Rx#:[id number] Output: Urine 800 350 Other: Voiding Method Bedside Commode Diaper External Catheter # Voids 5 # Bowel Movements 0 Minimal physical exam is performed as patient states she is not feeling well, she declines pelvic exam, patient had a transvaginal pelvic ultrasound in the morning and states it was quite uncomfortable. Results Result Diagrams: 12/14/22 06:37 12/14/22 06:37 Abnormal Lab Results - Last 24 Hours (Table) 12/13/22 12/14/22 12/14/22 Range/Units 19:53 06:37 06:37 WBC 19.64 H (4.50-10.00) X 10*3/uL RBC 2.97 L (4.10-5.20) X 10*6/uL Hgb 8.6 L (12.0-15.0) g/dL Hct 29.0 L (37.2-46.3) % MCV 97.6 H (80.0-97.0) fL MCHC 29.7 L (32.0-37.0) g/dL RDW 16.8 H (11.5-14.5) % Plt Count 711 H (140-440) X 10*3/uL Immature Gran # 0.32 H (0.00-0.04) X 10*3/uL Neutrophils # 15.91 H (1.80-7.70) X 10*3/uL Monocytes # 1.46 H (0.20-1.00) X 10*3/uL Eosinophils # 0.38 H (0.04-0.35) X 10*3/uL Creatinine 1.8 H (0.6-1.5) mg/dL Est GFR (CKD-EPI)AfAm 32.9 L (60.0-200.0) Est GFR (CKD-EPI)NonAf 28.4 L (60.0-200.0) BUN/Creatinine Ratio 11.56 L (12.00-20.00) Ratio POC Glucose (mg/dL) 118 H (70-110) mg/dL Calcium 10.4 H (8.7-10.3) mg/dL Iron 35 L (50-170) ug/dL TIBC 186 L (228-460) ug/dL Transferrin 133.0 L (204.0-354.0) mg/dL Vitamin B12 1466.0 H (200.0-944.0) pg/mL TSH 10.500 H (0.350-5.500) uIU/mL Microbiology - Last 24 Hours (Table) 12/13/22 02:39 Blood Culture - Preliminary Blood No Growth after 24 hours 12/13/22 02:54 Blood Culture - Preliminary Blood No Growth after 24 hours Assessment and Plan (1) Leukocytosis Current Visit: Yes Status: Acute Code(s): D72.829 - ELEVATED WHITE BLOOD CELL COUNT, UNSPECIFIED SNOMED Code(s): 175353148 (2) Uterine mass Current Visit: Yes Status: Acute Code(s): N85.8 - OTHER SPECIFIED NONINFLAMMATORY DISORDERS OF UTERUS SNOMED Code(s): 301806262979313 Plan: 67-year-old female admitted for colouterine fistula. I did discussed ultrasound and CT findings. Multiple questions answered. 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
[2022-12-14 20:17] LABS: Glucose,Whole Blood 129 mg/dL (70-110)
[2022-12-15] MEDS: HYDROmorphone 0.5 MG/0.5 ML SYRINGE IVP PRN ×6 (00:14→21:26)
[2022-12-15] MEDS: LEVOFLOXACIN 250MG-D5W PMX 250 MG in DEXTROSE/WATER 1 50ML.BAG IVPB SCH (03:35)
[2022-12-15] MEDS: LEVOTHYROXINE 75 MCG TAB PO SCH (05:31)
[2022-12-15 06:47] LABS: Glucose,Whole Blood 136 mg/dL (70-110)
[2022-12-15] MEDS: INSULIN ASPART (NovoLOG) 100 UNIT/ML VIAL SQ SCH ×7 (06:50→20:49)
[2022-12-15] MEDS: metroNIDAZOLE-NS PMX 500 MG in SALINE 1 100ML.BAG IVPB SCH ×2 (09:30→16:21)
[2022-12-15] MEDS: DOCUSATE 100 MG CAP PO SCH (09:30)
[2022-12-15] MEDS: hydrALAZINE HCL 50 MG TAB PO SCH ×2 (09:30→21:26)
[2022-12-15] MEDS: HEPARIN SODIUM,PORCINE/PF 5,000 UNIT/0.5 ML SYRINGE SQ SCH ×2 (09:30→16:22)
[2022-12-15] MEDS: allopurinoL 300 MG TAB PO SCH (09:30)
[2022-12-15] MEDS: amLODIPine 5 MG TAB PO SCH (09:31)
[2022-12-15] MEDS: METOPROLOL SUCCINATE (ER) 25 MG TAB.ER.24H PO SCH (09:31)
[2022-12-15] MEDS: SYMBICORT 160-4.5 MCG INHALER INHALATION SCH ×2 (09:41→20:07)
--- NOTE | 2022-12-15 10:45 | XR ---
EXAMINATION TYPE: XR chest 1V portable DATE OF EXAM: 12/15/2022 10:31 AM COMPARISON: Chest radiographs from 11/18/2020. TECHNIQUE: XR chest 1V portable Frontal view of the chest. CLINICAL INDICATION:Female, 67 years old with history of Dyspnea, COPD; FINDINGS: Lungs/Pleura: There is no evidence of pleural effusion, focal consolidation, or pneumothorax. Pulmonary vascularity: Unremarkable. Heart/mediastinum: Cardiomediastinal silhouette is unremarkable. Atherosclerotic calcifications are seen in the aorta. Musculoskeletal: Degenerative changes of the shoulder joints. IMPRESSION: No acute cardiopulmonary disease/process.
[2022-12-15 11:18] LABS: Basophils # (A) 0.07 X 10*3/uL (0.00-0.10); Basophils % (A) 0.3 %; Eosinophils # (A) 0.04 X 10*3/uL (0.04-0.35); Eosinophils % (A) 0.2 %; HCT 29.8 % (37.2-46.3); HGB 8.9 g/dL (12.0-15.0); Immature Grans, Automated 1.7 %; Lymphocytes # (A) 1.17 X 10*3/uL (0.90-5.00); Lymphocytes % (A) 5.2 %; MCH 29.1 pg (27.0-32.0); MCHC 29.9 g/dL (32.0-37.0); MCV 97.4 fL (80.0-97.0); Mean Platelet Volume 9.7 fL (9.5-12.2); Monocytes # (A) 1.46 X 10*3/uL (0.20-1.00); Monocytes % (A) 6.5 %; NRBC Per 100 WBC 0 /100 WBCS (0.0-0.0); Neutrophils # (A) 19.22 X 10*3/uL (1.80-7.70); Neutrophils % (A) 86.1 %; Platelet Count 707 X 10*3/uL (140-440); RBC 3.06 X 10*6/uL (4.10-5.20); RDW 16.6 % (11.5-14.5); WBC 22.33 X 10*3/uL (4.50-10.00)
--- NOTE | 2022-12-15 11:34 | P.PN ---
Subjective Progress Note Date: 12/14/22 Patient is a 67-year-old female with a long history of hypertension, hyperlipidemia, diabetes type 2 insulin-dependent, hypothyroidism, asthma and prior history of smoking presents to ER with complaints of abdominal pain and low back pain for the past 1 month. Patient states that she has been having issues with constipation and when she does take medications for it which is causing diarrhea. She has been having decreased appetite and weight loss. She has been having intermittent night sweats. Currently denies any nausea or vomiting. Patient reports that she did have yellowish vaginal discharge. She does have chronic lower extremity edema and does take diuretics every [address] of the abdomen pelvis showed intrauterine gas extending to the right cornual serosa. This nonspecific finding may be related to endometritis, recent intrauterine instrumentation, colouterine fistula or necrotic mass. Nonspecific retroperitoneal adenopathy may be related to metastatic disease lymphoproliferative process. Laboratory data showed WBC 18.8 hemoglobin 9.8 and platelets 336 Sodium 135 potassium 4.5 chloride 100 bicarb is 22 BUN 29 creatinine 1.98 Alk phos 205 Urinalysis showed cloudy with small blood nitrite negative large leukocyte esterase with greater than 182 WBCs. 12/14/2022 Patient is still complaining of lower abdominal pain. Denied any nausea or vomiting. Seen by general surgery and is planning for colonoscopy on Sunday. Otherwise patient is on antibiotics of Levaquin and Flagyl. General surgery is on board. NAVIGATION OFFICER service was consulted regarding fistula. No complaints of fever or chills. Laboratory data showed WBC 19.6 and hemoglobin 8.6 and platelets 711 BUN 20.8 and creatinine 1.8 and blood sugar is 84. Current medications reviewed. Objective - Vital Signs Vital signs: Vital Signs Temp 97.2 F L 12/14/22 13:34 Pulse 91 12/14/22 13:34 Resp 18 12/14/22 13:34 BP 133/63 12/14/22 13:34 Pulse Ox 96 12/14/22 13:34 FiO2 Intake & Output 12/14/22 12/14/22 12/15/22 06:59 18:59 06:59 Intake Total 900 Output Total 1150 Balance 900 -1150 Intake: Intake, IV Titration 900 Amount Sodium Chloride 0.9% 1, 900 000 ml @ 75 mls/hr IV . [id number] [facility] Rx#:[id number] Output: Urine 1150 Other: Voiding Method Bedside Commode Bedside Commode Diaper External Catheter # Voids 5 # Bowel Movements 0 - Exam PHYSICAL EXAMINATION: Patient is lying in the bed comfortably, no acute distress, awake alert and oriented.. HEENT: Normocephalic. Neck is supple. Pupils reactive. Nostrils clear. Oral cavity is moist. Neck reveals no JVD, carotid bruits, or thyromegaly. CHEST EXAMINATION: Trachea is central. Symmetrical expansion. Bibasilar diminished sounds.. CARDIAC: Normal S1, S2 with no gallops. No murmurs ABDOMEN: Soft. Bowel sounds present. Mild lower abdominal tenderness no guarding or rigidity. r. No organomegaly. No abdominal bruits. Extremities: reveal 2+ edema. No clubbing or cyanosis Neurologically awake, alert, oriented x3 with well-coordinated movements. No focal deficits noted Skin: No rash or skin lesions. Psychiatric: Coperative. Nonsuicidal, Musculoskeletal: No joint swelling or deformity. Normal range of motion. - Labs CBC & Chem 7: 12/15/22 06:59 12/14/22 06:37 Labs: Abnormal Lab Results - Last 24 Hours (Table) 12/13/22 12/14/22 12/14/22 Range/Units 19:53 06:37 06:37 WBC 19.64 H (4.50-10.00) X 10*3/uL RBC 2.97 L (4.10-5.20) X 10*6/uL Hgb 8.6 L (12.0-15.0) g/dL Hct 29.0 L (37.2-46.3) % MCV 97.6 H (80.0-97.0) fL MCHC 29.7 L (32.0-37.0) g/dL RDW 16.8 H (11.5-14.5) % Plt Count 711 H (140-440) X 10*3/uL Immature Gran # 0.32 H (0.00-0.04) X 10*3/uL Neutrophils # 15.91 H (1.80-7.70) X 10*3/uL Monocytes # 1.46 H (0.20-1.00) X 10*3/uL Eosinophils # 0.38 H (0.04-0.35) X 10*3/uL Creatinine 1.8 H (0.6-1.5) mg/dL Est GFR (CKD-EPI)AfAm 32.9 L (60.0-200.0) Est GFR (CKD-EPI)NonAf 28.4 L (60.0-200.0) BUN/Creatinine Ratio 11.56 L (12.00-20.00) Ratio POC Glucose (mg/dL) 118 H (70-110) mg/dL Calcium 10.4 H (8.7-10.3) mg/dL Iron 35 L (50-170) ug/dL TIBC 186 L (228-460) ug/dL Transferrin 133.0 L (204.0-354.0) mg/dL Vitamin B12 1466.0 H (200.0-944.0) pg/mL TSH 10.500 H (0.350-5.500) uIU/mL Microbiology - Last 24 Hours (Table) 12/13/22 02:39 Blood Culture - Preliminary Blood No Growth after 24 hours 12/13/22 02:54 Blood Culture - Preliminary Blood No Growth after 24 hours Assessment and Plan Assessment: 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 Leukocytosis Acute kidney injury likely prerenal Hypovolemic hyponatremia Diabetes type 2 insulin-dependent Normocytic anemia with hemoglobin 9.8 Hypothyroidism Asthma not in exacerbation Chronic bilateral lower extremity swelling Constipation GI and DVT prophylaxis Plan: Patient will be continued on IV hydration with normal saline. Continue with antibiotics Levaquin and Flagyl. General surgery is planned for colonoscopy on Sunday. NAVIGATION OFFICER consulted. Pulmonary consult for clearance for surgery. Continue with home medications and follow-up CBC and BMP tomorrow. Prognosis is guarded. Time with Patient: Greater than 30
[2022-12-15 11:35] LABS: Phosphorus 3.5 mg/dL (2.4-5.1)
[2022-12-15 11:43] LABS: African American GFR (CKD) 34.3 (60.0-200.0); BUN/Creat Ratio 10.46 Ratio (12.00-20.00); Blood Urea Nitrogen 18.2 mg/dL (9.0-27.0); Calcium 9.8 mg/dL (8.7-10.3); Carbon Dioxide 20.3 mmol/L (20.0-27.5); Chloride 103 mmol/L (96-109); Glucose 137 mg/dL (70-110); Non-African American GFR(CKD) 29.6 (60.0-200.0); Potassium 4.3 mmol/L (3.5-5.5); Sodium 136 mmol/L (135-145)
[2022-12-15 11:56] LABS: Glucose,Whole Blood 157 mg/dL (70-110)
[2022-12-15 12:07] VITALS: BMI 39.9
--- NOTE | 2022-12-15 13:14 | P.CNPUL ---
History of Present Illness Consult date: 12/15/22 Requesting physician: Sebastien Joel Reason for consult: dyspnea Chief complaint: Low abdominal and back pain History of present illness: This is a 67-year-old female patient who follows with Dr. Severino as her primary care provider. She has a history of morbid obesity, chronic lower extremity edema, diastolic congestive heart failure, cor pulmonale, diabetes mellitus, hypertension, hyperlipidemia, hypothyroidism former smoker with chronic hypoxemic respiratory failure maintained on home oxygen and she is also on Symbicort. She presented here to the emergency room on 12/13/2022 with com plaints of lower abdominal pain and back pain that have been going on and off for approximately one month. Computed tomography scan of the abdomen did reveal air within the uterine lumen with gas tracking right laterally towards sigmoid. 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 No organizing fluid collection. Retroperitoneal lymphadenopathy compatible with metastatic disease. Hepatic nodular contour suggestive of cirrhosis. Layering debris. PROCESSING INSPECTOR and surgical services have been consulted. We were consulted for pre-op clearance. She is currently sitting up in bed. Awake and alert in no acute distress. Maintaining good O2 saturations in the mid 90s on 2 L/m per nasal cannula. She's afebrile. Hemodynamically stable. He denies any shortness of breath, cough or congestion. Chest x-ray shows no acute pulmonary process. She is continued on her Symbicort. Heparin for DVT prophylaxis. Antibiotics in the form of Levaquin and Flagyl. White count 22.3. Hemoccult 8.9. Platelets 707. Sodium 136. Potassium 4.3. Bicarb 20. BUN 18. Creatinine 1.7. Glucose 137. Pro-calcitonin 1.34. A culture revealing no growth to date. Review of Systems REVIEW OF SYSTEMS: CONSTITUTIONAL: Denies any recent significant weight loss or weight gain. EYES: Denies change in vision. EARS, NOSE, MOUTH, THROAT: Denies headaches, denies sore throat. CARDIOVASCULAR: Denies chest pain, palpitations or syncopal episodes. RESPIRATORY: Denies shortness of breath, cough, congestion or hemoptysis. GASTROINTESTINAL: Positive for abdominal pain GENITOURINARY: Denies hematuria, denies infections. MUSKULOSKELETAL: Denies pain, denies swelling. INTEGUMENTARY: Denies rash, denies eczema. NEUROLOGICAL: Denies recent memory loss, no recent seizure activity. PSYCHIATRIC: Denies anxiety, denies depression. HEMATOLOGIC/LYMPHATIC: Denies anemia, denies enlarged lymph nodes. Past Medical History Past Medical History: Asthma, Diabetes Mellitus, GERD/Reflux, Hyperlipidemia, Hypertension, Osteoarthritis (OA), Pneumonia, Thyroid Disorder Additional Past Medical History / Comment(s): 10-16-15 admitted with foeign body rt foot/abcess. other past medical hx includes: RHEUMATIC FEVER, OCC PALPITATIONS,BRONCHITIS, ghout History of Any Multi-Drug Resistant Organisms: MRSA Date of last positivie culture/infection: 2008 MDRO Source:: lt leg Past Surgical History: Appendectomy, Section, Tonsillectomy Additional Past Surgical History / Comment(s): X2 C SECTIONS, right foot IND Past Anesthesia/Blood Transfusion Reactions: No Reported Reaction Additional Past Anesthesia/Blood Transfusion Reaction / Comment(s): clausterphobia Past Psychological History: No Psychological Hx Reported Smoking Status: Former smoker Past Alcohol Use History: None Reported Past Drug Use History: None Reported - Past Family History Father Family Medical History: Congestive Heart Failure (CHF), Diabetes Mellitus Additional Family Medical History / Comment(s): quad bypass Mother Family Medical History: Blood Disorder, Congestive Heart Failure (CHF), Coronary Artery Disease (CAD) Additional Family Medical History / Comment(s): at 79 Daughter(s) Family Medical History: No Reported History Medications and Allergies Home Medications Medication Instructions Recorded Confirmed Type Aspirin EC [Ecotrin] 325 mg PO DAILY 05/16/19 12/13/22 History Budesonide/Formoterol Fumarate 2 puff INHALATION RT-BID 05/16/19 12/13/22 History [Symbicort 160-4.5 Mcg Inhaler] allopurinoL [Zyloprim] 300 mg PO DAILY 05/16/19 12/13/22 History Metoprolol Succinate (ER) [Toprol 25 mg PO DAILY #30 tab.er.24h 05/21/19 12/13/22 Rx XL] Docusate [Colace] 100 mg PO DAILY 11/11/20 12/13/22 History Ergocalciferol (Vitamin D2) 1,250 mcg PO TH 11/11/20 12/13/22 History [Drisdol (50,000 Iu)] Furosemide [Lasix] 40 mg PO Q48H 11/11/20 12/13/22 History Levothyroxine Sodium [Synthroid] 75 mcg PO DAILY 11/11/20 12/13/22 History amLODIPine [Norvasc] 5 mg PO DAILY 11/11/20 12/13/22 History Insulin Aspart [Insulin Aspart 10 unit SQ AC-TID 12/13/22 12/13/22 History Flexpen] hydrALAZINE HCL [Apresoline] 50 mg PO BID 12/13/22 12/13/22 History Allergies Allergy/AdvReac Type Severity Reaction Status Date / Time ampicillin sodium Allergy Itching Verified 12/13/22 08:43 [From Unasyn] sulbactam sodium Allergy Itching Verified 12/13/22 08:43 [From Unasyn] Physical Exam Vitals: Vital Signs Temp Pulse Pulse Resp BP Pulse Ox 12/15/22 07:24 97.9 F 78 18 132/74 96 12/15/22 02:00 98.1 F 87 151/82 93 L 12/14/22 20:38 95 18 12/14/22 20:27 98.8 F 95 18 125/84 96 12/14/22 13:34 97.2 F L 91 18 133/63 96 Intake and Output 12/14/22 12/15/22 12/15/22 22:59 06:59 14:59 Intake Total 1050 Output Total 350 930 Balance -350 120 Intake: Intake, IV Titration 1050 Amount Levofloxacin 500Mg-D5w 50 Pmx 500 mg In Dextrose/ Water 1 100ml.bag @ 100 mls/hr IVPB Q24H [facility] Rx#: [id number] Sodium Chloride 0.9% 1, 900 000 ml @ 75 mls/hr IV . [id number] [facility] Rx#:[id number] metroNIDAZOLE-NS PMX 500 100 mg In Saline 1 100ml.bag @ 100 mls/hr IVPB Q8HR [facility] Rx#:[id number] Output: Urine 350 930 Other: Voiding Method External Catheter Weight 122.47 kg GENERAL EXAM: Alert, very pleasant 67-year-old female, on 2 L nasal cannula, comfortable in no apparent distress. HEAD: Normocephalic. EYES: Normal reaction of pupils, equal size. NOSE: Clear with pink turbinates. THROAT: No erythema or exudates. NECK: No masses, no JVD. CHEST: No chest wall deformity. LUNGS: Equal air entry with no crackles, wheeze, rhonchi or dullness. CVS: S1 and S2 normal with no audible murmur, regular rhythm. ABDOMEN: No hepatosplenomegaly, normal bowel sounds, no guarding or rigidity. SPINE: No scoliosis or deformity SKIN: No rashes CENTRAL NERVOUS SYSTEM: No focal deficits, tone is normal in all 4 extremities. EXTREMITIES: There is no peripheral edema. No clubbing, no cyanosis. Peripheral pulses are intact. Results - Laboratory Findings CBC and BMP: 12/15/22 06:59 12/15/22 06:59 PT/INR, D-dimer PT 11.1 sec (9.0-12.0) 12/13/22 00:38 INR 1.1 (<1.2) 12/13/22 00:38 Abnormal lab findings: Abnormal Labs 12/13/22 12/13/22 12/13/22 00:38 00:38 08:40 WBC 18.8 H RBC 3.30 L Hgb 9.8 L Hct 30.6 L MCV MCHC RDW 16.0 H Plt Count 836 H Immature Gran # Neutrophils # 15.6 H Monocytes # Eosinophils # Sodium 135 L BUN 29 H Creatinine 1.98 H Est GFR (CKD-EPI)AfAm Est GFR (CKD-EPI)NonAf BUN/Creatinine Ratio Glucose 120 H POC Glucose (mg/dL) Calcium Iron TIBC Transferrin Alkaline Phosphatase 205 H Albumin 3.2 L Lipase 14 L Vitamin B12 Procalcitonin TSH Urine Appearance Cloudy H Urine Protein 1+ H Urine Blood Small H Ur Leukocyte Esterase Large H Urine WBC >182 H Urine Bacteria Rare H Hyaline Casts 4 H Urine Mucus Rare H 12/13/22 12/14/22 12/14/22 19:53 06:37 06:37 WBC 19.64 H RBC 2.97 L Hgb 8.6 L Hct 29.0 L MCV 97.6 H MCHC 29.7 L RDW 16.8 H Plt Count 711 H Immature Gran # 0.32 H Neutrophils # 15.91 H Monocytes # 1.46 H Eosinophils # 0.38 H Sodium BUN Creatinine 1.8 H Est GFR (CKD-EPI)AfAm 32.9 L Est GFR (CKD-EPI)NonAf 28.4 L BUN/Creatinine Ratio 11.56 L Glucose POC Glucose (mg/dL) 118 H Calcium 10.4 H Iron 35 L TIBC 186 L Transferrin 133.0 L Alkaline Phosphatase Albumin Lipase Vitamin B12 1466.0 H Procalcitonin TSH 10.500 H Urine Appearance Urine Protein Urine Blood Ur Leukocyte Esterase Urine WBC Urine Bacteria Hyaline Casts Urine Mucus 12/14/22 12/15/22 12/15/22 20:15 06:46 06:59 WBC RBC Hgb Hct MCV MCHC RDW Plt Count Immature Gran # Neutrophils # Monocytes # Eosinophils # Sodium BUN Creatinine Est GFR (CKD-EPI)AfAm Est GFR (CKD-EPI)NonAf BUN/Creatinine Ratio Glucose POC Glucose (mg/dL) 129 H 136 H Calcium Iron TIBC Transferrin Alkaline Phosphatase Albumin Lipase Vitamin B12 Procalcitonin 1.34 H TSH Urine Appearance Urine Protein Urine Blood Ur Leukocyte Esterase Urine WBC Urine Bacteria Hyaline Casts Urine Mucus 12/15/22 12/15/22 12/15/22 06:59 06:59 11:55 WBC 22.33 H RBC 3.06 L Hgb 8.9 L Hct 29.8 L MCV 97.4 H MCHC 29.9 L RDW 16.6 H Plt Count 707 H Immature Gran # 0.37 H Neutrophils # 19.22 H Monocytes # 1.46 H Eosinophils # Sodium BUN Creatinine 1.7 H Est GFR (CKD-EPI)AfAm 34.3 L Est GFR (CKD-EPI)NonAf 29.6 L BUN/Creatinine Ratio 10.46 L Glucose 137 H POC Glucose (mg/dL) 157 H Calcium Iron TIBC Transferrin Alkaline Phosphatase Albumin Lipase Vitamin B12 Procalcitonin TSH 8.240 H Urine Appearance Urine Protein Urine Blood Ur Leukocyte Esterase Urine WBC Urine Bacteria Hyaline Casts Urine Mucus - Diagnostic Findings Chest x-ray: image reviewed Assessment and Plan Assessment: Abdominal pain secondary to air within the uterine lumen with gas tracking right laterally towards sigmoid. 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 No organizing fluid collection. Retroperitoneal lymphadenopathy compatible with metastatic disease. Hepatic nodular contour suggestive of cirrhosis. Layering debris. Urinary tract infection secondary to above, culture pending Leukocytosis secondary to above Acute on chronic anemia Acute renal failure History of previous tobacco dependence Morbid obesity Chronic hypoxemic and hypercapnic respiratory failure with obesity hypoventilation syndrome suspected sleep apnea Chronic lower extremity edema secondary to diastolic congestive heart failure Cor pulmonale Diabetes mellitus Hypertension Hyperlipidemia History of chronic bronchial asthma, mild intermittent Hypothyroidism History of gout Gastroesophageal reflux disease Plan: The patient was seen and evaluated CAT scans, chest x-ray labs and medications reviewed Continue Symbicort Continue antibiotics Cleared for surgery from the pulmonary standpoint Plan is for colonoscopy on 12/18/2022 We will continue to follow and make further recommendations based on his clinical status I have personally seen and examined the patient, performed the documentation and the assessment and plan as written. Number of minutes spent on the visit: 20.
--- NOTE | 2022-12-15 15:01 | P.PN ---
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 Patient is scheduled for colonoscopy on Sunday. Patient very hesitant to proceed with colonoscopy. Patient being evaluated by pulmonary service due to her history of COPD and hesitancy to proceed with any surgery. Afebrile. Denies any abdominal pain. WBC is trending upwards from 19-22 Hgb 8.9 platelets 707 creatinine 1.7 PHYSICAL EXAM: VITAL SIGNS: Reviewed GENERAL: Well-developed in no acute distress. HEENT: No sclera icterus. Extraocular movements grossly intact. Moist buccal mucosa. Head is atraumatic, normocephalic. Hears conversational speech. No nasal drainage. NECK: Supple without lymphadenopathy. CHEST: Non-labored respirations and equal bilateral excursions. CARDIOVASCULAR: Palpable 2+ radial pulses. ABDOMEN: Soft. Nondistended. MUSCULOSKELETAL: No clubbing or cyanosis. NEUROLOGIC: No focal or lateralizing signs. Cranial nerves II through XII grossly intact. PSYCH: Appropriate affect. Alert and oriented to person, place and time. SKIN: Well perfused. Good skin turgor. ASSESSMENT: 1. Colouterine fistula 2. Leukocytosis 3. Acute kidney injury 4. Diabetes mellitus 5. History of asthma and COPD PLAN: -Barium enema has been ordered for further evaluation of possible colouterine fistula -Pulmonary service has cleared patient for surgery -Patient is scheduled for colonoscopy on Sunday with Dr. bueno -Continue antibiotics -Continue supportive care Physician Blocker Polishing note has been reviewed by physician. Signing provider agrees with the documented findings, assessment, and plan of care. 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 She has been seen by the painter and paperhanger apprentice. Denies abdominal pain. ROS: No reports of nausea and vomiting. No fevers or chills. No new chest pain. Has chronic obstructive pulmonary disease. PHYSICAL EXAM: VITAL SIGNS: Reviewed CONSTITUTIONAL: Well developed and in no acute distress. EYES: Conjuctivae without sclera icterus. Extraocular movements grossly intact. HEAD, EARS, NOSE, THROAT: Moist buccal mucosa. Head is atraumatic, normocephalic. Hears conversational speech. No nasal drainage. RESPIRATORY: Non-labored respirations and equal bilateral excursions. CARDIOVASCULAR: Palpable 2+ radial pulses. ABDOMEN: Protuberant. No peritonitis. MUSCULOSKELETAL: No gross deformity of the lower extremities noted. No clubbing. No cyanosis. SKIN: Good skin turgor. Well perfused. NEUROLOGIC: Cranial nerves II through XII grossly intact. No focal or lateralizing signs. PSYCH: Appropriate affect. Alert and oriented to person, place and time. CLINICAL LABS: Reviewed. WBC elevated over 22,000 STUDIES: CT of the abdomen and pelvis demonstrates a large mass of the uterus. Questionable fistula of the colon unclear. This is my independent interpretation. No free air. 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 Chronic obstructive pulmonary disease 3. Morbid obesity excess calories, BMI 39.9 PLAN: 1. Recommend barium enema to further elucidate colonic fistula as she wants to avoid procedures colonoscopy 2. Recommend tumor marker for uterine Objective - Vital Signs Vital signs: Vital Signs Temp 97.9 F 12/15/22 07:24 Pulse 78 12/15/22 07:24 Resp 18 12/15/22 07:24 BP 132/74 12/15/22 07:24 Pulse Ox 96 12/15/22 07:24 FiO2 Intake & Output 12/14/22 12/15/22 12/15/22 18:59 06:59 18:59 Intake Total 1050 Output Total 1150 930 Balance -1150 120 Weight 122.47 kg Intake: Intake, IV Titration 1050 Amount Levofloxacin 500Mg-D5w 50 Pmx 500 mg In Dextrose/ Water 1 100ml.bag @ 100 mls/hr IVPB Q24H [facility] Rx#: [id number] Sodium Chloride 0.9% 1, 900 000 ml @ 75 mls/hr IV . [id number] [facility] Rx#:[id number] metroNIDAZOLE-NS PMX 500 100 mg In Saline 1 100ml.bag @ 100 mls/hr IVPB Q8HR [facility] Rx#:[id number] Output: Urine 1150 930 Other: Voiding Method Bedside Commode External Catheter Diaper External Catheter - Labs CBC & Chem 7: 12/15/22 06:59 12/15/22 06:59 Labs: Abnormal Lab Results - Last 24 Hours (Table) 12/14/22 12/15/22 12/15/22 Range/Units 20:15 06:46 06:59 WBC (4.50-10.00) X 10*3/uL RBC (4.10-5.20) X 10*6/uL Hgb (12.0-15.0) g/dL Hct (37.2-46.3) % MCV (80.0-97.0) fL MCHC (32.0-37.0) g/dL RDW (11.5-14.5) % Plt Count (140-440) X 10*3/uL Immature Gran # (0.00-0.04) X 10*3/uL Neutrophils # (1.80-7.70) X 10*3/uL Monocytes # (0.20-1.00) X 10*3/uL Creatinine (0.6-1.5) mg/dL Est GFR (CKD-EPI)AfAm (60.0-200.0) Est GFR (CKD-EPI)NonAf (60.0-200.0) BUN/Creatinine Ratio (12.00-20.00) Ratio Glucose (70-110) mg/dL POC Glucose (mg/dL) 129 H 136 H (70-110) mg/dL Procalcitonin 1.34 H (0.02-0.09) ng/mL TSH (0.350-5.500) uIU/mL 12/15/22 12/15/22 12/15/22 Range/Units 06:59 06:59 11:55 WBC 22.33 H (4.50-10.00) X 10*3/uL RBC 3.06 L (4.10-5.20) X 10*6/uL Hgb 8.9 L (12.0-15.0) g/dL Hct 29.8 L (37.2-46.3) % MCV 97.4 H (80.0-97.0) fL MCHC 29.9 L (32.0-37.0) g/dL RDW 16.6 H (11.5-14.5) % Plt Count 707 H (140-440) X 10*3/uL Immature Gran # 0.37 H (0.00-0.04) X 10*3/uL Neutrophils # 19.22 H (1.80-7.70) X 10*3/uL Monocytes # 1.46 H (0.20-1.00) X 10*3/uL Creatinine 1.7 H (0.6-1.5) mg/dL Est GFR (CKD-EPI)AfAm 34.3 L (60.0-200.0) Est GFR (CKD-EPI)NonAf 29.6 L (60.0-200.0) BUN/Creatinine Ratio 10.46 L (12.00-20.00) Ratio Glucose 137 H (70-110) mg/dL POC Glucose (mg/dL) 157 H (70-110) mg/dL Procalcitonin (0.02-0.09) ng/mL TSH 8.240 H (0.350-5.500) uIU/mL Microbiology - Last 24 Hours (Table) 12/13/22 02:39 Blood Culture - Preliminary Blood No Growth after 48 hours 12/13/22 02:54 Blood Culture - Preliminary Blood No Growth after 48 hours
--- NOTE | 2022-12-15 16:11 | FL ---
EXAMINATION TYPE: FL barium enema DATE OF EXAM: 12/15/2022 COMPARISON: Transvaginal ultrasound 12/14/2022, CT abdomen pelvis 12/13/2022. HISTORY: Evaluate for colouterine fistula. TECHNIQUE: A limited single contrast barium enema study is performed with 400 mL of Isovue 370 dilut e with water. A total of 1 minute 8 seconds of fluoroscopic time was utilized during procedure and 3 2 images obtained. Total DAP not available. FINDINGS: Scattered diverticula demonstrated involving the sigmoid colon. No evidence of any mass or polyp, obstructing or constricting lesion throughout the visualized distal colon. No fistulous track identified to confirm colouterine fistula. IMPRESSION: 1. No fistulous tract identified corresponding to previous CT. Direct visualization is recommended. 2. No evidence of obstructing or constricting lesion. 3. Sigmoid diverticulosis.
[2022-12-15] MEDS: SODIUM CHLORIDE 0.9% 1,000 ML IV SCH (16:21)
[2022-12-15 16:55] LABS: Glucose,Whole Blood 129 mg/dL (70-110)
[2022-12-15 20:29] LABS: Glucose,Whole Blood 123 mg/dL (70-110)
--- NOTE | 2022-12-15 23:20 | P.PN ---
Subjective Progress Note Date: 12/15/22 Patient is a 67-year-old female with a long history of hypertension, hyperlipidemia, diabetes type 2 insulin-dependent, hypothyroidism, asthma and prior history of smoking presents to ER with complaints of abdominal pain and low back pain for the past 1 month. Patient states that she has been having issues with constipation and when she does take medications for it which is causing diarrhea. She has been having decreased appetite and weight loss. She has been having intermittent night sweats. Currently denies any nausea or vomiting. Patient reports that she did have yellowish vaginal discharge. She does have chronic lower extremity edema and does take diuretics every [address] of the abdomen pelvis showed intrauterine gas extending to the right cornual serosa. This nonspecific finding may be related to endometritis, recent intrauterine instrumentation, colouterine fistula or necrotic mass. Nonspecific retroperitoneal adenopathy may be related to metastatic disease lymphoproliferative process. Laboratory data showed WBC 18.8 hemoglobin 9.8 and platelets 336 Sodium 135 potassium 4.5 chloride 100 bicarb is 22 BUN 29 creatinine 1.98 Alk phos 205 Urinalysis showed cloudy with small blood nitrite negative large leukocyte esterase with greater than 182 WBCs. 12/14/2022 Patient is still complaining of lower abdominal pain. Denied any nausea or vomiting. Seen by general surgery and is planning for colonoscopy on Sunday. Otherwise patient is on antibiotics of Levaquin and Flagyl. General surgery is on board. [employer] OFFICE SUPERVISOR service was consulted regarding fistula. No complaints of fever or chills. Laboratory data showed WBC 19.6 and hemoglobin 8.6 and platelets 711 BUN 20.8 and creatinine 1.8 and blood sugar is 84. 12/15/2022 Patient is currently sitting in the recliner today. Awake alert and orient x3. No complaints of chest pain or shortness of breath. Patient is on 2 L oxygen via nasal cannula and saturating at 96%. Otherwise still complaining of lower abdominal pain. Able to pass flatus. No complaints of chest pain or shortness of breath. Laboratory showed WBC count worsening to 22.3 hemoglobin 8.9 and platelets 707 BUN 18.2 and creatinine 1.7 otherwise TSH level is 8.24 and free T4 level is 1.050 within normal limits. General surgery is planning for colonoscopy on Sunday. Patient is hesitant to go for colonoscopy. Barium enema was ordered to evaluate colonic fistula. CT abdomen pelvis with oral contrast showed air within the uterine lumen with gas tracking right laterally towards the sigmoid. 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 No organizing fluid collection. Retroperitoneal lymphadenopathy compatible with metastatic disease. Hepatic nodular contour suggestive of cirrhosis. Layering biliary debris's. Current medications reviewed. Objective - Vital Signs Vital signs: Vital Signs Temp 97.9 F 12/15/22 07:24 Pulse 78 12/15/22 07:24 Resp 18 12/15/22 07:24 BP 132/74 12/15/22 07:24 Pulse Ox 96 12/15/22 07:24 FiO2 Intake & Output 12/14/22 12/15/22 12/15/22 18:59 06:59 18:59 Intake Total 1050 Output Total 1150 930 Balance -1150 120 Intake: Intake, IV Titration 1050 Amount Levofloxacin 500Mg-D5w 50 Pmx 500 mg In Dextrose/ Water 1 100ml.bag @ 100 mls/hr IVPB Q24H [facility] Rx#: [id number] Sodium Chloride 0.9% 1, 900 000 ml @ 75 mls/hr IV . [id number] [facility] Rx#:[id number] metroNIDAZOLE-NS PMX 500 100 mg In Saline 1 100ml.bag @ 100 mls/hr IVPB Q8HR [facility] Rx#:[id number] Output: Urine 1150 930 Other: Voiding Method Bedside Commode External Catheter Diaper External Catheter - Exam PHYSICAL EXAMINATION: Patient is lying in the bed comfortably, no acute distress, awake alert and oriented.. HEENT: Normocephalic. Neck is supple. Pupils reactive. Nostrils clear. Oral cavity is moist. Neck reveals no JVD, carotid bruits, or thyromegaly. CHEST EXAMINATION: Trachea is central. Symmetrical expansion. Bibasilar diminished sounds.. CARDIAC: Normal S1, S2 with no gallops. No murmurs ABDOMEN: Soft. Bowel sounds present. Mild lower abdominal tenderness no guarding or rigidity. r. No organomegaly. No abdominal bruits. Extremities: reveal 2+ edema. No clubbing or cyanosis Neurologically awake, alert, oriented x3 with well-coordinated movements. No focal deficits noted Skin: No rash or skin lesions. Psychiatric: Coperative. Nonsuicidal, Musculoskeletal: No joint swelling or deformity. Normal range of motion. - Labs CBC & Chem 7: 12/15/22 06:59 12/15/22 06:59 Labs: Abnormal Lab Results - Last 24 Hours (Table) 12/14/22 12/14/22 12/15/22 Range/Units 06:37 20:15 06:46 WBC (4.50-10.00) X 10*3/uL RBC (4.10-5.20) X 10*6/uL Hgb (12.0-15.0) g/dL Hct (37.2-46.3) % MCV (80.0-97.0) fL MCHC (32.0-37.0) g/dL RDW (11.5-14.5) % Plt Count (140-440) X 10*3/uL Immature Gran # (0.00-0.04) X 10*3/uL Neutrophils # (1.80-7.70) X 10*3/uL Monocytes # (0.20-1.00) X 10*3/uL Creatinine 1.8 H (0.6-1.5) mg/dL Est GFR (CKD-EPI)AfAm 32.9 L (60.0-200.0) Est GFR (CKD-EPI)NonAf 28.4 L (60.0-200.0) BUN/Creatinine Ratio 11.56 L (12.00-20.00) Ratio POC Glucose (mg/dL) 129 H 136 H (70-110) mg/dL Calcium 10.4 H (8.7-10.3) mg/dL Iron 35 L (50-170) ug/dL TIBC 186 L (228-460) ug/dL Transferrin 133.0 L (204.0-354.0) mg/dL Vitamin B12 1466.0 H (200.0-944.0) pg/mL TSH 10.500 H (0.350-5.500) uIU/mL 12/15/22 Range/Units 06:59 WBC 22.33 H (4.50-10.00) X 10*3/uL RBC 3.06 L (4.10-5.20) X 10*6/uL Hgb 8.9 L (12.0-15.0) g/dL Hct 29.8 L (37.2-46.3) % MCV 97.4 H (80.0-97.0) fL MCHC 29.9 L (32.0-37.0) g/dL RDW 16.6 H (11.5-14.5) % Plt Count 707 H (140-440) X 10*3/uL Immature Gran # 0.37 H (0.00-0.04) X 10*3/uL Neutrophils # 19.22 H (1.80-7.70) X 10*3/uL Monocytes # 1.46 H (0.20-1.00) X 10*3/uL Creatinine (0.6-1.5) mg/dL Est GFR (CKD-EPI)AfAm (60.0-200.0) Est GFR (CKD-EPI)NonAf (60.0-200.0) BUN/Creatinine Ratio (12.00-20.00) Ratio POC Glucose (mg/dL) (70-110) mg/dL Calcium (8.7-10.3) mg/dL Iron (50-170) ug/dL TIBC (228-460) ug/dL Transferrin (204.0-354.0) mg/dL Vitamin B12 (200.0-944.0) pg/mL TSH (0.350-5.500) uIU/mL Microbiology - Last 24 Hours (Table) 12/13/22 02:39 Blood Culture - Preliminary Blood No Growth after 48 hours 12/13/22 02:54 Blood Culture - Preliminary Blood No Growth after 48 hours Assessment and Plan Assessment: 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 Leukocytosis Retroperitoneal lymphadenopathy. Metastatic disease cannot be excluded. Acute kidney injury likely prerenal Hypovolemic hyponatremia Diabetes type 2 insulin-dependent Normocytic anemia with hemoglobin 9.8 Hypothyroidism Asthma not in exacerbation Chronic bilateral lower extremity swelling Constipation GI and DVT prophylaxis Plan: Patient will be continued on IV hydration with normal saline. Continue with antibiotics Levaquin and Flagyl. General surgery is planned for colonoscopy on Sunday. FRONT OFFICE SUPERVISOR consulted. Patient was seen by pulmonary and cleared for surgery. Patient is hesitant to go for colonoscopy. Barium enema was ordered to evaluate further regarding colonic fistula. Continue with home medications and follow-up CBC and BMP tomorrow. Prognosis is guarded. Time with Patient: Greater than 30
[2022-12-16] MEDS: metroNIDAZOLE-NS PMX 500 MG in SALINE 1 100ML.BAG IVPB SCH ×4 (00:38→23:43)
[2022-12-16] MEDS: HEPARIN SODIUM,PORCINE/PF 5,000 UNIT/0.5 ML SYRINGE SQ SCH ×4 (00:38→23:43)
[2022-12-16] MEDS: FUROSEMIDE 40 MG TAB PO SCH (00:38)
[2022-12-16] MEDS: LEVOFLOXACIN 250MG-D5W PMX 250 MG in DEXTROSE/WATER 1 50ML.BAG IVPB SCH (03:17)
[2022-12-16] MEDS: HYDROmorphone 0.5 MG/0.5 ML SYRINGE IVP PRN ×6 (03:20→23:54)
[2022-12-16] MEDS: LEVOTHYROXINE 75 MCG TAB PO SCH (06:12)
[2022-12-16 06:17] LABS: Glucose,Whole Blood 104 mg/dL (70-110)
[2022-12-16] MEDS: INSULIN ASPART (NovoLOG) 100 UNIT/ML VIAL SQ SCH ×7 (06:24→21:12)
[2022-12-16] MEDS: SYMBICORT 160-4.5 MCG INHALER INHALATION SCH ×2 (07:45→21:41)
[2022-12-16] MEDS: ONDANSETRON 4 MG/2 ML VIAL IVP PRN ×2 (08:23→20:08)
[2022-12-16] MEDS: DOCUSATE 100 MG CAP PO SCH (08:34)
[2022-12-16] MEDS: amLODIPine 5 MG TAB PO SCH (08:34)
[2022-12-16] MEDS: hydrALAZINE HCL 50 MG TAB PO SCH ×2 (08:34→21:12)
[2022-12-16] MEDS: METOPROLOL SUCCINATE (ER) 25 MG TAB.ER.24H PO SCH (08:34)
[2022-12-16] MEDS: allopurinoL 300 MG TAB PO SCH (08:34)
[2022-12-16] MEDS ORDERED: MAG HYDROX/AL HYDROX/SIMETH 30 ML CUP PO PRN (10:10)
[2022-12-16] MEDS: SODIUM CHLORIDE 0.9% 1,000 ML IV SCH ×2 (10:22→23:52)
[2022-12-16 11:17] LABS: Glucose,Whole Blood 134 mg/dL (70-110)
--- NOTE | 2022-12-16 11:50 | P.PN ---
Subjective Progress Note Date: 12/16/22 This is a 67-year-old female patient who follows with Dr. Severino as her primary care provider. She has a history of morbid obesity, chronic lower extremity edema, diastolic congestive heart failure, cor pulmonale, diabetes mellitus, hypertension, hyperlipidemia, hypothyroidism former smoker with chronic h ypoxemic respiratory failure maintained on home oxygen and she is also on Symbicort. She presented here to the emergency room on 12/13/2022 with complaints of lower abdominal pain and back pain that have been going on and off for approximately one month. Computed tomography scan of the abdomen did reveal air within the uterine lumen with gas tracking right laterally towards sigmoid. 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 No organizing fluid collection. Retroperitoneal lymphadenopathy compatible with metastatic disease. Hepatic nodular contour suggestive of cirrhosis. Layering debris. [employer] and surgical services have been consulted. We were consulted for pre-op clearance. She is currently sitting up in bed. Awake and alert in no acute distress. Maintaining good O2 saturations in the mid 90s on 2 L/m per nasal cannula. She's afebrile. Hemodynamically stable. He denies any shortness of breath, cough or congestion. Chest x-ray shows no acute pulmonary process. She is continued on her Symbicort. Heparin for DVT prophylaxis. Antibiotics in the form of Levaquin and Flagyl. White count 22.3. Hemoccult 8.9. Platelets 707. Sodium 136. Potassium 4.3. Bicarb 20. BUN 18. Creatinine 1.7. Glucose 137. Pro-calcitonin 1.34. A culture revealing no growth to date. The patient is seen today 12/16/2022 in follow-up on the regular medical floor. She is currently sitting up in a chair at the bedside. Awake and alert in no acute distress. Maintaining good O2 saturations in the 90s on 2 L/m per nasal cannula. She has normal saline at 75 ML's per hour. Bedside spirometry pending. A barium enema revealed no fistulous tract identified corresponding to previous CT. Direct visualization is recommended. No evidence obstructing or constricting lesion. Sigmoid diverticulosis. Blood culture reveals no growth. Glucose 134. She is continued on Symbicort. Antibiotics in form of Levaquin and Flagyl. Heparin for DVT prophylaxis. Objective - Vital Signs Vital signs: Vital Signs Temp 97.9 F 12/16/22 07:33 Pulse 65 12/16/22 07:33 Resp 19 12/16/22 07:33 BP 153/74 12/16/22 07:33 Pulse Ox 96 12/16/22 07:33 FiO2 Intake & Output 12/15/22 12/16/22 12/16/22 18:59 06:59 18:59 Intake Total 1400 Output Total 200 800 Balance 1400 -200 -800 Weight 122.47 kg Intake: Intake, IV Titration 200 Amount metroNIDAZOLE-NS PMX 500 200 mg In Saline 1 100ml.bag @ 100 mls/hr IVPB Q8HR [facility] Rx#:[id number] Oral 1200 Output: Urine 200 800 Other: Voiding Method External Catheter Bedside Commode External Catheter # Voids 2 - Exam GENERAL EXAM: Alert, 67-year-old female, on 2 L nasal cannula, up in a chair at the bedside, comfortable in no apparent distress. HEAD: Normocephalic. EYES: Normal reaction of pupils, equal size. NOSE: Clear with pink turbinates. THROAT: No erythema or exudates. NECK: No masses, no JVD. CHEST: No chest wall deformity. LUNGS: Equal air entry with no crackles, wheeze, rhonchi or dullness. CVS: S1 and S2 normal with no audible murmur, regular rhythm. ABDOMEN: No hepatosplenomegaly, normal bowel sounds, no guarding or rigidity. SPINE: No scoliosis or deformity SKIN: No rashes CENTRAL NERVOUS SYSTEM: No focal deficits, tone is normal in all 4 extremities. EXTREMITIES: There is no peripheral edema. No clubbing, no cyanosis. Peripheral pulses are intact. - Labs CBC & Chem 7: 12/15/22 06:59 12/15/22 06:59 Labs: Abnormal Lab Results - Last 24 Hours (Table) 12/15/22 12/15/22 12/15/22 Range/Units 11:55 16:42 20:28 POC Glucose (mg/dL) 157 H 129 H 123 H (70-110) mg/dL 12/16/22 Range/Units 11:15 POC Glucose (mg/dL) 134 H (70-110) mg/dL Microbiology - Last 24 Hours (Table) 12/13/22 02:39 Blood Culture - Preliminary Blood No Growth after 72 hours 12/13/22 02:54 Blood Culture - Preliminary Blood No Growth after 72 hours Assessment and Plan Assessment: Abdominal pain secondary to air within the uterine lumen with gas tracking right laterally towards sigmoid. 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 No organizing fluid collection. Retroperitoneal lymphadenopathy compatible with metastatic disease. Hepatic nodular contour suggestive of cirrhosis. Layering debris. Barium enema did not reveal any fistulous track identified corresponding to previous CT. Direct visualized recommended. No evidence of obstruction or constricting lesion. Sigmoid diverticulosis. Urinary tract infection secondary to above, culture pending Leukocytosis secondary to above Acute on chronic anemia Acute renal failure History of previous tobacco dependence Morbid obesity Chronic hypoxemic and hypercapnic respiratory failure with obesity hypoventilation syndrome suspected sleep apnea Chronic lower extremity edema secondary to diastolic congestive heart failure Cor pulmonale Diabetes mellitus Hypertension Hyperlipidemia History of chronic bronchial asthma, mild intermittent Hypothyroidism History of gout Gastroesophageal reflux disease Plan: The patient was seen and evaluated Barium enema, labs and medications reviewed Cleared for colonoscopy from the pulmonary standpoint Bedside PFT pending We will continue to follow I have personally seen and examined the patient, performed the documentation and the assessment and plan as written. Number of minutes spent on the visit: 10.
[2022-12-16 13:26] LABS: Basophils % (A) 0.5 %; Eosinophils # (A) 0.25 X 10*3/uL (0.04-0.35); Eosinophils % (A) 1.2 %; HCT 27.9 % (37.2-46.3); HGB 8.4 g/dL (12.0-15.0); Lymphocytes # (A) 1.17 X 10*3/uL (0.90-5.00); Lymphocytes % (A) 5.6 %; MCH 29.4 pg (27.0-32.0); MCHC 30.1 g/dL (32.0-37.0); MCV 97.6 fL (80.0-97.0); Mean Platelet Volume 9.6 fL (9.5-12.2); Monocytes # (A) 1.48 X 10*3/uL (0.20-1.00); NRBC Per 100 WBC 0 /100 WBCS (0.0-0.0); Neutrophils # (A) 17.62 X 10*3/uL (1.80-7.70); Neutrophils % (A) 83.7 %; Platelet Count 699 X 10*3/uL (140-440); RBC 2.86 X 10*6/uL (4.10-5.20); RDW 16.7 % (11.5-14.5); WBC 21.05 X 10*3/uL (4.50-10.00)
[2022-12-16 13:41] LABS: African American GFR (CKD) 35.3 (60.0-200.0); Anion Gap 14.3 mmol/L (10.00-18.00); BUN/Creat Ratio 9.82 Ratio (12.00-20.00); Blood Urea Nitrogen 16.7 mg/dL (9.0-27.0); Cancer Antigen 125 50.3 U/mL (0.0-30.1); Carbon Dioxide 19.7 mmol/L (20.0-27.5); Non-African American GFR(CKD) 30.5 (60.0-200.0); Potassium 4.6 mmol/L (3.5-5.5)
[2022-12-16 13:48] LABS: Carcinoembryonic Antigen 7.8 ng/mL (0.0-4.9)
[2022-12-16 14:36] LABS: Alpha Fetoprotein, Tumor Mkr <1.82 ng/mL (0.00-7.90)
[2022-12-16 16:49] LABS: Glucose,Whole Blood 117 mg/dL (70-110)
[2022-12-17] MEDS: LEVOFLOXACIN 250MG-D5W PMX 250 MG in DEXTROSE/WATER 1 50ML.BAG IVPB SCH (02:57)
[2022-12-17 05:14] LABS: Glucose,Whole Blood 122 mg/dL (70-110)
[2022-12-17] MEDS: HYDROmorphone 0.5 MG/0.5 ML SYRINGE IVP PRN ×6 (05:18→22:44)
[2022-12-17] MEDS: INSULIN ASPART (NovoLOG) 100 UNIT/ML VIAL SQ SCH ×7 (06:30→21:40)
[2022-12-17] MEDS: LEVOTHYROXINE 75 MCG TAB PO SCH (06:30)
[2022-12-17] MEDS: metroNIDAZOLE-NS PMX 500 MG in SALINE 1 100ML.BAG IVPB SCH ×2 (06:53→16:30)
[2022-12-17] MEDS: ONDANSETRON 4 MG/2 ML VIAL IVP PRN (08:44)
[2022-12-17] MEDS: HEPARIN SODIUM,PORCINE/PF 5,000 UNIT/0.5 ML SYRINGE SQ SCH ×2 (09:25→16:30)
[2022-12-17] MEDS: DOCUSATE 100 MG CAP PO SCH (09:26)
[2022-12-17] MEDS: allopurinoL 300 MG TAB PO SCH (09:26)
[2022-12-17] MEDS: hydrALAZINE HCL 50 MG TAB PO SCH ×2 (09:26→21:52)
[2022-12-17] MEDS: METOPROLOL SUCCINATE (ER) 25 MG TAB.ER.24H PO SCH (09:26)
[2022-12-17] MEDS: amLODIPine 5 MG TAB PO SCH (09:26)
[2022-12-17] MEDS: SYMBICORT 160-4.5 MCG INHALER INHALATION SCH ×2 (09:46→21:47)
--- NOTE | 2022-12-17 12:08 | P.PN ---
Subjective Progress Note Date: 12/17/22 This is a 67-year-old female patient who follows with Dr. Severino as her primary care provider. She has a history of morbid obesity, chronic lower extremity edema, diastolic congestive heart failure, cor pulmonale, diabetes mellitus, hypertension, hyperlipidemia, hypothyroidism former smoker with chronic h ypoxemic respiratory failure maintained on home oxygen and she is also on Symbicort. She presented here to the emergency room on 12/13/2022 with complaints of lower abdominal pain and back pain that have been going on and off for approximately one month. Computed tomography scan of the abdomen did reveal air within the uterine lumen with gas tracking right laterally towards sigmoid. 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 No organizing fluid collection. Retroperitoneal lymphadenopathy compatible with metastatic disease. Hepatic nodular contour suggestive of cirrhosis. Layering debris. HEEL BRUSHER and surgical services have been consulted. We were consulted for pre-op clearance. She is currently sitting up in bed. Awake and alert in no acute distress. Maintaining good O2 saturations in the mid 90s on 2 L/m per nasal cannula. She's afebrile. Hemodynamically stable. He denies any shortness of breath, cough or congestion. Chest x-ray shows no acute pulmonary process. She is continued on her Symbicort. Heparin for DVT prophylaxis. Antibiotics in the form of Levaquin and Flagyl. White count 22.3. Hemoccult 8.9. Platelets 707. Sodium 136. Potassium 4.3. Bicarb 20. BUN 18. Creatinine 1.7. Glucose 137. Pro-calcitonin 1.34. A culture revealing no growth to date. The patient is seen today 12/16/2022 in follow-up on the regular medical floor. She is currently sitting up in a chair at the bedside. Awake and alert in no acute distress. Maintaining good O2 saturations in the 90s on 2 L/m per nasal cannula. She has normal saline at 75 ML's per hour. Bedside spirometry pending. A barium enema revealed no fistulous tract identified corresponding to previous CT. Direct visualization is recommended. No evidence obstructing or constricting lesion. Sigmoid diverticulosis. Blood culture reveals no growth. Glucose 134. She is continued on Symbicort. Antibiotics in form of Levaquin and Flagyl. Heparin for DVT prophylaxis. The patient is seen today 12/17/2022 in follow-up on the regular medical floor. She is currently awake and alert in no acute distress. Sitting up in a chair at the bedside. Maintaining O2 saturations in the 90s on 2 L/m per nasal cannula. Normal saline at 75 ML's per hour. Bedside spirometry revealed a MVV of 25 L, FEV1 value of 1.0 L. Putting her at moderate to high operative risk from the pulmonary standpoint. Blood cultures are revealing no growth a blood glucose 122. She remains on bronchodilators, antibiotics in the form of Levaquin and Flagyl. Heparin for DVT prophylaxis. Oral diuretics. Currently in a negative balance. Objective - Vital Signs Vital signs: Vital Signs Temp 98.4 F 12/17/22 07:30 Pulse 77 12/17/22 07:30 Resp 19 12/17/22 07:30 BP 153/69 12/17/22 07:30 Pulse Ox 94 L 12/17/22 09:47 FiO2 Intake & Output 12/16/22 12/17/22 12/17/22 18:59 06:59 18:59 Intake Total 700 200 Output Total 800 500 Balance -100 -300 Intake: Intake, IV Titration 700 Amount Sodium Chloride 0.9% 1, 600 000 ml @ 75 mls/hr IV . [id number] [facility] Rx#:[id number] metroNIDAZOLE-NS PMX 500 100 mg In Saline 1 100ml.bag @ 100 mls/hr IVPB Q8HR [facility] Rx#:[id number] Blood Product 200 Output: Urine 800 500 Other: Voiding Method External Catheter External Catheter - Exam GENERAL EXAM: Alert, pleasant 67-year-old female, on 2 L nasal cannula, up in a chair, comfortable in no apparent distress. HEAD: Normocephalic. EYES: Normal reaction of pupils, equal size. NOSE: Clear with pink turbinates. THROAT: No erythema or exudates. NECK: No masses, no JVD. CHEST: No chest wall deformity. LUNGS: Equal air entry with no crackles, wheeze, rhonchi or dullness. CVS: S1 and S2 normal with no audible murmur, regular rhythm. ABDOMEN: No hepatosplenomegaly, normal bowel sounds, no guarding or rigidity. SPINE: No scoliosis or deformity SKIN: No rashes CENTRAL NERVOUS SYSTEM: No focal deficits, tone is normal in all 4 extremities. EXTREMITIES: There is no peripheral edema. No clubbing, no cyanosis. Peripheral pulses are intact. - Labs CBC & Chem 7: 12/16/22 06:58 12/16/22 06:58 Labs: Abnormal Lab Results - Last 24 Hours (Table) 12/16/22 12/16/22 12/16/22 Range/Units 06:58 06:58 06:58 WBC 21.05 H (4.50-10.00) X 10*3/uL RBC 2.86 L (4.10-5.20) X 10*6/uL Hgb 8.4 L (12.0-15.0) g/dL Hct 27.9 L (37.2-46.3) % MCV 97.6 H (80.0-97.0) fL MCHC 30.1 L (32.0-37.0) g/dL RDW 16.7 H (11.5-14.5) % Plt Count 699 H (140-440) X 10*3/uL Immature Gran # 0.43 H (0.00-0.04) X 10*3/uL Neutrophils # 17.62 H (1.80-7.70) X 10*3/uL Monocytes # 1.48 H (0.20-1.00) X 10*3/uL Carbon Dioxide 19.7 L (20.0-27.5) mmol/L Creatinine 1.7 H (0.6-1.5) mg/dL Est GFR (CKD-EPI)AfAm 35.3 L (60.0-200.0) Est GFR (CKD-EPI)NonAf 30.5 L (60.0-200.0) BUN/Creatinine Ratio 9.82 L (12.00-20.00) Ratio POC Glucose (mg/dL) (70-110) mg/dL Carcinoembryonic Ag 7.8 H (0.0-4.9) ng/mL CA 125 Antigen 50.3 H (0.0-30.1) U/mL 12/16/22 12/17/22 Range/Units 16:48 05:12 WBC (4.50-10.00) X 10*3/uL RBC (4.10-5.20) X 10*6/uL Hgb (12.0-15.0) g/dL Hct (37.2-46.3) % MCV (80.0-97.0) fL MCHC (32.0-37.0) g/dL RDW (11.5-14.5) % Plt Count (140-440) X 10*3/uL Immature Gran # (0.00-0.04) X 10*3/uL Neutrophils # (1.80-7.70) X 10*3/uL Monocytes # (0.20-1.00) X 10*3/uL Carbon Dioxide (20.0-27.5) mmol/L Creatinine (0.6-1.5) mg/dL Est GFR (CKD-EPI)AfAm (60.0-200.0) Est GFR (CKD-EPI)NonAf (60.0-200.0) BUN/Creatinine Ratio (12.00-20.00) Ratio POC Glucose (mg/dL) 117 H 122 H (70-110) mg/dL Carcinoembryonic Ag (0.0-4.9) ng/mL CA 125 Antigen (0.0-30.1) U/mL Microbiology - Last 24 Hours (Table) 12/13/22 02:39 Blood Culture - Preliminary Blood No Growth after 96 hours 12/13/22 02:54 Blood Culture - Preliminary Blood No Growth after 96 hours Assessment and Plan Assessment: Abdominal pain secondary to air within the uterine lumen with gas tracking right laterally towards sigmoid. 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 No organizing fluid collection. Retroperitoneal lymphadenopathy compatible with metastatic disease. Hepatic nodular contour suggestive of cirrhosis. Layering debris. Barium enema did not reveal any fistulous track identified corresponding to previous CT. Direct visualized recommended. No evidence of obstruction or constricting lesion. Sigmoid diverticulosis. Currently on Flagyl and Levaquin. Urinary tract infection secondary to above, culture pending Leukocytosis secondary to above Acute on chronic anemia Acute renal failure History of previous tobacco dependence Chronic obstructive pulmonary disease with FEV1 value of 1 L and MVV 25 liters Morbid obesity Chronic hypoxemic and hypercapnic respiratory failure with obesity hypoventilation syndrome suspected sleep apnea Chronic lower extremity edema secondary to diastolic congestive heart failure Cor pulmonale Diabetes mellitus Hypertension Hyperlipidemia History of chronic bronchial asthma, mild intermittent Hypothyroidism History of gout Gastroesophageal reflux disease Plan: The patient was seen and evaluated Bedside PFT, labs and medications reviewed Currently stable on 2 L nasal cannula Continue the current treatment plan Plan is for colonoscopy tomorrow We will continue to follow I have personally seen and examined the patient, performed the documentation and the assessment and plan as written. Number of minutes spent on the visit: 10.
[2022-12-17 12:13] LABS: Glucose,Whole Blood 145 mg/dL (70-110)
[2022-12-17] MEDS: SODIUM CHLORIDE 0.9% 1,000 ML IV SCH (14:35)
[2022-12-17 16:24] LABS: Glucose,Whole Blood 116 mg/dL (70-110)
[2022-12-17 19:56] LABS: Glucose,Whole Blood 109 mg/dL (70-110)
--- NOTE | 2022-12-17 21:13 | P.PN ---
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 She reports difficulty tolerating liquids. She denies poor appetite. She has hesitation for colonoscopy. ROS: No reports of nausea and vomiting. No fevers or chills. No new chest pain. Has chronic obstructive pulmonary disease. PHYSICAL EXAM: VITAL SIGNS: Reviewed CONSTITUTIONAL: Well developed and in no acute distress. EYES: Conjuctivae without sclera icterus. Extraocular movements grossly intact. HEAD, EARS, NOSE, THROAT: Moist buccal mucosa. Head is atraumatic, normocephalic. Hears conversational speech. No nasal drainage. RESPIRATORY: Non-labored respirations and equal bilateral excursions. CARDIOVASCULAR: Palpable 2+ radial pulses. ABDOMEN: Protuberant. No peritonitis. MUSCULOSKELETAL: No gross deformity of the lower extremities noted. No clubbing. No cyanosis. SKIN: Good skin turgor. Well perfused. NEUROLOGIC: Cranial nerves II through XII grossly intact. No focal or lateralizing signs. PSYCH: Appropriate affect. Alert and oriented to person, place and time. CLINICAL LABS: Reviewed. WBC count 22,000 to 21,000. Tumor markers demonstrates elevated CEA and CA 125. AFP within normal limits. STUDIES: Barium enema review demonstrates no fistulous tract of the colon to uterus. Presence of diverticulosis. This is my independent interpretation. ASSESSMENT: 1. 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 Chronic obstructive pulmonary disease 3. Morbid obesity excess calories, BMI 39.9 4. Diverticulosis PLAN: 1. Barium enema demonstrates no fistulous tract. Colonoscopy may provide additional benefit. 2. 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 Will need gynecology assessment or oncology assessment 3. Patient reports inability to swallow liquids and at this time does not want colonoscopy. Patient encouraged trial of prep. Objective - Vital Signs Vital signs: Vital Signs Temp 98.3 F 12/17/22 13:22 Pulse 78 12/17/22 13:22 Resp 19 12/17/22 13:22 BP 153/71 12/17/22 13:22 Pulse Ox 94 L 12/17/22 13:22 FiO2 Intake & Output 12/17/22 12/17/22 12/18/22 06:59 18:59 06:59 Intake Total 200 818 Output Total 500 500 Balance -300 318 Intake: Intake, IV Titration 700 Amount Sodium Chloride 0.9% 1, 600 000 ml @ 75 mls/hr IV . [id number] [facility] Rx#:[id number] metroNIDAZOLE-NS PMX 500 100 mg In Saline 1 100ml.bag @ 100 mls/hr IVPB Q8HR [facility] Rx#:[id number] Oral 118 Blood Product 200 Output: Urine 500 500 Other: Voiding Method External Catheter - Labs CBC & Chem 7: 12/16/22 06:58 12/16/22 06:58 Labs: Abnormal Lab Results - Last 24 Hours (Table) 12/17/22 12/17/22 12/17/22 Range/Units 05:12 12:11 16:22 POC Glucose (mg/dL) 122 H 145 H 116 H (70-110) mg/dL Microbiology - Last 24 Hours (Table) 12/16/22 21:15 Urine Culture - Preliminary Urine,Voided 12/13/22 02:39 Blood Culture - Preliminary Blood No Growth after 96 hours 12/13/22 02:54 Blood Culture - Preliminary Blood No Growth after 96 hours
--- NOTE | 2022-12-17 21:16 | P.PN ---
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 Im age study demonstrates unlikely fistula on barium enema. Patient reports she is not able to tolerate liquids due to fullness. ROS: No reports of nausea and vomiting. No fevers or chills. No new chest pain. Has chronic obstructive pulmonary disease. PHYSICAL EXAM: VITAL SIGNS: Reviewed CONSTITUTIONAL: Well developed and in no acute distress. EYES: Conjuctivae without sclera icterus. Extraocular movements grossly intact. HEAD, EARS, NOSE, THROAT: Moist buccal mucosa. Head is atraumatic, normocephalic. Hears conversational speech. No nasal drainage. RESPIRATORY: Non-labored respirations and equal bilateral excursions. CARDIOVASCULAR: Palpable 2+ radial pulses. ABDOMEN: Protuberant. No peritonitis. MUSCULOSKELETAL: No gross deformity of the lower extremities noted. No clubbin g. No cyanosis. SKIN: Good skin turgor. Well perfused. NEUROLOGIC: Cranial nerves II through XII grossly intact. No focal or lateralizing signs. PSYCH: Appropriate affect. Alert and oriented to person, place and time. CLINICAL LABS: Reviewed. WBC count 22,000 to 21,000. Tumor markers demon strates elevated CEA and CA 125. AFP within normal limits. ASSESSMENT: 1. 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 Chronic obstructive pulmonary disease 3. Morbid obesity excess calories, BMI 39.9 4. Diverticulosis PLAN: 1. Patient encouraged to have bowel prep. 2. Colonoscopy encouraged. 3. Recommend oncology assessment versus candy puller/oncology asessment Objective - Vital Signs Vital signs: Vital Signs Temp 98.3 F 12/17/22 13:22 Pulse 78 12/17/22 13:22 Resp 19 12/17/22 13:22 BP 153/71 12/17/22 13:22 Pulse Ox 94 L 12/17/22 13:22 FiO2 Intake & Output 12/17/22 12/17/22 12/18/22 06:59 18:59 06:59 Intake Total 200 818 Output Total 500 500 Balance -300 318 Intake: Intake, IV Titration 700 Amount Sodium Chloride 0.9% 1, 600 000 ml @ 75 mls/hr IV . [id number] [facility] Rx#:[id number] metroNIDAZOLE-NS PMX 500 100 mg In Saline 1 100ml.bag @ 100 mls/hr IVPB Q8HR [facility] Rx#:[id number] Oral 118 Blood Product 200 Output: Urine 500 500 Other: Voiding Method External Catheter - Labs CBC & Chem 7: 12/16/22 06:58 12/16/22 06:58 Labs: Abnormal Lab Results - Last 24 Hours (Table) 12/17/22 12/17/22 12/17/22 Range/Units 05:12 12:11 16:22 POC Glucose (mg/dL) 122 H 145 H 116 H (70-110) mg/dL Microbiology - Last 24 Hours (Table) 12/16/22 21:15 Urine Culture - Preliminary Urine,Voided 12/13/22 02:39 Blood Culture - Preliminary Blood No Growth after 96 hours 12/13/22 02:54 Blood Culture - Preliminary Blood No Growth after 96 hours
[2022-12-18] MEDS: metroNIDAZOLE-NS PMX 500 MG in SALINE 1 100ML.BAG IVPB SCH ×3 (00:34→16:33)
[2022-12-18] MEDS: FUROSEMIDE 40 MG TAB PO SCH (00:34)
[2022-12-18] MEDS: HEPARIN SODIUM,PORCINE/PF 5,000 UNIT/0.5 ML SYRINGE SQ SCH ×3 (00:34→16:33)
--- NOTE | 2022-12-18 00:49 | P.PN ---
Subjective Progress Note Date: 12/16/22 Patient is a 67-year-old female with a long history of hypertension, hyperlipidemia, diabetes type 2 insulin-dependent, hypothyroidism, asthma and prior history of smoking presents to ER with complaints of abdominal pain and low back pain for the past 1 month. Patient states that she has been having issues with constipation and when she does take medications for it which is causing diarrhea. She has been having decreased appetite and weight loss. She has been having intermittent night sweats. Currently denies any nausea or vomiting. Patient reports that she did have yellowish vaginal discharge. She does have chronic lower extremity edema and does take diuretics every [address] of the abdomen pelvis showed intrauterine gas extending to the right cornual serosa. This nonspecific finding may be related to endometritis, recent intrauterine instrumentation, colouterine fistula or necrotic mass. Nonspecific retroperitoneal adenopathy may be related to metastatic disease lymphoproliferative process. Laboratory data showed WBC 18.8 hemoglobin 9.8 and platelets 336 Sodium 135 potassium 4.5 chloride 100 bicarb is 22 BUN 29 creatinine 1.98 Alk phos 205 Urinalysis showed cloudy with small blood nitrite negative large leukocyte esterase with greater than 182 WBCs. 12/14/2022 Patient is still complaining of lower abdominal pain. Denied any nausea or vomiting. Seen by general surgery and is planning for colonoscopy on Sunday. Otherwise patient is on antibiotics of Levaquin and Flagyl. General surgery is on board. [employer] service was consulted regarding fistula. No complaints of fever or chills. Laboratory data showed WBC 19.6 and hemoglobin 8.6 and platelets 711 BUN 20.8 and creatinine 1.8 and blood sugar is 84. 12/15/2022 Patient is currently sitting in the recliner today. Awake alert and orient x3. No complaints of chest pain or shortness of breath. Patient is on 2 L oxygen via nasal cannula and saturating at 96%. Otherwise still complaining of lower abdominal pain. Able to pass flatus. No complaints of chest pain or shortness of breath. Laboratory showed WBC count worsening to 22.3 hemoglobin 8.9 and platelets 707 BUN 18.2 and creatinine 1.7 otherwise TSH level is 8.24 and free T4 level is 1.050 within normal limits. General surgery is planning for colonoscopy on Sunday. Patient is hesitant to go for colonoscopy. Barium enema was ordered to evaluate colonic fistula. CT abdomen pelvis with oral contrast showed air within the uterine lumen with gas tracking right laterally towards the sigmoid. 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 No organizing fluid collection. Retroperitoneal lymphadenopathy compatible with metastatic disease. Hepatic nodular contour suggestive of cirrhosis. Layering biliary debris's. 12/16/2022 Patient is currently sitting in the chair. Awake alert and oriented x3. Still complains of lower abdominal pain. Patient has been afebrile. Currently on 2 L via nasal cannula. Breathing status has been fairly stable. Patient is hesitant to go for colonoscopy Barium enema done yesterday showed no fistulous tract identified corresponding to previous CT. Direct visualization is recommended. No evidence of obstructing or constricting lesion. Sigmoid diverticulosis. Laboratory showed WBC 21.0 hemoglobin 8.4 and platelets 699 BUN 16.7 creatinine 1.7 CA125 50.3 and CEA 7.8. Alpha-fetoprotein less than 1.82. Current medications reviewed. Objective - Vital Signs Vital signs: Vital Signs Temp 98.5 F 12/16/22 19:31 Pulse 78 12/16/22 19:31 Resp 19 12/16/22 19:31 BP 143/74 12/16/22 19:31 Pulse Ox 95 12/16/22 19:31 FiO2 Intake & Output 12/16/22 12/16/22 12/17/22 06:59 18:59 06:59 Intake Total 700 Output Total 200 800 Balance -200 -100 Intake: Intake, IV Titration 700 Amount Sodium Chloride 0.9% 1, 600 000 ml @ 75 mls/hr IV . [id number] [facility] Rx#:[id number] metroNIDAZOLE-NS PMX 500 100 mg In Saline 1 100ml.bag @ 100 mls/hr IVPB Q8HR [facility] Rx#:[id number] Output: Urine 200 800 Other: Voiding Method Bedside Commode External Catheter External Catheter # Voids 2 - Exam PHYSICAL EXAMINATION: Patient is lying in the bed comfortably, no acute distress, awake alert and oriented.. HEENT: Normocephalic. Neck is supple. Pupils reactive. Nostrils clear. Oral cavity is moist. Neck reveals no JVD, carotid bruits, or thyromegaly. CHEST EXAMINATION: Trachea is central. Symmetrical expansion. Bibasilar diminished sounds.. CARDIAC: Normal S1, S2 with no gallops. No murmurs ABDOMEN: Soft. Bowel sounds present. Mild lower abdominal tenderness no guarding or rigidity. r. No organomegaly. No abdominal bruits. Extremities: reveal 2+ edema. No clubbing or cyanosis Neurologically awake, alert, oriented x3 with well-coordinated movements. No focal deficits noted Skin: No rash or skin lesions. Psychiatric: Coperative. Nonsuicidal, Musculoskeletal: No joint swelling or deformity. Normal range of motion. - Labs CBC & Chem 7: 12/16/22 06:58 12/16/22 06:58 Labs: Abnormal Lab Results - Last 24 Hours (Table) 12/16/22 12/16/22 12/16/22 Range/Units 06:58 06:58 06:58 WBC 21.05 H (4.50-10.00) X 10*3/uL RBC 2.86 L (4.10-5.20) X 10*6/uL Hgb 8.4 L (12.0-15.0) g/dL Hct 27.9 L (37.2-46.3) % MCV 97.6 H (80.0-97.0) fL MCHC 30.1 L (32.0-37.0) g/dL RDW 16.7 H (11.5-14.5) % Plt Count 699 H (140-440) X 10*3/uL Immature Gran # 0.43 H (0.00-0.04) X 10*3/uL Neutrophils # 17.62 H (1.80-7.70) X 10*3/uL Monocytes # 1.48 H (0.20-1.00) X 10*3/uL Carbon Dioxide 19.7 L (20.0-27.5) mmol/L Creatinine 1.7 H (0.6-1.5) mg/dL Est GFR (CKD-EPI)AfAm 35.3 L (60.0-200.0) Est GFR (CKD-EPI)NonAf 30.5 L (60.0-200.0) BUN/Creatinine Ratio 9.82 L (12.00-20.00) Ratio POC Glucose (mg/dL) (70-110) mg/dL Carcinoembryonic Ag 7.8 H (0.0-4.9) ng/mL CA 125 Antigen 50.3 H (0.0-30.1) U/mL 12/16/22 12/16/22 Range/Units 11:15 16:48 WBC (4.50-10.00) X 10*3/uL RBC (4.10-5.20) X 10*6/uL Hgb (12.0-15.0) g/dL Hct (37.2-46.3) % MCV (80.0-97.0) fL MCHC (32.0-37.0) g/dL RDW (11.5-14.5) % Plt Count (140-440) X 10*3/uL Immature Gran # (0.00-0.04) X 10*3/uL Neutrophils # (1.80-7.70) X 10*3/uL Monocytes # (0.20-1.00) X 10*3/uL Carbon Dioxide (20.0-27.5) mmol/L Creatinine (0.6-1.5) mg/dL Est GFR (CKD-EPI)AfAm (60.0-200.0) Est GFR (CKD-EPI)NonAf (60.0-200.0) BUN/Creatinine Ratio (12.00-20.00) Ratio POC Glucose (mg/dL) 134 H 117 H (70-110) mg/dL Carcinoembryonic Ag (0.0-4.9) ng/mL CA 125 Antigen (0.0-30.1) U/mL Microbiology - Last 24 Hours (Table) 12/13/22 02:39 Blood Culture - Preliminary Blood No Growth after 72 hours 12/13/22 02:54 Blood Culture - Preliminary Blood No Growth after 72 hours Assessment and Plan Assessment: 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 Elevated tumor markers CEA and CA125 with enlarging uterus Leukocytosis Retroperitoneal lymphadenopathy. Metastatic disease cannot be excluded. Acute kidney injury likely prerenal Hypovolemic hyponatremia Diabetes type 2 insulin-dependent Normocytic anemia with hemoglobin 9.8 Hypothyroidism Asthma not in exacerbation Chronic bilateral lower extremity swelling Constipation GI and DVT prophylaxis Plan: Patient will be continued on IV hydration with normal saline. Continue with antibiotics Levaquin and Flagyl. Patient was seen by [employer]. Barium enema showed no evidence of fistula. Direct visualization recommended. Otherwise patient was found to have elevated tumor markers CEA and CA125. Patient was seen by pulmonary and cleared for surgery. Patient is hesitant to go for colonoscopy. Continue with home medications and follow-up CBC and BMP tomorrow. Prognosis is guarded. Time with Patient: Greater than 30
--- NOTE | 2022-12-18 00:54 | P.PN ---
Subjective Progress Note Date: 12/17/22 Patient is a 67-year-old female with a long history of hypertension, hyperlipidemia, diabetes type 2 insulin-dependent, hypothyroidism, asthma and prior history of smoking presents to ER with complaints of abdominal pain and low back pain for the past 1 month. Patient states that she has been having issues with constipation and when she does take medications for it which is causing diarrhea. She has been having decreased appetite and weight loss. She has been having intermittent night sweats. Currently denies any nausea or vomiting. Patient reports that she did have yellowish vaginal discharge. She does have chronic lower extremity edema and does take diuretics every [address] of the abdomen pelvis showed intrauterine gas extending to the right cornual serosa. This nonspecific finding may be related to endometritis, recent intrauterine instrumentation, colouterine fistula or necrotic mass. Nonspecific retroperitoneal adenopathy may be related to metastatic disease lymphoproliferative process. Laboratory data showed WBC 18.8 hemoglobin 9.8 and platelets 336 Sodium 135 potassium 4.5 chloride 100 bicarb is 22 BUN 29 creatinine 1.98 Alk phos 205 Urinalysis showed cloudy with small blood nitrite negative large leukocyte esterase with greater than 182 WBCs. 12/14/2022 Patient is still complaining of lower abdominal pain. Denied any nausea or vomiting. Seen by general surgery and is planning for colonoscopy on Sunday. Otherwise patient is on antibiotics of Levaquin and Flagyl. General surgery is on board. [employer] service was consulted regarding fistula. No complaints of fever or chills. Laboratory data showed WBC 19.6 and hemoglobin 8.6 and platelets 711 BUN 20.8 and creatinine 1.8 and blood sugar is 84. 12/15/2022 Patient is currently sitting in the recliner today. Awake alert and orient x3. No complaints of chest pain or shortness of breath. Patient is on 2 L oxygen via nasal cannula and saturating at 96%. Otherwise still complaining of lower abdominal pain. Able to pass flatus. No complaints of chest pain or shortness of breath. Laboratory showed WBC count worsening to 22.3 hemoglobin 8.9 and platelets 707 BUN 18.2 and creatinine 1.7 otherwise TSH level is 8.24 and free T4 level is 1.050 within normal limits. General surgery is planning for colonoscopy on Sunday. Patient is hesitant to go for colonoscopy. Barium enema was ordered to evaluate colonic fistula. CT abdomen pelvis with oral contrast showed air within the uterine lumen with gas tracking right laterally towards the sigmoid. 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 No organizing fluid collection. Retroperitoneal lymphadenopathy compatible with metastatic disease. Hepatic nodular contour suggestive of cirrhosis. Layering biliary debris's. 12/16/2022 Patient is currently sitting in the chair. Awake alert and oriented x3. Still complains of lower abdominal pain. Patient has been afebrile. Currently on 2 L via nasal cannula. Breathing status has been fairly stable. Patient is hesitant to go for colonoscopy Barium enema done yesterday showed no fistulous tract identified corresponding to previous CT. Direct visualization is recommended. No evidence of obstructing or constricting lesion. Sigmoid diverticulosis. Laboratory showed WBC 21.0 hemoglobin 8.4 and platelets 699 BUN 16.7 creatinine 1.7 CA125 50.3 and CEA 7.8. Alpha-fetoprotein less than 1.82. 12/17/2022 Patient is currently lying in the bed. Awake alert oriented x3. She complains of lower abdominal discomfort and complains of nausea unable to tolerate oral diet very well. General surgery recommends colonoscopy but patient is hesitant to do so. Oncology was consulted due to elevated tumor markers. Patient will need to be evaluated by [employer] oncology for possible malignancy. Continued on antibiotics Levaquin and Flagyl. Laboratory reviewed. Current medications reviewed. Objective - Vital Signs Vital signs: Vital Signs Temp 98.3 F 12/17/22 13:22 Pulse 78 12/17/22 13:22 Resp 19 12/17/22 13:22 BP 153/71 12/17/22 13:22 Pulse Ox 94 L 12/17/22 13:22 FiO2 Intake & Output 12/16/22 12/17/22 12/17/22 18:59 06:59 18:59 Intake Total 700 200 Output Total 800 500 Balance -100 -300 Intake: Intake, IV Titration 700 Amount Sodium Chloride 0.9% 1, 600 000 ml @ 75 mls/hr IV . [id number] [facility] Rx#:[id number] metroNIDAZOLE-NS PMX 500 100 mg In Saline 1 100ml.bag @ 100 mls/hr IVPB Q8HR [facility] Rx#:[id number] Blood Product 200 Output: Urine 800 500 Other: Voiding Method External Catheter External Catheter - Exam PHYSICAL EXAMINATION: Patient is lying in the bed comfortably, no acute distress, awake alert and oriented.. HEENT: Normocephalic. Neck is supple. Pupils reactive. Nostrils clear. Oral cavity is moist. Neck reveals no JVD, carotid bruits, or thyromegaly. CHEST EXAMINATION: Trachea is central. Symmetrical expansion. Bibasilar diminished sounds.. CARDIAC: Normal S1, S2 with no gallops. No murmurs ABDOMEN: Soft. Bowel sounds present. Mild lower abdominal tenderness no guarding or rigidity. r. No organomegaly. No abdominal bruits. Extremities: reveal 2+ edema. No clubbing or cyanosis Neurologically awake, alert, oriented x3 with well-coordinated movements. No focal deficits noted Skin: No rash or skin lesions. Psychiatric: Coperative. Nonsuicidal, Musculoskeletal: No joint swelling or deformity. Normal range of motion. - Labs CBC & Chem 7: 12/16/22 06:58 12/16/22 06:58 Labs: Abnormal Lab Results - Last 24 Hours (Table) 12/16/22 12/17/22 12/17/22 Range/Units 16:48 05:12 12:11 POC Glucose (mg/dL) 117 H 122 H 145 H (70-110) mg/dL Microbiology - Last 24 Hours (Table) 12/13/22 02:39 Blood Culture - Preliminary Blood No Growth after 96 hours 12/13/22 02:54 Blood Culture - Preliminary Blood No Growth after 96 hours Assessment and Plan Assessment: 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 Elevated tumor markers CEA and CA125 with enlarging uterus Leukocytosis Retroperitoneal lymphadenopathy. Metastatic disease cannot be excluded. Acute kidney injury likely prerenal Hypovolemic hyponatremia Diabetes type 2 insulin-dependent Normocytic anemia with hemoglobin 9.8 Hypothyroidism Asthma not in exacerbation Chronic bilateral lower extremity swelling Constipation GI and DVT prophylaxis Plan: Patient will be continued on IV hydration with normal saline. Continue with antibiotics Levaquin and Flagyl. Patient was seen by [employer]. Barium enema showed no evidence of fistula. Direct visualization recommended. Otherwise patient was found to have elevated tumor markers CEA and CA125. Oncology was consulted. Patient was seen by pulmonary and cleared for surgery. Patient is hesitant to go for colonoscopy. Continue with home medications and follow-up CBC and BMP tomorrow. Prognosis is guarded. Time with Patient: Greater than 30
[2022-12-18] MEDS: HYDROmorphone 0.5 MG/0.5 ML SYRINGE IVP PRN ×7 (01:43→22:58)
[2022-12-18] MEDS: SODIUM CHLORIDE 0.9% 1,000 ML IV SCH ×2 (01:45→21:13)
[2022-12-18] MEDS: LEVOFLOXACIN 250MG-D5W PMX 250 MG in DEXTROSE/WATER 1 50ML.BAG IVPB SCH (03:06)
[2022-12-18 06:15] LABS: Glucose,Whole Blood 107 mg/dL (70-110)
[2022-12-18] MEDS: LEVOTHYROXINE 75 MCG TAB PO SCH (06:19)
[2022-12-18] MEDS: INSULIN ASPART (NovoLOG) 100 UNIT/ML VIAL SQ SCH ×7 (06:20→21:12)
[2022-12-18] MEDS: PANTOPRAZOLE 40 MG/10 ML VIAL IVP SCH (08:09)
[2022-12-18] MEDS: allopurinoL 300 MG TAB PO SCH (08:52)
[2022-12-18] MEDS: hydrALAZINE HCL 50 MG TAB PO SCH ×2 (08:52→21:11)
[2022-12-18] MEDS: DOCUSATE 100 MG CAP PO SCH (08:53)
[2022-12-18] MEDS: amLODIPine 5 MG TAB PO SCH (08:53)
[2022-12-18] MEDS: METOPROLOL SUCCINATE (ER) 25 MG TAB.ER.24H PO SCH (08:53)
[2022-12-18] MEDS: SYMBICORT 160-4.5 MCG INHALER INHALATION SCH ×2 (09:59→18:38)
[2022-12-18 11:21] LABS: Glucose,Whole Blood 116 mg/dL (70-110)
[2022-12-18 11:47] LABS: HCT 30.5 % (37.2-46.3); HGB 8.8 g/dL (12.0-15.0); MCHC 28.9 g/dL (32.0-37.0); MCV 100.7 fL (80.0-97.0); Mean Platelet Volume 10.1 fL (9.5-12.2); NRBC Per 100 WBC 0 /100 WBCS (0.0-0.0); Platelet Count 736 X 10*3/uL (140-440); RBC 3.03 X 10*6/uL (4.10-5.20); RDW 16.9 % (11.5-14.5); WBC 21.95 X 10*3/uL (4.50-10.00)
[2022-12-18 12:02] LABS: African American GFR (CKD) 43.5 (60.0-200.0); Anion Gap 12.3 mmol/L (10.00-18.00); BUN/Creat Ratio 11.75 Ratio (12.00-20.00); Blood Urea Nitrogen 16.8 mg/dL (9.0-27.0); Calcium 10.3 mg/dL (8.7-10.3); Carbon Dioxide 23.4 mmol/L (20.0-27.5); Non-African American GFR(CKD) 37.5 (60.0-200.0); Potassium 4.2 mmol/L (3.5-5.5)
[2022-12-18 12:29] LABS: Basophils # (A) 0.12 X 10*3/uL (0.00-0.10); Basophils % (A) 0.5 %; Eosinophils # (A) 0.64 X 10*3/uL (0.04-0.35); Eosinophils % (A) 2.9 %; Immature Grans, Automated 2.5 %; Lymphocytes # (A) 1.18 X 10*3/uL (0.90-5.00); Lymphocytes % (A) 5.4 %; Monocytes # (A) 1.59 X 10*3/uL (0.20-1.00); Monocytes % (A) 7.2 %; Neutrophils # (A) 17.87 X 10*3/uL (1.80-7.70); Neutrophils % (A) 81.5 %; RBC Morphology NORMAL
--- NOTE | 2022-12-18 12:43 | P.PN ---
Subjective Progress Note Date: 12/18/22 Principal diagnosis: Preoperative clearance. This is a 67-year-old female patient who follows with Dr. Severino as her primary care provider. She has a history of morbid obesity, chronic lower extremity edema, diastolic congestive heart failure, cor pulmonale, diabetes mellitus, h ypertension, hyperlipidemia, hypothyroidism former smoker with chronic hypoxemic respiratory failure maintained on home oxygen and she is also on Symbicort. She presented here to the emergency room on 12/13/2022 with complaints of lower abdominal pain and back pain that have been going on and off for approximately one month. Computed tomography scan of the abdomen did reveal air within the uterine lumen with gas tracking right laterally towards sigmoid. 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 No organizing fluid collection. Retroperitoneal lymphadenopathy compatible with metastatic disease. Hepatic nodular contour suggestive of cirrhosis. Layering debris. PACKAGING TECHNICIAN and surgical services have been consulted. We were consulted for pre-op clearance. She is currently sitting up in bed. Awake and alert in no acute distress. Maintaining good O2 saturations in the mid 90s on 2 L/m per nasal cannula. She's afebrile. Hemodynamically stable. He denies any shortness of breath, cough or congestion. Chest x-ray shows no acute pulmonary process. She is continued on her Symbicort. Heparin for DVT prophylaxis. Antibiotics in the form of Levaquin and Flagyl. White count 22.3. Hemoccult 8.9. Platelets 707. Sodium 136. Potassium 4.3. Bicarb 20. BUN 18. Creatinine 1.7. Glucose 137. Pro-calcitonin 1.34. A culture revealing no growth to date. The patient is seen today 12/16/2022 in follow-up on the regular medical floor. She is currently sitting up in a chair at the bedside. Awake and alert in no acute distress. Maintaining good O2 saturations in the 90s on 2 L/m per nasal cannula. She has normal saline at 75 ML's per hour. Bedside spirometry pending. A barium enema revealed no fistulous tract identified corresponding to previous CT. Direct visualization is recommended. No evidence obstructing or constricting lesion. Sigmoid diverticulosis. Blood culture reveals no growth. Glucose 134. She is continued on Symbicort. Antibiotics in form of Levaquin and Flagyl. Heparin for DVT prophylaxis. The patient is seen today 12/17/2022 in follow-up on the regular medical floor. She is currently awake and alert in no acute distress. Sitting up in a chair at the bedside. Maintaining O2 saturations in the 90s on 2 L/m per nasal cannula. Normal saline at 75 ML's per hour. Bedside spirometry revealed a MVV of 25 L, FEV1 value of 1.0 L. Putting her at moderate to high operative risk from the pulmonary standpoint. Blood cultures are revealing no growth a blood glucose 122. She remains on bronchodilators, antibiotics in the form of Levaquin and Flagyl. Heparin for DVT prophylaxis. Oral diuretics. Currently in a negative balance. Progress note dated 12/18/2022. The patient is seen in room 472. We did a preop clearance on this patient, and based on her lung function, we thought she was in the moderate to high increased operative risk range, given her FEV1 of about a liter, and her MVV, which is about 25 L/m. Apparently today, she decided not to go forward with her colonoscopy. Labs include a white count of 22,000, hemoglobin 8.8, hematocrit 31, and a platelet count of 736,000. Sodium, potassium, chloride, CO2, anion gap, BUN, and creatinine are all within the normal range. Calcium is 10.3. Blood and urine cultures are thus far negative. No recent x-rays to report. Objective - Vital Signs Vital signs: Vital Signs Temp 97.9 F 12/18/22 07:57 Pulse 89 12/18/22 07:57 Resp 18 12/18/22 08:19 BP 165/77 12/18/22 07:57 Pulse Ox 97 12/18/22 09:59 FiO2 Intake & Output 12/17/22 12/18/22 12/18/22 18:59 06:59 18:59 Intake Total 818 240 118 Output Total 500 450 Balance 318 -210 118 Intake: Intake, IV Titration 700 Amount Sodium Chloride 0.9% 1, 600 000 ml @ 75 mls/hr IV . [id number] [facility] Rx#:[id number] metroNIDAZOLE-NS PMX 500 100 mg In Saline 1 100ml.bag @ 100 mls/hr IVPB Q8HR [facility] Rx#:[id number] Oral 118 240 118 Output: Urine 500 450 Other: Voiding Method External Catheter External Catheter - Exam No acute distress, oriented 3. Currently on 2 L of oxygen. HEENT examination is grossly unremarkable. Neck supple. Full range of motion. No adenopathy thyromegaly or neck vein distention. Cardiovascular examination reveals regular rhythm rate. S1-S2 normal. No S3 or S4. No discernible murmur noted. Heart rate 89 bpm. Heart sounds are distant. Lungs reveal mostly clear breath sounds. Scattered rhonchi are noted. No wheezes or crackles. 2 L saturation is 97%. Abdomen soft bowel sounds are heard. No masses or tenderness. Extremities are intact. No cyanosis clubbing or edema. Skin is without rash or lesion. Neurologic examination is brief but nonfocal. - Labs CBC & Chem 7: 12/18/22 06:15 12/18/22 06:15 Labs: Abnormal Lab Results - Last 24 Hours (Table) 12/17/22 12/18/22 12/18/22 Range/Units 16:22 06:15 06:15 WBC 21.95 H (4.50-10.00) X 10*3/uL RBC 3.03 L (4.10-5.20) X 10*6/uL Hgb 8.8 L (12.0-15.0) g/dL Hct 30.5 L (37.2-46.3) % MCV 100.7 H (80.0-97.0) fL MCHC 28.9 L (32.0-37.0) g/dL RDW 16.9 H (11.5-14.5) % Plt Count 736 H (140-440) X 10*3/uL Plt Count Comment INCREASED A Immature Gran # 0.55 H (0.00-0.04) X 10*3/uL Neutrophils # 17.87 H (1.80-7.70) X 10*3/uL Monocytes # 1.59 H (0.20-1.00) X 10*3/uL Eosinophils # 0.64 H (0.04-0.35) X 10*3/uL Basophils # 0.12 H (0.00-0.10) X 10*3/uL Est GFR (CKD-EPI)AfAm 43.5 L (60.0-200.0) Est GFR (CKD-EPI)NonAf 37.5 L (60.0-200.0) BUN/Creatinine Ratio 11.75 L (12.00-20.00) Ratio POC Glucose (mg/dL) 116 H (70-110) mg/dL 12/18/22 Range/Units 11:20 WBC (4.50-10.00) X 10*3/uL RBC (4.10-5.20) X 10*6/uL Hgb (12.0-15.0) g/dL Hct (37.2-46.3) % MCV (80.0-97.0) fL MCHC (32.0-37.0) g/dL RDW (11.5-14.5) % Plt Count (140-440) X 10*3/uL Plt Count Comment Immature Gran # (0.00-0.04) X 10*3/uL Neutrophils # (1.80-7.70) X 10*3/uL Monocytes # (0.20-1.00) X 10*3/uL Eosinophils # (0.04-0.35) X 10*3/uL Basophils # (0.00-0.10) X 10*3/uL Est GFR (CKD-EPI)AfAm (60.0-200.0) Est GFR (CKD-EPI)NonAf (60.0-200.0) BUN/Creatinine Ratio (12.00-20.00) Ratio POC Glucose (mg/dL) 116 H (70-110) mg/dL Microbiology - Last 24 Hours (Table) 12/16/22 21:15 Urine Culture - Final Urine,Voided 12/13/22 02:54 Blood Culture - Preliminary Blood No Growth after 120 hours 12/13/22 02:39 Blood Culture - Preliminary Blood No Growth after 120 hours Assessment and Plan Assessment: Abdominal pain secondary to air within the uterine lumen with gas tracking right laterally towards sigmoid. 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 No organizing fluid collection. Retroperitoneal lymphadenopathy compatible with metastatic disease. Hepatic nodular contour suggestive of cirrhosis. Layering debris. Barium enema did not reveal any fistulous track identified corresponding to previous CT. Direct visualized recommended. No evidence of obstruction or constricting lesion. Sigmoid diverticulosis. Currently on Flagyl and Levaquin. Urinary tract infection secondary to above, culture pending. Leukocytosis secondary to above. Acute on chronic anemia. Acute renal failure. History of previous tobacco dependence. Chronic obstructive pulmonary disease with FEV1 value of 1 L and MVV 25 liters. Morbid obesity. Chronic hypoxemic and hypercapnic respiratory failure with obesity hypoventilation syndrome suspected sleep apnea. Chronic lower extremity edema secondary to diastolic congestive heart failure. Cor pulmonale. Diabetes mellitus. Hypertension. Hyperlipidemia. History of chronic bronchial asthma, mild intermittent. Hypothyroidism. History of gout. Gastroesophageal reflux disease. Plan: Plan dated 12/18/2022. For some reason, unclear to me, the patient refused a colonoscopy. She remains on O2 at 2 L. She's getting saline at 50 mL an hour. She continues on Levaquin and Flagyl. Additional recommendations and suggestions are forthcoming. Labs, x-rays, and medications are reviewed. Microbiologic sampling thus far is negative. Prognosis is certainly guarded. Time with Patient: Greater than 30
--- NOTE | 2022-12-18 13:44 | P.PN ---
Subjective Progress Note Date: 12/18/22 CHIEF COMPLAINT: Abdominal pain HISTORY OF PRESENT ILLNESS: Patient with evidence of Colouterine fistula on CT. patient initially scheduled for a colonoscopy today. However, she was unable to tolerate the bowel prep. Patient reports that she is even having difficulty with taking in food and liquids. She was able to tolerate the broth. She reports a decreased appetite. She does report some lower abdominal discomfort. She has been having diarrhea. She is having a yellowish, mirza to green vaginal discharge. Afebrile. WBC elevated at 21 hgb 8.8 platelets 736 sodium is 140 potassium 4.2 creatinine 1.4 elevated CA 125 and CEA tumor markers. barium enema has showed no fistulous track identify corresponding to previous CT. Direct visualization is recommended. No evidence of obstructing or constricting lesion. Sigmoid diverticulosis PHYSICAL EXAM: VITAL SIGNS: Reviewed GENERAL: Well-developed in no acute distress. HEENT: No sclera icterus. Extraocular movements grossly intact. Moist buccal mucosa. Head is atraumatic, normocephalic. Hears conversational speech. No nasal drain age. NECK: Supple without lymphadenopathy. CHEST: Non-labored respirations and equal bilateral excursions. CARDIOVASCULAR: Palpable 2+ radial pulses. ABDOMEN: Soft. Nondistended. MUSCULOSKELETAL: No clubbing or cyanosis. NEUROLOGIC: No focal or lateralizing signs. Cranial nerves II through XII grossly intact. PSYCH: Appropriate affect. Alert and oriented to person, place and time. SKIN: Well perfused. Good skin turgor. ASSESSMENT: 1. Abnormal CT for Colouterine fistula. Barium enema showed no evidence of fistula recommended direct visualization. 2. Leukocytosis 3. Acute kidney injury 4. Diabetes mellitus 5. History of asthma and COPD 6. Elevated CA-125 and CEA tumor marker PLAN: -Patient has refused colonoscopy. Unable to tolerate prep -Continue antibiotics -Continue supportive care -Further recommendations forthcoming per surgeon Physician Senior Instructional Designer note has been reviewed by physician. Signing provider agrees with the documented findings, assessment, and plan of care. Objective - Vital Signs Vital signs: Vital Signs Temp 97.9 F 12/18/22 07:57 Pulse 89 12/18/22 07:57 Resp 18 12/18/22 08:19 BP 165/77 12/18/22 07:57 Pulse Ox 97 12/18/22 09:59 FiO2 Intake & Output 12/17/22 12/18/22 12/18/22 18:59 06:59 18:59 Intake Total 818 240 118 Output Total 500 450 Balance 318 -210 118 Intake: Intake, IV Titration 700 Amount Sodium Chloride 0.9% 1, 600 000 ml @ 75 mls/hr IV . [id number] [facility] Rx#:[id number] metroNIDAZOLE-NS PMX 500 100 mg In Saline 1 100ml.bag @ 100 mls/hr IVPB Q8HR [facility] Rx#:[id number] Oral 118 240 118 Output: Urine 500 450 Other: Voiding Method External Catheter External Catheter - Labs CBC & Chem 7: 12/18/22 06:15 12/18/22 06:15 Labs: Abnormal Lab Results - Last 24 Hours (Table) 12/17/22 12/18/22 12/18/22 Range/Units 16:22 06:15 06:15 WBC 21.95 H (4.50-10.00) X 10*3/uL RBC 3.03 L (4.10-5.20) X 10*6/uL Hgb 8.8 L (12.0-15.0) g/dL Hct 30.5 L (37.2-46.3) % MCV 100.7 H (80.0-97.0) fL MCHC 28.9 L (32.0-37.0) g/dL RDW 16.9 H (11.5-14.5) % Plt Count 736 H (140-440) X 10*3/uL Plt Count Comment INCREASED A Immature Gran # 0.55 H (0.00-0.04) X 10*3/uL Neutrophils # 17.87 H (1.80-7.70) X 10*3/uL Monocytes # 1.59 H (0.20-1.00) X 10*3/uL Eosinophils # 0.64 H (0.04-0.35) X 10*3/uL Basophils # 0.12 H (0.00-0.10) X 10*3/uL Est GFR (CKD-EPI)AfAm 43.5 L (60.0-200.0) Est GFR (CKD-EPI)NonAf 37.5 L (60.0-200.0) BUN/Creatinine Ratio 11.75 L (12.00-20.00) Ratio POC Glucose (mg/dL) 116 H (70-110) mg/dL 12/18/22 Range/Units 11:20 WBC (4.50-10.00) X 10*3/uL RBC (4.10-5.20) X 10*6/uL Hgb (12.0-15.0) g/dL Hct (37.2-46.3) % MCV (80.0-97.0) fL MCHC (32.0-37.0) g/dL RDW (11.5-14.5) % Plt Count (140-440) X 10*3/uL Plt Count Comment Immature Gran # (0.00-0.04) X 10*3/uL Neutrophils # (1.80-7.70) X 10*3/uL Monocytes # (0.20-1.00) X 10*3/uL Eosinophils # (0.04-0.35) X 10*3/uL Basophils # (0.00-0.10) X 10*3/uL Est GFR (CKD-EPI)AfAm (60.0-200.0) Est GFR (CKD-EPI)NonAf (60.0-200.0) BUN/Creatinine Ratio (12.00-20.00) Ratio POC Glucose (mg/dL) 116 H (70-110) mg/dL Microbiology - Last 24 Hours (Table) 12/16/22 21:15 Urine Culture - Final Urine,Voided 12/13/22 02:54 Blood Culture - Preliminary Blood No Growth after 120 hours 12/13/22 02:39 Blood Culture - Preliminary Blood No Growth after 120 hours
--- NOTE | 2022-12-18 15:30 | US ---
EXAMINATION TYPE: US venous doppler duplex LE BI DATE OF EXAM: 12/18/2022 1:26 PM Exam done portable COMPARISON: Bilateral lower extremity venous ultrasound 06/01/2020 CLINICAL INDICATION: Female, 67 years old with history of leg pain and swelling; Bilateral leg pain SIDE PERFORMED: Bilateral TECHNIQUE: The lower extremity deep venous system is examined utilizing real time linear array sonog juju with graded compression, doppler sonography and color-flow sonography. VESSELS IMAGED: Common Femoral Vein Deep Femoral Vein Greater Saphenous Vein * Femoral Vein Popliteal Vein Small Saphenous Vein * Proximal Calf Veins (* superficial vessels) Patient unable to tolerate compression of distal left femoral vein Grayscale, color doppler, spectral doppler imaging performed of the deep veins of the lower extremiti es. There is normal flow, compressibility, vascular waveforms. Right Leg: Appears negative for DVT Left Leg: Appears negative for DVT IMPRESSION: No deep venous thrombosis of the bilateral lower extremity veins. Patient unable to tolerate compress ion of the distal left femoral vein.
--- NOTE | 2022-12-18 16:27 | P.CONS ---
History of Present Illness - Reason for Consult Consult date: 12/18/22 Elevated tumor markers Requesting physician: Sebastien Joel - Chief Complaint Abdominal pain - History of Present Illness Patient is a 67-year-old female with a significant history of hypertension, hyperlipidemia, diabetes type 2 insulin-dependent, obesity, hypothyroidism, and asthma with prior history of smoking. We were consult up for elevated tumor markers, CA-125 and CEA. Patient reports that she's been having abdominal pain and lower back pain over the last approximately 2 weeks. She also complains about abnormal vaginal discharge over the last couple weeks. Denies vaginal bleeding and hematuria. Also reports decreased appetite, but unknown weight loss. She reports abdominal pain has improved since admission with pain medications. She denies blood in stool or melena. Denies nausea vomiting, fever and chills CT abdomen and pelvis without contrast revealed air within the uterine lumen with gas tracking right laterally towards the sigmoid. 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 Normal organizing fluid collection. Retroperitoneal lymphadenopathy compatible with metastatic disease. Hepatic nodular contour suggestive of cirrhosis. Layering biliary debris. Barium enema study showed no fistulous tract identified corresponding to previous CT. No evidence of obstructing or constricting lesion. Sigmoid diverticulosis. CRAFT COORDINATOR and surgery have been consulted. Surgery recommended colonoscopy the patient has declined at this time and states that she rather follow-up with CRAFT COORDINATOR ONC. CA-125 50.3, CEA 7.8 Review of Systems 10 point ROS is negative except as stated in the HPI Past Medical History Past Medical History: Asthma, Diabetes Mellitus, GERD/Reflux, Hyperlipidemia, Hypertension, Osteoarthritis (OA), Pneumonia, Thyroid Disorder Additional Past Medical History / Comment(s): 10-16- admitted with foeign body rt foot/abcess. other past medical hx includes: RHEUMATIC FEVER, OCC PALPITATIONS,BRONCHITIS, ghout History of Any Multi-Drug Resistant Organisms: MRSA Year Discovered:: 2008 MDRO Source:: lt leg Past Surgical History: Appendectomy, Section, Tonsillectomy Additional Past Surgical History / Comment(s): X2 C SECTIONS, right foot IND Past Anesthesia/Blood Transfusion Reactions: No Reported Reaction Additional Past Anesthesia/Blood Transfusion Reaction / Comm: clausterphobia Past Psychological History: No Psychological Hx Reported Smoking Status: Former smoker Past Alcohol Use History: None Reported Past Drug Use History: None Reported - Past Family History Father Family Medical History: Congestive Heart Failure (CHF), Diabetes Mellitus Additional Family Medical History / Comment(s): quad bypass Mother Family Medical History: Blood Disorder, Congestive Heart Failure (CHF), Coronary Artery Disease (CAD) Additional Family Medical History / Comment(s): at 79 Daughter(s) Family Medical History: No Reported History Medications and Allergies Home Medications Medication Instructions Recorded Confirmed Type Aspirin EC [Ecotrin] 325 mg PO DAILY 05/16/19 12/13/22 History Budesonide/Formoterol Fumarate 2 puff INHALATION RT-BID 05/16/19 12/13/22 History [Symbicort 160-4.5 Mcg Inhaler] allopurinoL [Zyloprim] 300 mg PO DAILY 05/16/19 12/13/22 History Metoprolol Succinate (ER) [Toprol 25 mg PO DAILY #30 tab.er.24h 05/21/19 12/13/22 Rx XL] Docusate [Colace] 100 mg PO DAILY 11/11/20 12/13/22 History Ergocalciferol (Vitamin D2) 1,250 mcg PO TH 11/11/20 12/13/22 History [Drisdol (50,000 Iu)] Furosemide [Lasix] 40 mg PO Q48H 11/11/20 12/13/22 History Levothyroxine Sodium [Synthroid] 75 mcg PO DAILY 11/11/20 12/13/22 History amLODIPine [Norvasc] 5 mg PO DAILY 11/11/20 12/13/22 History Insulin Aspart [Insulin Aspart 10 unit SQ AC-TID 12/13/22 12/13/22 History Flexpen] hydrALAZINE HCL [Apresoline] 50 mg PO BID 12/13/22 12/13/22 History Allergies Allergy/AdvReac Type Severity Reaction Status Date / Time ampicillin sodium Allergy Itching Verified 12/13/22 08:43 [From Unasyn] sulbactam sodium Allergy Itching Verified 12/13/22 08:43 [From Unasyn] Physical Exam Vitals: Vital Signs Temp Pulse Resp BP Pulse Ox 12/18/22 13:19 98.1 F 85 19 136/79 93 L 12/18/22 09:59 97 12/18/22 08:19 18 12/18/22 07:57 97.9 F 89 20 165/77 94 L 12/18/22 02:10 98.1 F 75 18 152/73 94 L 12/17/22 19:36 98.5 F 81 19 157/75 92 L Intake and Output 12/18/22 12/18/22 12/18/22 06:59 14:59 22:59 Intake Total 240 118 Output Total 450 Balance -210 118 Intake: Oral 240 118 Output: Urine 450 Other: Voiding Method External Catheter - Constitutional General appearance: no acute distress, obese - EENT Eyes: anicteric sclerae, EOMI ENT: hearing grossly normal - Respiratory Respiratory: bilateral: CTA - Cardiovascular Rhythm: regular Heart sounds: normal: S1, S2 Abnormal Heart Sounds: no systolic murmur, no diastolic murmur, no rub, no S3 Gallop, no S4 Gallop, no click, no other leg Peripheral Edema: bilateral: 2+ (painful to palpation, no erythema noted ) - Gastrointestinal General gastrointestinal: soft, no tenderness - Integumentary Integumentary: normal - Neurologic Grossly intact - Musculoskeletal Musculoskeletal: strength equal bilaterally - Psychiatric Psychiatric: A&O x's 3, appropriate affect, intact judgment & insight Results CBC & Chem 7: 12/18/22 06:15 12/18/22 06:15 Labs: Abnormal Lab Results - Last 24 Hours (Table) 12/17/22 12/18/22 12/18/22 Range/Units 16:22 06:15 06:15 WBC 21.95 H (4.50-10.00) X 10*3/uL RBC 3.03 L (4.10-5.20) X 10*6/uL Hgb 8.8 L (12.0-15.0) g/dL Hct 30.5 L (37.2-46.3) % MCV 100.7 H (80.0-97.0) fL MCHC 28.9 L (32.0-37.0) g/dL RDW 16.9 H (11.5-14.5) % Plt Count 736 H (140-440) X 10*3/uL Plt Count Comment INCREASED A Immature Gran # 0.55 H (0.00-0.04) X 10*3/uL Neutrophils # 17.87 H (1.80-7.70) X 10*3/uL Monocytes # 1.59 H (0.20-1.00) X 10*3/uL Eosinophils # 0.64 H (0.04-0.35) X 10*3/uL Basophils # 0.12 H (0.00-0.10) X 10*3/uL Est GFR (CKD-EPI)AfAm 43.5 L (60.0-200.0) Est GFR (CKD-EPI)NonAf 37.5 L (60.0-200.0) BUN/Creatinine Ratio 11.75 L (12.00-20.00) Ratio POC Glucose (mg/dL) 116 H (70-110) mg/dL 12/18/22 Range/Units 11:20 WBC (4.50-10.00) X 10*3/uL RBC (4.10-5.20) X 10*6/uL Hgb (12.0-15.0) g/dL Hct (37.2-46.3) % MCV (80.0-97.0) fL MCHC (32.0-37.0) g/dL RDW (11.5-14.5) % Plt Count (140-440) X 10*3/uL Plt Count Comment Immature Gran # (0.00-0.04) X 10*3/uL Neutrophils # (1.80-7.70) X 10*3/uL Monocytes # (0.20-1.00) X 10*3/uL Eosinophils # (0.04-0.35) X 10*3/uL Basophils # (0.00-0.10) X 10*3/uL Est GFR (CKD-EPI)AfAm (60.0-200.0) Est GFR (CKD-EPI)NonAf (60.0-200.0) BUN/Creatinine Ratio (12.00-20.00) Ratio POC Glucose (mg/dL) 116 H (70-110) mg/dL Microbiology - Last 24 Hours (Table) 12/16/22 21:15 Urine Culture - Final Urine,Voided 12/13/22 02:54 Blood Culture - Preliminary Blood No Growth after 120 hours 12/13/22 02:39 Blood Culture - Preliminary Blood No Growth after 120 hours Comments: Barium enema reviewed CT scan - abdomen: report reviewed CT scan - pelvis: report reviewed Assessment and Plan (1) Elevated tumor markers Current Visit: Yes Status: Acute Priority: Medium Code(s): R97.8 - OTHER ABNORMAL TUMOR MARKERS SNOMED Code(s): 241864799 Plan: Elevated Tumor markers/ Fistula? -CT abdomen and pelvis without contrast revealed air within the uterine lumen with gas tracking right laterally towards the sigmoid. 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 Normal organizing fluid collection. Retroperitoneal lymphadenopathy compatible with metastatic disease. Hepatic nodular contour suggestive of cirrhosis. Layering biliary debris. Barium enema study showed no fistulous tract identified corresponding to previous CT. No evidence of obstructing or constricting lesion. Sigmoid diverticulosis. -Currently being treated with Levaquin and Flagyl -CRAFT COORDINATOR and surgery have been consulted. CRAFT COORDINATOR deferred management to surgery and wool puller onc. Surgery recommended colonoscopy, however, the patient has declined this at this time and states that she rather follow-up with CRAFT COORDINATOR ONC. It was discussed with patient that wool puller onc services do not round here, and that we would re commend getting the colonoscopy. Pt again declined being scoped. We instructed pt that she will need to f/u with wool puller onc outpatient. She verbalized understanding. If thought necessary, patient may be transferred to tertiary hospital for further evaluation by wool puller onc. -CA-125 50.3, CEA 7.8. Mild elevations in tumor markers may be related to inflammation vs malignancy. Will need further workup. Will provide referral to CRAFT COORDINATOR ONC Leg swelling: -Will order BLE dopplers to r/o DVT -Continue heparin subQ prophylaxis attests: I have performed H&P and developed impression and plan of care for patient discussed with dictator. I agree with dictated note, documented as a scribe.
[2022-12-18 16:37] LABS: Glucose,Whole Blood 123 mg/dL (70-110)
[2022-12-18 20:56] LABS: Glucose,Whole Blood 156 mg/dL (70-110)
[2022-12-19] MEDS: metroNIDAZOLE-NS PMX 500 MG in SALINE 1 100ML.BAG IVPB SCH ×4 (00:55→23:28)
[2022-12-19] MEDS: HEPARIN SODIUM,PORCINE/PF 5,000 UNIT/0.5 ML SYRINGE SQ SCH ×4 (00:56→23:28)
[2022-12-19] MEDS: HYDROmorphone 0.5 MG/0.5 ML SYRINGE IVP PRN ×7 (02:20→23:28)
[2022-12-19] MEDS: LEVOFLOXACIN 250MG-D5W PMX 250 MG in DEXTROSE/WATER 1 50ML.BAG IVPB SCH (02:38)
[2022-12-19] MEDS: LEVOTHYROXINE 75 MCG TAB PO SCH (05:49)
--- NOTE | 2022-12-19 06:42 | P.PN ---
Subjective Progress Note Date: 12/18/22 Patient is a 67-year-old female with a long history of hypertension, hyperlipidemia, diabetes type 2 insulin-dependent, hypothyroidism, asthma and prior history of smoking presents to ER with complaints of abdominal pain and low back pain for the past 1 month. Patient states that she has been having is sues with constipation and when she does take medications for it which is causing diarrhea. She has been having decreased appetite and weight loss. She has been having intermittent night sweats. Currently denies any nausea or vomiting. Patient reports that she did have yellowish vaginal discharge. She does have chronic lower extremity edema and does take diuretics every [address] of the abdomen pelvis showed intrauterine gas extending to the right cornual serosa. This nonspecific finding may be related to endometritis, recent intrauterine instrumentation, colouterine fistula or necrotic mass. Nonspecific retroperitoneal adenopathy may be related to metastatic disease lymphoproliferative process. Laboratory data showed WBC 18.8 hemoglobin 9.8 and platelets 336 Sodium 135 potassium 4.5 chloride 100 bicarb is 22 BUN 29 creatinine 1.98 Alk phos 205 Urinalysis showed cloudy with small blood nitrite negative large leukocyte esterase with greater than 182 WBCs. 12/14/2022 Patient is still complaining of lower abdominal pain. Denied any nausea or vomiting. Seen by general surgery and is planning for colonoscopy on Sunday. Otherwise patient is on antibiotics of Levaquin and Flagyl. General surgery is on board. RELEASE MANAGER service was consulted regarding fistula. No complaints of fever or chills. Laboratory data showed WBC 19.6 and hemoglobin 8.6 and platelets 711 BUN 20.8 and creatinine 1.8 and blood sugar is 84. 12/15/2022 Patient is currently sitting in the recliner today. Awake alert and orient x3. No complaints of chest pain or shortness of breath. Patient is on 2 L oxygen via nasal cannula and saturating at 96%. Otherwise still complaining of lower abdominal pain. Able to pass flatus. No complaints of chest pain or shortness of breath. Laboratory showed WBC count worsening to 22.3 hemoglobin 8.9 and platelets 707 BUN 18.2 and creatinine 1.7 otherwise TSH level is 8.24 and free T4 level is 1.050 within normal limits. General surgery is planning for colonoscopy on Sunday. Patient is hesitant to go for colonoscopy. Barium enema was ordered to evaluate colonic fistula. CT abdomen pelvis with oral contrast showed air within the uterine lumen with gas tracking right laterally towards the sigmoid. 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 No organizing fluid collection. Retroperitoneal lymphadenopathy compatible with metastatic disease. Hepatic nodular contour suggestive of cirrhosis. Layering biliary debris's. 12/16/2022 Patient is currently sitting in the chair. Awake alert and oriented x3. Still complains of lower abdominal pain. Patient has been afebrile. Currently on 2 L via nasal cannula. Breathing status has been fairly stable. Patient is hesitant to go for colonoscopy Barium enema done yesterday showed no fistulous tract identified corresponding to previous CT. Direct visualization is recommended. No evidence of obstructing or constricting lesion. Sigmoid diverticulosis. Laboratory showed WBC 21.0 hemoglobin 8.4 and platelets 699 BUN 16.7 creatinine 1.7 CA125 50.3 and CEA 7.8. Alpha-fetoprotein less than 1.82. 12/17/2022 Patient is currently lying in the bed. Awake alert oriented x3. She complains of lower abdominal discomfort and complains of nausea unable to tolerate oral diet very well. General surgery recommends colonoscopy but patient is hesitant to do so. Oncology was consulted due to elevated tumor markers. Patient will need to be evaluated by RELEASE MANAGER oncology for possible malignancy. Continued on antibiotics Levaquin and Flagyl. Laboratory reviewed. 12/18/2022 Patient is seen and evaluated in follow-up today with general surgery and oncology following. Patient was evaluated by gynecology recommending gynecology with oncological services and no further workup from her perspective. Tumor markers are elevated and oncology following and have discussed following up with oncology gynecology for further evaluation. Gen. surgery following recommending colonoscopy although patient is unable to tolerate the prep refusing further colonoscopy. Patient did have a barium Enema done after CT abdomen that was not suggestive of fistula recommending direct association. Gen. surgery following with no plans for surgical intervention at this time. Recommending to continue with antibiotics as patient does continue to have leukocytosis. Patient discussed with oncology about following up outpatient. Will discuss further with oncology team if requiring transfer as we do not have gynecology/oncological services here. Patient is currently afebrile reports extreme weakness and recommend PT/OT therapy evaluation. Will discuss with case management about possible ECF as well as patient is significantly week reporting she is unable to walk. Patient reports she was independent prior to this. Review of systems: Constitutional: No reports of fatigue, fever, or chills Cardiovascular: No reports of chest pain or palpitations Respiratory: No reports of shortness of breath or cough GI: No reports of nausea, vomiting, or diarrhea : No reports of dysuria or retention Neurovascular: reports of generalized weakness All medications have been reviewed Active Medications Acetaminophen (Acetaminophen Tab 325 Mg Tab) 650 mg PO Q6HR PRN PRN Reason: Mild Pain or Fever > 100.5 Al Hydroxide/Mg Hydroxide (Mag Hydrox/Al Hydrox/Simeth 30 Ml Cup) 30 ml PO Q4HR PRN PRN Reason: GI Upset Last Admin: 12/16/22 10:22 Dose: 30 ml Allopurinol (Allopurinol 300 Mg Tab) 300 mg PO DAILY [facility] Last Admin: 12/18/22 08:52 Dose: 300 mg Amlodipine Besylate (Amlodipine 5 Mg Tab) 5 mg PO DAILY [facility] Last Admin: 12/18/22 08:53 Dose: 5 mg Budesonide/Formoterol Fumarate (Symbicort 160-4.5 Mcg Inhaler) 2 puff INHALATION RT-BID [facility] Last Admin: 12/18/22 09:59 Dose: 2 puff Dextrose/Water (Dextrose 50% Syringe 50 Ml) 25 ml IVP PER PROTOCOL PRN; Protocol PRN Reason: Hypoglycemia Dextrose/Water (Dextrose 50% Syringe 50 Ml) 50 ml IVP PER PROTOCOL PRN; Protocol PRN Reason: Hypoglycemia Docusate Sodium (Docusate 100 Mg Cap) 100 mg PO DAILY [facility] Last Admin: 12/18/22 08:53 Dose: 100 mg Furosemide (Furosemide 40 Mg Tab) 40 mg PO Q48H [facility] Last Admin: 12/18/22 00:34 Dose: 40 mg Heparin Sodium (Porcine) (Heparin Sodium,Porcine/Pf 5,000 Unit/0.5 Ml Syringe) 5,000 unit SQ Q8HR [facility] Last Admin: 12/18/22 08:52 Dose: 5,000 unit Hydralazine HCl (Hydralazine Hcl 50 Mg Tab) 50 mg PO BID [facility] Last Admin: 12/18/22 08:52 Dose: 50 mg Hydromorphone HCl (Hydromorphone 0.5 Mg/0.5 Ml Syringe) 0.5 mg IVP Q3HR PRN PRN Reason: Moderate Pain (Scale 4 to 6) Last Admin: 12/18/22 08:03 Dose: 0.5 mg Metronidazole 500 mg/ IV (Solution) 100 mls @ 100 mls/hr IVPB Q8HR [facility]; Protocol Last Admin: 12/18/22 08:52 Dose: 100 mls/hr Levofloxacin/Dextrose 250 mg/ (IV Solution) 50 mls @ 50 mls/hr IVPB Q24H [facility] Last Admin: 12/18/22 03:06 Dose: 50 mls/hr Sodium Chloride (Saline 0.9%) 1,000 mls @ 50 mls/hr IV .Q20H [facility] Last Admin: 12/18/22 01:45 Dose: 50 mls/hr Insulin Aspart (Insulin Aspart (Novolog) 100 Unit/Ml Vial) 0 unit SQ ACHS [facility]; Protocol Last Admin: 12/18/22 06:20 Dose: Not Given Insulin Aspart (Insulin Aspart (Novolog) 100 Unit/Ml Vial) 10 unit SQ AC-TID [facility] Last Admin: 12/18/22 07:25 Dose: Not Given Levothyroxine Sodium (Levothyroxine 75 Mcg Tab) 75 mcg PO DAILY@0630 [facility] Last Admin: 12/18/22 06:19 Dose: 75 mcg Metoprolol Succinate (Metoprolol Succinate (Er) 25 Mg Tab.Er.24h) 25 mg PO DAILY [facility] Last Admin: 12/18/22 08:53 Dose: 25 mg Naloxone HCl (Naloxone 0.4 Mg/Ml 1 Ml Vial) 0.2 mg IV Q2M PRN PRN Reason: Opioid Reversal Ondansetron HCl (Ondansetron 4 Mg/2 Ml Vial) 4 mg IVP Q6HR PRN PRN Reason: Nausea And Vomiting Last Admin: 12/17/22 08:44 Dose: 4 mg Pantoprazole Sodium (Pantoprazole 40 Mg/10 Ml Vial) 40 mg IVP DAILY [facility] Last Admin: 12/18/22 08:09 Dose: 40 mg Physical exam: Patient is sitting up in the bed comfortably, no acute distress, awake alert and oriented.. Obese HEENT: Normocephalic. Neck is supple. Pupils reactive. Nostrils clear. Oral cavity is moist. Neck reveals no JVD, carotid bruits, or thyromegaly. CHEST EXAMINATION: Trachea is central. Symmetrical expansion. Bibasilar diminished sounds.. CARDIAC: Normal S1, S2 with no gallops. No murmurs ABDOMEN: Soft. Bowel sounds present. Mild lower abdominal tenderness no guarding or rigidity. No organomegaly. No abdominal bruits. Extremities: reveal 2+ edema. No clubbing or cyanosis Neurologically awake, alert, oriented x3 with well-coordinated movements. No focal deficits noted Skin: No rash or skin lesions. Psychiatric: Cooperative. Nonsuicidal Musculoskeletal: No joint swelling or deformity. Normal range of motion. Assessment: Abdominal pain with CT findings of possible colouterine fistula although barium enema displayed no communication and no fistula and radiologist recommending direct visualization. Elevated tumor markers CEA and CA125 with enlarging uterus Leukocytosis Retroperitoneal lymphadenopathy. Metastatic disease cannot be excluded. Acute kidney injury likely prerenal Hypovolemic hyponatremia Diabetes type 2 insulin-dependent Normocytic anemia with hemoglobin 9.8 Hypothyroidism Obesity with a BMI of 39.9 Generalized weakness with gait dysfunction Asthma not in exacerbation Chronic bilateral lower extremity swelling, DVT ruled out Constipation GI and DVT prophylaxis Full code Plan: Patient will be continued on IV hydration with normal saline. Continue with antibiotics Levaquin and Flagyl. General surgery evaluating the patient recommending to continue with antibiotics and no plans for surgical intervention at this time Patient was seen by APPOINTMENT SCHEDULER recommending oncological gynecology services as we do not have to see her and oncology following and will discuss further if patient is requiring transfer or if patient will be following up outpatient. Barium enema showed no evidence of fistula. Direct visualization recommended. Otherwise patient was found to have elevated tumor markers CEA and CA125. Will follow-up with repeat labs in the a.m. Patient unable to tolerate bowel prep and refusing colonoscopy The impression and plan of care has been dictated by Gaviota Crabtree, Nurse Practitioner as directed. Dr. Sammy MD I have performed a history and examination and MDM of this patient, discussed the same with the dictator, and agree with the dictator's assessment and plan as written ,documented as a scribe. Based on total visit time, I have performed more than 50% of the visit. Objective - Vital Signs Vital signs: Vital Signs Temp 97.9 F 12/18/22 07:57 Pulse 89 12/18/22 07:57 Resp 18 12/18/22 08:19 BP 165/77 12/18/22 07:57 Pulse Ox 97 12/18/22 09:59 FiO2 Intake & Output 12/17/22 12/18/22 12/18/22 18:59 06:59 18:59 Intake Total 818 240 118 Output Total 500 450 Balance 318 -210 118 Intake: Intake, IV Titration 700 Amount Sodium Chloride 0.9% 1, 600 000 ml @ 75 mls/hr IV . [id number] [facility] Rx#:[id number]-NS PMX 500 100 mg In Saline 1 100ml.bag @ 100 mls/hr IVPB Q8HR [facility] Rx#:[id number] Oral 118 240 118 Output: Urine 500 450 Other: Voiding Method External Catheter External Catheter - Labs CBC & Chem 7: 12/18/22 06:15 12/18/22 06:15 Labs: Abnormal Lab Results - Last 24 Hours (Table) 12/17/22 12/17/22 Range/Units 12:11 16:22 POC Glucose (mg/dL) 145 H 116 H (70-110) mg/dL Microbiology - Last 24 Hours (Table) 12/13/22 02:54 Blood Culture - Preliminary Blood No Growth after 120 hours 12/13/22 02:39 Blood Culture - Preliminary Blood No Growth after 120 hours 12/16/22 21:15 Urine Culture - Preliminary Urine,Voided
[2022-12-19 07:13] LABS: Anisocytosis Slight; Basophils % (A) 0 %; Eosinophils # (A) 0.6 k/uL (0-0.7); Eosinophils % (A) 3 %; HCT 28.6 % (34.0-46.0); HGB 8.9 gm/dL (11.4-16.0); Hypochromasia Slight; Lymphocytes # (A) 1.1 k/uL (1.0-4.8); Lymphocytes % (A) 5 %; MCH 30.2 pg (25.0-35.0); MCHC 31.1 g/dL (31.0-37.0); Macrocytosis Slight; Mean Platelet Volume 7.8; Monocytes # (A) 0.9 k/uL (0-1.0); Monocytes % (A) 4 %; Neutrophils # (A) 17.7 k/uL (1.3-7.7); Neutrophils % (A) 86 %; Platelet Count 728 k/uL (150-450); RBC 2.95 m/uL (3.80-5.40); RDW 16.2 % (11.5-15.5); WBC 20.5 k/uL (3.8-10.6)
[2022-12-19 07:18] LABS: Glucose,Whole Blood 122 mg/dL (70-110)
[2022-12-19 07:40] LABS: African American GFR (CKD) 46 (>60 ml/min/1.73 sqM); Anion Gap 7 mmol/L; Blood Urea Nitrogen 18 mg/dL (7-17); Calcium 10.1 mg/dL (8.4-10.2); Carbon Dioxide 25 mmol/L (22-30); Chloride 107 mmol/L (98-107); Glucose 115 mg/dL (74-99); Non-African American GFR(CKD) 40 (>60 ml/min/1.73 sqM); Potassium 3.7 mmol/L (3.5-5.1); Sodium 139 mmol/L (137-145)
[2022-12-19] MEDS: INSULIN ASPART (NovoLOG) 100 UNIT/ML VIAL SQ SCH ×7 (07:45→21:01)
[2022-12-19] MEDS: METOPROLOL SUCCINATE (ER) 25 MG TAB.ER.24H PO SCH (09:14)
[2022-12-19] MEDS: PANTOPRAZOLE 40 MG/10 ML VIAL IVP SCH (09:14)
[2022-12-19] MEDS: allopurinoL 300 MG TAB PO SCH (09:14)
[2022-12-19] MEDS: amLODIPine 5 MG TAB PO SCH (09:14)
[2022-12-19] MEDS: DOCUSATE 100 MG CAP PO SCH (09:14)
[2022-12-19] MEDS: hydrALAZINE HCL 50 MG TAB PO SCH ×2 (09:14→21:00)
[2022-12-19] MEDS: SYMBICORT 160-4.5 MCG INHALER INHALATION SCH ×2 (09:35→18:29)
[2022-12-19 11:20] LABS: Glucose,Whole Blood 143 mg/dL (70-110)
--- NOTE | 2022-12-19 13:46 | P.PN ---
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 Barium enema has showed no fistulous track identify corresponding to previous CT. Direct visualization is recommended. No evidence of obstructing or constricting lesion. Mildly elevated CA-125 and CEA level. Patient does report lower pelvic and left lower quadrant abdominal pain. She does have vaginal discharge. She does report her appetite a little better today. Patient did have episode of diarrhea yesterday. She is afebrile. White count remains elevated at 20. Hgb 8.9 platelets 728 creatinine 1.37 Patient seen and examined with Dr. Flores PHYSICAL EXAM: VITAL SIGNS: Reviewed GENERAL: Well-developed in no acute distress. HEENT: No sclera icterus. Extraocular movements grossly intact. Moist buccal mucosa. ABDOMEN: Soft. Nondistended. ASSESSMENT: 1. Abnormal CT for Colouterine fistula. Barium enema showed no evidence of fistula recommended direct visualization. 2. Leukocytosis 3. Acute kidney injury 4. Diabetes mellitus 5. History of asthma and COPD 6. Elevated CA-125 and CEA tumor marker PLAN: -Patient continues to refuse colonoscopy -Case discussed with oncology service. Agree with plans to transfer patient to tertiary [facility] for evaluation by Patient Access Representative onc service -Continue antibiotics Physician Dental Instrument Maker note has been reviewed by physician. Signing provider agrees with the documented findings, assessment, and plan of care. Objective - Vital Signs Vital signs: Vital Signs Temp 97.4 F L 12/19/22 13:36 Pulse 89 12/19/22 13:36 Resp 18 12/19/22 13:36 BP 118/66 12/19/22 13:36 Pulse Ox 93 L 12/19/22 13:36 FiO2 Intake & Output 12/18/22 12/19/22 12/19/22 18:59 06:59 18:59 Intake Total 118 Output Total 700 250 Balance -582 -250 Intake: Oral 118 Output: Urine 700 250 Other: Voiding Method External Catheter External Catheter External Catheter # Voids 3 # Bowel Movements 0 - Labs CBC & Chem 7: 12/19/22 06:38 12/19/22 06:38 Labs: Abnormal Lab Results - Last 24 Hours (Table) 12/18/22 12/18/22 12/19/22 Range/Units 16:36 20:54 06:38 WBC 20.5 H (3.8-10.6) k/uL RBC 2.95 L (3.80-5.40) m/uL Hgb 8.9 L (11.4-16.0) gm/dL Hct 28.6 L (34.0-46.0) % RDW 16.2 H (11.5-15.5) % Plt Count 728 H (150-450) k/uL Neutrophils # 17.7 H (1.3-7.7) k/uL BUN (7-17) mg/dL Creatinine (0.52-1.04) mg/dL Glucose (74-99) mg/dL POC Glucose (mg/dL) 123 H 156 H (70-110) mg/dL 12/19/22 12/19/22 12/19/22 Range/Units 06:38 07:16 11:18 WBC (3.8-10.6) k/uL RBC (3.80-5.40) m/uL Hgb (11.4-16.0) gm/dL Hct (34.0-46.0) % RDW (11.5-15.5) % Plt Count (150-450) k/uL Neutrophils # (1.3-7.7) k/uL BUN 18 H (7-17) mg/dL Creatinine 1.37 H (0.52-1.04) mg/dL Glucose 115 H (74-99) mg/dL POC Glucose (mg/dL) 122 H 143 H (70-110) mg/dL Microbiology - Last 24 Hours (Table) 12/13/22 02:39 Blood Culture - Final Blood No Growth after 144 hours 12/13/22 02:54 Blood Culture - Final Blood No Growth after 144 hours 12/16/22 21:15 Urine Culture - Final Urine,Voided
--- NOTE | 2022-12-19 13:58 | P.PN ---
Subjective Progress Note Date: 12/19/22 This is a 67-year-old female patient who follows with Dr. Severino as her primary care provider. She has a history of morbid obesity, chronic lower extremity edema, diastolic congestive heart failure, cor pulmonale, diabetes mellitus, hypertension, hyperlipidemia, hypothyroidism former smoker with chronic hypoxemic respiratory failure maintained on home oxygen and she is also on Symbicort. She presented here to the emergency room on 12/13/2022 with complaints of lower abdominal pain and back pain that have been going on and off for approximately one month. Computed tomography scan of the abdomen did reveal air within the uterine lumen with gas tracking right laterally towards sigmoid. 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 No organizing fluid collection. Retroperitoneal lymphadenopathy compatible with metastatic disease. Hepatic nodular contour suggestive of cirrhosis. Layering debris. PERSONNEL RESEARCH SCIENTIST and surgical services have been consulted. We were consulted for pre-op clearance. She is currently sitting up in bed. Awake and alert in no acute distress. Maintaining good O2 saturations in the mid 90s on 2 L/m per nasal cannula. She's afebrile. Hemodynamically stable. He denies any shortness of breath, cough or congestion. Chest x-ray shows no acute pulmonary process. She is continued on her Symbicort. Heparin for DVT prophylaxis. Antibiotics in the form of Levaquin and Flagyl. White count 22.3. Hemoccult 8.9. Platelets 707. Sodium 136. Potassium 4.3. Bicarb 20. BUN 18. Creatinine 1.7. Glucose 137. Pro-calcitonin 1.34. A culture revealing no growth to date. The patient is seen today 12/16/2022 in follow-up on the regular medical floor. She is currently sitting up in a chair at the bedside. Awake and alert in no acute distress. Maintaining good O2 saturations in the 90s on 2 L/m per nasal cannula. She has normal saline at 75 ML's per hour. Bedside spirometry pending. A barium enema revealed no fistulous tract identified corresponding to previous CT. Direct visualization is recommended. No evidence obstructing or constricting lesion. Sigmoid diverticulosis. Blood culture reveals no growth. Glucose 134. She is continued on Symbicort. Antibiotics in form of Levaquin and Flagyl. Heparin for DVT prophylaxis. The patient is seen today 12/17/2022 in follow-up on the regular medical floor. She is currently awake and alert in no acute distress. Sitting up in a chair at the bedside. Maintaining O2 saturations in the 90s on 2 L/m per nasal cannula. Normal saline at 75 ML's per hour. Bedside spirometry revealed a MVV of 25 L, FEV1 value of 1.0 L. Putting her at moderate to high operative risk from the pulmonary standpoint. Blood cultures are revealing no growth a blood glucose 122. She remains on bronchodilators, antibiotics in the form of Levaquin and Flagyl. Heparin for DVT prophylaxis. Oral diuretics. Currently in a negative balance. Progress note dated 12/18/2022. The patient is seen in room 472. We did a preop clearance on this patient, and based on her lung function, we thought she was in the moderate to high increased operative risk range, given her FEV1 of about a liter, and her MVV, which is about 25 L/m. Apparently today, she decided not to go forward with her colonoscopy. Labs include a white count of 22,000, hemoglobin 8.8, hematocrit 31, and a platelet count of 736,000. Sodium, potassium, chloride, CO2, anion gap, BUN, and creatinine are all within the normal range. Calcium is 10.3. Blood and urine cultures are thus far negative. No recent x-rays to report. On today's evaluation of 12/19/2022, the patient is calm and comfortable, no signs of any respiratory distress. She has no specific complaints. The patient has a fistula and the patient is being transferred to [facility]. She was unable to complete the colonoscopy prep here. The ultimate decision was to transfer her for a surgical evaluation at a tertiary care center. She is hemodynamically stable. She remains on the same antibiotic coverage. Her COPD is currently inactive and stable. Objective - Vital Signs Vital signs: Vital Signs Temp 97.4 F L 12/19/22 13:36 Pulse 89 12/19/22 13:36 Resp 18 12/19/22 13:36 BP 118/66 12/19/22 13:36 Pulse Ox 93 L 12/19/22 13:36 FiO2 Intake & Output 12/18/22 12/19/22 12/19/22 18:59 06:59 18:59 Intake Total 118 Output Total 700 250 Balance -582 -250 Intake: Oral 118 Output: Urine 700 250 Other: Voiding Method External Catheter External Catheter External Catheter # Voids 3 # Bowel Movements 0 - Exam No acute distress, oriented 3. Currently on 2 L of oxygen. HEENT examination is grossly unremarkable. Neck supple. Full range of motion. No adenopathy thyromegaly or neck vein distention. Cardiovascular examination reveals regular rhythm rate. S1-S2 normal. No S3 or S4. No discernible murmur noted. Heart rate 89 bpm. Heart sounds are distant. Lungs reveal mostly clear breath sounds. Scattered rhonchi are noted. No wheezes or crackles. 2 L saturation is 97%. Abdomen soft bowel sounds are heard. No masses or tenderness. Extremities are intact. No cyanosis clubbing or edema. Skin is without rash or lesion. Neurologic examination is brief but nonfocal. - Labs CBC & Chem 7: 12/19/22 06:38 12/19/22 06:38 Labs: Abnormal Lab Results - Last 24 Hours (Table) 12/18/22 12/18/22 12/19/22 Range/Units 16:36 20:54 06:38 WBC 20.5 H (3.8-10.6) k/uL RBC 2.95 L (3.80-5.40) m/uL Hgb 8.9 L (11.4-16.0) gm/dL Hct 28.6 L (34.0-46.0) % RDW 16.2 H (11.5-15.5) % Plt Count 728 H (150-450) k/uL Neutrophils # 17.7 H (1.3-7.7) k/uL BUN (7-17) mg/dL Creatinine (0.52-1.04) mg/dL Glucose (74-99) mg/dL POC Glucose (mg/dL) 123 H 156 H (70-110) mg/dL 12/19/22 12/19/22 12/19/22 Range/Units 06:38 07:16 11:18 WBC (3.8-10.6) k/uL RBC (3.80-5.40) m/uL Hgb (11.4-16.0) gm/dL Hct (34.0-46.0) % RDW (11.5-15.5) % Plt Count (150-450) k/uL Neutrophils # (1.3-7.7) k/uL BUN 18 H (7-17) mg/dL Creatinine 1.37 H (0.52-1.04) mg/dL Glucose 115 H (74-99) mg/dL POC Glucose (mg/dL) 122 H 143 H (70-110) mg/dL Microbiology - Last 24 Hours (Table) 12/13/22 02:39 Blood Culture - Final Blood No Growth after 144 hours 12/13/22 02:54 Blood Culture - Final Blood No Growth after 144 hours 12/16/22 21:15 Urine Culture - Final Urine,Voided Assessment and Plan Plan: Abdominal pain secondary to air within the uterine lumen with gas tracking right laterally towards sigmoid. 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 No organizing fluid collection. Retroperitoneal lymphadenopathy compatible with metastatic disease. Hepatic nodular contour suggestive of cirrhosis. Layering debris. Barium enema did not reveal any fistulous track identified corresponding to previous CT. Direct visualized recommended. No evidence of obstruction or constricting lesion. Sigmoid diverticulosis. Currently on Flagyl and Levaquin. Urinary tract infection secondary to above, culture pending. Leukocytosis secondary to above. Acute on chronic anemia. Acute renal failure. History of previous tobacco dependence. Chronic obstructive pulmonary disease with FEV1 value of 1 L and MVV 25 liters. Morbid obesity. Chronic hypoxemic and hypercapnic respiratory failure with obesity hypoventilation syndrome suspected sleep apnea. Chronic lower extremity edema secondary to diastolic congestive heart failure. Cor pulmonale. Diabetes mellitus. Hypertension. Hyperlipidemia. History of chronic bronchial asthma, mild intermittent. Hypothyroidism. History of gout. Gastroesophageal reflux disease. Plan Continue same antibiotic coverage COPD stable No signs of any vascular compromise Patient is being transferred to [facility] for surgical evaluation We will going to sign off the case
--- NOTE | 2022-12-19 15:56 | P.DS ---
Providers Date of admission: 12/13/22 02:37 Expected date of discharge: 12/19/22 Attending physician: Sebastien Joel Consults: 12/13/22 02:35 Consult Physician Routine Consulting Provider: Rosendo Flores Consult Reason/Comments: Necrotic mass Do you want consulting provider notified?: Yes 12/13/22 02:38 Consult Physician Routine Consulting Provider: Elizabeth Muñoz Consult Reason/Comments: INTRAUTERINE GAS, NECROTIC MASS Do you want consulting provider notified?: Yes, Notify in am 12/14/22 11:53 Consult Physician Routine Consulting Provider: Dami Valdes Consult Reason/Comments: pulmonary clearance for surgery, Hx COPD Do you want consulting provider notified?: Yes 12/18/22 00:49 Consult Physician Routine Consulting Provider: Hector Rogers Consult Reason/Comments: Elevated tumor markers CEA and CA125 Do you want consulting provider notified?: Yes, Notify in am Primary care physician: [facility] Course: Final diagnosis Abdominal pain with abnormal CT findings of 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 Elevated tumor markers CEA and CA125 with enlarging uterus, concerns for uterine cancer Leukocytosis Chronic hypoxemic respiratory failure with obesity hypoventilation syndrome suspected sleep apnea, does not use sleep apnea machine History of chronic diastolic congestive heart failure, not in exacerbation Possible acute urinary tract infection, present on admission., Cultures currently pending Retroperitoneal lymphadenopathy. Metastatic disease cannot be excluded. Acute kidney injury likely prerenal, improving GERD Hypovolemic hyponatremia Diabetes type 2 insulin-dependent Normocytic anemia with hemoglobin 9.8 Hypothyroidism Obesity with a BMI of 39.9 Generalized weakness with gait dysfunction History of COPD, not in exacerbation Chronic bilateral lower extremity swelling, DVT ruled out History of chronic bronchial asthma, mild intermittent Constipation GI and DVT prophylaxis Full code Discharge disposition Patient is being transferred in a stable condition with guarded prognosis to [facility]. Patient going to tertiary treatment center for gynecological/oncological services for further evaluation. Patient has been accepted by Dr. Quintana at [facility] and currently awaiting a bed assignment. Patient will follow-up with in the outpatient setting upon discharge. Patient is to continue with hemodialysis as scheduled. Total time taken is greater than 35 minutes. Hospital course This is a 67-year-old female who was recently admitted with abdominal pain initial CT showing concerns for a colo-uterine fistula and patient underwent barium enema showing no fistulous track identifiable that would correspond with the CT. Patient is maintained on IV antibiotics in the form of Levaquin and Flagyl as patient continues to have leukocytosis. Patient also had elevated CEA and CA125 markers with concerns for metastatic disease and patient does have enlarging uterus with concerns for possible uterine cancer there are some of retroperitoneal lymphadenopathy noted that cannot exclude metastatic disease. Patient also reports to having an infection with concerns of possible UTI and currently cultures are pending. Blood cultures remain negative. Oncology and surgery services following as patient is unable to tolerate the bowel prep to undergo colonoscopy and further refusing colonoscopy recommending transfer to tertiary treatment center as patient was evaluated by gynecology here and we do not have gynecology/oncological services here. Recommending transfer to [facility] for further evaluation. Patient is agreeable to this transfer. Patient has been accepted by Dr. Quintana out of [facility] and currently awaiting a bed assignment. Transfer team will notify the unit once a bed is available. Covid testing was ordered and currently pending at this time. Currently no reports of chest pain, shortness of breath, or palpitations. Patient is afebrile. No reports of nausea or vomiting and patient is tolerating diet. Patient continues to report lower abdominal pain on exam. Patient will be transferred to [facility] once a bed is available. Physical exam: Gen: This is a 67-year-old female who is awake, alert and oriented 3, well- developed, well-nourished, obese HEENT: Head is atraumatic, normocephalic. Pupils equal, round. Sclerae is anicteric. NECK: Supple. No JVD. No lymphadenopathy. No thyromegaly. LUNGS: Diminished breath sounds bilaterally with some scattered rhonchi noted. No intercostal retractions. HEART: Regular rate and rhythm. No murmur. ABDOMEN: Soft. Tenderness noted on left and right lower quadrants on palpation, obese. Bowel sounds are present. No masses. EXTREMITIES: Chronic lower extremity edema. No calf tenderness. NEUROLOGICAL: Patient is awake, alert and oriented x3. Cranial nerves 2 through 12 are grossly intact. Generally weak Please refer to medication reconciliation sheet for a list of medications. The impression and plan of care has been dictated by Gaviota Crabtree, Nurse Practitioner as directed. Dr. Sammy MD I have performed a history and examination and MDM of this patient, discussed the same with the dictator, and agree with the dictator's assessment and plan as written ,documented as a scribe. Based on total visit time, I have performed more than 50% of the visit. Patient Condition at Discharge: Stable Plan - Discharge Summary Discharge Rx Participant: No New Discharge Prescriptions: No Action allopurinoL [Zyloprim] 300 mg PO DAILY Budesonide/Formoterol Fumarate [Symbicort 160-4.5 Mcg Inhaler] 2 puff INHALATION RT-BID Aspirin EC [Ecotrin] 325 mg PO DAILY Metoprolol Succinate (ER) [Toprol XL] 25 mg PO DAILY #30 tab.er.24h amLODIPine [Norvasc] 5 mg PO DAILY Furosemide [Lasix] 40 mg PO Q48H Levothyroxine Sodium [Synthroid] 75 mcg PO DAILY Ergocalciferol (Vitamin D2) [Drisdol (50,000 Iu)] 1,250 mcg PO TH Docusate [Colace] 100 mg PO DAILY Insulin Aspart [Insulin Aspart Flexpen] 10 unit SQ AC-TID hydrALAZINE HCL [Apresoline] 50 mg PO BID Discharge Medication List Aspirin EC [Ecotrin] 325 mg PO DAILY 05/16/19 [History] Budesonide/Formoterol Fumarate [Symbicort 160-4.5 Mcg Inhaler] 2 puff INHALATION RT-BID 05/16/19 [History] allopurinoL [Zyloprim] 300 mg PO DAILY 05/16/19 [History] Metoprolol Succinate (ER) [Toprol XL] 25 mg PO DAILY #30 tab.er.24h 05/21/19 [Rx] Docusate [Colace] 100 mg PO DAILY 11/11/20 [History] Ergocalciferol (Vitamin D2) [Drisdol (50,000 Iu)] 1,250 mcg PO TH 11/11/20 [History] Furosemide [Lasix] 40 mg PO Q48H 11/11/20 [History] Levothyroxine Sodium [Synthroid] 75 mcg PO DAILY 11/11/20 [History] amLODIPine [Norvasc] 5 mg PO DAILY 11/11/20 [History] Insulin Aspart [Insulin Aspart Flexpen] 10 unit SQ AC-TID 12/13/22 [History] hydrALAZINE HCL [Apresoline] 50 mg PO BID 12/13/22 [History] Follow up Appointment(s)/Referral(s): Sanket Severino MD [Primary Care Provider] - 1-2 days Activity/Diet/Wound Care/Special Instructions: Dr. Paco Florez Referral-Ethanol Maintenance Mechanic onc
[2022-12-19 17:17] LABS: Glucose,Whole Blood 164 mg/dL (70-110)
[2022-12-19] MEDS: SODIUM CHLORIDE 0.9% 1,000 ML IV SCH (18:01)
[2022-12-19 20:01] LABS: Glucose,Whole Blood 139 mg/dL (70-110)
[2022-12-20] MEDS: LACTATED RINGERS 1,000 ML IV SCH (00:56)
[2022-12-20] MEDS: LEVOFLOXACIN 250MG-D5W PMX 250 MG in DEXTROSE/WATER 1 50ML.BAG IVPB SCH (02:27)
[2022-12-20] MEDS: FUROSEMIDE 40 MG TAB PO SCH (02:27)
[2022-12-20] MEDS: HYDROmorphone 0.5 MG/0.5 ML SYRINGE IVP PRN ×6 (02:28→21:17)
[2022-12-20] MEDS: LEVOTHYROXINE 75 MCG TAB PO SCH (05:54)
[2022-12-20 07:02] LABS: Glucose,Whole Blood 127 mg/dL (70-110)
[2022-12-20] MEDS: SYMBICORT 160-4.5 MCG INHALER INHALATION SCH ×2 (08:12→18:09)
[2022-12-20] MEDS: INSULIN ASPART (NovoLOG) 100 UNIT/ML VIAL SQ SCH ×7 (08:32→21:16)
[2022-12-20 08:47] LABS: Basophils # (A) 0.17 X 10*3/uL (0.00-0.10); Basophils % (A) 0.7 %; Eosinophils # (A) 0.87 X 10*3/uL (0.04-0.35); Eosinophils % (A) 3.7 %; HCT 29.7 % (37.2-46.3); HGB 8.8 g/dL (12.0-15.0); Lymphocytes # (A) 1.53 X 10*3/uL (0.90-5.00); Lymphocytes % (A) 6.5 %; MCH 29.4 pg (27.0-32.0); MCHC 29.6 g/dL (32.0-37.0); MCV 99.3 fL (80.0-97.0); Mean Platelet Volume 10.2 fL (9.5-12.2); Monocytes # (A) 1.63 X 10*3/uL (0.20-1.00); Monocytes % (A) 6.9 %; NRBC Per 100 WBC 0 /100 WBCS (0.0-0.0); Neutrophils # (A) 18.78 X 10*3/uL (1.80-7.70); Neutrophils % (A) 79.2 %; Platelet Count 695 X 10*3/uL (140-440); RBC 2.99 X 10*6/uL (4.10-5.20); RDW 17.2 % (11.5-14.5); WBC 23.69 X 10*3/uL (4.50-10.00)
[2022-12-20] MEDS: allopurinoL 300 MG TAB PO SCH (09:00)
[2022-12-20] MEDS: HEPARIN SODIUM,PORCINE/PF 5,000 UNIT/0.5 ML SYRINGE SQ SCH ×2 (09:00→15:55)
[2022-12-20] MEDS: DOCUSATE 100 MG CAP PO SCH (09:00)
[2022-12-20] MEDS: amLODIPine 5 MG TAB PO SCH (09:00)
[2022-12-20] MEDS: METOPROLOL SUCCINATE (ER) 25 MG TAB.ER.24H PO SCH (09:01)
[2022-12-20] MEDS: hydrALAZINE HCL 50 MG TAB PO SCH ×2 (09:01→21:16)
[2022-12-20] MEDS: PANTOPRAZOLE 40 MG/10 ML VIAL IVP SCH (09:01)
[2022-12-20] MEDS: metroNIDAZOLE-NS PMX 500 MG in SALINE 1 100ML.BAG IVPB SCH ×2 (09:02→15:55)
[2022-12-20 09:06] LABS: African American GFR (CKD) 48.4 (60.0-200.0); Anion Gap 9.2 mmol/L (10.00-18.00); BUN/Creat Ratio 15.19 Ratio (12.00-20.00); Blood Urea Nitrogen 19.9 mg/dL (9.0-27.0); Calcium 10.4 mg/dL (8.7-10.3); Carbon Dioxide 23.5 mmol/L (20.0-27.5); Non-African American GFR(CKD) 41.7 (60.0-200.0); Potassium 4.1 mmol/L (3.5-5.5)
[2022-12-20 11:18] LABS: Glucose,Whole Blood 145 mg/dL (70-110)
[2022-12-20] MEDS: SODIUM CHLORIDE 0.9% 1,000 ML IV SCH (13:04)
--- NOTE | 2022-12-20 13:45 | P.PN ---
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 Barium enema has showed no fistulous track identify corresponding to previous CT. Direct visualization is recommended. No evidence of obstructing or constricting lesion. Patient continues to refuse colonoscopy. Patient awaiting transfer to [facility] for evaluation by CUSTOMER ENGAGEMENT MANAGER services. She does complain of lower pelvic abdominal pain. She is having bowel movements. She reports that she is tolerating liquid diet. Asking for advancement of diet. Afebrile. WBC is up at 23 hgb 8.8 platelets 695 Patient seen and examined with Dr. Flores PHYSICAL EXAM: VITAL SIGNS: Reviewed GENERAL: Well-developed in no acute distress. HEENT: No sclera icterus. Extraocular movements grossly intact. Moist buccal mucosa. ABDOMEN: Soft. Nondistended. ASSESSMENT: 1. Abnormal CT for Colouterine fistula. Barium enema showed no evidence of fistula recommended direct visualization. 2. Leukocytosis 3. Acute kidney injury 4. Diabetes mellitus 5. History of asthma and COPD 6. Elevated CA-125 and CEA tumor marker PLAN: -Patient continues to refuse colonoscopy -Awaiting transfer to [facility] for evaluation by CUSTOMER ENGAGEMENT MANAGER onc when bed available -Continue antibiotics -Advance diet to regular Physician Cigarette Inspector note has been reviewed by physician. Signing provider agrees with the documented findings, assessment, and plan of care. Objective - Vital Signs Vital signs: Vital Signs Temp 98.2 F 12/20/22 13:20 Pulse 75 12/20/22 13:20 Resp 16 12/20/22 13:20 BP 133/71 12/20/22 13:20 Pulse Ox 95 12/20/22 13:20 FiO2 Intake & Output 12/19/22 12/20/22 12/20/22 18:59 06:59 18:59 Intake Total 100 Output Total 650 200 900 Balance -650 -100 -900 Weight 122.47 kg Intake: Oral 100 Output: Urine 650 200 900 Other: Voiding Method External Catheter External Catheter External Catheter - Labs CBC & Chem 7: 12/20/22 05:54 12/20/22 05:54 Labs: Abnormal Lab Results - Last 24 Hours (Table) 12/19/22 12/19/22 12/20/22 Range/Units 17:16 19:58 05:54 WBC 23.69 H (4.50-10.00) X 10*3/uL RBC 2.99 L (4.10-5.20) X 10*6/uL Hgb 8.8 L (12.0-15.0) g/dL Hct 29.7 L (37.2-46.3) % MCV 99.3 H (80.0-97.0) fL MCHC 29.6 L (32.0-37.0) g/dL RDW 17.2 H (11.5-14.5) % Plt Count 695 H (140-440) X 10*3/uL Immature Gran # 0.71 H (0.00-0.04) X 10*3/uL Neutrophils # 18.78 H (1.80-7.70) X 10*3/uL Monocytes # 1.63 H (0.20-1.00) X 10*3/uL Eosinophils # 0.87 H (0.04-0.35) X 10*3/uL Basophils # 0.17 H (0.00-0.10) X 10*3/uL Anion Gap (10.00-18.00) mmol/L Est GFR (CKD-EPI)AfAm (60.0-200.0) Est GFR (CKD-EPI)NonAf (60.0-200.0) Glucose (70-110) mg/dL POC Glucose (mg/dL) 164 H 139 H (70-110) mg/dL Calcium (8.7-10.3) mg/dL 12/20/22 12/20/22 12/20/22 Range/Units 05:54 07:00 11:17 WBC (4.50-10.00) X 10*3/uL RBC (4.10-5.20) X 10*6/uL Hgb (12.0-15.0) g/dL Hct (37.2-46.3) % MCV (80.0-97.0) fL MCHC (32.0-37.0) g/dL RDW (11.5-14.5) % Plt Count (140-440) X 10*3/uL Immature Gran # (0.00-0.04) X 10*3/uL Neutrophils # (1.80-7.70) X 10*3/uL Monocytes # (0.20-1.00) X 10*3/uL Eosinophils # (0.04-0.35) X 10*3/uL Basophils # (0.00-0.10) X 10*3/uL Anion Gap 9.20 L (10.00-18.00) mmol/L Est GFR (CKD-EPI)AfAm 48.4 L (60.0-200.0) Est GFR (CKD-EPI)NonAf 41.7 L (60.0-200.0) Glucose 112 H (70-110) mg/dL POC Glucose (mg/dL) 127 H 145 H (70-110) mg/dL Calcium 10.4 H (8.7-10.3) mg/dL
--- NOTE | 2022-12-20 15:45 | P.PN ---
Subjective Progress Note Date: 12/20/22 Patient is a 67-year-old female with a long history of hypertension, hyperlipidemia, diabetes type 2 insulin-dependent, hypothyroidism, asthma and prior history of smoking presents to ER with complaints of abdominal pain and low back pain for the past 1 month. Patient states that she has been having is sues with constipation and when she does take medications for it which is causing diarrhea. She has been having decreased appetite and weight loss. She has been having intermittent night sweats. Currently denies any nausea or vomiting. Patient reports that she did have yellowish vaginal discharge. She does have chronic lower extremity edema and does take diuretics every [address] of the abdomen pelvis showed intrauterine gas extending to the right cornual serosa. This nonspecific finding may be related to endometritis, recent intrauterine instrumentation, colouterine fistula or necrotic mass. Nonspecific retroperitoneal adenopathy may be related to metastatic disease lymphoproliferative process. Laboratory data showed WBC 18.8 hemoglobin 9.8 and platelets 336 Sodium 135 potassium 4.5 chloride 100 bicarb is 22 BUN 29 creatinine 1.98 Alk phos 205 Urinalysis showed cloudy with small blood nitrite negative large leukocyte esterase with greater than 182 WBCs. 12/14/2022 Patient is still complaining of lower abdominal pain. Denied any nausea or vomiting. Seen by general surgery and is planning for colonoscopy on Sunday. Otherwise patient is on antibiotics of Levaquin and Flagyl. General surgery is on board. ROENTGENOLOGIST service was consulted regarding fistula. No complaints of fever or chills. Laboratory data showed WBC 19.6 and hemoglobin 8.6 and platelets 711 BUN 20.8 and creatinine 1.8 and blood sugar is 84. 12/15/2022 Patient is currently sitting in the recliner today. Awake alert and orient x3. No complaints of chest pain or shortness of breath. Patient is on 2 L oxygen via nasal cannula and saturating at 96%. Otherwise still complaining of lower abdominal pain. Able to pass flatus. No complaints of chest pain or shortness of breath. Laboratory showed WBC count worsening to 22.3 hemoglobin 8.9 and platelets 707 BUN 18.2 and creatinine 1.7 otherwise TSH level is 8.24 and free T4 level is 1.050 within normal limits. General surgery is planning for colonoscopy on Sunday. Patient is hesitant to go for colonoscopy. Barium enema was ordered to evaluate colonic fistula. CT abdomen pelvis with oral contrast showed air within the uterine lumen with gas tracking right laterally towards the sigmoid. 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 No organizing fluid collection. Retroperitoneal lymphadenopathy compatible with metastatic disease. Hepatic nodular contour suggestive of cirrhosis. Layering biliary debris's. 12/16/2022 Patient is currently sitting in the chair. Awake alert and oriented x3. Still complains of lower abdominal pain. Patient has been afebrile. Currently on 2 L via nasal cannula. Breathing status has been fairly stable. Patient is hesitant to go for colonoscopy Barium enema done yesterday showed no fistulous tract identified corresponding to previous CT. Direct visualization is recommended. No evidence of obstructing or constricting lesion. Sigmoid diverticulosis. Laboratory showed WBC 21.0 hemoglobin 8.4 and platelets 699 BUN 16.7 creatinine 1.7 CA125 50.3 and CEA 7.8. Alpha-fetoprotein less than 1.82. 12/17/2022 Patient is currently lying in the bed. Awake alert oriented x3. She complains of lower abdominal discomfort and complains of nausea unable to tolerate oral diet very well. General surgery recommends colonoscopy but patient is hesitant to do so. Oncology was consulted due to elevated tumor markers. Patient will need to be evaluated by ROENTGENOLOGIST oncology for possible malignancy. Continued on antibiotics Levaquin and Flagyl. Laboratory reviewed. 12/18/2022 Patient is seen and evaluated in follow-up today with general surgery and oncology following. Patient was evaluated by gynecology recommending gynecology with oncological services and no further workup from her perspective. Tumor markers are elevated and oncology following and have discussed following up with oncology gynecology for further evaluation. Gen. surgery following recommending colonoscopy although patient is unable to tolerate the prep refusing further colonoscopy. Patient did have a barium Enema done after CT abdomen that was not suggestive of fistula recommending direct association. Gen. surgery following with no plans for surgical intervention at this time. Recommending to continue with antibiotics as patient does continue to have leukocytosis. Patient discussed with oncology about following up outpatient. Will discuss further with oncology team if requiring transfer as we do not have gynecology/oncological services here. Patient is currently afebrile reports extreme weakness and recommend PT/OT therapy evaluation. Will discuss with case management about possible ECF as well as patient is significantly week reporting she is unable to walk. Patient reports she was independent prior to this. 12/20/2022 Patient Is seen this morning in follow-up and continues to wait for a bed at [facility]. Patient has been accepted although waiting for a bed on surgical unit. Patient is afebrile continues with elevated white count that is trending up and maintained on antibiotics in the form of Levaquin and Flagyl. Patient had been on clear liquids and tolerating because she had abdominal pain with general surgery following an requesting in addition to her diet. Diet is being advanced slowly as tolerated as patient reports she is hungry. Oncology following as well and continues to recommend transfer to tertiary treatment center. Currently awaiting a bed. Patient denies chest pain, palpitations, or shortness of breath. Patient chronically wears 2 L O2 and is maintaining oxygen saturations above 90% on 2 liters. Review of systems: Constitutional: No reports of fatigue, fever, or chills Cardiovascular: No reports of chest pain or palpitations Respiratory: No reports of shortness of breath or cough GI: No reports of nausea, vomiting, or diarrhea, reports some improvement in abdominal pain : No reports of dysuria or retention Neurovascular: reports of generalized weakness All medications have been reviewed Active Medications Acetaminophen (Acetaminophen Tab 325 Mg Tab) 650 mg PO Q6HR PRN PRN Reason: Mild Pain or Fever > 100.5 Al Hydroxide/Mg Hydroxide (Mag Hydrox/Al Hydrox/Simeth 30 Ml Cup) 30 ml PO Q4HR PRN PRN Reason: GI Upset Last Admin: 12/16/22 10:22 Dose: 30 ml Allopurinol (Allopurinol 300 Mg Tab) 300 mg PO DAILY [facility] Last Admin: 12/20/22 09:00 Dose: 300 mg Amlodipine Besylate (Amlodipine 5 Mg Tab) 5 mg PO DAILY [facility] Last Admin: 12/20/22 09:00 Dose: 5 mg Budesonide/Formoterol Fumarate (Symbicort 160-4.5 Mcg Inhaler) 2 puff INHALATION RT-BID [facility] Last Admin: 12/20/22 08:12 Dose: 2 puff Dextrose/Water (Dextrose 50% Syringe 50 Ml) 25 ml IVP PER PROTOCOL PRN; Protocol PRN Reason: Hypoglycemia Dextrose/Water (Dextrose 50% Syringe 50 Ml) 50 ml IVP PER PROTOCOL PRN; Protocol PRN Reason: Hypoglycemia Docusate Sodium (Docusate 100 Mg Cap) 100 mg PO DAILY [facility] Last Admin: 12/20/22 09:00 Dose: 100 mg Furosemide (Furosemide 40 Mg Tab) 40 mg PO Q48H [facility] Last Admin: 12/20/22 02:27 Dose: 40 mg Heparin Sodium (Porcine) (Heparin Sodium,Porcine/Pf 5,000 Unit/0.5 Ml Syringe) 5,000 unit SQ Q8HR [facility] Last Admin: 12/20/22 09:00 Dose: 5,000 unit Hydralazine HCl (Hydralazine Hcl 50 Mg Tab) 50 mg PO BID [facility] Last Admin: 12/20/22 09:01 Dose: 50 mg Hydromorphone HCl (Hydromorphone 0.5 Mg/0.5 Ml Syringe) 0.5 mg IVP Q3HR PRN PRN Reason: Moderate Pain (Scale 4 to 6) Last Admin: 12/20/22 13:04 Dose: 0.5 mg Metronidazole 500 mg/ IV (Solution) 100 mls @ 100 mls/hr IVPB Q8HR [facility]; Protocol Last Admin: 12/20/22 09:02 Dose: 100 mls/hr Levofloxacin/Dextrose 250 mg/ (IV Solution) 50 mls @ 50 mls/hr IVPB Q24H [facility] Last Admin: 12/20/22 02:27 Dose: 50 mls/hr Sodium Chloride (Saline 0.9%) 1,000 mls @ 50 mls/hr IV .Q20H [facility] Last Admin: 12/20/22 13:04 Dose: 50 mls/hr Lactated Ringer's (Lactated Ringers) 1,000 mls @ 20 mls/hr IV .Q24H [facility] Last Admin: 12/20/22 00:56 Dose: Not Given Insulin Aspart (Insulin Aspart (Novolog) 100 Unit/Ml Vial) 0 unit SQ ACHS [facility]; Protocol Last Admin: 12/20/22 12:38 Dose: Not Given Insulin Aspart (Insulin Aspart (Novolog) 100 Unit/Ml Vial) 10 unit SQ AC-TID [facility] Last Admin: 12/20/22 12:39 Dose: Not Given Levothyroxine Sodium (Levothyroxine 75 Mcg Tab) 75 mcg PO DAILY@0630 [facility] Last Admin: 12/20/22 05:54 Dose: 75 mcg Metoprolol Succinate (Metoprolol Succinate (Er) 25 Mg Tab.Er.24h) 25 mg PO DAILY [facility] Last Admin: 12/20/22 09:01 Dose: 25 mg Naloxone HCl (Naloxone 0.4 Mg/Ml 1 Ml Vial) 0.2 mg IV Q2M PRN PRN Reason: Opioid Reversal Ondansetron HCl (Ondansetron 4 Mg/2 Ml Vial) 4 mg IVP Q6HR PRN PRN Reason: Nausea And Vomiting Last Admin: 12/17/22 08:44 Dose: 4 mg Pantoprazole Sodium (Pantoprazole 40 Mg/10 Ml Vial) 40 mg IVP DAILY [facility] Last Admin: 12/20/22 09:01 Dose: 40 mg Physical exam: Patient is sitting up in the bed comfortably, no acute distress, awake alert and oriented.. Obese HEENT: Normocephalic. Neck is supple. Pupils reactive. Nostrils clear. Oral cavity is moist. Neck reveals no JVD, carotid bruits, or thyromegaly. CHEST EXAMINATION: Trachea is central. Symmetrical expansion. Bibasilar diminished sounds.. CARDIAC: Normal S1, S2 with no gallops. No murmurs ABDOMEN: Soft. Bowel sounds present. Mild lower abdominal tenderness no guarding or rigidity and reports some improvement on tenderness. No organomegaly. No abdominal bruits. Extremities: reveal 2+ edema. No clubbing or cyanosis Neurologically awake, alert, oriented x3 with well-coordinated movements. No focal deficits noted, diffusely weak Skin: No rash or skin lesions. Psychiatric: Cooperative. Nonsuicidal Musculoskeletal: No joint swelling or deformity. Normal range of motion. Assessment: Abdominal pain with CT findings of possible colouterine fistula although barium enema displayed no communication and no fistula and radiologist recommending direct visualization. Elevated tumor markers CEA and CA125 with enlarging uterus Leukocytosis Retroperitoneal lymphadenopathy. Metastatic disease cannot be excluded. Acute kidney injury likely prerenal Hypovolemic hyponatremia Diabetes type 2 insulin-dependent Normocytic anemia with hemoglobin 9.8 Hypothyroidism Obesity with a BMI of 39.9 Generalized weakness with gait dysfunction Asthma not in exacerbation Chronic bilateral lower extremity swelling, DVT ruled out Constipation GI and DVT prophylaxis Full code Plan: Patient will be continued on antibiotics in the form of Levaquin and Flagyl. General surgery evaluating the patient recommending to continue with antibiotics and no plans for surgical intervention at this time Patient was seen by [facility] DIRECTOR recommending oncological gynecology services as we do not have to see her and oncology following also recommending transfer to tertiary treatment center. Patient has been accepted at [facility] by Dr. Quintana and currently awaiting a bed assignment. Transfer team was contacted again with no bed available although there are some discharges scheduled for today. Transfer team will notify unit once a bed is available for transfer and to give report to the nursing staff. Barium enema showed no evidence of fistula. Direct visualization recommended. Patient was unable to tolerate the bowel prep and refusing colonoscopy at this time. Gen. surgery agreeing with oncology recommending gynecology oncology transfer. Patient was maintained on clear liquids and having some improvement in abdominal pain and general surgery recommending slowly advancing diet and monitor closely for tolerance or increased abdominal pain. Will follow-up with repeat labs in the a.m. The impression and plan of care has been dictated by Gaviota Crabtree, Nurse Practitioner as directed. Dr. Sammy MD I have performed a history and examination and MDM of this patient, discussed the same with the dictator, and agree with the dictator's assessment and plan as written ,documented as a scribe. Based on total visit time, I have performed more than 50% of the visit. Objective - Vital Signs Vital signs: Vital Signs Temp 97.9 F 12/20/22 07:02 Pulse 76 12/20/22 07:02 Resp 16 12/20/22 07:02 BP 155/73 12/20/22 07:02 Pulse Ox 96 12/20/22 08:12 FiO2 Intake & Output 12/19/22 12/20/22 12/20/22 18:59 06:59 18:59 Intake Total 100 Output Total 650 200 350 Balance -650 -100 -350 Weight 122.47 kg Intake: Oral 100 Output: Urine 650 200 350 Other: Voiding Method External Catheter External Catheter - Labs CBC & Chem 7: 12/20/22 05:54 12/20/22 05:54 Labs: Abnormal Lab Results - Last 24 Hours (Table) 12/19/22 12/19/22 12/19/22 Range/Units 11:18 17:16 19:58 WBC (4.50-10.00) X 10*3/uL RBC (4.10-5.20) X 10*6/uL Hgb (12.0-15.0) g/dL Hct (37.2-46.3) % MCV (80.0-97.0) fL MCHC (32.0-37.0) g/dL RDW (11.5-14.5) % Plt Count (140-440) X 10*3/uL Immature Gran # (0.00-0.04) X 10*3/uL Neutrophils # (1.80-7.70) X 10*3/uL Monocytes # (0.20-1.00) X 10*3/uL Eosinophils # (0.04-0.35) X 10*3/uL Basophils # (0.00-0.10) X 10*3/uL Anion Gap (10.00-18.00) mmol/L Est GFR (CKD-EPI)AfAm (60.0-200.0) Est GFR (CKD-EPI)NonAf (60.0-200.0) Glucose (70-110) mg/dL POC Glucose (mg/dL) 143 H 164 H 139 H (70-110) mg/dL Calcium (8.7-10.3) mg/dL 12/20/22 12/20/22 12/20/22 Range/Units 05:54 05:54 07:00 WBC 23.69 H (4.50-10.00) X 10*3/uL RBC 2.99 L (4.10-5.20) X 10*6/uL Hgb 8.8 L (12.0-15.0) g/dL Hct 29.7 L (37.2-46.3) % MCV 99.3 H (80.0-97.0) fL MCHC 29.6 L (32.0-37.0) g/dL RDW 17.2 H (11.5-14.5) % Plt Count 695 H (140-440) X 10*3/uL Immature Gran # 0.71 H (0.00-0.04) X 10*3/uL Neutrophils # 18.78 H (1.80-7.70) X 10*3/uL Monocytes # 1.63 H (0.20-1.00) X 10*3/uL Eosinophils # 0.87 H (0.04-0.35) X 10*3/uL Basophils # 0.17 H (0.00-0.10) X 10*3/uL Anion Gap 9.20 L (10.00-18.00) mmol/L Est GFR (CKD-EPI)AfAm 48.4 L (60.0-200.0) Est GFR (CKD-EPI)NonAf 41.7 L (60.0-200.0) Glucose 112 H (70-110) mg/dL POC Glucose (mg/dL) 127 H (70-110) mg/dL Calcium 10.4 H (8.7-10.3) mg/dL
[2022-12-20 17:15] LABS: Glucose,Whole Blood 123 mg/dL (70-110)
[2022-12-20 20:39] LABS: Glucose,Whole Blood 159 mg/dL (70-110)
[2022-12-20] MEDS: ONDANSETRON 4 MG/2 ML VIAL IVP PRN (21:16)
[2022-12-21] MEDS: HYDROmorphone 0.5 MG/0.5 ML SYRINGE IVP PRN ×6 (01:21→21:00)
[2022-12-21] MEDS: HEPARIN SODIUM,PORCINE/PF 5,000 UNIT/0.5 ML SYRINGE SQ SCH ×4 (01:21→21:00)
[2022-12-21] MEDS: LACTATED RINGERS 1,000 ML IV SCH (04:53)
[2022-12-21] MEDS: LEVOTHYROXINE 75 MCG TAB PO SCH (04:53)
[2022-12-21] MEDS: LEVOFLOXACIN 250MG-D5W PMX 250 MG in DEXTROSE/WATER 1 50ML.BAG IVPB SCH (04:53)
[2022-12-21 07:23] LABS: Glucose,Whole Blood 140 mg/dL (70-110)
[2022-12-21] MEDS: INSULIN ASPART (NovoLOG) 100 UNIT/ML VIAL SQ SCH ×7 (07:38→21:01)
[2022-12-21] MEDS: SYMBICORT 160-4.5 MCG INHALER INHALATION SCH ×2 (07:49→18:18)
[2022-12-21 08:28] LABS: Anisocytosis Slight; Basophils # (A) 0.1 k/uL (0-0.2); Basophils % (A) 0 %; Eosinophils # (A) 0.8 k/uL (0-0.7); Eosinophils % (A) 4 %; HCT 30.4 % (34.0-46.0); HGB 9.3 gm/dL (11.4-16.0); Hypochromasia Slight; Lymphocytes # (A) 1.1 k/uL (1.0-4.8); Lymphocytes % (A) 5 %; MCHC 30.7 g/dL (31.0-37.0); MCV 97.5 fL (80.0-100.0); Macrocytosis Slight; Monocytes # (A) 1.1 k/uL (0-1.0); Monocytes % (A) 5 %; Neutrophils # (A) 17.1 k/uL (1.3-7.7); Neutrophils % (A) 84 %; Platelet Count 662 k/uL (150-450); RBC 3.11 m/uL (3.80-5.40); RDW 16.1 % (11.5-15.5); WBC 20.3 k/uL (3.8-10.6)
[2022-12-21] MEDS: hydrALAZINE HCL 50 MG TAB PO SCH ×2 (09:22→21:01)
[2022-12-21] MEDS: amLODIPine 5 MG TAB PO SCH (09:22)
[2022-12-21] MEDS: METOPROLOL SUCCINATE (ER) 25 MG TAB.ER.24H PO SCH (09:22)
[2022-12-21] MEDS: PANTOPRAZOLE 40 MG/10 ML VIAL IVP SCH (09:22)
[2022-12-21] MEDS: allopurinoL 300 MG TAB PO SCH (09:22)
[2022-12-21] MEDS: DOCUSATE 100 MG CAP PO SCH (09:22)
[2022-12-21 11:27] LABS: Glucose,Whole Blood 172 mg/dL (70-110)
[2022-12-21] MEDS: ONDANSETRON 4 MG/2 ML VIAL IVP PRN (12:14)
--- NOTE | 2022-12-21 13:24 | P.PN ---
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 Barium enema has showed no fistulous track identify corresponding to previous CT. Direct visualization is recommended. No evidence of obstructing or constricting lesion. Patient continues to refuse colonoscopy. Patient awaiting transfer to [facility] for evaluation by SAFETY REPRESENTATIVE onc services. She does complain of lower pelvic abdominal pain. She reports no change in her pain. She is having flatus. She is tolerating regular diet. Afebrile. WBC is 20.3 Patient seen and examined with Dr. Flores PHYSICAL EXAM: VITAL SIGNS: Reviewed GENERAL: Well-developed in no acute distress. HEENT: No sclera icterus. Extraocular movements grossly intact. Moist buccal mucosa. ABDOMEN: Soft. Nondistended. ASSESSMENT: 1. Abnormal CT for Colouterine fistula. Barium enema showed no evidence of fistula recommended direct visualization. 2. Leukocytosis 3. Acute kidney injury 4. Diabetes mellitus 5. History of asthma and COPD 6. Elevated CA-125 and CEA tumor marker PLAN: -Patient continues to refuse colonoscopy -Awaiting transfer to [facility] for evaluation by SAFETY REPRESENTATIVE onc when bed available -Continue antibiotics -Continue regular diet Physician Supervisor [employer] note has been reviewed by physician. Signing provider agrees with the documented findings, assessment, and plan of care. Objective - Vital Signs Vital signs: Vital Signs Temp 98.4 F 12/21/22 12:35 Pulse 79 12/21/22 12:35 Resp 18 12/21/22 12:35 BP 129/66 12/21/22 12:35 Pulse Ox 96 12/21/22 12:35 FiO2 Intake & Output 12/20/22 12/21/22 12/21/22 18:59 06:59 18:59 Intake Total 118 120 Output Total 1500 350 Balance -1500 -232 120 Intake: Oral 118 120 Output: Urine 1500 350 Other: Voiding Method External Catheter External Catheter External Catheter # Voids 1 - Labs CBC & Chem 7: 12/21/22 07:31 12/20/22 05:54 Labs: Abnormal Lab Results - Last 24 Hours (Table) 12/20/22 12/20/22 12/21/22 Range/Units 17:14 20:35 07:22 WBC (3.8-10.6) k/uL RBC (3.80-5.40) m/uL Hgb (11.4-16.0) gm/dL Hct (34.0-46.0) % MCHC (31.0-37.0) g/dL RDW (11.5-15.5) % Plt Count (150-450) k/uL Neutrophils # (1.3-7.7) k/uL Monocytes # (0-1.0) k/uL Eosinophils # (0-0.7) k/uL POC Glucose (mg/dL) 123 H 159 H 140 H (70-110) mg/dL 12/21/22 12/21/22 Range/Units 07:31 11:26 WBC 20.3 H (3.8-10.6) k/uL RBC 3.11 L (3.80-5.40) m/uL Hgb 9.3 L (11.4-16.0) gm/dL Hct 30.4 L (34.0-46.0) % MCHC 30.7 L (31.0-37.0) g/dL RDW 16.1 H (11.5-15.5) % Plt Count 662 H (150-450) k/uL Neutrophils # 17.1 H (1.3-7.7) k/uL Monocytes # 1.1 H (0-1.0) k/uL Eosinophils # 0.8 H (0-0.7) k/uL POC Glucose (mg/dL) 172 H (70-110) mg/dL
[2022-12-21] MEDS: metroNIDAZOLE-NS PMX 500 MG in SALINE 1 100ML.BAG IVPB SCH ×2 (15:32→23:44)
[2022-12-21 17:05] LABS: Glucose,Whole Blood 148 mg/dL (70-110)
[2022-12-21 20:27] LABS: Glucose,Whole Blood 163 mg/dL (70-110)
--- NOTE | 2022-12-21 20:53 | P.PN ---
Subjective Progress Note Date: 12/21/22 Patient is a 67-year-old female with a long history of hypertension, hyperlipidemia, diabetes type 2 insulin-dependent, hypothyroidism, asthma and prior history of smoking presents to ER with complaints of abdominal pain and low back pain for the past 1 month. Patient states that she has been having is sues with constipation and when she does take medications for it which is causing diarrhea. She has been having decreased appetite and weight loss. She has been having intermittent night sweats. Currently denies any nausea or vomiting. Patient reports that she did have yellowish vaginal discharge. She does have chronic lower extremity edema and does take diuretics every [address] of the abdomen pelvis showed intrauterine gas extending to the right cornual serosa. This nonspecific finding may be related to endometritis, recent intrauterine instrumentation, colouterine fistula or necrotic mass. Nonspecific retroperitoneal adenopathy may be related to metastatic disease lymphoproliferative process. Laboratory data showed WBC 18.8 hemoglobin 9.8 and platelets 336 Sodium 135 potassium 4.5 chloride 100 bicarb is 22 BUN 29 creatinine 1.98 Alk phos 205 Urinalysis showed cloudy with small blood nitrite negative large leukocyte esterase with greater than 182 WBCs. 12/14/2022 Patient is still complaining of lower abdominal pain. Denied any nausea or vomiting. Seen by general surgery and is planning for colonoscopy on Sunday. Otherwise patient is on antibiotics of Levaquin and Flagyl. General surgery is on board. INPATIENT NURSING AIDE service was consulted regarding fistula. No complaints of fever or chills. Laboratory data showed WBC 19.6 and hemoglobin 8.6 and platelets 711 BUN 20.8 and creatinine 1.8 and blood sugar is 84. 12/15/2022 Patient is currently sitting in the recliner today. Awake alert and orient x3. No complaints of chest pain or shortness of breath. Patient is on 2 L oxygen via nasal cannula and saturating at 96%. Otherwise still complaining of lower abdominal pain. Able to pass flatus. No complaints of chest pain or shortness of breath. Laboratory showed WBC count worsening to 22.3 hemoglobin 8.9 and platelets 707 BUN 18.2 and creatinine 1.7 otherwise TSH level is 8.24 and free T4 level is 1.050 within normal limits. General surgery is planning for colonoscopy on Sunday. Patient is hesitant to go for colonoscopy. Barium enema was ordered to evaluate colonic fistula. CT abdomen pelvis with oral contrast showed air within the uterine lumen with gas tracking right laterally towards the sigmoid. 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 No organizing fluid collection. Retroperitoneal lymphadenopathy compatible with metastatic disease. Hepatic nodular contour suggestive of cirrhosis. Layering biliary debris's. 12/16/2022 Patient is currently sitting in the chair. Awake alert and oriented x3. Still complains of lower abdominal pain. Patient has been afebrile. Currently on 2 L via nasal cannula. Breathing status has been fairly stable. Patient is hesitant to go for colonoscopy Barium enema done yesterday showed no fistulous tract identified corresponding to previous CT. Direct visualization is recommended. No evidence of obstructing or constricting lesion. Sigmoid diverticulosis. Laboratory showed WBC 21.0 hemoglobin 8.4 and platelets 699 BUN 16.7 creatinine 1.7 CA125 50.3 and CEA 7.8. Alpha-fetoprotein less than 1.82. 12/17/2022 Patient is currently lying in the bed. Awake alert oriented x3. She complains of lower abdominal discomfort and complains of nausea unable to tolerate oral diet very well. General surgery recommends colonoscopy but patient is hesitant to do so. Oncology was consulted due to elevated tumor markers. Patient will need to be evaluated by INPATIENT NURSING AIDE oncology for possible malignancy. Continued on antibiotics Levaquin and Flagyl. Laboratory reviewed. 12/18/2022 Patient is seen and evaluated in follow-up today with general surgery and oncology following. Patient was evaluated by gynecology recommending gynecology with oncological services and no further workup from her perspective. Tumor markers are elevated and oncology following and have discussed following up with oncology gynecology for further evaluation. Gen. surgery following recommending colonoscopy although patient is unable to tolerate the prep refusing further colonoscopy. Patient did have a barium Enema done after CT abdomen that was not suggestive of fistula recommending direct association. Gen. surgery following with no plans for surgical intervention at this time. Recommending to continue with antibiotics as patient does continue to have leukocytosis. Patient discussed with oncology about following up outpatient. Will discuss further with oncology team if requiring transfer as we do not have gynecology/oncological services here. Patient is currently afebrile reports extreme weakness and recommend PT/OT therapy evaluation. Will discuss with case management about possible ECF as well as patient is significantly week reporting she is unable to walk. Patient reports she was independent prior to this. 12/20/2022 Patient Is seen this morning in follow-up and continues to wait for a bed at [facility]. Patient has been accepted although waiting for a bed on surgical unit. Patient is afebrile continues with elevated white count that is trending up and maintained on antibiotics in the form of Levaquin and Flagyl. Patient had been on clear liquids and tolerating because she had abdominal pain with general surgery following an requesting in addition to her diet. Diet is being advanced slowly as tolerated as patient reports she is hungry. Oncology following as well and continues to recommend transfer to tertiary treatment center. Currently awaiting a bed. Patient denies chest pain, palpitations, or shortness of breath. Patient chronically wears 2 L O2 and is maintaining oxygen saturations above 90% on 2 liters. 12/21/2022 Patient is seen in follow-up today continues to await a bed at [facility] in [place] on the surgical unit and there are no beds available again today. There are at least 9 holds within their hospital awaiting a bed on that unit. Transfer team was contacted again and will notify us on the unit once a bed is available. Blood testing was negative and was sent to the transfer team at [facility]. Patient is maintained on IV Flagyl along with Levaquin and will continue patient does have elevated white blood count. Gen. surgery following patient continues to refuse colonoscopy and patient does report some diffuse abdominal pain and continued vaginal discharge. Patient remains afebrile with no worsening abdominal pain. Patient is maintaining a soft diet she reports she is tolerating this. Review of systems: Constitutional: No reports of fatigue, fever, or chills Cardiovascular: No reports of chest pain or palpitations Respiratory: No reports of shortness of breath or cough GI: No reports of nausea, vomiting, or diarrhea, reports some improvement in abdominal pain : No reports of dysuria or retention Neurovascular: reports of generalized weakness All medications have been reviewed Active Medications Acetaminophen (Acetaminophen Tab 325 Mg Tab) 650 mg PO Q6HR PRN PRN Reason: Mild Pain or Fever > 100.5 Al Hydroxide/Mg Hydroxide (Mag Hydrox/Al Hydrox/Simeth 30 Ml Cup) 30 ml PO Q4HR PRN PRN Reason: GI Upset Last Admin: 12/16/22 10:22 Dose: 30 ml Allopurinol (Allopurinol 300 Mg Tab) [address] [facility] Last Admin: 12/21/22 09:22 Dose: 300 mg Amlodipine Besylate (Amlodipine 5 Mg Tab) [address] [facility] Last Admin: 12/21/22 09:22 Dose: 5 mg Budesonide/Formoterol Fumarate (Symbicort 160-4.5 Mcg Inhaler) 2 puff INHALATION RT-BID [facility] Last Admin: 12/21/22 18:18 Dose: 2 puff Dextrose/Water (Dextrose 50% Syringe 50 Ml) 25 ml IVP PER PROTOCOL PRN; Protocol PRN Reason: Hypoglycemia Dextrose/Water (Dextrose 50% Syringe 50 Ml) 50 ml IVP PER PROTOCOL PRN; Protocol PRN Reason: Hypoglycemia Docusate Sodium (Docusate 100 Mg Cap) [address] [facility] Last Admin: 12/21/22 09:22 Dose: 100 mg Furosemide (Furosemide 40 Mg Tab) [address] [facility] Heparin Sodium (Porcine) (Heparin Sodium,Porcine/Pf 5,000 Unit/0.5 Ml Syringe) 5,[address] [facility] Last Admin: 12/21/22 15:32 Dose: 5,000 unit Hydralazine HCl (Hydralazine Hcl 50 Mg Tab) [address] [facility] Last Admin: 12/21/22 09:22 Dose: 50 mg Hydromorphone HCl (Hydromorphone 0.5 Mg/0.5 Ml Syringe) 0.5 mg IVP Q3HR PRN PRN Reason: Moderate Pain (Scale 4 to 6) Last Admin: 12/21/22 17:59 Dose: 0.5 mg Levofloxacin/Dextrose 250 mg/ (IV Solution) 50 mls @ 50 mls/hr IVPB Q24H [facility] Last Admin: 12/21/22 04:53 Dose: 50 mls/hr Lactated Ringer's (Lactated Ringers) 1,000 mls @ 20 mls/hr IV .Q24H [facility] Last Admin: 12/21/22 04:53 Dose: 20 mls/hr Metronidazole 500 mg/ IV (Solution) 100 mls @ 100 mls/hr IVPB Q8HR [facility]; Protocol Last Admin: 12/21/22 15:32 Dose: 100 mls/hr Insulin Aspart (Insulin Aspart (Novolog) 100 Unit/Ml Vial) [address] [facility]; Protocol Last Admin: 12/21/22 17:09 Dose: Not Given Insulin Aspart (Insulin Aspart (Novolog) 100 Unit/Ml Vial) 10 unit SQ AC-TID [facility] Last Admin: 12/21/22 17:09 Dose: Not Given Levothyroxine Sodium (Levothyroxine 75 Mcg Tab) 75 mcg PO DAILY@0630 [facility] Last Admin: 12/21/22 04:53 Dose: 75 mcg Metoprolol Succinate (Metoprolol Succinate (Er) 25 Mg Tab.Er.24h) [address] [facility] Last Admin: 12/21/22 09:22 Dose: 25 mg Naloxone HCl (Naloxone 0.4 Mg/Ml 1 Ml Vial) 0.2 mg IV Q2M PRN PRN Reason: Opioid Reversal Ondansetron HCl (Ondansetron 4 Mg/2 Ml Vial) 4 mg IVP Q6HR PRN PRN Reason: Nausea And Vomiting Last Admin: 12/21/22 12:14 Dose: 4 mg Pantoprazole Sodium (Pantoprazole 40 Mg/10 Ml Vial) [address] [facility] Last Admin: 12/21/22 09:22 Dose: 40 mg Physical exam: Patient is sitting up in the bed comfortably, no acute distress, awake alert and oriented.. Obese HEENT: Normocephalic. Neck is supple. Pupils reactive. Nostrils clear. Oral cavity is moist. Neck reveals no JVD, carotid bruits, or thyromegaly. CHEST EXAMINATION: Trachea is central. Symmetrical expansion. Bibasilar diminished sounds.. CARDIAC: Normal S1, S2 with no gallops. No murmurs ABDOMEN: Soft. Bowel sounds present. Mild lower abdominal tenderness no guarding or rigidity and reports some improvement on tenderness. No organomegaly. No abdominal bruits. Extremities: reveal 2+ edema. No clubbing or cyanosis Neurologically awake, alert, oriented x3 with well-coordinated movements. No focal deficits noted, diffusely weak Skin: No rash or skin lesions. Psychiatric: Cooperative. Nonsuicidal Musculoskeletal: No joint swelling or deformity. Normal range of motion. Assessment: Abdominal pain with CT findings of possible colouterine fistula although barium enema displayed no communication and no fistula and radiologist recommending direct visualization. Elevated tumor markers CEA and CA125 with enlarging uterus Leukocytosis Retroperitoneal lymphadenopathy. Metastatic disease cannot be excluded. Acute kidney injury likely prerenal Hypovolemic hyponatremia Diabetes type 2 insulin-dependent Normocytic anemia with hemoglobin 9.8 Hypothyroidism Obesity with a BMI of 39.9 Generalized weakness with gait dysfunction Asthma not in exacerbation Chronic bilateral lower extremity swelling, DVT ruled out Constipation GI and DVT prophylaxis Full code Plan: Patient will be continued on antibiotics in the form of Levaquin and Flagyl. General surgery evaluating the patient recommending to continue with antibiotics and no plans for surgical intervention at this time Patient was seen by [facility] recommending oncological gynecology services as we do not have to see her and oncology following also recommending transfer to [facility]. Patient has been accepted at [facility] by Dr. Quintana and currently awaiting a bed assignment. Transfer team was contacted again this morning with no bed available. Transfer team will notify unit once a bed is available for transfer and to give report to the nursing staff. Barium enema showed no evidence of fistula. Direct visualization recommended. Patient was unable to tolerate the bowel prep and refusing colonoscopy at this time. Gen. surgery agreeing with oncology recommending gynecology oncology transfer. Patient is tolerating advanced diet and maintained on regular diet and will continue to monitor closely for any worsening abdominal pain Will follow-up with repeat labs in the a.m. The impression and plan of care has been dictated by Gaviota Crabtree, Nurse Practitioner as directed. Dr. Sammy MD I have performed a history and examination and MDM of this patient, discussed the same with the dictator, and agree with the dictator's assessment and plan as written ,documented as a scribe. Based on total visit time, I have performed more than 50% of the visit. Objective - Vital Signs Vital signs: Vital Signs Temp 97.5 F L 12/21/22 07:15 Pulse 79 12/21/22 07:15 Resp 18 12/21/22 07:15 BP 155/72 12/21/22 07:15 Pulse Ox 95 12/21/22 07:49 FiO2 Intake & Output 12/20/22 12/21/22 12/21/22 18:59 06:59 18:59 Intake Total 118 120 Output Total 1500 350 Balance -1500 -232 120 Intake: Oral 118 120 Output: Urine 1500 350 Other: Voiding Method External Catheter External Catheter # Voids 1 - Labs CBC & Chem 7: 12/21/22 07:31 12/20/22 05:54 Labs: Abnormal Lab Results - Last 24 Hours (Table) 12/20/22 12/20/22 12/20/22 Range/Units 11:17 17:14 20:35 WBC (3.8-10.6) k/uL RBC (3.80-5.40) m/uL Hgb (11.4-16.0) gm/dL Hct (34.0-46.0) % MCHC (31.0-37.0) g/dL RDW (11.5-15.5) % Plt Count (150-450) k/uL Neutrophils # (1.3-7.7) k/uL Monocytes # (0-1.0) k/uL Eosinophils # (0-0.7) k/uL POC Glucose (mg/dL) 145 H 123 H 159 H (70-110) mg/dL 12/21/22 12/21/22 Range/Units 07:22 07:31 WBC 20.3 H (3.8-10.6) k/uL RBC 3.11 L (3.80-5.40) m/uL Hgb 9.3 L (11.4-16.0) gm/dL Hct 30.4 L (34.0-46.0) % MCHC 30.7 L (31.0-37.0) g/dL RDW 16.1 H (11.5-15.5) % Plt Count 662 H (150-450) k/uL Neutrophils # 17.1 H (1.3-7.7) k/uL Monocytes # 1.1 H (0-1.0) k/uL Eosinophils # 0.8 H (0-0.7) k/uL POC Glucose (mg/dL) 140 H (70-110) mg/dL
[2022-12-22] MEDS: HYDROmorphone 0.5 MG/0.5 ML SYRINGE IVP PRN (01:11)
[2022-12-22 02:00] VITALS: BP 126/62; PULSE 77; RESP 16; TEMP 98.5
[2022-12-22] MEDS ORDERED: FUROSEMIDE 40 MG TAB PO SCH (09:00)
--- NOTE | 2022-12-22 12:26 | P.DS ---
Providers Date of admission: 12/13/22 02:37 Expected date of discharge: 12/22/22 Attending physician: Sebastien Joel Consults: 12/13/22 02:35 Consult Physician Routine Consulting Provider: Rosendo Flores Consult Reason/Comments: Necrotic mass Do you want consulting provider notified?: Yes 12/13/22 02:38 Consult Physician Routine Consulting Provider: Elizabeth Muñoz Consult Reason/Comments: INTRAUTERINE GAS, NECROTIC MASS Do you want consulting provider notified?: Yes, Notify in am 12/14/22 11:53 Consult Physician Routine Consulting Provider: Dami Valdes Consult Reason/Comments: pulmonary clearance for surgery, Hx COPD Do you want consulting provider notified?: Yes 12/18/22 00:49 Consult Physician Routine Consulting Provider: Hector Rogers Consult Reason/Comments: Elevated tumor markers CEA and CA125 Do you want consulting provider notified?: Yes, Notify in am Primary care physician: [facility] Course: Final diagnosis Abdominal pain with abnormal CT findings of 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 Elevated tumor markers CEA and CA125 with enlarging uterus, concerns for uterine cancer Leukocytosis Chronic hypoxemic respiratory failure with obesity hypoventilation syndrome suspected sleep apnea, does not use sleep apnea machine History of chronic diastolic congestive heart failure, not in exacerbation Possible acute urinary tract infection, present on admission., Cultures currently pending Retroperitoneal lymphadenopathy. Metastatic disease cannot be excluded. Acute kidney injury likely prerenal, improving GERD Hypovolemic hyponatremia Diabetes type 2 insulin-dependent Normocytic anemia with hemoglobin 9.8 Hypothyroidism Obesity with a BMI of 39.9 Generalized weakness with gait dysfunction History of COPD, not in exacerbation Chronic bilateral lower extremity swelling, DVT ruled out History of chronic bronchial asthma, mild intermittent Constipation GI and DVT prophylaxis Full code Discharge disposition Patient is being transferred in a stable condition with guarded prognosis to [facility]. Patient going to tertiary treatment center for gynecological/oncological services for further evaluation. Patient has been accepted by Dr. Quintana at [facility] and currently awaiting a bed assignment. Patient will follow-up with pcp in the outpatient setting upon discharge. Total time taken is greater than 35 minutes. Hospital course This is a 67-year-old female who was recently admitted with abdominal pain initial CT showing concerns for a colo-uterine fistula and patient underwent barium enema showing no fistulous track identifiable that would correspond with the CT. Patient is maintained on IV antibiotics in the form of Levaquin and Flagyl as patient continues to have leukocytosis. Patient also had elevated CEA and CA125 markers with concerns for metastatic disease and patient does have enlarging uterus with concerns for possible uterine cancer there are some of retroperitoneal lymphadenopathy noted that cannot exclude metastatic disease. Patient also reports to having an infection with concerns of possible UTI and currently cultures are pending. Blood cultures remain negative. Oncology and surgery services following as patient is unable to tolerate the bowel prep to undergo colonoscopy and further refusing colonoscopy recommending transfer to tertiary treatment center as patient was evaluated by gynecology here and we do not have gynecology/oncological services here. Recommending transfer to [facility] for further evaluation. Patient is agreeable to this transfer. Patient has been accepted by Dr. Quintana out of [facility] and current ly awaiting a bed assignment. Transfer team will notify the unit once a bed is available. Covid testing was ordered and currently pending at this time. Currently no reports of chest pain, shortness of breath, or palpitations. Patient is afebrile. No reports of nausea or vomiting and patient is tolerating diet. Patient continues to report lower abdominal pain on exam. Patient will be transferred to [facility] once a bed is available. 12/22/2022 Primary for transfer team notified that there was a bed available and update was given to the provider and will be transported via EMS to [facility] under surgical unit. Patient informed nursing staff she will notify her daughter in the a.m. of her transfer. Physical exam: Gen: This is a 67-year-old female who is awake, alert and oriented 3, well- developed, well-nourished, obese HEENT: Head is atraumatic, normocephalic. Pupils equal, round. Sclerae is anicteric. NECK: Supple. No JVD. No lymphadenopathy. No thyromegaly. LUNGS: Diminished breath sounds bilaterally with some scattered rhonchi noted. No intercostal retractions. HEART: Regular rate and rhythm. No murmur. ABDOMEN: Soft. Tenderness noted on left and right lower quadrants on palpation, obese. Bowel sounds are present. No masses. EXTREMITIES: Chronic lower extremity edema. No calf tenderness. NEUROLOGICAL: Patient is awake, alert and oriented x3. Cranial nerves 2 through 12 are grossly intact. Generally weak Please refer to medication reconciliation sheet for a list of medications. The impression and plan of care has been dictated by Gaviota Crabtree, Nurse Practitioner as directed. Dr. Sammy MD I have performed a history and examination and MDM of this patient, discussed the same with the dictator, and agree with the dictator's assessment and plan as written ,documented as a scribe. Based on total visit time, I have performed more than 50% of the visit. Patient Condition at Discharge: Stable Plan - Discharge Summary Discharge Rx Participant: No New Discharge Prescriptions: No Action allopurinoL [Zyloprim] 300 mg PO DAILY Budesonide/Formoterol Fumarate [Symbicort 160-4.5 Mcg Inhaler] 2 puff INHALATION RT-BID Aspirin EC [Ecotrin] 325 mg PO DAILY Metoprolol Succinate (ER) [Toprol XL] 25 mg PO DAILY #30 tab.er.24h amLODIPine [Norvasc] 5 mg PO DAILY Furosemide [Lasix] 40 mg PO Q48H Levothyroxine Sodium [Synthroid] 75 mcg PO DAILY Ergocalciferol (Vitamin D2) [Drisdol (50,000 Iu)] 1,250 mcg PO TH Docusate [Colace] 100 mg PO DAILY Insulin Aspart [Insulin Aspart Flexpen] 10 unit SQ AC-TID hydrALAZINE HCL [Apresoline] 50 mg PO BID Discharge Medication List Aspirin EC [Ecotrin] 325 mg PO DAILY 05/16/19 [History] Budesonide/Formoterol Fumarate [Symbicort 160-4.5 Mcg Inhaler] 2 puff INHALATION RT-BID 05/16/19 [History] allopurinoL [Zyloprim] 300 mg PO DAILY 05/16/19 [History] Metoprolol Succinate (ER) [Toprol XL] 25 mg PO DAILY #30 tab.er.24h 05/21/19 [Rx] Docusate [Colace] 100 mg PO DAILY 11/11/20 [History] Ergocalciferol (Vitamin D2) [Drisdol (50,000 Iu)] 1,250 mcg PO TH 11/11/20 [History] Furosemide [Lasix] 40 mg PO Q48H 11/11/20 [History] Levothyroxine Sodium [Synthroid] 75 mcg PO DAILY 11/11/20 [History] amLODIPine [Norvasc] 5 mg PO DAILY 11/11/20 [History] Insulin Aspart [Insulin Aspart Flexpen] 10 unit SQ AC-TID 12/13/22 [History] hydrALAZINE HCL [Apresoline] 50 mg PO BID 12/13/22 [History] Follow up Appointment(s)/Referral(s): Sanket Severino MD [Primary Care Provider] - 1-2 days Activity/Diet/Wound Care/Special Instructions: Dr. Paco Florez Referral-Cash Person onc Discharge Disposition: OTHER INSTITUTION NOT DEFINED
== END 2022-12-22 03:33 | disposition short-term general hospital (02) | DRG 755 ==
LOC: EC 00:16 → 5NMEDONC 02:37 → 4SSUR 16:45 → 5NMEDONC 12-18 17:01
PROVIDERS: ADMIT Internal Medicine; ATTEND Internal Medicine
DX: C55 Malignant neoplasm of uterus, part unspecified (principal); E66.2 Morbid (severe) obesity with alveolar hypoventilation; J96.11 Chronic respiratory failure with hypoxia; E87.1 Hypo-osmolality and hyponatremia; I50.32 Chronic diastolic (congestive) heart failure; J96.12 Chronic respiratory failure with hypercapnia; N17.9 Acute kidney failure, unspecified; Z68.39 Body mass index [BMI] 39.0-39.9, adult; E03.9 Hypothyroidism, unspecified; E11.9 Type 2 diabetes mellitus without complications; E78.5 Hyperlipidemia, unspecified; E86.1 Hypovolemia; F41.9 Anxiety disorder, unspecified; I11.0 Hypertensive heart disease with heart failure; I25.10 Atherosclerotic heart disease of native coronary artery without angina pectoris; I27.81 Cor pulmonale (chronic); J44.9 Chronic obstructive pulmonary disease, unspecified; Z99.81 Dependence on supplemental oxygen; J45.20 Mild intermittent asthma, uncomplicated; K21.9 Gastro-esophageal reflux disease without esophagitis; Z20.822 Contact with and (suspected) exposure to COVID-19; K59.00 Constipation, unspecified; F40.240 Claustrophobia; M10.9 Gout, unspecified; D72.829 Elevated white blood cell count, unspecified; K57.30 Diverticulosis of large intestine without perforation or abscess without bleeding; N89.8 Other specified noninflammatory disorders of vagina; Z79.51 Long term (current) use of inhaled steroids; Z79.82 Long term (current) use of aspirin; Z79.890 Hormone replacement therapy; Z79.899 Other long term (current) drug therapy; Z82.49 Family history of ischemic heart disease and other diseases of the circulatory system; Z79.4 Long term (current) use of insulin; Z83.3 Family history of diabetes mellitus; Z88.6 Allergy status to analgesic agent; Z88.1 Allergy status to other antibiotic agents; Z88.0 Allergy status to penicillin
CPT/HCPCS: 36415; 71045; 74176; 74270; 76830; 80048; 80053; 81001; 82105; 82150; 82378; 82607; 82747; 83036; 83540; 83550; 83605; 83690; 83735; 83970; 84100; 84145; 84439; 84443; 85025; 85610; 85730; 86304; 87040; 87086; 87635; 93005; 93970; 94060; 94640; 94760; 96361; 96365; 96367; 96375; 99285